=== PATIENT | female | born 1950 | race Caucasian/White ===

== ENCOUNTER 2021-05-02 13:56 | Inpatient (IN) | payer OTHER, SELFPAY ==
--- NOTE | ~2021-05-02 | CT_ITS ---
EXAMINATION: CT HEAD WITHOUT CONTRAST CLINICAL INFORMATION: Psychosis. Evaluate for vascular event. COMPARISON: None TECHNIQUE: Contiguous axial imaging was performed from the skull base to vertex without intravenous administration of contrast. This CT examination was performed using dose optimization techniques as appropriate, variously including the following: *Automated exposure control *Adjustment of mA and/or kV according to patient size (this includes techniques or standardized protocols for targeted exams where dose is matched to indication/reason for exam; i.e. extremities or head) *Use of iterative reconstruction technique DLP: 629 mGy-cm FINDINGS: There is no evidence of acute intracranial hemorrhage or territorial infarction. No abnormal mass effect or midline shift is seen. Hudson to white matter differentiation is well preserved. No extra-axial fluid collections are identified. The ventricles are normal in size. There is no abnormal attenuation within the brain parenchyma. The osseous structures and soft tissues are normal. The mastoid air cells and visualized portions of the paranasal sinuses are well aerated. CT/CT head/brain wo con IMPRESSION: No acute intracranial pathology.
--- NOTE | ~2021-05-02 | NM_ITS ---
EXAMINATION: MA BRAIN SPECT PERFUSION CLINICAL INFORMATION: Recent abrupt cognitive decline. COMPARISON: No previous brain SPECT study is available for comparison. CT of the head dated 05/17/2021 is available for comparison. TECHNIQUE: A brain SPECT acquisition was performed approximately 37 minutes following the intravenous administration of 30 mCi Tc-99m Neurolite. The SPECT images were obtained using a hybrid SPECT/CT scanner acquiring 128 projections of 20 seconds each over 360 degrees using a noncircular orbit and an acquisition matrix of [id number]. Transverse, coronal and sagittal projections and a cine volume were reconstructed. Nondiagnostic CT images were obtained for attenuation correction and localization. FINDINGS: The SPECT images show a diffuse decrease in activity involving the right frontal and parietal cortex. There are no significant abnormalities on the left. The subcortical structures including the basal ganglia and thalamus appear unremarkable. Activity in the occipital lobes appears normal and there is normal and bilaterally symmetrical activity in the cerebellum. MA/MA brain SPECT IMPRESSION: Diffusely decreased perfusion in the right frontal and parietal cerebral cortex is most consistent with a vascular etiology. Although such unilateral findings can be seen in Alzheimer's disease, this unilateral involvement would be atypical. Correlation with a current MRI of the brain is recommended for further evaluation, if not contraindicated.
[2021-05-02 18:00] VITALS: BP 146/66; PULSE 101; RESP 16; TEMP 36.4
--- NOTE | 2021-05-02 19:19 | PC.ADMIT ---
PT is a 71 year old female admitted on a conditional voluntary basis with the diagnosis of generalized anxiety disorder and major depressive disorder. PT arrived via stretch from [facility] at 13:05. PT has been slowly declining over the last year after she retired. [employer] has noticed significant decompensation over the 6 months month, pt is not eating and is said to have lost approximately 37 pounds due to little appetite and not attending to ADLs. PT has been unable manage her medications and often forgets if she has taken it and believes her memory is declining although bedside cognitive testing was relatively normal . PT currently denies SI/HI, AH/VH and feels safe on unit. Unable to sign paperwork due to mental status, will attempt again tomorrow.
[2021-05-02 23:28] VITALS: BP 116/54; PULSE 95; RESP 16
--- NOTE | 2021-05-03 | ECG_ITS ---
Test Reason : preop ect Blood Pressure : / mmHG Vent. Rate : 100 BPM Atrial Rate : 100 BPM P-R Int : 124 ms QRS Dur : 084 ms QT Int : 338 ms P-R-T Axes : 077 064 075 degrees QTc Int : 436 ms Normal sinus rhythm Normal ECG No previous ECGs available Referred By: Jacinto Cochran Electronically Signed By:Obi Briones
[2021-05-03 06:00] VITALS: BP 122/59; PULSE 99
[2021-05-03] MEDS: PARoxetine HCL 10 MG TABLET PO (09:05)
[2021-05-03] MEDS: clonazePAM 0.5 MG TABLET PO (09:05)
--- NOTE | 2021-05-03 10:23 | HO.PSYADMNOT ---
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 Patient reports she has been depressed, she thinks since January. She reports feeling down, not finding enjoyment in things, struggle with sleep, low motivation, little to no appetite, not socializing, not eating and having lost weight; she denies any hx of SI. Pt also reports she notices she's becoming more forgetful. She first realized it this past Spring when she uncovered numerous important paperwork she'd neglected. Pt says she's begun to neglect paying her bills and thinks she probably has not done so since January; she hs stopped driving her car since Jan. getting confused about how to get to familiar places; pt notices that she's having trouble using the computer. Pt is not sure exacxt timeliness of her meds but says she was started on Paxil most recently and also clonazepam, but stopped taking it this fall since she felt it made her feel foggy. Pt denies AVH, SI/HI, drug/alcohol abuse or hx of trauma. Pt endorses much anxiety over making decisions; most recently in choosing a HCP and what to do with will/inheritance Pt A/O x4; 3/3 word memory Past Psychiatric History: pt says psychiatrically admitted to [facility] this past February, though she's not sure why Medical Evaluation Reviewed: Hospitalist Anthony Pending [facility] Medical History (Updated 05/04/21 @ 01:02 by Abhishek Perry MD) MDD (major depressive disorder), recurrent severe, without psychosis Surgical History (Updated 05/03/21 @ 11:55 by Jacinto Cochran MD) H/O exploratory laparotomy H/O: hysterectomy History of lumbar fusion Family History: mother: anxiety father: colon cancer Social History: only child; never , no children college degree; 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; retired a year ago Substance History: denies Trauma History: denies Diagnostics Vital Signs (24Hr): Vital Signs - 24 hr 05/02/21 18:00 05/02/21 23:28 Temperature 97.5 F Pulse Rate 101 H 95 Respiratory Rate 16 16 Blood Pressure 146/66 H 116/54 L Labs Labs: No TSH CBC Wnl Lytes: WNL bun/cr WNL liver WNL UDS: neg U/A Neg Meds/Allergies Meds Home Medications Acetaminophen (Acetaminophen 325 Mg Tablet) 650 mg PO Q6H PRN PRN Reason: Headache/Pain Mild Scale (1-3) Last Admin: 05/03/21 19:30 Dose: 650 mg Documented by: Al Hydroxide/Mg Hydroxide (Magnesium Hydrox/Alum Hydrox 30 Ml Oral.Susp) 30 ml PO Q6H PRN PRN Reason: Heartburn/Nausea Clonazepam (Clonazepam 0.5 Mg Tablet) 0.5 mg PO BID PRN PRN Reason: anxiety Cyanocobalamin (Cyanocobalamin (Vitamin B-12) 100 Mcg Tablet) 100 mcg PO DAILY [facility] Ergocalciferol (Ergocalciferol (Vitamin D2) 1,250 Mcg Capsule) 1,250 mcg PO Q7D [facility] Last Admin: 05/03/21 19:32 Dose: 1,250 mcg Documented by: Folic Acid (Folic Acid 1 Mg Tablet) 1 mg PO DAILY [facility] Stop: 05/06/21 09:01 Magnesium Hydroxide (Milk Of Magnesia 30 Ml Oral.Susp) 30 ml PO DAILY PRN PRN Reason: Constipation Multivitamins/Vitamin C (Multivitamin Tablet) 1 tab PO DAILY [facility] Thiamine HCl (Thiamine Hcl 100 Mg Tablet) 100 mg PO DAILY [facility] Trazodone HCl (Trazodone Hcl 50 Mg Tablet) 50 mg PO BEDTIME PRN PRN Reason: Insomnia Allergies Allergies Allergy/AdvReac Type Severity Reaction Status Date / Time No Known Allergies Allergy Verified 05/02/21 13:17 Mental Status Exam Mental Status Exam Narrative: Pt is alert and oriented; behavior is cooperative; well dressed in casual attire with styled hair and good hygiene; mood is described as depressed and anxious and affect congruent; eye contact appropriate; Speech is a little slow and a little soft; some speech latency; psychomotor retardation present; thought process is goal directed but also somewhat muddled; Thought content mostly on worries about decisions, prevalence of confusion, tx; otherwise pertinent to relevant topics; denies any SI/HI. There is no evidence of perceptual disturbance. Patients insight and judgment are impaired. 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 -pt seems to have begun to experience cognitive decline starting this past Spring 2020. Pt's depression seems to be a combination of reaction to growing awareness of cognitive decline, and going off antidepressants; depression is severe however and will need to be treated -at this point, it's unclear what has caused cognitive decline; it seems to be fairly sudden, however it's also possible that it's been slowly declining for some time, but remained under the radar of her cousin/family/self. -will get TSH w/ reflex, B12/folate, calcium, ammonia PLAN: CV q15 min checks -will consider MRI if one not already obtained -will order labs to r/o possible organic contribution -will reach out to outpt psychiatrist Dr. Galloway -will not restart Paxil at this time since patient dc'd on her own which can cause discontinuation syndrome -discussed meds for depression/anxiety; pt will consider Mirtazpine as he struggles w/ insomnia and poor appetite, but was currently to anxious to make a decision; Paxil reportedly did work in past; pt is interested in Wellbutrin, however she is currently struggling with insomnia which Wellbutrin can aggravate -will make Clonazepam prn -Will try to gather more collateral to asses Reason for continued inpatient stay Substantial Risk for: inability to function
--- NOTE | 2021-05-03 11:45 | PM.IMCN ---
History of Present Illness Data of Consult Service Date: 05/03/21 Primary Care Provider: Bong Brannon MD HPI Reason for consult: Routine Medical + Pre-op eval for ECT This is a 71 yo F who denies any significant PMH. She is admitted to the inpatient psychiatric unit. Patient is seen and examined in her room. She denies any history of CAD, CVA. She denies any chest pain, currently or in the past. Denies any anginal symptoms. Reports she has had several previous surgeries. PMH Denies any PMH PSH Lumbar fusion Hysterectomy Lapratomy -- unclear for what reason, she describes it twisting of my bowels FM CAD in her mother who had CABG in her 70s SH Social drinking, sometimes a glass of wine with dinner Life long non-tobacco user no illicit substance Review of Systems Review of Systems: denies cp or sob denies cough denies abd pain, n/v/d otherwise negative for medical ROS [facility] Family History (Updated 05/03/21 @ 11:54 by Jacinto Cochran MD) Other CAD (coronary artery disease) Surgical History (Updated 05/03/21 @ 11:55 by Jacinto Cochran MD) H/O exploratory laparotomy H/O: hysterectomy History of lumbar fusion Social History Household Members: None Housing: House Do you presently have visiting nurse or other home services: Yes (home health aide) Patient Tobacco Use Status: Never used Tobacco e-Cigarette/Vaping Use: Never Used Use of substances other than those prescribed or required for medical reasons: No Advance Directives: No Advance Directives Information Provided: No Advance Directives on File: No Do you have thoughts of harming others: None Do you have a plan to hurt others: No Plan Recently lost weight without trying: Yes How much weight loss: 34pounds or more Eating poorly because of decreased appetite: Yes Nutrition screen score: 7 Nutrition Risks: Poor intake 0-25% >4 days Patient : No : No Poor oral hygiene: No service: No Sexual orientation: Straight/Heterosexual Meds Allergies Allergy/AdvReac Type Severity Reaction Status Date / Time No Known Allergies Allergy Verified 05/02/21 13:17 Active Medications: Current Medications Acetaminophen (Acetaminophen 325 Mg Tablet) 650 mg PO Q6H PRN PRN Reason: Headache/Pain Mild Scale (1-3) Al Hydroxide/Mg Hydroxide (Magnesium Hydrox/Alum Hydrox 30 Ml Oral.Susp) 30 ml PO Q6H PRN PRN Reason: Heartburn/Nausea Clonazepam (Clonazepam 0.5 Mg Tablet) 0.5 mg PO BID [facility] Last Admin: 05/03/21 09:05 Dose: 0.5 mg Documented by: Hydroxyzine HCl (Hydroxyzine Hcl 25 Mg Tablet) 25 mg PO BEDTIME PRN PRN Reason: Anxiety Magnesium Hydroxide (Milk Of Magnesia 30 Ml Oral.Susp) 30 ml PO DAILY PRN PRN Reason: Constipation Paroxetine HCl (Paroxetine Hcl 10 Mg Tablet) 10 mg PO DAILY [facility] Last Admin: 05/03/21 09:05 Dose: 10 mg Documented by: Trazodone HCl (Trazodone Hcl 50 Mg Tablet) 50 mg PO BEDTIME PRN PRN Reason: Insomnia Physical Exam Vital Signs and Narrative: Vital Signs: Last Vital Signs Temp 97.5 F 05/02/21 18:00 Pulse 95 05/02/21 23:28 Resp 16 05/02/21 23:28 BP 116/54 L 05/02/21 23:28 Const: Other: Constitutional - Awake and Alert, No apparent distress Eyes - PERRLA, EOMI Cardiovascular - S1S2, RRR, No edema Respiratory - Normal lung expansion, Normal respiratory effort, No respiratory distress, CTA bilaterally Gastrointestinal - NT / ND; +BS; No rebound or guarding - No CVA tenderness Extremities - no calf tenderness bilaterally, no swelling Musculoskeletal - Normal inspection, normal ROM Skin - Warm/Dry Neurological - Alert & oriented x3, No focal deficit; CN 2-12 in tact bilaterally Psychological - Flat affect Assessment and Plan (1) Preoperative cardiovascular examination: Status: Acute This is a 71 yo F who reports no significant PMH (and specifically no history of CAD) who is admitted to the inpatient psychiatric unit. Medical consult requested as part of protocol after transfer from an outside facility as well as for pre-op eval for possible ECT. The patient denies any CAD history and denies any anginal symptoms. Do not see an EKG in the transfer papers from [facility]. Have ordered a routine EKG here. If the EKG does not show any ischemic (acute or otherwise) findings, the patient would need no further work up prior to ECT. She is likely low risk. If the EKG does show worrisome findings, please re-consult Hospital Medicine or Cardiology prior to ECT.
[2021-05-03 19:15] VITALS: BP 126/60; PULSE 107; TEMP 36.6
[2021-05-03] MEDS: Acetaminophen 325 MG TABLET 650 MG PO (19:30)
[2021-05-03] MEDS: Ergocalciferol (Vitamin D2) 1,250 MCG CAPSULE 1250 MCG PO (19:32)
[2021-05-04 06:00] VITALS: BP 128/56; PULSE 100; RESP 16; TEMP 36.1; O2SAT 99
[2021-05-04 08:09] LABS: Ammonia 22 umol/L (13-55)
[2021-05-04 08:19] LABS: Calcium 10.2 mg/dL (8.4-10.2); Cholesterol 182 mg/dL; HDL Cholesterol 71 mg/dL; LDL Cholesterol Calculated 93 mg/dl; Triglycerides 91 mg/dL
[2021-05-04 08:38] LABS: TSH reflex Free T4 1.26 uIU/mL (0.32-4.0)
[2021-05-04] MEDS: Thiamine HCL 100 MG TABLET PO (09:09)
[2021-05-04] MEDS: Cyanocobalamin (Vitamin B-12) 100 MCG TABLET PO (09:09)
[2021-05-04] MEDS: Folic Acid 1 MG TABLET PO (09:09)
[2021-05-04] MEDS: Multivitamin TABLET 1 TAB PO (09:09)
[2021-05-04 09:12] LABS: Reflex LDLD? No
[2021-05-04 09:15] LABS: Folate 7.4 ng/mL (> or = 4.0); Vitamin B12 263 pg/mL (200-900)
--- NOTE | 2021-05-04 11:09 | P.PNPSI_ITS ---
Subjective Subjective Date of Service: 05/04/21 Reason For Visit: generalized anxiety disorder major depressive diso Subjective Notes: Mckeon Warning and Conditional Voluntary Medical Problems Affecting Mental Status: No Interim History: pt anxious and worried today. preseverating on not being able to be helped. difficulty accepting reassurance; poor concentration. difficulty engaging pt in proactive problem solving. Medication Compliance: Yes Side effects from medications: Yes (pt worried about side effects) Attending Groups: No Review of Systems Acute medical concerns: No Medical Review of Systems: unchanged Review of Systems: question of onset of new dementia Review of Systems Review of Systems denies cp or sob denies cough denies abd pain, n/v/d otherwise negative for medical ROS + weight loss labs innrmal range including folate, B12 Mental Status Exam Mental Status Exam Narrative: Pt is alert and oriented to plae and situation; behavior is cooperative; well dressed in casual attire with styled hair and good hygiene; mood is described as depressed and anxious and affect congruent; eye contact appropriate; Speech is a little slow and a little soft; some speech latency; psychomotor retardation present; thought process is preseverating and somewhat muddled; Thought content mostly on worries about decisions, prevalence of confusion, tx; otherwise pertinent to relevant topics; denies any SI/HI. There is no evidence of perceptual disturbance. Patients insight and judgment are impaired. Diagnostics Vital Signs (24Hr): Vital Signs - 24 hr 05/03/21 19:15 05/04/21 06:00 Temperature 97.8 F 97 F Pulse Rate 107 H 100 Respiratory Rate 16 Blood Pressure 126/60 128/56 L Pulse Oximetry 99 Labs Labs: Laboratory Results - last 48 hr 05/04/21 05/04/21 05/04/21 07:51 07:51 07:51 Calcium 10.2 Ammonia 22 Triglycerides 91 Cholesterol 182 LDL Cholesterol, Calc 93 HDL Cholesterol 71 Vitamin B12 263 Folate 7.4 TSH 1.26 Medications Medications Current Medications Acetaminophen (Acetaminophen 325 Mg Tablet) 650 mg PO Q6H PRN PRN Reason: Headache/Pain Mild Scale (1-3) Last Admin: 05/03/21 19:30 Dose: 650 mg Documented by: Al Hydroxide/Mg Hydroxide (Magnesium Hydrox/Alum Hydrox 30 Ml Oral.Susp) 30 ml PO Q6H PRN PRN Reason: Heartburn/Nausea Clonazepam (Clonazepam 0.5 Mg Tablet) 0.5 mg PO BID PRN PRN Reason: anxiety Cyanocobalamin (Cyanocobalamin (Vitamin B-12) 100 Mcg Tablet) 100 mcg PO DAILY [facility] Last Admin: 05/04/21 09:09 Dose: 100 mcg Documented by: Ergocalciferol (Ergocalciferol (Vitamin D2) 1,250 Mcg Capsule) 1,250 mcg PO Q7D [facility] Last Admin: 05/03/21 19:32 Dose: 1,250 mcg Documented by: Folic Acid (Folic Acid 1 Mg Tablet) 1 mg PO DAILY [facility] Stop: 05/06/21 09:01 Last Admin: 05/04/21 09:09 Dose: 1 mg Documented by: Magnesium Hydroxide (Milk Of Magnesia 30 Ml Oral.Susp) 30 ml PO DAILY PRN PRN Reason: Constipation Multivitamins/Vitamin C (Multivitamin Tablet) 1 tab PO DAILY [facility] Last Admin: 05/04/21 09:09 Dose: 1 tab Documented by: Thiamine HCl (Thiamine Hcl 100 Mg Tablet) 100 mg PO DAILY [facility] Last Admin: 05/04/21 09:09 Dose: 100 mg Documented by: Trazodone HCl (Trazodone Hcl 50 Mg Tablet) 50 mg PO BEDTIME PRN PRN Reason: Insomnia Allergies Allergies Allergy/AdvReac Type Severity Reaction Status Date / Time No Known Allergies Allergy Verified 05/02/21 13:17 Assessment & Plan Assessment & Plan (1) MDD (major depressive disorder), recurrent severe, without psychosis: Status: Acute Code(s): F33.2 - Major depressive disorder, recurrent severe without psychotic features (2) Cognitive decline: Status: Acute Code(s): R41.89 - Other symptoms and signs involving cognitive functions and awareness Assessment and Plan: Impression: pt is a 71 yo female, college educated woman, 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 -pt seems to have begun to experience cognitive decline starting this past Spring 2020. Pt's depression seems to be a combination of reaction to growing awareness of cognitive decline, and going off antidepressants; depression is severe however and will need to be treated -at this point, it's unclear what has caused cognitive decline; it seems to be fairly sudden, however it's also possible that it's been slowly declining for some time, but remained under the radar of her cousin/family/self. review of labs get TSH w/ reflex, B12/folate, calcium, ammonia are normal PLAN: CV q15 min checks consider MRI if one not already obtained -collateral contact with outpt psychiatrist Dr. Galloway -will not restart Paxil at this time since patient dc'd on her own which can cause discontinuation syndrome -discussed meds for depression/anxiety; pt will consider Mirtazpine as he struggles w/ insomnia and poor appetite, but was currently to anxious to make a decision; Paxil reportedly did work in past; pt is interested in Wellbutrin, however she is currently struggling with insomnia which Wellbutrin can aggravate continue Clonazepam prn gather more collateral to asses status and aftercare planning I spent minutes with the patient and/or on the patient floor today, greater than?50% of which was spent counseling/coordinating care. Patient educated on: therapeutic strategies Informed Consent: further education needed Reason for contiued inpatient stay Substantial Risk for: inability to function and rapid decompensation
[2021-05-04 19:40] VITALS: BP 145/65; PULSE 109; TEMP 37.1
[2021-05-04] MEDS: clonazePAM 0.5 MG TABLET PO (20:17)
[2021-05-05 06:00] VITALS: BP 150/67; PULSE 97
[2021-05-05] MEDS: Folic Acid 1 MG TABLET PO (08:44)
[2021-05-05] MEDS: Multivitamin TABLET 1 TAB PO (08:44)
[2021-05-05] MEDS: Cyanocobalamin (Vitamin B-12) 100 MCG TABLET PO (08:44)
[2021-05-05] MEDS: Thiamine HCL 100 MG TABLET PO (08:44)
[2021-05-05] MEDS: clonazePAM 0.5 MG TABLET PO (08:56)
--- NOTE | 2021-05-05 12:01 | P.PNPSI_ITS ---
Subjective Subjective Date of Service: 05/05/21 Reason For Visit: generalized anxiety disorder major depressive diso Subjective Notes: Conditional Voluntary Medical Problems Affecting Mental Status: Yes (possible dementia) Interim History: pt very depressed, anxious, thought blocking, high psychic distress, long pauses in answers and often unable to finish her thought. expressing hopelessness Medication Compliance: Yes Side effects from medications: No Attending Groups: No Review of Systems Acute medical concerns: No Medical Review of Systems: unchanged Mental Status Exam Mental Status Exam Patient Appearance: Appropriate Patient Orientation: Place and Situation Level of Consciousness: Awake and Restless Patient Behavior: Guarded, Suspicious, Restless, Anxious and Crying (wimpering off and on no tears- very distressed) Mood Description: Anxious, Sad and Apprehensive Affect Description: Suspicious, Depressed, Anxious and Sad Patient Cognition Impaired: Yes Ability to Follow Directions: Fair Speech Pattern: Impoverished, Difficulty Finding Words, Whisper and Delayed Thought Process: Slowed Thinking Thought Content: positive for Poverty of Content and positive for Slowed Thinking Depressive Symptoms: Increased Anxiety, Insomnia, Diff. Making Decisions, Changes in Appetite, Crying Spells, Significant Weight Loss, Loss of Int. in Activity, Feelings of Worthlessness, Hopelessness, Feelings of Guilt, Unhappiness, Increased Fatigue, Loss of Energy and Difficulty Concentrating Abnormal Motor Activity Signs and Symptoms: Restlessness Judgement: Poor Diagnostics Vital Signs (24Hr): Vital Signs - 24 hr 05/04/21 19:40 05/05/21 06:00 Temperature 98.7 F Pulse Rate 109 H 97 Blood Pressure 145/65 H 150/67 H Labs Labs: Laboratory Results - last 48 hr 05/04/21 05/04/21 05/04/21 07:51 07:51 07:51 Calcium 10.2 Ammonia 22 Triglycerides 91 Cholesterol 182 LDL Cholesterol, Calc 93 HDL Cholesterol 71 Vitamin B12 263 Folate 7.4 TSH 1.26 Medications Medications Current Medications Acetaminophen (Acetaminophen 325 Mg Tablet) 650 mg PO Q6H PRN PRN Reason: Headache/Pain Mild Scale (1-3) Last Admin: 05/03/21 19:30 Dose: 650 mg Documented by: Al Hydroxide/Mg Hydroxide (Magnesium Hydrox/Alum Hydrox 30 Ml Oral.Susp) 30 ml PO Q6H PRN PRN Reason: Heartburn/Nausea Clonazepam (Clonazepam 0.5 Mg Tablet) 0.5 mg PO BID PRN PRN Reason: anxiety Last Admin: 05/05/21 08:56 Dose: 0.5 mg Documented by: Cyanocobalamin (Cyanocobalamin (Vitamin B-12) 100 Mcg Tablet) 100 mcg PO DAILY [facility] Last Admin: 05/05/21 08:44 Dose: 100 mcg Documented by: Ergocalciferol (Ergocalciferol (Vitamin D2) 1,250 Mcg Capsule) 1,250 mcg PO Q7D [facility] Last Admin: 05/03/21 19:32 Dose: 1,250 mcg Documented by: Folic Acid (Folic Acid 1 Mg Tablet) 1 mg PO DAILY [facility] Stop: 05/06/21 09:01 Last Admin: 05/05/21 08:44 Dose: 1 mg Documented by: Magnesium Hydroxide (Milk Of Magnesia 30 Ml Oral.Susp) 30 ml PO DAILY PRN PRN Reason: Constipation Mirtazapine (Mirtazapine 7.5 Mg Tablet) 7.5 mg PO BEDTIME [facility] Multivitamins/Vitamin C (Multivitamin Tablet) 1 tab PO DAILY [facility] Last Admin: 05/05/21 08:44 Dose: 1 tab Documented by: Thiamine HCl (Thiamine Hcl 100 Mg Tablet) 100 mg PO DAILY [facility] Last Admin: 05/05/21 08:44 Dose: 100 mg Documented by: Trazodone HCl (Trazodone Hcl 25 Mg Halftab) 25 mg PO BEDTIME PRN PRN Reason: Insomnia Allergies Allergies Allergy/AdvReac Type Severity Reaction Status Date / Time No Known Allergies Allergy Verified 05/02/21 13:17 Assessment & Plan Assessment & Plan (1) MDD (major depressive disorder), recurrent severe, without psychosis: Status: Acute Code(s): F33.2 - Major depressive disorder, recurrent severe without psychotic features (2) Cognitive decline: Status: Acute Code(s): R41.89 - Other symptoms and signs involving cognitive functions and awareness Assessment and Plan: Impression: pt is a 71 yo female, college educated woman, 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 -pt seems to have begun to experience cognitive decline starting this past Spring 2020. Pt's depression seems to be a combination of reaction to growing awareness of cognitive decline, and going off antidepressants; depression is severe however and will need to be treated -at this point, it's unclear what has caused cognitive decline; it seems to be fairly sudden, however it's also possible that it's been slowly declining for some time, but remained under the radar of her cousin/family/self. review of labs get TSH w/ reflex, B12/folate, calcium, ammonia are normal PLAN: trial of remeron 7.5 mg at hs CV q15 min checks consider MRI if one not already obtained -collateral contact with outpt psychiatrist Dr. Galloway -will not restart Paxil at this time since patient dc'd on her own which can cause discontinuation syndrome -discussed meds for depression/anxiety; pt will consider Mirtazpine as he struggles w/ insomnia and poor appetite, but was currently to anxious to make a decision; Paxil reportedly did work in past; pt is interested in Wellbutrin, however she is currently struggling with insomnia which Wellbutrin can aggravate continue Clonazepam prn gather more collateral to asses status and aftercare planning I spent minutes with the patient and/or on the patient floor today, greater than?50% of which was spent counseling/coordinating care. Reason for contiued inpatient stay Substantial Risk for: harm to self, inability to function and med/psych decompensation
[2021-05-05 17:35] VITALS: BP 134/61; PULSE 92; RESP 16; TEMP 37.2; O2SAT 98
[2021-05-05] MEDS: Mirtazapine 7.5 MG TABLET PO (23:00)
[2021-05-06 06:00] VITALS: BP 133/82; PULSE 99; RESP 16
[2021-05-06] MEDS: Folic Acid 1 MG TABLET PO (08:27)
[2021-05-06] MEDS: Cyanocobalamin (Vitamin B-12) 100 MCG TABLET PO (08:27)
[2021-05-06] MEDS: Multivitamin TABLET 1 TAB PO (08:27)
[2021-05-06] MEDS: Thiamine HCL 100 MG TABLET PO (08:27)
[2021-05-06 08:31] VITALS: TEMP 36.9; O2SAT 98
--- NOTE | 2021-05-06 10:38 | P.PNPSI_ITS ---
Subjective Subjective Date of Service: 05/06/21 Reason For Visit: generalized anxiety disorder major depressive diso Interim History: pt started remeron 7.5 mg at hs last night. No changes. No excessive sedation this am. Still very depressed, anxious, thought blocking, high psychic distress, long pauses in answers and often unable to finish her thought. expressing hopelessness Medication Compliance: Yes Side effects from medications: No Attending Groups: Intermittent Review of Systems Acute medical concerns: No Medical Review of Systems: unchanged Review of Systems Review of Systems denies cp or sob denies cough denies abd pain, n/v/d otherwise negative for medical ROS + weight loss labs innrmal range including folate, B12 Mental Status Exam Mental Status Exam Narrative: Pt is alert and oriented to place and situation; behavior is cooperative; well dressed in casual attire with styled hair and good hygiene; mood is described as depressed and anxious and affect congruent; eye contact appropriate; Speech is a little slow and a little soft; some speech latency; psychomotor retardation present; thought process is preseverating and somewhat muddled; Thought content mostly on worries about decisions, prevalence of confusion, tx; otherwise pertinent to relevant topics; denies any SI/HI. There is no evidence of perceptual disturbance. Patients insight and judgment are impaired. Patient Appearance: Appropriate Patient Orientation: Place and Situation Level of Consciousness: Awake and Restless Patient Behavior: Guarded, Suspicious, Restless, Anxious and Crying (wimpering off and on no tears- very distressed) Mood Description: Anxious, Sad and Apprehensive Affect Description: Suspicious, Depressed, Anxious and Sad Patient Cognition Impaired: Yes Ability to Follow Directions: Fair Speech Pattern: Impoverished, Difficulty Finding Words, Whisper and Delayed Diagnostics Vital Signs (24Hr): Vital Signs - 24 hr 05/05/21 17:35 05/06/21 06:00 05/06/21 08:31 Temperature 99.0 F 98.5 F Pulse Rate 92 99 Respiratory Rate 16 16 Blood Pressure 134/61 133/82 Pulse Oximetry 98 98 Medications Medications Current Medications Acetaminophen (Acetaminophen 325 Mg Tablet) 650 mg PO Q6H PRN PRN Reason: Headache/Pain Mild Scale (1-3) Last Admin: 05/03/21 19:30 Dose: 650 mg Documented by: Al Hydroxide/Mg Hydroxide (Magnesium Hydrox/Alum Hydrox 30 Ml Oral.Susp) 30 ml PO Q6H PRN PRN Reason: Heartburn/Nausea Clonazepam (Clonazepam 0.5 Mg Tablet) 0.5 mg PO BID PRN PRN Reason: anxiety Last Admin: 05/05/21 08:56 Dose: 0.5 mg Documented by: Cyanocobalamin (Cyanocobalamin (Vitamin B-12) 100 Mcg Tablet) 100 mcg PO DAILY [facility] Last Admin: 05/06/21 08:27 Dose: 100 mcg Documented by: Ergocalciferol (Ergocalciferol (Vitamin D2) 1,250 Mcg Capsule) 1,250 mcg PO Q7D [facility] Last Admin: 05/03/21 19:32 Dose: 1,250 mcg Documented by: Magnesium Hydroxide (Milk Of Magnesia 30 Ml Oral.Susp) 30 ml PO DAILY PRN PRN Reason: Constipation Mirtazapine (Mirtazapine 7.5 Mg Tablet) 7.5 mg PO BEDTIME [facility] Last Admin: 05/05/21 23:00 Dose: 7.5 mg Documented by: Multivitamins/Vitamin C (Multivitamin Tablet) 1 tab PO DAILY [facility] Last Admin: 05/06/21 08:27 Dose: 1 tab Documented by: Thiamine HCl (Thiamine Hcl 100 Mg Tablet) 100 mg PO DAILY [facility] Last Admin: 05/06/21 08:27 Dose: 100 mg Documented by: Trazodone HCl (Trazodone Hcl 25 Mg Halftab) 25 mg PO BEDTIME PRN PRN Reason: Insomnia Allergies Allergies Allergy/AdvReac Type Severity Reaction Status Date / Time No Known Allergies Allergy Verified 05/02/21 13:17 Assessment & Plan Assessment & Plan (1) MDD (major depressive disorder), recurrent severe, without psychosis: Status: Acute Code(s): F33.2 - Major depressive disorder, recurrent severe without psychotic features (2) Cognitive decline: Status: Acute Code(s): R41.89 - Other symptoms and signs involving cognitive functions and awareness Assessment and Plan: Impression: pt is a 71 yo female, college educated woman, 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 -pt seems to have begun to experience cognitive decline starting this past Spring 2020. Pt's depression seems to be a combination of reaction to growing awareness of cognitive decline, and going off antidepressants; depression is severe however and will need to be treated -at this point, it's unclear what has caused cognitive decline; it seems to be fairly sudden, however it's also possible that it's been slowly declining for some time, but remained under the radar of her cousin/family/self. review of labs get TSH w/ reflex, B12/folate, calcium, ammonia are normal 05/06/21 Continue remeron 7.5 mg at hs CV q15 min checks consider MRI if one not already obtained -collateral contact with outpt psychiatrist Dr. Galloway -will not restart Paxil at this time since patient dc'd on her own which can cause discontinuation syndrome -discussed meds for depression/anxiety; pt will consider Mirtazpine as he struggles w/ insomnia and poor appetite, but was currently to anxious to make a decision; Paxil reportedly did work in past; pt is interested in Wellbutrin, however she is currently struggling with insomnia which Wellbutrin can aggravate continue Clonazepam prn gather more collateral to asses status and aftercare planning I spent minutes with the patient and/or on the patient floor today, greater than?50% of which was spent counseling/coordinating care. Reason for contiued inpatient stay Substantial Risk for: harm to self, inability to function and rapid decompensation
[2021-05-06 18:00] VITALS: BP 165/78; PULSE 99; TEMP 36.9; O2SAT 97
[2021-05-07] MEDS: clonazePAM 0.5 MG TABLET PO (00:24)
[2021-05-07] MEDS: Mirtazapine 7.5 MG TABLET PO (00:25)
[2021-05-07 06:00] VITALS: BP 163/72; PULSE 99; RESP 18; TEMP 36.7; O2SAT 99
[2021-05-07] MEDS: Cyanocobalamin (Vitamin B-12) 100 MCG TABLET PO (08:27)
[2021-05-07] MEDS: Thiamine HCL 100 MG TABLET PO (08:27)
[2021-05-07] MEDS: Multivitamin TABLET 1 TAB PO (08:27)
--- NOTE | 2021-05-07 16:21 | P.PNPSI_ITS ---
Subjective Subjective Date of Service: 05/07/21 Reason For Visit: generalized anxiety disorder major depressive diso Interim History: Patient is depressed and anxious. She is in anguish over the growing realization that she may have dementia and frequently would i can't believe this is happening... Patient is very anxious about medications wearing about being overmedicated. Railroad Car Cleaner attempts to educate patient and she agrees to increase mirtazapine to 15 mg though she remains anxious. Patient said that she is not eating much and showed typewriter repairer a line of unopened Ensure bottle's. Though not hungry, She said that she will eat the Ensure if it makes a difference... And proceeded to open and drink one. Patient said she would like to sign a DNR and typewriter repairer explained that this paperwork can be looked at tomorrow with social work case manager; patient said she knows she needs to assign a healthcare proxy though she is anxious about this topic. Patient very fretful throughout interview, frequently standing up walking around and saying oh god I can not believe this is happening... She referenced MRIs that she may have had in February and typewriter repairer agreed to try get this information. Mental Status Exam Mental Status Exam Narrative: Pt is alert and oriented; behavior is cooperative; neatly dressed in casual attire with combed hair and good hygiene; mood is described as anxious and affect congruent; eye contact appropriate; Speech can be a little latent but normal volume and rate; some psychomotor agitation present; thought process is goal directed but also perseverative and distracted by worry; Thought content mostly on anguish over cognitive decline and worries about decisions, tx; but TC is pertinent to relevant topics; denies any SI/HI. There is no evidence of perceptual disturbance. Patients insight and judgment are impaired. Diagnostics Vital Signs (24Hr): Vital Signs - 24 hr 05/06/21 18:00 05/07/21 06:00 Temperature 98.4 F 98.1 F Pulse Rate 99 99 Respiratory Rate 18 Blood Pressure 165/78 H 163/72 H Pulse Oximetry 97 99 Medications Medications Current Medications Acetaminophen (Acetaminophen 325 Mg Tablet) 650 mg PO Q6H PRN PRN Reason: Headache/Pain Mild Scale (1-3) Last Admin: 05/03/21 19:30 Dose: 650 mg Documented by: Al Hydroxide/Mg Hydroxide (Magnesium Hydrox/Alum Hydrox 30 Ml Oral.Susp) 30 ml PO Q6H PRN PRN Reason: Heartburn/Nausea Clonazepam (Clonazepam 0.5 Mg Tablet) 0.5 mg PO BID PRN PRN Reason: anxiety Last Admin: 05/07/21 00:24 Dose: 0.5 mg Documented by: Cyanocobalamin (Cyanocobalamin (Vitamin B-12) 100 Mcg Tablet) 100 mcg PO DAILY [facility] Last Admin: 05/07/21 08:27 Dose: 100 mcg Documented by: Ergocalciferol (Ergocalciferol (Vitamin D2) 1,250 Mcg Capsule) 1,250 mcg PO Q7D [facility] Last Admin: 05/03/21 19:32 Dose: 1,250 mcg Documented by: Magnesium Hydroxide (Milk Of Magnesia 30 Ml Oral.Susp) 30 ml PO DAILY PRN PRN Reason: Constipation Mirtazapine (Mirtazapine 15 Mg Tablet) 15 mg PO BEDTIME [facility] Multivitamins/Vitamin C (Multivitamin Tablet) 1 tab PO DAILY [facility] Last Admin: 05/07/21 08:27 Dose: 1 tab Documented by: Thiamine HCl (Thiamine Hcl 100 Mg Tablet) 100 mg PO DAILY [facility] Last Admin: 05/07/21 08:27 Dose: 100 mg Documented by: Trazodone HCl (Trazodone Hcl 25 Mg Halftab) 25 mg PO BEDTIME PRN PRN Reason: Insomnia Allergies Allergies Allergy/AdvReac Type Severity Reaction Status Date / Time No Known Allergies Allergy Verified 05/02/21 13:17 Assessment & Plan Assessment & Plan (1) MDD (major depressive disorder), recurrent severe, without psychosis: Status: Acute Code(s): F33.2 - Major depressive disorder, recurrent severe without psychotic features (2) Cognitive decline: Status: Acute Code(s): R41.89 - Other symptoms and signs involving cognitive functions and awareness Assessment and Plan: IMPRESSION: pt is a 71 yo female, college educated woman, 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 Pt became aware of cognitive decline starting this past Spring 2020. Pt's depression seems to be a combination of reaction to growing awareness of cognitive decline, and going off antidepressants; depression is severe however and will need to be treated At this point, it's unclear the etiology of cognitive decline; patient has been aware of it for the past 9 months however it seems to have gotten increasingly worse as depression set in this past fall/winter; it is unclear if there were signs of cognitive decline prior to this past spring. Hospital course: review of labs get TSH w/ reflex, B12/folate, calcium, ammonia are normal Started Mirtazapine for depression and anxiety in the face of insomnia and poor appetite Patient understands her provisional diagnosis of dementia and is in anguish over the enormity and outcome of such a diagnosis PLAN CV q15 min checks -Increased remeron to 15mg qhs as patient is extremely anxious and depressed -ORDERED NEURO consult to assess dementia, need for imaging and medication recommendations (cholinesterase inhibitors?) consider MRI if one not already obtained (pt referenced recent MRI's) -collateral contact with outpt psychiatrist Dr. Gallowya -will not restart Paxil at this time since patient dc'd on her own which can cause discontinuation syndrome -discussed meds for depression/anxiety; Paxil reportedly did work in past; pt is interested in Wellbutrin, however she is currently struggling with insomnia which Wellbutrin can aggravate continue Clonazepam prn gather more collateral to asses status and aftercare planning I spent minutes with the patient and/or on the patient floor today, greater than?50% of which was spent counseling/coordinating care. Reason for contiued inpatient stay Substantial Risk for: inability to function
[2021-05-07 21:00] VITALS: BP 159/70; PULSE 104; RESP 19; TEMP 36.4; O2SAT 99
[2021-05-08 06:00] VITALS: BP 139/64; PULSE 110; TEMP 36.1; O2SAT 96
--- NOTE | 2021-05-08 16:26 | P.CNNE_ITS ---
History of Present Illness Data of Consult Service Date: 05/08/21 Primary Care Provider: Bong Brannon MD [facility] Reason for consult: Concerns of cognitive decline This is a 71-year-old woman with a history of major depressive illness, which is recurrent and severe and past history of anxiety going back to her younger years who is evaluated because she has concerns of cognitive decline. In the last 9 months since July or August of 2020 she feels she is not as sharp mentally specially with numbers and is very concerned about dementia and keeps saying that it's scary and is concerned about her future. She did have an MRI of her brain at [facility] within the last 6 months the report of which is not available. She's had lab work for treatable cause of dementia on this admission which are normal. There is no family history of premature dementia. Review of Systems Review of Systems: denies cp or sob denies cough denies abd pain, n/v/d otherwise negative for medical ROS + weight loss labs innrmal range including folate, B12 PMFSH Past Medical History Medical History (Updated 05/04/21 @ 01:02 by Abhishek Perry MD) MDD (major depressive disorder), recurrent severe, without psychosis Family History Family History (Updated 05/03/21 @ 11:54 by Jacinto Cochran MD) Other CAD (coronary artery disease) Surgical History Surgical History (Updated 05/03/21 @ 11:55 by Jacinto Cochran MD) H/O exploratory laparotomy H/O: hysterectomy History of lumbar fusion Social History Social History Household Members: None Housing: House Do you presently have visiting nurse or other home services: Yes (home health aide) Patient Tobacco Use Status: Never used Tobacco e-Cigarette/Vaping Use: Never Used Use of substances other than those prescribed or required for medical reasons: No Currently Displaying Signs/Symptoms of Drug Intoxication Withdrawal: No Advance Directives: No Advance Directives Information Provided: No Advance Directives on File: No Do you have thoughts of harming others: None Do you have a plan to hurt others: No Plan Recently lost weight without trying: Yes How much weight loss: 34pounds or more Eating poorly because of decreased appetite: Yes Nutrition screen score: 7 Nutrition Risks: Poor intake 0-25% >4 days Patient : No : No Poor oral hygiene: No service: No Sexual orientation: Straight/Heterosexual Meds Allergies Allergy/AdvReac Type Severity Reaction Status Date / Time No Known Allergies Allergy Verified 05/02/21 13:17 Active Medications: Current Medications Acetaminophen (Acetaminophen 325 Mg Tablet) 650 mg PO Q6H PRN PRN Reason: Headache/Pain Mild Scale (1-3) Last Admin: 05/03/21 19:30 Dose: 650 mg Documented by: Al Hydroxide/Mg Hydroxide (Magnesium Hydrox/Alum Hydrox 30 Ml Oral.Susp) 30 ml PO Q6H PRN PRN Reason: Heartburn/Nausea Clonazepam (Clonazepam 0.5 Mg Tablet) 0.5 mg PO BID PRN PRN Reason: anxiety Last Admin: 05/07/21 00:24 Dose: 0.5 mg Documented by: Cyanocobalamin (Cyanocobalamin (Vitamin B-12) 100 Mcg Tablet) 100 mcg PO DAILY [facility] Last Admin: 05/08/21 10:06 Dose: Not Given Documented by: Ergocalciferol (Ergocalciferol (Vitamin D2) 1,250 Mcg Capsule) 1,250 mcg PO Q7D [facility] Last Admin: 05/03/21 19:32 Dose: 1,250 mcg Documented by: Magnesium Hydroxide (Milk Of Magnesia 30 Ml Oral.Susp) 30 ml PO DAILY PRN PRN Reason: Constipation Mirtazapine (Mirtazapine 15 Mg Tablet) 15 mg PO BEDTIME [facility] Last Admin: 05/07/21 21:31 Dose: Not Given Documented by: Multivitamins/Vitamin C (Multivitamin Tablet) 1 tab PO DAILY [facility] Last Admin: 05/08/21 10:06 Dose: Not Given Documented by: Thiamine HCl (Thiamine Hcl 100 Mg Tablet) 100 mg PO DAILY [facility] Last Admin: 05/08/21 10:06 Dose: Not Given Documented by: Trazodone HCl (Trazodone Hcl 25 Mg Halftab) 25 mg PO BEDTIME PRN PRN Reason: Insomnia Physical Exam Vital Signs: Vital Signs: Last Vital Signs Temp 97.0 F 05/08/21 06:00 Pulse 110 H 05/08/21 06:00 Resp 19 05/07/21 21:00 BP 139/64 05/08/21 06:00 Pulse Ox 96 05/08/21 06:00 Const: Other: Constitutional - Awake and Alert, No apparent distress Eyes - PERRLA, EOMI Cardiovascular - S1S2, RRR, No edema Respiratory - Normal lung expansion, Normal respiratory effort, No respiratory distress, CTA bilaterally Gastrointestinal - NT / ND; +BS; No rebound or guarding - No CVA tenderness Extremities - no calf tenderness bilaterally, no swelling Musculoskeletal - Normal inspection, normal ROM Skin - Warm/Dry Neurological - Alert & oriented x3, No focal deficit; CN 2-12 in tact bilaterally Psychological - Flat affect Neuro: Other: She is alert and oriented x3 except she wasn't sure if it was a thorough the fourth. She narrates a very lucid history with details. She is unsure of some dates. She appears to have significant anxiety and concerns as well has obvious depression. Neurological examination is nonfocal. Assessment and Plan (1) MDD (major depressive disorder), recurrent severe, without psychosis: Status: Acute (2) Cognitive decline: Status: Acute I am not certain whether she has mild cognitive impairment or this is a anxiety and depression with a pseudo-dementia. My recommendation would be to obtain the report of the MRI of the brain that was done within the last 6 months at [facility]. I would recommend an EEG. Blood work for treatable d ementia as is normal. She can also have an outpatient neuropsych testing once her major depression is treated and improves. The patient has been reassured. 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 Pt became aware of cognitive decline starting this past Spring 2020. Pt's depression seems to be a combination of reaction to growing a wareness of cognitive decline, and going off antidepressants; depression is severe however and will need to be treated At this point, it's unclear the etiology of cognitive decline; patient has been aware of it for the past 9 months however it seems to have gotten increasingly worse as depression set in this past fall/winter; it is unclear if there were signs of cognitive decline prior to this past spring. Hospital course: review of labs get TSH w/ reflex, B12/folate, calcium, ammonia are normal Started Mirtazapine for depression and anxiety in the face of insomnia and poor appetite Patient understands her provisional diagnosis of dementia and is in anguish over the enormity and outcome of such a diagnosis PLAN CV q15 min checks -Increased remeron to 15mg qhs as patient is extremely anxious and depressed -ORDERED NEURO consult to assess dementia, need for imaging and medication recommendations (cholinesterase inhibitors?) consider MRI if one not already obtained (pt referenced recent MRI's) -collateral contact with outpt psychiatrist Dr. Galloway -will not restart Paxil at this time since patient dc'd on her own which can cause discontinuation syndrome -discussed meds for depression/anxiety; Paxil reportedly did work in past; pt is interested in Wellbutrin, however she is currently struggling with insomnia which Wellbutrin can aggravate continue Clonazepam prn gather more collateral to asses status and aftercare planning Procedures Date of Service Date of Service: 05/08/21
[2021-05-08 16:30] VITALS: BP 152/65; PULSE 107; TEMP 36.6
--- NOTE | 2021-05-08 18:30 | HO.PSYCHPN ---
Subjective Subjective Date of Service: 05/08/21 Reason For Visit: generalized anxiety disorder major depressive diso Interim History: pt remains very anxious and depressed; she says she is confused and that she has not been eating, however agrees to continue with Ensure. Pt is not sure why she refused Mirtazapine yesterday; she seems to understand the need to combat her anxiety and depression. Corporate Counselor discussed options for medications; pt said she was too anxious to decide and wanted curriculum writer to choose. Patient intermittently to anxious to complete her sentences however she is able to do so and able to articulate clearly talked with Nilesh Lyons who's treated pt for decades and says she's has done well on Paxil 20-30mg for years with trial of duloxetine inbetween. Mostly hx of anxiety. Retiring a very big life change for patient. He too is not sure about her decompensation and questions whether this is dementia or depression induced. Says she was hospitalized medically this past fall but is not sure where; says pretty sure had MRI and thinks negative, but has not personally reviewed imaging. Mental Status Exam Mental Status Exam Narrative: Pt is alert and oriented; behavior is cooperative; neatly dressed in casual attire with combed hair and good hygiene; mood is described as scared and affect congruent; eye contact appropriate; Speech can be a little latent but normal volume and rate; no psychomotor agitation; thought process is goal directed but heavily perseverating on worries and distracted by indecision; Thought content mostly on worries over cognitive decline and worries about decisions, tx; but TC is pertinent to relevant topics; denies any SI/HI. There is no evidence of perceptual disturbance. Patients insight and judgment are impaired. Diagnostics Vital Signs (24Hr): Vital Signs - 24 hr 05/07/21 21:00 05/08/21 06:00 Temperature 97.6 F 97.0 F Pulse Rate 104 H 110 H Respiratory Rate 19 Blood Pressure 159/70 H 139/64 Pulse Oximetry 99 96 Medications Medications Current Medications Acetaminophen (Acetaminophen 325 Mg Tablet) 650 mg PO Q6H PRN PRN Reason: Headache/Pain Mild Scale (1-3) Last Admin: 05/03/21 19:30 Dose: 650 mg Documented by: Al Hydroxide/Mg Hydroxide (Magnesium Hydrox/Alum Hydrox 30 Ml Oral.Susp) 30 ml PO Q6H PRN PRN Reason: Heartburn/Nausea Clonazepam (Clonazepam 0.5 Mg Tablet) 0.5 mg PO BID PRN PRN Reason: anxiety Last Admin: 05/07/21 00:24 Dose: 0.5 mg Documented by: Cyanocobalamin (Cyanocobalamin (Vitamin B-12) 100 Mcg Tablet) 100 mcg PO DAILY [facility] Last Admin: 05/08/21 10:06 Dose: Not Given Documented by: Ergocalciferol (Ergocalciferol (Vitamin D2) 1,250 Mcg Capsule) 1,250 mcg PO Q7D [facility] Last Admin: 05/03/21 19:32 Dose: 1,250 mcg Documented by: Magnesium Hydroxide (Milk Of Magnesia 30 Ml Oral.Susp) 30 ml PO DAILY PRN PRN Reason: Constipation Multivitamins/Vitamin C (Multivitamin Tablet) 1 tab PO DAILY [facility] Last Admin: 05/08/21 10:06 Dose: Not Given Documented by: Olanzapine (Olanzapine 2.5 Mg Tablet) 2.5 mg PO ONCE ONE Stop: 05/08/21 18:30 Thiamine HCl (Thiamine Hcl 100 Mg Tablet) 100 mg PO DAILY [facility] Last Admin: 05/08/21 10:06 Dose: Not Given Documented by: Trazodone HCl (Trazodone Hcl 25 Mg Halftab) 25 mg PO BEDTIME PRN PRN Reason: Insomnia Allergies Allergies Allergy/AdvReac Type Severity Reaction Status Date / Time No Known Allergies Allergy Verified 05/02/21 13:17 Assessment & Plan Assessment & Plan (1) MDD (major depressive disorder), recurrent severe, without psychosis: Status: Acute Code(s): F33.2 - Major depressive disorder, recurrent severe without psychotic features (2) Cognitive decline: Status: Acute Code(s): R41.89 - Other symptoms and signs involving cognitive functions and awareness Assessment and Plan: I am not certain whether she has mild cognitive impairment or this is a anxiety and depression with a pseudo-dementia. My recommendation would be to obtain the report of the MRI of the brain that was done within the last 6 months at [facility]. I would recommend an EEG. Blood work for treatable dementia as is normal. She can also have an outpatient neuropsych testing once her major depression is treated and improves. The patient has been reassured. 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 Pt became aware of cognitive decline starting this past Spring 2020. Pt's depression seems to be a combination of reaction to growing awareness of cognitive decline, and going off antidepressants; depression is severe however and will need to be treated At this point, it's unclear the etiology of cognitive decline; patient has been aware of it for the past 9 months however it seems to have gotten increasingly worse as depression set in this past fall/winter; it is unclear if there were signs of cognitive decline prior to this past spring. Hospital course: review of labs get TSH w/ reflex, B12/folate, calcium, ammonia are normal Started Mirtazapine for depression and anxiety in the face of insomnia and poor appetite Patient understands her provisional diagnosis of dementia and is in anguish over the enormity and outcome of such a diagnosis -patient has been refusing mirtazapine; discussed case with Dr. Rivas who recommends low dose of Zyprexa given patient's agitated/anxious depression to which patient agrees. Given patient's insomnia this is also a reasonable option; will continue to consider mirtazapine or restarting Paxil or other antidepressant/antianxiety medication. -Patient is very anxious and struggles with making any decisions including medication and choosing a healthcare proxy. She understands her situation , understands medications (though has an exaggerated worry about being overmedicated) and understands the concept and ramifications of choosing and not choosing a healthcare proxy; however her anxiety currently leaves her overwhelmed and indecisive. -pursuing notes from recent hospitalization/MRI -neurology saw patient and appreciate recommendations. DX: Provisional dx of Dementia r/o pseudo-dementia 2/2 anxiety/depression MDD, severe without psychosis ANTONINO PLAN CV q15 min checks START olanzapine 2.5mg qhs DC for now remeron to 15mg qhs as patient is extremely anxious and depressed neuro consult appreciated obtain MRI results -collateral contact with outpt psychiatrist Dr. Galloway -will consider restarting Paxil since she has done well on this in the past; only concern is intermittent adherence which can cause discontinuation syndrome -discussed meds for depression/anxiety; Paxil reportedly did work in past; pt is interested in Wellbutrin, however she is currently struggling with insomnia which Wellbutrin can aggravate -continue Clonazepam prn gather more collateral to asses status and aftercare planning I spent minutes with the patient and/or on the patient floor today, greater than?50% of which was spent counseling/coordinating care. Reason for contiued inpatient stay Substantial Risk for: inability to function
[2021-05-08] MEDS: OLANZapine 2.5 MG TABLET PO (22:05)
[2021-05-09] MEDS: Cyanocobalamin (Vitamin B-12) 100 MCG TABLET PO (08:50)
[2021-05-09] MEDS: Thiamine HCL 100 MG TABLET PO (08:50)
[2021-05-09] MEDS: Multivitamin TABLET 1 TAB PO (08:50)
--- NOTE | 2021-05-09 10:27 | HO.PSYCHPN ---
Subjective Subjective Date of Service: 05/09/21 Reason For Visit: generalized anxiety disorder major depressive diso Interim History: pt more calm today, more able to articulate her thoughts which are linear, logical and organized. She slept better last night; took Zyprexa 2.5mg. She says she's had some buzzing sound since taking zyprexa but it's tolerable. She agrees that she feels more clear relative to when she was admitted, but still overall feels confused compared to her normal hx of functioning. Patient clarified with expert medical writer that she was initially worried the other day when getting it medication for anxiety that she was being given a medication to sedate her in preparation for ECT. She explains to this expert medical writer that she now realizes she was mistaken, that that was not what was happening but at the time she felt confused and scared about it. Patient also shared how she understands that her current symptoms, while possibly due to organic dementia could also be pseudo dementia from anxiety and depression. She says That's what I talked about with Dr. Rhodes. This gives patient some hope that treating her depression/anxiety will help resolve symptoms. Windows Server Architect discussed with patient the desire staff to be helpful to her. 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 She also shared how difficult it had was initially to trust people (in the hospital) as she does not know the staff and it feels very vulnerable to rely on others for nearly everything; she thinks that every doctor should experience being a patient at some point so they can know what it is like. Patient also talked about her anxieties regarding medications. She said at home, she was worried medications might make [her] foggier than [she] already was and this anxiety carried over to this hospital stay. Patient agrees to continue taking Zyprexa; she also agrees to restarting it anti-anxiety/antidepressant medication either Paxil which she says she tolerated for decades or mirtazapine, still wanting expert medical writer to decide. Patient also shared about her relationship with her cousins. She said that there was a recent falling out as a home care provider, who was being financed by 1 of her cousins, said some disparaging remarks about her to her cousin which may have caused some rift. Patient said that she has been reflecting on this and wonders if some of the criticisms are true; however patient agrees with expert medical writer that this home care provider only knew patient for about 2.5 months, during the most difficult months of patients entire life and that perhaps this is not a fair assessment. refuse and recycling worker carried was also present during this conversation. Patient verbally consented to YRIS and have treatment team reach out to her primary care physician for any relevant information. Patient also decided to sign healthcare proxy making her cousin Tatianna her HCP. Windows Server Architect finds that patient has full capacity to make such a decision, understanding the nature of a healthcare proxy, when it is invoked, the limitations and patients ability to rescind. Mental Status Exam Mental Status Exam Narrative: Pt is alert and oriented; behavior is cooperative, more calm; neatly dressed in casual attire with combed hair and good hygiene; mood is described as anxious and affect congruent but more relaxed; eye contact appropriate; Speech normal volume, rate, prosody; no latency; no psychomotor agitation/retardation; thought process is goal directed, logical and linear; still some perseverating on worries but less so; Thought content on treatment; also on worries about decisions; but TC is pertinent to relevant topics; denies any SI/HI. There is no evidence of perceptual disturbance. Patients insight and judgment are impaired but improved. Diagnostics Vital Signs (24Hr): Vital Signs - 24 hr 05/08/21 16:30 Temperature 97.9 F Pulse Rate 107 H Blood Pressure 152/65 H Medications Medications Current Medications Acetaminophen (Acetaminophen 325 Mg Tablet) 650 mg PO Q6H PRN PRN Reason: Headache/Pain Mild Scale (1-3) Last Admin: 05/03/21 19:30 Dose: 650 mg Documented by: Al Hydroxide/Mg Hydroxide (Magnesium Hydrox/Alum Hydrox 30 Ml Oral.Susp) 30 ml PO Q6H PRN PRN Reason: Heartburn/Nausea Clonazepam (Clonazepam 0.5 Mg Tablet) 0.5 mg PO BID PRN PRN Reason: anxiety Last Admin: 05/07/21 00:24 Dose: 0.5 mg Documented by: Cyanocobalamin (Cyanocobalamin (Vitamin B-12) 100 Mcg Tablet) 100 mcg PO DAILY YODIT Last Admin: 05/09/21 08:50 Dose: 100 mcg Documented by: Ergocalciferol (Ergocalciferol (Vitamin D2) 1,250 Mcg Capsule) 1,250 mcg PO Q7D [facility] Last Admin: 05/03/21 19:32 Dose: 1,250 mcg Documented by: Magnesium Hydroxide (Milk Of Magnesia 30 Ml Oral.Susp) 30 ml PO DAILY PRN PRN Reason: Constipation Multivitamins/Vitamin C (Multivitamin Tablet) 1 tab PO DAILY [facility] Last Admin: 05/09/21 08:50 Dose: 1 tab Documented by: Olanzapine (Olanzapine 2.5 Mg Tablet) 2.5 mg PO BEDTIME [facility] Thiamine HCl (Thiamine Hcl 100 Mg Tablet) 100 mg PO DAILY [facility] Last Admin: 05/09/21 08:50 Dose: 100 mg Documented by: Trazodone HCl (Trazodone Hcl 25 Mg Halftab) 25 mg PO BEDTIME PRN PRN Reason: Insomnia Allergies Allergies Allergy/AdvReac Type Severity Reaction Status Date / Time No Known Allergies Allergy Verified 05/02/21 13:17 Assessment & Plan Assessment & Plan (1) MDD (major depressive disorder), recurrent severe, without psychosis: Status: Acute Code(s): F33.2 - Major depressive disorder, recurrent severe without psychotic features (2) Cognitive decline: Status: Acute Code(s): R41.89 - Other symptoms and signs involving cognitive functions and awareness Assessment and Plan: I am not certain whether she has mild cognitive impairment or this is a anxiety and depression with a pseudo-dementia. My recommendation would be to obtain the report of the MRI of the brain that was done within the last 6 months at [facility]. I would recommend an EEG. Blood work for treatable dementia as is normal. She can also have an outpatient neuropsych testing once her major depression is treated and improves. The patient has been reassured. 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 Pt became aware of cognitive decline starting this past Spring 2020. Pt's depression seems to be a combination of reaction to growing awareness of cognitive decline, and going off antidepressants; depression is severe however and will need to be treated At this point, it's unclear the etiology of cognitive decline; patient has been aware of it for the past 9 months however it seems to have gotten increasingly worse as depression set in this past fall/winter; it is unclear if there were signs of cognitive decline prior to this past spring. Hospital course: review of labs get TSH w/ reflex, B12/folate, calcium, ammonia are normal Started Mirtazapine for depression and anxiety in the face of insomnia and poor appetite Patient understands her provisional diagnosis of dementia and is in anguish over the enormity and outcome of such a diagnosis -patient has been refusing mirtazapine; discussed case with Dr. Rivas who recommends low dose of Zyprexa given patient's agitated/anxious depression to which patient agrees. Given patient's insomnia this is also a reasonable option; will continue to consider mirtazapine or restarting Paxil or other antidepressant/antianxiety medication. -Patient is very anxious and struggles with making any decisions including medication and choosing a healthcare proxy. She understands her situation , understands medications (though has an exaggerated worry about being overmedicated) and understands the concept and ramifications of choosing and not choosing a healthcare proxy; however her anxiety currently leaves her overwhelmed and indecisive. -pursuing notes from recent hospitalization/MRI -neurology saw patient and appreciate recommendations. 05/09/21 patient is improved after her 1 night on Zyprexa 2.5 mg. She is less anxious clearly able to articulate her thoughts and her concerns and a logical, linear and organized way. She is self reflective and able to consider things much more clearly; she is also able to make decisions and has agreed to make Tatianna her cousin her healthcare proxy and continue with Zyprexa as well as restarting Paxil. Patient gave verbal RO OI, with to witnesses to reach out to her PCP for relevant information and hopefully MRI results. Patient agrees with the need to combat anxiety and depression; she agrees to restart Paxil saying she tolerated it well for decades. Windows Server Architect had some initial concerns about restarting this medication, given that intermittent adherence can cause confusion via discontinuation syndrome; however patient remains anxious about medications and this is a medication she knows and is comfortable with and has a documented, proven hx of being effective; for this reason will restart. 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 Reason for contiued inpatient stay Substantial Risk for: inability to function
[2021-05-09 18:00] VITALS: BP 166/70; PULSE 109; TEMP 37.1; O2SAT 97
[2021-05-10] MEDS: OLANZapine 2.5 MG TABLET PO (00:14)
--- NOTE | 2021-05-10 00:33 | PC.NURSE ---
pt approached the nurses station looks visibly upset. states i know your going to be mad at me but i will take my medicine now. i know you are going to talk about me in the morning. you know that i'm not crazy pt has a panicked look. she is repeatedly looking up the hallway. she is given zyprexa 2.5 mg po which she refused at 2100. for a lengthy time, she kept zyprexa pill in her mouth without swallowing. eventually pt swallowed pill. oral cavity was visibly inspected and pill was not seen. pt escorted to her room. she states that she will try to go to sleep but she is sure that she ruined it for herself.
[2021-05-10 06:00] VITALS: BP 120/83; PULSE 94; RESP 18; TEMP 36.5; O2SAT 97
[2021-05-10] MEDS: Multivitamin TABLET 1 TAB PO (09:56)
[2021-05-10] MEDS: Thiamine HCL 100 MG TABLET PO (09:56)
[2021-05-10] MEDS: PARoxetine HCL 10 MG TABLET PO (09:56)
[2021-05-10] MEDS: Cyanocobalamin (Vitamin B-12) 100 MCG TABLET PO (09:56)
--- NOTE | 2021-05-10 14:13 | HO.PSYCHPN ---
Subjective Subjective Date of Service: 05/10/21 Reason For Visit: generalized anxiety disorder major depressive diso Interim History: Patient more anxious today, having more difficulty settling down and answering questions. Some disorganized behavior. Forging Die Finisher asked patient to accompany him down the alfredo to meet in treatment room however patient had trouble getting out of the room, sitting up, sitting back down, opening her folder, closing her folder, picking up something and looking under it putting it down but looking under later. Eventually patient's roommate offered to excuse herself to leave patient and typewriter assembler in the room. Forging Die Finisher asked about this and she said she thinks it is because she is confused at that she forgets what the paper say. Patient frequently making little anxious gasps. Forging Die Finisher asked why she has been initially refusing medications(which she later took) to which she says I liked it better being in control in knowing what I was doing. . . She said I feel like I signed my life away. She said she's not sure of all the things she has signed since being her but offered I know I signed something about a healthcare proxy yesterday. .. She remembered whom she designated, saying it was her cousin Tatianna...she continues to feel good about designating Tatianna but also wonder if I should have added few more names to the list. Patient then said something about what about her right says the patient. .. Forging Die Finisher inquired but she denied feeling any rights were violated and explains the comment referenced that she just felt plopped here on the unit. She remembers the medications that she is taking and lists them by name and agrees to continue taking them. Patient is eating a little more, and ate her eggs for breakfast today in addition to Ensure. Forging Die Finisher talked about perhaps starting patient on scheduled Ativan; initially, she had an anxious and almost incredulous who look in response however typewriter assembler explained that she seems to be on this intensely anxious cycle she can get off of, to which she agreed. She asked if we could wait another day or so before making this decision to which typewriter assembler said was absolutely fine. Mental Status Exam Mental Status Exam Narrative: ?Pt is alert and oriented; behavior is disorganized, unable to leave the room, repeatedly sitting up, looking through things she looked at moments ago, sitting down; appropriately dressed in casual attire but hair unkempt; mood is described as anxious and affect congruent; eye contact minimal; Speech more latent; when talking, normal volume, rate, prosody; no psychomotor agitation/retardation; thought process is goal directed, logical and linear; still some perseverating on worries but less so; Thought content on treatment and her situation; TC is pertinent to relevant topics; denies any SI/HI. There is no evidence of perceptual disturbance. Patients insight and judgment are impaired. Diagnostics Vital Signs (24Hr): Vital Signs - 24 hr 05/09/21 18:00 05/10/21 06:00 Temperature 98.8 F 97.7 F Pulse Rate 109 H 94 Respiratory Rate 18 Blood Pressure 166/70 H 120/83 Pulse Oximetry 97 97 Medications Medications Current Medications Acetaminophen (Acetaminophen 325 Mg Tablet) 650 mg PO Q6H PRN PRN Reason: Headache/Pain Mild Scale (1-3) Last Admin: 05/03/21 19:30 Dose: 650 mg Documented by: Al Hydroxide/Mg Hydroxide (Magnesium Hydrox/Alum Hydrox 30 Ml Oral.Susp) 30 ml PO Q6H PRN PRN Reason: Heartburn/Nausea Clonazepam (Clonazepam 0.5 Mg Tablet) 0.5 mg PO BID PRN PRN Reason: anxiety Last Admin: 05/07/21 00:24 Dose: 0.5 mg Documented by: Cyanocobalamin (Cyanocobalamin (Vitamin B-12) 100 Mcg Tablet) 100 mcg PO DAILY [facility] Last Admin: 05/10/21 09:56 Dose: 100 mcg Documented by: Ergocalciferol (Ergocalciferol (Vitamin D2) 1,250 Mcg Capsule) 1,250 mcg PO Q7D [facility] Last Admin: 05/03/21 19:32 Dose: 1,250 mcg Documented by: Magnesium Hydroxide (Milk Of Magnesia 30 Ml Oral.Susp) 30 ml PO DAILY PRN PRN Reason: Constipation Multivitamins/Vitamin C (Multivitamin Tablet) 1 tab PO DAILY [facility] Last Admin: 05/10/21 09:56 Dose: 1 tab Documented by: Olanzapine (Olanzapine 2.5 Mg Tablet) 2.5 mg PO BEDTIME [facility] Last Admin: 05/10/21 00:14 Dose: 2.5 mg Documented by: Paroxetine HCl (Paroxetine Hcl 10 Mg Tablet) 10 mg PO DAILY [facility] Last Admin: 05/10/21 09:56 Dose: 10 mg Documented by: Thiamine HCl (Thiamine Hcl 100 Mg Tablet) 100 mg PO DAILY [facility]ODIT Last Admin: 05/10/21 09:56 Dose: 100 mg Documented by: Trazodone HCl (Trazodone Hcl 25 Mg Halftab) 25 mg PO BEDTIME PRN PRN Reason: Insomnia Allergies Allergies Allergy/AdvReac Type Severity Reaction Status Date / Time No Known Allergies Allergy Verified 05/02/21 13:17 Assessment & Plan Assessment & Plan (1) MDD (major depressive disorder), recurrent severe, without psychosis: Status: Acute Code(s): F33.2 - Major depressive disorder, recurrent severe without psychotic features (2) Cognitive decline: Status: Acute Code(s): R41.89 - Other symptoms and signs involving cognitive functions and awareness Assessment and Plan: I am not certain whether she has mild cognitive impairment or this is a anxiety and depression with a pseudo-dementia. My recommendation would be to obtain the report of the MRI of the brain that was done within the last 6 months at [facility]. I would recommend an EEG. Blood work for treatable dementia as is normal. She can also have an outpatient neuropsych testing once her major depression is treated and improves. The patient has been reassured. 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 Pt became aware of cognitive decline starting this past Spring 2020. Pt's depression seems to be a combination of reaction to growing awareness of cognitive decline, and going off antidepressants; depression is severe however and will need to be treated At this point, it's unclear the etiology of cognitive decline; patient has been aware of it for the past 9 months however it seems to have gotten increasingly worse as depression set in this past fall/winter; it is unclear if there were signs of cognitive decline prior to this past spring. Hospital course: review of labs get TSH w/ reflex, B12/folate, calcium, ammonia are normal Started Mirtazapine for depression and anxiety in the face of insomnia and poor appetite Patient understands her provisional diagnosis of dementia and is in anguish over the enormity and outcome of such a diagnosis -patient has been refusing mirtazapine; discussed case with Dr. Rivas who recommends low dose of Zyprexa given patient's agitated/anxious depression to which patient agrees. Given patient's insomnia this is also a reasonable option; will continue to consider mirtazapine or restarting Paxil or other antidepressant/antianxiety medication. -Patient is very anxious and struggles with making any decisions including medication and choosing a healthcare proxy. She understands her situation , understands medications (though has an exaggerated worry about being overmedicated) and understands the concept and ramifications of choosing and not choosing a healthcare proxy; however her anxiety currently leaves her overwhelmed and indecisive. -pursuing notes from recent hospitalization/MRI -neurology saw patient and appreciate recommendations. 05/09/21 patient is improved after her 1 night on Zyprexa 2.5 mg. She is less anxious clearly able to articulate her thoughts and her concerns and a logical, linear and organized way. She is self reflective and able to consider things much more clearly; she is also able to make decisions and has agreed to make Tatianna her cousin her healthcare proxy and continue with Zyprexa as well as restarting Paxil. Patient gave verbal RO OI, with to witnesses to reach out to her PCP for relevant information and hopefully MRI results. Patient agrees with the need to combat anxiety and depression; she agrees to restart Paxil saying she tolerated it well for decades. Forging Die Finisher had some initial concerns about restarting this medication, given that intermittent adherence can cause confusion via discontinuation syndrome; however patient remains anxious about medications and this is a medication she knows and is comfortable with and has a documented, proven hx of being effective; for this reason restarted. 05/10 patient is more anxious today which seems to increase confusion; unsure why however a specific peer who was gets a phrenic with paranoid delusions has been intrusive with this patient, trying to convince her peers that they are being poorly treated. Considering Ativan 0.5 mg t.i.d. scheduled to see if it is possible to break this intense cycle of anxiety; patient is willing to consider this. However she did start Paxil today. Patient complains of buzzing sound ever since starting Zyprexa 2.5mg qhs, giving typewriter assembler some pause whether to increase dose. However patient is anxious depression remains debilitating. Currently patient has some disorganized behaviors are not purposeless but seem more to be borne out of anxiety confusion/forgetfulness. Conversely she is eating better and has been able to make decisions regarding designated healthcare proxy. 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 Reason for contiued inpatient stay Substantial Risk for: inability to function
[2021-05-10 18:00] VITALS: BP 159/72; PULSE 108; TEMP 36.6
[2021-05-11 06:10] VITALS: BP 153/65; PULSE 98; RESP 20; TEMP 36; O2SAT 96
[2021-05-11] MEDS: Multivitamin TABLET 1 TAB PO (08:29)
[2021-05-11] MEDS: PARoxetine HCL 10 MG TABLET PO (08:29)
[2021-05-11] MEDS: Cyanocobalamin (Vitamin B-12) 100 MCG TABLET PO (08:29)
[2021-05-11] MEDS: Thiamine HCL 100 MG TABLET PO (08:29)
--- NOTE | 2021-05-11 15:34 | P.PNPSI_ITS ---
Subjective Subjective Date of Service: 05/11/21 Reason For Visit: generalized anxiety disorder major depressive diso Interim History: The patient was transferred from to the geriatric psychiatric unit [facility] she has over a stimulated in the psychiatric unit. We discussed the case with Dr. Valle and the team and we decided to transfer her here. On interview, the patient was extremely anxious and confused unable to disclose september his stressors. We explained her that this setting will be more efficacious for her treatment. Mental Status Exam Mental Status Exam Patient Appearance: Disheveled Patient Orientation: Person Level of Consciousness: Disoriented and Restless Patient Behavior: Guarded and Suspicious Mood Description: Depressed Affect Description: Constricted Patient Cognition Impaired: Yes Ability to Follow Directions: Fair Speech Pattern: Impoverished and Garbled Hallucinations: None Delusions: Paranoid Ideation Thought Process: Rumination and Slowed Thinking Thought Content: positive for Circumstantial Judgement: Fair Diagnostics Vital Signs (24Hr): Vital Signs - 24 hr 05/10/21 18:00 05/11/21 06:10 Temperature 98 F 96.8 F Pulse Rate 108 H 98 Respiratory Rate 20 Blood Pressure 159/72 H 153/65 H Pulse Oximetry 96 Medications Medications Current Medications Acetaminophen (Acetaminophen 325 Mg Tablet) 650 mg PO Q6H PRN PRN Reason: Headache/Pain Mild Scale (1-3) Last Admin: 05/03/21 19:30 Dose: 650 mg Documented by: Al Hydroxide/Mg Hydroxide (Magnesium Hydrox/Alum Hydrox 30 Ml Oral.Susp) 30 ml PO Q6H PRN PRN Reason: Heartburn/Nausea Clonazepam (Clonazepam 0.5 Mg Tablet) 0.5 mg PO BID PRN PRN Reason: anxiety Last Admin: 05/07/21 00:24 Dose: 0.5 mg Documented by: Cyanocobalamin (Cyanocobalamin (Vitamin B-12) 100 Mcg Tablet) 100 mcg PO DAILY [facility] Last Admin: 05/11/21 08:29 Dose: 100 mcg Documented by: Ergocalciferol (Ergocalciferol (Vitamin D2) 1,250 Mcg Capsule) 1,250 mcg PO Q7D [facility] Last Admin: 05/10/21 18:15 Dose: Not Given Documented by: Magnesium Hydroxide (Milk Of Magnesia 30 Ml Oral.Susp) 30 ml PO DAILY PRN PRN Reason: Constipation Multivitamins/Vitamin C (Multivitamin Tablet) 1 tab PO DAILY [facility] Last Admin: 05/11/21 08:29 Dose: 1 tab Documented by: Olanzapine (Olanzapine 2.5 Mg Tablet) 2.5 mg PO BEDTIME [facility] Last Admin: 05/10/21 00:14 Dose: 2.5 mg Documented by: Paroxetine HCl (Paroxetine Hcl 10 Mg Tablet) 10 mg PO DAILY [facility] Last Admin: 05/11/21 08:29 Dose: 10 mg Documented by: Thiamine HCl (Thiamine Hcl 100 Mg Tablet) 100 mg PO DAILY [facility] Last Admin: 05/11/21 08:29 Dose: 100 mg Documented by: Trazodone HCl (Trazodone Hcl 25 Mg Halftab) 25 mg PO BEDTIME PRN PRN Reason: Insomnia Allergies Allergies Allergy/AdvReac Type Severity Reaction Status Date / Time No Known Allergies Allergy Verified 05/02/21 13:17 Assessment & Plan Assessment & Plan (1) MDD (major depressive disorder), recurrent severe, without psychosis: Status: Acute Code(s): F33.2 - Major depressive disorder, recurrent severe without psychotic features (2) Cognitive decline: Status: Acute Code(s): R41.89 - Other symptoms and signs involving cognitive functions and awareness Assessment and Plan: I am not certain whether she has mild cognitive impairment or this is a anxiety and depression with a pseudo-dementia. My recommendation would be to obtain the report of the MRI of the brain that was done within the last 6 months at [facility]. I would recommend an EEG. Blood work for treatable dementia as is normal. She can also have an outpatient neuropsych testing once her major depression is treated and improves. The patient has been reassured. 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 Pt became aware of cognitive decline starting this past Spring 2020. Pt's depression seems to be a combination of reaction to growing awareness of cognitive decline, and going off antidepressants; depression is severe however and will need to be treated At this point, it's unclear the etiology of cognitive decline; patient has been aware of it for the past 9 months however it seems to have gotten increasingly worse as depression set in this past fall/winter; it is unclear if there were signs of cognitive decline prior to this past spring. Hospital course: review of labs get TSH w/ reflex, B12/folate, calcium, ammonia are normal Started Mirtazapine for depression and anxiety in the face of insomnia and poor appetite Patient understands her provisional diagnosis of dementia and is in anguish over the enormity and outcome of such a diagnosis -patient has been refusing mirtazapine; discussed case with Dr. Rivas who recommends low dose of Zyprexa given patient's agitated/anxious depression to which patient agrees. Given patient's insomnia this is also a reasonable option; will continue to consider mirtazapine or restarting Paxil or other antidepressant/antianxiety medication. -Patient is very anxious and struggles with making any decisions including medication and choosing a healthcare proxy. She understands her situation , understands medications (though has an exaggerated worry about being overmedicated) and understands the concept and ramifications of choosing and not choosing a healthcare proxy; however her anxiety currently leaves her overwhelmed and indecisive. -pursuing notes from recent hospitalization/MRI -neurology saw patient and appreciate recommendations. 05/09/21 patient is improved after her 1 night on Zyprexa 2.5 mg. She is less anxious clearly able to articulate her thoughts and her concerns and a logical, linear and organized way. She is self reflective and able to consider things much more clearly; she is also able to make decisions and has agreed to make Tatianna her cousin her healthcare proxy and continue with Zyprexa as well as restarting Paxil. Patient gave verbal RO OI, with to witnesses to reach out to her PCP for relevant information and hopefully MRI results. Patient agrees with the need to combat anxiety and depression; she agrees to restart Paxil saying she tolerated it well for decades. Associate Biological Sales had some initial concerns about restarting this medication, given that intermittent adherence can cause confusion via discontinuation syndrome; however patient remains anxious about medications and this is a medication she knows and is comfortable with and has a documented, proven hx of being effective; for this reason restarted. 05/10 patient is more anxious today which seems to increase confusion; unsure why however a specific peer who was gets a phrenic with paranoid delusions has been intrusive with this patient, trying to convince her peers that they are being poorly treated. Considering Ativan 0.5 mg t.i.d. scheduled to see if it is possible to break this intense cycle of anxiety; patient is willing to consider this. However she did start Paxil today. Patient complains of buzzing sound ever since starting Zyprexa 2.5mg qhs, giving designer writer some pause whether to increase dose. However patient is anxious depression remains debilitating. Currently patient has some disorganized behaviors are not purposeless but seem more to be borne out of anxiety confusion/forgetfulness. Conversely she is eating better and has been able to make decisions regarding designated healthcare proxy. 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 q.h.s. to target restlessness and thought blocking. I spent minutes with the patient and/or on the patient floor today, greater than?50% of which was spent counseling/coordinating care. Reason for contiued inpatient stay Substantial Risk for: inability to function, rapid decompensation and med/psych decompensation
[2021-05-11 18:00] VITALS: BP 128/60; PULSE 91; RESP 16; TEMP 36.7; O2SAT 97
[2021-05-11] MEDS: OLANZapine 5 MG TABLET PO (20:23)
--- NOTE | 2021-05-12 11:52 | P.PNPSI_ITS ---
Subjective Subjective Date of Service: 05/12/21 Reason For Visit: generalized anxiety disorder major depressive diso Interim History: pt very hesitant to enter interview room with MD, sits by door with door open, repeatedly stands in doorway throughout interview. mumbling, extremely soft voice, difficult to make out. vague answers, little content. MD suggests he will increase her medications for anxiety, to which she seems to agree. per staff, transferred from yesterday, where she was overwhelmed by the milieu. upset, disrupted sleep overnight. Mental Status Exam Mental Status Exam Narrative: disheveled. ambivalently cooperative. PMA of standing and swaying. speech soft, terse, muffled, non-spontaneous. thoughts vague, disorganized. affect constricted. mood anxious. no SI/HI/AVH expressed. Diagnostics Vital Signs (24Hr): Vital Signs - 24 hr 05/11/21 18:00 Temperature 98.1 F Pulse Rate 91 Respiratory Rate 16 Blood Pressure 128/60 Pulse Oximetry 97 Medications Medications Current Medications Acetaminophen (Acetaminophen 325 Mg Tablet) 650 mg PO Q6H PRN PRN Reason: Headache/Pain Mild Scale (1-3) Last Admin: 05/03/21 19:30 Dose: 650 mg Documented by: Al Hydroxide/Mg Hydroxide (Magnesium Hydrox/Alum Hydrox 30 Ml Oral.Susp) 30 ml PO Q6H PRN PRN Reason: Heartburn/Nausea Clonazepam (Clonazepam 0.5 Mg Tablet) 0.5 mg PO BID COUNTS INCLUDE 234 BEDS AT THE [facility] Cyanocobalamin (Cyanocobalamin (Vitamin B-12) 100 Mcg Tablet) 100 mcg PO DAILY COUNTS INCLUDE 234 BEDS AT THE [facility] Last Admin: 05/12/21 11:39 Dose: Not Given Documented by: Ergocalciferol (Ergocalciferol (Vitamin D2) 1,250 Mcg Capsule) 1,250 mcg PO Q7D COUNTS INCLUDE 234 BEDS AT THE [facility] Last Admin: 05/10/21 18:15 Dose: Not Given Documented by: Magnesium Hydroxide (Milk Of Magnesia 30 Ml Oral.Susp) 30 ml PO DAILY PRN PRN Reason: Constipation Multivitamins/Vitamin C (Multivitamin Tablet) 1 tab PO DAILY COUNTS INCLUDE 234 BEDS AT THE [facility] Last Admin: 05/12/21 11:39 Dose: Not Given Documented by: Olanzapine (Olanzapine 5 Mg Tablet) 5 mg PO BEDTIME COUNTS INCLUDE 234 BEDS AT THE [facility] Last Admin: 05/11/21 20:23 Dose: 5 mg Documented by: Paroxetine HCl (Paroxetine Hcl 10 Mg Tablet) 10 mg PO DAILY COUNTS INCLUDE 234 BEDS AT THE [facility] Last Admin: 05/12/21 11:39 Dose: Not Given Documented by: Thiamine HCl (Thiamine Hcl 100 Mg Tablet) 100 mg PO DAILY COUNTS INCLUDE 234 BEDS AT THE [facility] Last Admin: 05/12/21 11:40 Dose: Not Given Documented by: Trazodone HCl (Trazodone Hcl 25 Mg Halftab) 25 mg PO BEDTIME PRN PRN Reason: Insomnia Allergies Allergies Allergy/AdvReac Type Severity Reaction Status Date / Time No Known Allergies Allergy Verified 05/02/21 13:17 Assessment & Plan Assessment & Plan (1) MDD (major depressive disorder), recurrent severe, without psychosis: Status: Acute Code(s): F33.2 - Major depressive disorder, recurrent severe without psychotic features (2) Cognitive decline: Status: Acute Code(s): R41.89 - Other symptoms and signs involving cognitive functions and awareness Assessment and Plan: I am not certain whether she has mild cognitive impairment or this is a anxiety and depression with a pseudo-dementia. My recommendation would be to obtain the report of the MRI of the brain that was done within the last 6 months at [facility]. I would recommend an EEG. Blood work for treatable dementia as is normal. She can also have an outpatient neuropsych testing once her major depression is treated and improves. The patient has been reassured. 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 Pt became aware of cognitive decline starting this past Spring 2020. Pt's depression seems to be a combination of reaction to growing awareness of cognitive decline, and going off antidepressants; depression is severe however and will need to be treated At this point, it's unclear the etiology of cognitive decline; patient has been aware of it for the past 9 months however it seems to have gotten increasingly worse as depression set in this past fall/winter; it is unclear if there were signs of cognitive decline prior to this past spring. Hospital course: review of labs get TSH w/ reflex, B12/folate, calcium, ammonia are normal Started Mirtazapine for depression and anxiety in the face of insomnia and poor appetite Patient understands her provisional diagnosis of dementia and is in anguish over the enormity and outcome of such a diagnosis -patient has been refusing mirtazapine; discussed case with Dr. Rivas who recommends low dose of Zyprexa given patient's agitated/anxious depression to which patient agrees. Given patient's insomnia this is also a reasonable option; will continue to consider mirtazapine or restarting Paxil or other antidepressant/antianxiety medication. -Patient is very anxious and struggles with making any decisions including medication and choosing a healthcare proxy. She understands her situation , understands medications (though has an exaggerated worry about being overmedicated) and understands the concept and ramifications of choosing and not choosing a healthcare proxy; however her anxiety currently leaves her overwhelmed and indecisive. -pursuing notes from recent hospitalization/MRI -neurology saw patient and appreciate recommendations. 05/09/21 patient is improved after her 1 night on Zyprexa 2.5 mg. She is less anxious clearly able to articulate her thoughts and her concerns and a logical, linear and organized way. She is self reflective and able to consider things much more clearly; she is also able to make decisions and has agreed to make Tatianna her cousin her healthcare proxy and continue with Zyprexa as well as restarting Paxil. Patient gave verbal RO OI, with to witnesses to reach out to her PCP for relevant information and hopefully MRI results. Patient agrees with the need to combat anxiety and depression; she agrees to restart Paxil saying she tolerated it well for decades. Log S[employer] Supervisor had some initial concerns about restarting this medication, given that intermittent adherence can cause confusion via discontinuation syndrome; however patient remains anxious about medications and this is a medication she knows and is comfortable with and has a documented, proven hx of being effective; for this reason restarted. 05/10 patient is more anxious today which seems to increase confusion; unsure why however a specific peer who was gets a phrenic with paranoid delusions has been intrusive with this patient, trying to convince her peers that they are being poorly treated. Considering Ativan 0.5 mg t.i.d. scheduled to see if it is possible to break this intense cycle of anxiety; patient is willing to consider this. However she did start Paxil today. Patient complains of buzzing sound ever since starting Zyprexa 2.5mg qhs, giving rfp writer some pause whether to increase dose. However patient is anxious depression remains debilitating. Currently patient has some disorganized behaviors are not purposeless but seem more to be borne out of anxiety confusion/forgetfulness. Conversely she is eating better and has been able to make decisions regarding designated healthcare proxy. 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 Consider Ativan 0.5mg TID; scheduling klonopin 0.5 BID first to see if she is willing to try that. neuro consult appreciated obtain MRI results; multiple calls made to PCP office to no avail -continue Clonazepam prn though pt typically does not want -dc'd mirtazapine; pt had refused gather more collateral to asses status and aftercare planning I spent minutes with the patient and/or on the patient floor today, greater than?50% of which was spent counseling/coordinating care. Reason for contiued inpatient stay Substantial Risk for: inability to function and rapid decompensation
[2021-05-12 18:00] VITALS: BP 153/69; PULSE 108; RESP 16; TEMP 37; O2SAT 97
[2021-05-12] MEDS: clonazePAM 0.5 MG TABLET PO (20:38)
[2021-05-12] MEDS: OLANZapine 5 MG TABLET PO (20:38)
[2021-05-13 06:00] VITALS: BP 129/60; PULSE 90; RESP 14; TEMP 36.6; O2SAT 97
[2021-05-13] MEDS: Multivitamin TABLET 1 TAB PO (09:12)
[2021-05-13] MEDS: Cyanocobalamin (Vitamin B-12) 100 MCG TABLET PO (09:12)
[2021-05-13] MEDS: Thiamine HCL 100 MG TABLET PO (09:12)
[2021-05-13] MEDS: PARoxetine HCL 10 MG TABLET PO (09:12)
[2021-05-13] MEDS: clonazePAM 0.5 MG TABLET PO ×2 (09:12→20:43)
--- NOTE | 2021-05-13 12:49 | P.PNPSI_ITS ---
Subjective Subjective Date of Service: 05/13/21 Reason For Visit: generalized anxiety disorder major depressive diso Interim History: pt appears looser, less paralyzed, more relaxed today. better able to engage with MD. focused on medications. review that she has had her clonazepam scheduled now. states she could have slept longer this morning, MD suggest incrfasing HS zyprexa to 7.5. pt reluctantly agrees to try it. she also mentions sciatica and asks about pain medication. MD reviews her meds list and notes she is on paxil but that effexor or cymbalta may be options for her to address both dep/anx as well as neuropathic pain. she asked i note that discussion for her to review with her attending in the morning. per staff, confused, disorganized, worried. dep 6/10. med-compliant today, less PMA. Mental Status Exam Mental Status Exam Narrative: disheveled. cooperative. mild PMA of fidgetiness. speech soft, nml amount, muffled, more spontaneous. thoughts less vague, better organized. affect constricted. mood anxious. no SI/HI/AVH expressed. Diagnostics Vital Signs (24Hr): Vital Signs - 24 hr 05/12/21 18:00 05/13/21 06:00 Temperature 98.6 F 97.8 F Pulse Rate 108 H 90 Respiratory Rate 16 14 Blood Pressure 153/69 H 129/60 Pulse Oximetry 97 97 Medications Medications Current Medications Acetaminophen (Acetaminophen 325 Mg Tablet) 650 mg PO Q6H PRN PRN Reason: Headache/Pain Mild Scale (1-3) Last Admin: 05/03/21 19:30 Dose: 650 mg Documented by: Al Hydroxide/Mg Hydroxide (Magnesium Hydrox/Alum Hydrox 30 Ml Oral.Susp) 30 ml PO Q6H PRN PRN Reason: Heartburn/Nausea Clonazepam (Clonazepam 0.5 Mg Tablet) 0.5 mg PO BID [facility] Last Admin: 05/13/21 09:12 Dose: 0.5 mg Documented by: Cyanocobalamin (Cyanocobalamin (Vitamin B-12) 100 Mcg Tablet) 100 mcg PO DAILY [facility] Last Admin: 05/13/21 09:12 Dose: 100 mcg Documented by: Ergocalciferol (Ergocalciferol (Vitamin D2) 1,250 Mcg Capsule) 1,250 mcg PO Q7D [facility] Last Admin: 05/10/21 18:15 Dose: Not Given Documented by: Magnesium Hydroxide (Milk Of Magnesia 30 Ml Oral.Susp) 30 ml PO DAILY PRN PRN Reason: Constipation Multivitamins/Vitamin C (Multivitamin Tablet) 1 tab PO DAILY [facility] Last Admin: 05/13/21 09:12 Dose: 1 tab Documented by: Paroxetine HCl (Paroxetine Hcl 10 Mg Tablet) 10 mg PO DAILY [facility] Last Admin: 05/13/21 09:12 Dose: 10 mg Documented by: Thiamine HCl (Thiamine Hcl 100 Mg Tablet) 100 mg PO DAILY [facility] Last Admin: 05/13/21 09:12 Dose: 100 mg Documented by: Trazodone HCl (Trazodone Hcl 25 Mg Halftab) 25 mg PO BEDTIME PRN PRN Reason: Insomnia Allergies Allergies Allergy/AdvReac Type Severity Reaction Status Date / Time No Known Allergies Allergy Verified 05/02/21 13:17 Assessment & Plan Assessment & Plan (1) MDD (major depressive disorder), recurrent severe, without psychosis: Status: Acute Code(s): F33.2 - Major depressive disorder, recurrent severe without psychotic features (2) Cognitive decline: Status: Acute Code(s): R41.89 - Other symptoms and signs involving cognitive functions and awareness Assessment and Plan: I am not certain whether she has mild cognitive impairment or this is a anxiety and depression with a pseudo-dementia. My recommendation would be to obtain the report of the MRI of the brain that was done within the last 6 months at [facility]. I would recommend an EEG. Blood work for treatable dementia as is normal. She can also have an outpatient neuropsych testing once her major depression is treated and improves. The patient has been reassured. 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 Pt became aware of cognitive decline starting this past Spring 2020. Pt's depression seems to be a combination of reaction to growing awareness of cognitive decline, and going off antidepressants; depression is severe however and will need to be treated At this point, it's unclear the etiology of cognitive decline; patient has been aware of it for the past 9 months however it seems to have gotten increasingly worse as depression set in this past fall/winter; it is unclear if there were signs of cognitive decline prior to this past spring. Hospital course: review of labs get TSH w/ reflex, B12/folate, calcium, ammonia are normal Started Mirtazapine for depression and anxiety in the face of insomnia and poor appetite Patient understands her provisional diagnosis of dementia and is in anguish over the enormity and outcome of such a diagnosis -patient has been refusing mirtazapine; discussed case with Dr. Rivas who recommends low dose of Zyprexa given patient's agitated/anxious depression to which patient agrees. Given patient's insomnia this is also a reasonable option; will continue to consider mirtazapine or restarting Paxil or other antidepressant/antianxiety medication. -Patient is very anxious and struggles with making any decisions including medication and choosing a healthcare proxy. She understands her situation , understands medications (though has an exaggerated worry about being overmedicated) and understands the concept and ramifications of choosing and not choosing a healthcare proxy; however her anxiety currently leaves her overwhelmed and indecisive. -pursuing notes from recent hospitalization/MRI -neurology saw patient and appreciate recommendations. 05/09/21 patient is improved after her 1 night on Zyprexa 2.5 mg. She is less anxious clearly able to articulate her thoughts and her concerns and a logical, linear and organized way. She is self reflective and able to consider things much more clearly; she is also able to make decisions and has agreed to make Tatianna her cousin her healthcare proxy and continue with Zyprexa as well as restarting Paxil. Patient gave verbal RO OI, with to witnesses to reach out to her PCP for relevant information and hopefully MRI results. Patient agrees with the need to combat anxiety and depression; she agrees to restart Paxil saying she tolerated it well for decades. [employer] Out had some initial concerns about restarting this medication, given that intermittent adherence can cause confusion via discontinuation syndrome; however patient remains anxious about medications and this is a medication she knows and is comfortable with and has a documented, proven hx of being effective; for this reason restarted. 05/10 patient is more anxious today which seems to increase confusion; unsure why however a specific peer who was gets a phrenic with paranoid delusions has been intrusive with this patient, trying to convince her peers that they are being poorly treated. Considering Ativan 0.5 mg t.i.d. scheduled to see if it is possible to break this intense cycle of anxiety; patient is willing to consider this. However she did start Paxil today. Patient complains of buzzing sound ever since starting Zyprexa 2.5mg qhs, giving tag writer some pause whether to increase dose. However patient is anxious depression remains debilitating. Currently patient has some disorganized behaviors are not purposeless but seem more to be borne out of anxiety confusion/forgetfulness. Conversely she is eating better and has been able to make decisions regarding designated healthcare proxy. 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 T/C SNRI or TCA if pt has heather dragan neuroathic pain complaint. olanzapine 2.5mg qhs increased to 5 mg QHS as of 05/11, 7.5 mg QHS as of 05/13. Consider Ativan 0.5mg TID; scheduling klonopin 0.5 BID first; thus far successful. neuro consult appreciated obtain MRI results; multiple calls made to PCP office to no avail -dc'd mirtazapine; pt had refused gather more collateral to asses status and aftercare planning I spent minutes with the patient and/or on the patient floor today, greater than?50% of which was spent counseling/coordinating care. Reason for contiued inpatient stay Substantial Risk for: inability to function and rapid decompensation
[2021-05-13 18:00] VITALS: BP 138/58; PULSE 138; RESP 17; TEMP 36.8; O2SAT 99
[2021-05-13] MEDS: OLANZapine 7.5 MG TABLET PO (20:43)
[2021-05-14 06:00] VITALS: BP 145/66; PULSE 90; RESP 17; TEMP 36.6; O2SAT 99
[2021-05-14] MEDS: PARoxetine HCL 10 MG TABLET PO (09:55)
[2021-05-14] MEDS: Cyanocobalamin (Vitamin B-12) 100 MCG TABLET PO (09:55)
[2021-05-14] MEDS: Multivitamin TABLET 1 TAB PO (09:55)
[2021-05-14] MEDS: Thiamine HCL 100 MG TABLET PO (09:55)
--- NOTE | 2021-05-14 12:48 | HO.PSYCHPN ---
Subjective Subjective Date of Service: 05/14/21 Reason For Visit: generalized anxiety disorder major depressive diso Subjective Notes: Conditional Voluntary Interim History: the nursing staff reported the patient has been extremely anxious, given that she has psychotic okay styles into her treatment, she refused to take Klonopin. On interview, the patient was extremely doubtful and anxious, unable to think straight, she looks confused. We discussed risks benefits and side effects and she agreed to increase Paxil up to 50 mg p.o. q.a.m.. We will start a low dose of Gabapentin to target anxiety. Mental Status Exam Mental Status Exam Patient Appearance: Well Grooomed Patient Orientation: Person Level of Consciousness: Restless Patient Behavior: Guarded, Suspicious, Restless and Fearful Mood Description: Depressed Affect Description: Constricted Ability to Follow Directions: Fair Speech Pattern: Clear Hallucinations: None Delusions: Not Present Thought Process: Distracted and Slowed Thinking Thought Content: positive for Circumstantial, positive for Poverty of Content and positive for Thought Blocking Judgement: Poor Diagnostics Vital Signs (24Hr): Vital Signs - 24 hr 05/13/21 18:00 05/14/21 06:00 Temperature 98.2 F 98 F Pulse Rate 138 H 90 Respiratory Rate 17 17 Blood Pressure 138/58 L 145/66 H Pulse Oximetry 99 99 Medications Medications Current Medications Acetaminophen (Acetaminophen 325 Mg Tablet) 650 mg PO Q6H PRN PRN Reason: Headache/Pain Mild Scale (1-3) Last Admin: 05/03/21 19:30 Dose: 650 mg Documented by: Al Hydroxide/Mg Hydroxide (Magnesium Hydrox/Alum Hydrox 30 Ml Oral.Susp) 30 ml PO Q6H PRN PRN Reason: Heartburn/Nausea Clonazepam (Clonazepam 0.5 Mg Tablet) 0.5 mg PO BID [facility] Last Admin: 05/14/21 10:27 Dose: Not Given Documented by: Cyanocobalamin (Cyanocobalamin (Vitamin B-12) 100 Mcg Tablet) 100 mcg PO DAILY [facility] Last Admin: 05/14/21 09:55 Dose: 100 mcg Documented by: Ergocalciferol (Ergocalciferol (Vitamin D2) 1,250 Mcg Capsule) 1,250 mcg PO Q7D [facility] Last Admin: 05/10/21 18:15 Dose: Not Given Documented by: Magnesium Hydroxide (Milk Of Magnesia 30 Ml Oral.Susp) 30 ml PO DAILY PRN PRN Reason: Constipation Multivitamins/Vitamin C (Multivitamin Tablet) 1 tab PO DAILY [facility] Last Admin: 05/14/21 09:55 Dose: 1 tab Documented by: Olanzapine (Olanzapine 7.5 Mg Tablet) 7.5 mg PO BEDTIME [facility] Last Admin: 05/13/21 20:43 Dose: 7.5 mg Documented by: Paroxetine HCl (Paroxetine Hcl 10 Mg Tablet) 15 mg PO DAILY [facility] Thiamine HCl (Thiamine Hcl 100 Mg Tablet) 100 mg PO DAILY [facility] Last Admin: 05/14/21 09:55 Dose: 100 mg Documented by: Trazodone HCl (Trazodone Hcl 25 Mg Halftab) 25 mg PO BEDTIME PRN PRN Reason: Insomnia Allergies Allergies Allergy/AdvReac Type Severity Reaction Status Date / Time No Known Allergies Allergy Verified 05/02/21 13:17 Assessment & Plan Assessment & Plan (1) MDD (major depressive disorder), recurrent severe, without psychosis: Status: Acute Code(s): F33.2 - Major depressive disorder, recurrent severe without psychotic features (2) Cognitive decline: Status: Acute Code(s): R41.89 - Other symptoms and signs involving cognitive functions and awareness Assessment and Plan: I am not certain whether she has mild cognitive impairment or this is a anxiety and depression with a pseudo-dementia. My recommendation would be to obtain the report of the MRI of the brain that was done within the last 6 months at [facility]. I would recommend an EEG. Blood work for treatable dementia as is normal. She can also have an outpatient neuropsych testing once her major depression is treated and improves. The patient has been reassured. 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 Pt became aware of cognitive decline starting this past Spring 2020. Pt's depression seems to be a combination of reaction to growing awareness of cognitive decline, and going off antidepressants; depression is severe however and will need to be treated At this point, it's unclear the etiology of cognitive decline; patient has been aware of it for the past 9 months however it seems to have gotten increasingly worse as depression set in this past fall/winter; it is unclear if there were signs of cognitive decline prior to this past spring. Hospital course: review of labs get TSH w/ reflex, B12/folate, calcium, ammonia are normal Started Mirtazapine for depression and anxiety in the face of insomnia and poor appetite Patient understands her provisional diagnosis of dementia and is in anguish over the enormity and outcome of such a diagnosis -patient has been refusing mirtazapine; discussed case with Dr. Rivas who recommends low dose of Zyprexa given patient's agitated/anxious depression to which patient agrees. Given patient's insomnia this is also a reasonable option; will continue to consider mirtazapine or restarting Paxil or other antidepressant/antianxiety medication. -Patient is very anxious and struggles with making any decisions including medication and choosing a healthcare proxy. She understands her situation , understands medications (though has an exaggerated worry about being overmedicated) and understands the concept and ramifications of choosing and not choosing a healthcare proxy; however her anxiety currently leaves her overwhelmed and indecisive. -pursuing notes from recent hospitalization/MRI -neurology saw patient and appreciate recommendations. 05/09/21 patient is improved after her 1 night on Zyprexa 2.5 mg. She is less anxious clearly able to articulate her thoughts and her concerns and a logical, linear and organized way. She is self reflective and able to consider things much more clearly; she is also able to make decisions and has agreed to make Tatianna her cousin her healthcare proxy and continue with Zyprexa as well as restarting Paxil. Patient gave verbal RO OI, with to witnesses to reach out to her PCP for relevant information and hopefully MRI results. Patient agrees with the need to combat anxiety and depression; she agrees to restart Paxil saying she tolerated it well for decades. [employer] Weight Operator had some initial concerns about restarting this medication, given that intermittent adherence can cause confusion via discontinuation syndrome; however patient remains anxious about medications and this is a medication she knows and is comfortable with and has a documented, proven hx of being effective; for this reason restarted. 05/10 patient is more anxious today which seems to increase confusion; unsure why however a specific peer who was gets a phrenic with paranoid delusions has been intrusive with this patient, trying to convince her peers that they are being poorly treated. Considering Ativan 0.5 mg t.i.d. scheduled to see if it is possible to break this intense cycle of anxiety; patient is willing to consider this. However she did start Paxil today. Patient complains of buzzing sound ever since starting Zyprexa 2.5mg qhs, giving medical underwriter some pause whether to increase dose. However patient is anxious depression remains debilitating. Currently patient has some disorganized behaviors are not purposeless but seem more to be borne out of anxiety confusion/forgetfulness. Conversely she is eating better and has been able to make decisions regarding designated healthcare proxy. 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 q.a.m. to target anxiety and dysphoria. Zyprexa was increased up to 5 mg at night to target mood lability. Start gabapentin 100 mg p.o. b.i.d. to target anxiety. Reassessment tomorrow morning. Gather collateral information. I spent minutes with the patient and/or on the patient floor today, greater than?50% of which was spent counseling/coordinating care. Reason for contiued inpatient stay Substantial Risk for: inability to function, rapid decompensation and med/psych decompensation
--- NOTE | 2021-05-14 14:47 | MHC.CLN ---
Addendum entered by Betsy Miles, LYLY 05/14/21 14:52: PATIENT APPEARS WELL NOURISHED. Original Note: NUTRITION VISITED WITH PATIENT IN ROOM. ATE ABOUT 25% OF LUNCH. HAD ENSURE ON TRAY AND ENCOURAGED HER TO DRINK. STATED HEIGHT=5'. NO WEIGHT HX VIEWED AND COULD NOT REPORT ANY PRIOR WEIGHTS. DID NOT WANT TO LEAVE ROOM TO BE WEIGHED WITH THIS TAX ATTORNEY. WEIGHT LOSS REPORTED IN RECORD OF MORE THAN 34# FROM POOR APPETITE AND FORGETFULNESS. DIET=REGULAR WITH ENSURE TID. SUPPLEMENT PROVIDES 1050 KCAL, 60 G PROTEIN. FOLLOW WEIGHT AND INTAKE.
[2021-05-14 18:00] VITALS: BP 148/64; PULSE 108; RESP 16; TEMP 36.8; O2SAT 96
[2021-05-14] MEDS: clonazePAM 0.5 MG TABLET PO (20:00)
[2021-05-14] MEDS: Gabapentin 100 MG CAPSULE PO (20:00)
[2021-05-14] MEDS: OLANZapine 7.5 MG TABLET PO (20:00)
[2021-05-15 06:00] VITALS: BP 136/63; PULSE 91; RESP 18; TEMP 36.5; O2SAT 99
[2021-05-15] MEDS: PARoxetine HCL 10 MG TABLET 15 MG PO (08:27)
[2021-05-15] MEDS: clonazePAM 0.5 MG TABLET PO ×2 (08:27→21:31)
[2021-05-15] MEDS: Multivitamin TABLET 1 TAB PO (08:28)
[2021-05-15] MEDS: Cyanocobalamin (Vitamin B-12) 100 MCG TABLET PO (08:28)
[2021-05-15] MEDS: Thiamine HCL 100 MG TABLET PO (08:28)
--- NOTE | 2021-05-15 13:46 | HO.PSYCHPN ---
Subjective Subjective Date of Service: 05/15/21 Reason For Visit: generalized anxiety disorder major depressive diso Subjective Notes: Conditional Voluntary Interim History: The nursing staff reported that the patient has been very anxious with thought blocking, easily overwhelmed with anxiety. Today in the interview, she has thought blocking, veyr anxious, staff reported no oversedation with Gabapentin. NO side effects with the increase of Paxil Mental Status Exam Mental Status Exam Patient Appearance: Well Grooomed Patient Orientation: Person Level of Consciousness: Restless Patient Behavior: Dependent and Passive Mood Description: Calm Affect Description: Fearful Hallucinations: None Delusions: Not Present Thought Process: Distracted and Slowed Thinking Thought Content: positive for [place] and positive for Perseveration Judgement: Fair Diagnostics Vital Signs (24Hr): Vital Signs - 24 hr 05/14/21 18:00 05/15/21 06:00 Temperature 98.3 F 97.7 F Pulse Rate 108 H 91 Respiratory Rate 16 18 Blood Pressure 148/64 H 136/63 Pulse Oximetry 96 99 Medications Medications Current Medications Acetaminophen (Acetaminophen 325 Mg Tablet) 650 mg PO Q6H PRN PRN Reason: Headache/Pain Mild Scale (1-3) Last Admin: 05/03/21 19:30 Dose: 650 mg Documented by: Al Hydroxide/Mg Hydroxide (Magnesium Hydrox/Alum Hydrox 30 Ml Oral.Susp) 30 ml PO Q6H PRN PRN Reason: Heartburn/Nausea Clonazepam (Clonazepam 0.5 Mg Tablet) 0.5 mg PO BID [facility] Last Admin: 05/15/21 08:27 Dose: 0.5 mg Documented by: Cyanocobalamin (Cyanocobalamin (Vitamin B-12) 100 Mcg Tablet) 100 mcg PO DAILY [facility] Last Admin: 05/15/21 08:28 Dose: 100 mcg Documented by: Ergocalciferol (Ergocalciferol (Vitamin D2) 1,250 Mcg Capsule) 1,250 mcg PO Q7D [facility] Last Admin: 05/10/21 18:15 Dose: Not Given Documented by: Gabapentin (Gabapentin 100 Mg Capsule) 100 mg PO BID [facility] Last Admin: 05/15/21 09:12 Dose: Not Given Documented by: Magnesium Hydroxide (Milk Of Magnesia 30 Ml Oral.Susp) 30 ml PO DAILY PRN PRN Reason: Constipation Multivitamins/Vitamin C (Multivitamin Tablet) 1 tab PO DAILY [facility] Last Admin: 05/15/21 08:28 Dose: 1 tab Documented by: Olanzapine (Olanzapine 7.5 Mg Tablet) 7.5 mg PO BEDTIME [facility] Last Admin: 05/14/21 20:00 Dose: 7.5 mg Documented by: Paroxetine HCl (Paroxetine Hcl 10 Mg Tablet) 15 mg PO DAILY [facility] Last Admin: 05/15/21 08:27 Dose: 15 mg Documented by: Thiamine HCl (Thiamine Hcl 100 Mg Tablet) 100 mg PO DAILY [facility] Last Admin: 05/15/21 08:28 Dose: 100 mg Documented by: Trazodone HCl (Trazodone Hcl 25 Mg Halftab) 25 mg PO BEDTIME PRN PRN Reason: Insomnia Allergies Allergies Allergy/AdvReac Type Severity Reaction Status Date / Time No Known Allergies Allergy Verified 05/02/21 13:17 Assessment & Plan Assessment & Plan (1) MDD (major depressive disorder), recurrent severe, without psychosis: Status: Acute Code(s): F33.2 - Major depressive disorder, recurrent severe without psychotic features (2) Cognitive decline: Status: Acute Code(s): R41.89 - Other symptoms and signs involving cognitive functions and awareness Assessment and Plan: I am not certain whether she has mild cognitive impairment or this is a anxiety and depression with a pseudo-dementia. My recommendation would be to obtain the report of the MRI of the brain that was done within the last 6 months at [facility]. I would recommend an EEG. Blood work for treatable dementia as is normal. She can also have an outpatient neuropsych testing once her major depression is treated and improves. The patient has been reassured. 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 Pt became aware of cognitive decline starting this past Spring 2020. Pt's depression seems to be a combination of reaction to growing awareness of cognitive decline, and going off antidepressants; depression is severe however and will need to be treated At this point, it's unclear the etiology of cognitive decline; patient has been aware of it for the past 9 months however it seems to have gotten increasingly worse as depression set in this past fall/winter; it is unclear if there were signs of cognitive decline prior to this past spring. Hospital course: review of labs get TSH w/ reflex, B12/folate, calcium, ammonia are normal Started Mirtazapine for depression and anxiety in the face of insomnia and poor appetite Patient understands her provisional diagnosis of dementia and is in anguish over the enormity and outcome of such a diagnosis -patient has been refusing mirtazapine; discussed case with Dr. Rivas who recommends low dose of Zyprexa given patient's agitated/anxious depression to which patient agrees. Given patient's insomnia this is also a reasonable option; will continue to consider mirtazapine or restarting Paxil or other antidepressant/antianxiety medication. -Patient is very anxious and struggles with making any decisions including medication and choosing a healthcare proxy. She understands her situation , understands medications (though has an exaggerated worry about being overmedicated) and understands the concept and ramifications of choosing and not choosing a healthcare proxy; however her anxiety currently leaves her overwhelmed and indecisive. -pursuing notes from recent hospitalization/MRI -neurology saw patient and appreciate recommendations. 05/09/21 patient is improved after her 1 night on Zyprexa 2.5 mg. She is less anxious clearly able to articulate her thoughts and her concerns and a logical, linear and organized way. She is self reflective and able to consider things much more clearly; she is also able to make decisions and has agreed to make Tatianna her cousin her healthcare proxy and continue with Zyprexa as well as restarting Paxil. Patient gave verbal RO OI, with to witnesses to reach out to her PCP for relevant information and hopefully MRI results. Patient agrees with the need to combat anxiety and depression; she agrees to restart Paxil saying she tolerated it well for decades. Trolley Wire Installer had some initial concerns about restarting this medication, given that intermittent adherence can cause confusion via discontinuation syndrome; however patient remains anxious about medications and this is a medication she knows and is comfortable with and has a documented, proven hx of being effective; for this reason restarted. 05/10 patient is more anxious today which seems to increase confusion; unsure why however a specific peer who was gets a phrenic with paranoid delusions has been intrusive with this patient, trying to convince her peers that they are being poorly treated. Considering Ativan 0.5 mg t.i.d. scheduled to see if it is possible to break this intense cycle of anxiety; patient is willing to consider this. However she did start Paxil today. Patient complains of buzzing sound ever since starting Zyprexa 2.5mg qhs, giving pattern chart writer some pause whether to increase dose. However patient is anxious depression remains debilitating. Currently patient has some disorganized behaviors are not purposeless but seem more to be borne out of anxiety confusion/forgetfulness. Conversely she is eating better and has been able to make decisions regarding designated healthcare proxy. 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 q.a.m. to target anxiety and dysphoria. Zyprexa was increased up to 5 mg at night to target mood lability. Increase gabapentin up to 100 mg p.o. t.i.d. to target anxiety. Reassessment tomorrow morning. Gather collateral information. I spent minutes with the patient and/or on the patient floor today, greater than?50% of which was spent counseling/coordinating care. Reason for contiued inpatient stay Substantial Risk for: inability to function, rapid decompensation and med/psych decompensation
[2021-05-15] MEDS: Gabapentin 100 MG CAPSULE PO ×2 (15:52→21:31)
[2021-05-15] MEDS: OLANZapine ODT 10 MG TAB.RAPDIS TRANSLINGU (15:52)
[2021-05-15 18:00] VITALS: BP 140/64; PULSE 104; RESP 16; TEMP 36.4; O2SAT 100
[2021-05-15] MEDS: OLANZapine 10 MG TABLET PO (21:31)
[2021-05-16 08:00] VITALS: BP 156/69; PULSE 86; RESP 19; TEMP 36.8; O2SAT 98
[2021-05-16] MEDS: Thiamine HCL 100 MG TABLET PO (08:56)
[2021-05-16] MEDS: Cyanocobalamin (Vitamin B-12) 100 MCG TABLET PO (08:56)
[2021-05-16] MEDS: PARoxetine HCL 10 MG TABLET 15 MG PO (08:56)
[2021-05-16] MEDS: clonazePAM 0.5 MG TABLET PO ×2 (08:56→21:02)
--- NOTE | 2021-05-16 15:01 | HO.PSYCHPN ---
Subjective Subjective Date of Service: 05/16/21 Reason For Visit: generalized anxiety disorder major depressive diso Subjective Notes: Conditional Voluntary Interim History: The nursing staff reported that yesterday the patient was extremely paranoid regarding taking a shower. She stated that she probably will . She remains paranoid with severe thought blocking. On interview, the patient admitted paranoid symptoms regarding the cameras and that she is being followed. Also she has severe thought blocking at times, unable to process new information. Even though that she is psychotic, she looks less anxious than before. I explained her that her Paxil will need to be increased to target dysphoria. Mental Status Exam Mental Status Exam Patient Appearance: Disheveled Patient Orientation: Person Level of Consciousness: Awake Patient Behavior: Guarded and Suspicious Mood Description: Suspicious, Withdrawn, Nervous and Apprehensive Affect Description: Constricted and Flat Ability to Follow Directions: Fair Speech Pattern: Mumbled Delusions: Paranoid Ideation Thought Process: Evasive and Slowed Thinking Thought Content: positive for [place] of Content and positive for Thought Blocking Judgement: Poor Diagnostics Vital Signs (24Hr): Vital Signs - 24 hr 05/15/21 18:00 05/16/21 08:00 Temperature 97.5 F 98.2 F Pulse Rate 104 H 86 Respiratory Rate 16 19 Blood Pressure 140/64 H 156/69 H Pulse Oximetry 100 98 Medications Medications Current Medications Acetaminophen (Acetaminophen 325 Mg Tablet) 650 mg PO Q6H PRN PRN Reason: Headache/Pain Mild Scale (1-3) Last Admin: 05/03/21 19:30 Dose: 650 mg Documented by: Al Hydroxide/Mg Hydroxide (Magnesium Hydrox/Alum Hydrox 30 Ml Oral.Susp) 30 ml PO Q6H PRN PRN Reason: Heartburn/Nausea Clonazepam (Clonazepam 0.5 Mg Tablet) 0.5 mg PO BID [facility] Last Admin: 05/16/21 08:56 Dose: 0.5 mg Documented by: Cyanocobalamin (Cyanocobalamin (Vitamin B-12) 100 Mcg Tablet) 100 mcg PO DAILY [facility] Last Admin: 05/16/21 08:56 Dose: 100 mcg Documented by: Ergocalciferol (Ergocalciferol (Vitamin D2) 1,250 Mcg Capsule) 1,250 mcg PO Q7D [facility] Last Admin: 05/10/21 18:15 Dose: Not Given Documented by: Gabapentin (Gabapentin 100 Mg Capsule) 100 mg PO TID [facility] Last Admin: 05/16/21 14:44 Dose: Not Given Documented by: Magnesium Hydroxide (Milk Of Magnesia 30 Ml Oral.Susp) 30 ml PO DAILY PRN PRN Reason: Constipation Multivitamins/Vitamin C (Multivitamin Tablet) 1 tab PO DAILY [facility] Last Admin: 05/16/21 09:06 Dose: Not Given Documented by: Olanzapine (Olanzapine 10 Mg Tablet) 10 mg PO BEDTIME [facility] Last Admin: 05/15/21 21:31 Dose: 10 mg Documented by: Paroxetine HCl (Paroxetine Hcl 20 Mg Tablet) 20 mg PO DAILY [facility] Thiamine HCl (Thiamine Hcl 100 Mg Tablet) 100 mg PO DAILY [facility] Last Admin: 05/16/21 08:56 Dose: 100 mg Documented by: Trazodone HCl (Trazodone Hcl 25 Mg Halftab) 25 mg PO BEDTIME PRN PRN Reason: Insomnia Allergies Allergies Allergy/AdvReac Type Severity Reaction Status Date / Time No Known Allergies Allergy Verified 05/02/21 13:17 Assessment & Plan Assessment & Plan (1) MDD (major depressive disorder), recurrent severe, without psychosis: Status: Acute Code(s): F33.2 - Major depressive disorder, recurrent severe without psychotic features (2) Cognitive decline: Status: Acute Code(s): R41.89 - Other symptoms and signs involving cognitive functions and awareness Assessment and Plan: I am not certain whether she has mild cognitive impairment or this is a anxiety and depression with a pseudo-dementia. My recommendation would be to obtain the report of the MRI of the brain that was done within the last 6 months at [facility]. I would recommend an EEG. Blood work for treatable dementia as is normal. She can also have an outpatient neuropsych testing once her major depression is treated and improves. The patient has been reassured. 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 Pt became aware of cognitive decline starting this past Spring 2020. Pt's depression seems to be a combination of reaction to growing awareness of cognitive decline, and going off antidepressants; depression is severe however and will need to be treated At this point, it's unclear the etiology of cognitive decline; patient has been aware of it for the past 9 months however it seems to have gotten increasingly worse as depression set in this past fall/winter; it is unclear if there were signs of cognitive decline prior to this past spring. Hospital course: review of labs get TSH w/ reflex, B12/folate, calcium, ammonia are normal Started Mirtazapine for depression and anxiety in the face of insomnia and poor appetite Patient understands her provisional diagnosis of dementia and is in anguish over the enormity and outcome of such a diagnosis -patient has been refusing mirtazapine; discussed case with Dr. Rivas who recommends low dose of Zyprexa given patient's agitated/anxious depression to which patient agrees. Given patient's insomnia this is also a reasonable option; will continue to consider mirtazapine or restarting Paxil or other antidepressant/antianxiety medication. -Patient is very anxious and struggles with making any decisions including medication and choosing a healthcare proxy. She understands her situation , understands medications (though has an exaggerated worry about being overmedicated) and understands the concept and ramifications of choosing and not choosing a healthcare proxy; however her anxiety currently leaves her overwhelmed and indecisive. -pursuing notes from recent hospitalization/MRI -neurology saw patient and appreciate recommendations. 05/09/21 patient is improved after her 1 night on Zyprexa 2.5 mg. She is less anxious clearly able to articulate her thoughts and her concerns and a logical, linear and organized way. She is self reflective and able to consider things much more clearly; she is also able to make decisions and has agreed to make Tatianna her cousin her healthcare proxy and continue with Zyprexa as well as restarting Paxil. Patient gave verbal RO OI, with to witnesses to reach out to her PCP for relevant information and hopefully MRI results. Patient agrees with the need to combat anxiety and depression; she agrees to restart Paxil saying she tolerated it well for decades. Tool Adjuster had some initial concerns about restarting this medication, given that intermittent adherence can cause confusion via discontinuation syndrome; however patient remains anxious about medications and this is a medication she knows and is comfortable with and has a documented, proven hx of being effective; for this reason restarted. 05/10 patient is more anxious today which seems to increase confusion; unsure why however a specific peer who was gets a phrenic with paranoid delusions has been intrusive with this patient, trying to convince her peers that they are being poorly treated. Considering Ativan 0.5 mg t.i.d. scheduled to see if it is possible to break this intense cycle of anxiety; patient is willing to consider this. However she did start Paxil today. Patient complains of buzzing sound ever since starting Zyprexa 2.5mg qhs, giving contract writer some pause whether to increase dose. However patient is anxious depression remains debilitating. Currently patient has some disorganized behaviors are not purposeless but seem more to be borne out of anxiety confusion/forgetfulness. Conversely she is eating better and has been able to make decisions regarding designated healthcare proxy. 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 q.a.m. to target anxiety and dysphoria. Zyprexa was increased up to 10 mg at night to target mood lability. Keep gabapentin up to 100 mg p.o. t.i.d. to target anxiety. Reassessment tomorrow morning. Gather collateral information. I spent minutes with the patient and/or on the patient floor today, greater than?50% of which was spent counseling/coordinating care. Reason for contiued inpatient stay Substantial Risk for: inability to function, rapid decompensation and med/psych decompensation
--- NOTE | 2021-05-16 15:26 | MHC.CLN ---
F/U NO NEW WEIGHT RECORDED. TAKES MEALS IN ROOM. CONTINUE WITH REGULAR DIET AND ENSURE SUPPLEMENT TID. FOLLOW PO INTAKE.
[2021-05-16 20:53] VITALS: BP 129/59; PULSE 95; RESP 17; TEMP 37.1; O2SAT 99
[2021-05-16] MEDS: OLANZapine 10 MG TABLET PO (21:04)
[2021-05-17 06:00] VITALS: BP 153/65; PULSE 85; RESP 14; TEMP 36.3; O2SAT 98
[2021-05-17 07:00] VITALS: BMI 20.9
[2021-05-17] MEDS: Multivitamin TABLET 1 TAB PO (08:51)
[2021-05-17] MEDS: Cyanocobalamin (Vitamin B-12) 100 MCG TABLET PO (08:51)
[2021-05-17] MEDS: clonazePAM 0.5 MG TABLET PO ×2 (08:51→20:52)
[2021-05-17] MEDS: Thiamine HCL 100 MG TABLET PO (08:51)
[2021-05-17 08:52] LABS: MANUAL DIFF FLAG NO
[2021-05-17] MEDS: PARoxetine HCL 20 MG TABLET PO (08:52)
[2021-05-17 08:55] LABS: Basophils Percent Auto 0.2 % (0-2); Eosinophils Absolute Auto 0.1 X10*3/uL (0.0-0.4); Eosinophils Percent Auto 2.2 % (0-4); Hematocrit 46.1 % (37.0-47.0); Hemoglobin 15.3 g/dl (12.0-16.0); Imm Gran Abs Auto 0.01 X10*3/uL (0.00-0.03); Imm Gran Pct Auto 0.2 % (0.0-0.4); Lymphocytes Absolute Auto 1.6 X10*3/uL (1.2-4.9); Lymphocytes Percent Auto 26.6 % (20-40); Mean Corpuscular HGB Conc 33.2 g/dl (31.0-35.0); Mean Corpuscular Hemoglobin 29.8 pg (27.0-33.0); Mean Corpuscular Volume 89.9 fL (80.0-98.0); Mean Platelet Volume 10.7 fL (9.4-12.3); Monocytes Absolute Auto 0.5 X10*3/uL (0.1-1.2); Monocytes Percent Auto 8.8 % (2-11); Neutrophils Absolute Auto 3.7 x10*3/uL (2.0-8.3); Platelet Count 193 X10*3/uL (160-400); Red Blood Count 5.13 X10*6/uL (4.20-5.50); Red Cell Distribution Width 12.8 % (11.0-16.0)
[2021-05-17 09:04] LABS: Estimated Average Glucose 103 mg/dL; Hemoglobin A1c % 5.2 %
[2021-05-17 09:09] LABS: Alanine Aminotransferase 18 U/L (0-31); Albumin Level 3.8 g/dL (3.5-5.0); Alkaline Phosphatase 85 U/L (39-117); Anion Gap 10 (12-20); Aspartate Amino Transferase 14 U/L (5-31); Bilirubin Direct 0.4 mg/dL (0.0-0.5); Blood Urea Nitrogen 12 mg/dL (9-16); Calcium 10.4 mg/dL (8.4-10.2); Carbon Dioxide 32 mmol/L (22-29); Chloride 107 mmol/L (96-108); Estimated Glomerular Filt Rate > 60; Glucose Random 97 mg/dL (60-115); Potassium 4.2 mmol/L (3.3-5.1); Sodium 145 mmol/L (135-145); Total Protein 6.1 g/dL (6.5-8.0)
[2021-05-17 09:29] LABS: Thyroid Stimulating Hormone 1.88 uIU/mL (0.32-4.0)
--- NOTE | 2021-05-17 15:01 | P.PNPSI_ITS ---
Subjective Subjective Date of Service: 05/17/21 Reason For Visit: generalized anxiety disorder major depressive diso Subjective Notes: Conditional Voluntary Interim History: the nursing staff reported the patient has been anxious and confused, she complains of being foggy with the medications and she refused and Neurontin last night. We had a family meeting over the phone with her relative and the patient was more alert and awake, still paranoid and confused with thought blocking but her response time has improved. Still with some thought blocking. On interview, we discussed medications and she agreed to discontinue Neurontin. Mental Status Exam Mental Status Exam Patient Appearance: Disheveled Patient Orientation: Person Level of Consciousness: Awake Patient Behavior: Guarded, Suspicious and Timid Mood Description: Depressed Affect Description: Constricted Ability to Follow Directions: Fair Speech Pattern: Delayed and Long Pauses Hallucinations: None Delusions: Paranoid Ideation Thought Process: Evasive and Slowed Thinking Thought Content: positive for Poverty of Content Judgement: Fair Diagnostics Vital Signs (24Hr): Vital Signs - 24 hr 05/16/21 20:53 05/17/21 06:00 Temperature 98.7 F 97.3 F Pulse Rate 95 85 Respiratory Rate 17 14 Blood Pressure 129/59 L 153/65 H Pulse Oximetry 99 98 BMI result Body Mass Index 20.9 Labs Results: 05/17/21 08:37 05/17/21 08:37 Labs: Laboratory Results - last 48 hr 05/17/21 05/17/21 05/17/21 08:37 08:37 08:37 WBC 6.0 RBC 5.13 Hgb 15.3 Hct 46.1 MCV 89.9 MCH 29.8 MCHC 33.2 RDW 12.8 Plt Count 193 MPV 10.7 Immature Gran % (Auto) 0.2 Neut % (Auto) 62.0 Lymph % (Auto) 26.6 [place] % (Auto) 8.8 Eos % (Auto) 2.2 Baso % (Auto) 0.2 Lymph # (Auto) 1.6 [place] # (Auto) 0.5 Eos # (Auto) 0.1 Baso # (Auto) 0.0 Abs Immat Gran (auto) 0.01 Absolute Neuts (auto) 3.7 Absolute Nucleated RBC 0.000 Nucleated RBC % (auto) 0.0 Sodium 145 Potassium 4.2 Chloride 107 Carbon Dioxide 32 H Anion Gap 10 L BUN 12 Creatinine 0.70 Estim Creat Clear Calc TNP Estimated GFR > 60 Random Glucose 97 Estimat Average Glucose 103 Hemoglobin A1c % 5.2 Calcium 10.4 H Total Bilirubin 1.0 Direct Bilirubin 0.4 AST 14 ALT 18 Alkaline Phosphatase 85 Total Protein 6.1 L Albumin 3.8 TSH 1.88 Imaging Radiology Impressions: ITS Impressions Head CT 05/17/21 06:05 IMPRESSION: No acute intracranial pathology. Medications Medications Current Medications Acetaminophen (Acetaminophen 325 Mg Tablet) 650 mg PO Q6H PRN PRN Reason: Headache/Pain Mild Scale (1-3) Last Admin: 05/03/21 19:30 Dose: 650 mg Documented by: Al Hydroxide/Mg Hydroxide (Magnesium Hydrox/Alum Hydrox 30 Ml Oral.Susp) 30 ml PO Q6H PRN PRN Reason: Heartburn/Nausea Clonazepam (Clonazepam 0.5 Mg Tablet) 0.5 mg PO BID [facility] Last Admin: 05/17/21 08:51 Dose: 0.5 mg Documented by: Cyanocobalamin (Cyanocobalamin (Vitamin B-12) 100 Mcg Tablet) 100 mcg PO DAILY [facility] Last Admin: 05/17/21 08:51 Dose: 100 mcg Documented by: Ergocalciferol (Ergocalciferol (Vitamin D2) 1,250 Mcg Capsule) 1,250 mcg PO Q7D [facility] Last Admin: 05/10/21 18:15 Dose: Not Given Documented by: Magnesium Hydroxide (Milk Of Magnesia 30 Ml Oral.Susp) 30 ml PO DAILY PRN PRN Reason: Constipation Multivitamins/Vitamin C (Multivitamin Tablet) 1 tab PO DAILY [facility] Last Admin: 05/17/21 08:51 Dose: 1 tab Documented by: Olanzapine (Olanzapine 10 Mg Tablet) 10 mg PO BEDTIME [facility] Last Admin: 05/16/21 21:04 Dose: 10 mg Documented by: Paroxetine HCl (Paroxetine Hcl 20 Mg Tablet) 20 mg PO DAILY [facility] Last Admin: 05/17/21 08:52 Dose: 20 mg Documented by: Thiamine HCl (Thiamine Hcl 100 Mg Tablet) 100 mg PO DAILY [facility] Last Admin: 05/17/21 08:51 Dose: 100 mg Documented by: Trazodone HCl (Trazodone Hcl 25 Mg Halftab) 25 mg PO BEDTIME PRN PRN Reason: Insomnia Allergies Allergies Allergy/AdvReac Type Severity Reaction Status Date / Time No Known Allergies Allergy Verified 05/02/21 13:17 Assessment & Plan Assessment & Plan (1) MDD (major depressive disorder), recurrent severe, without psychosis: Status: Acute Code(s): F33.2 - Major depressive disorder, recurrent severe without psychotic features (2) Cognitive decline: Status: Acute Code(s): R41.89 - Other symptoms and signs involving cognitive functions and awareness Assessment and Plan: I am not certain whether she has mild cognitive impairment or this is a anxiety and depression with a pseudo-dementia. My recommendation would be to obtain the report of the MRI of the brain that was done within the last 6 months at [facility]. I would recommend an EEG. Blood work for treatable dementia as is normal. She can also have an outpatient neuropsych testing once her major depression is treated and improves. The patient has been reassured. 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 Pt became aware of cognitive decline starting this past Spring 2020. Pt's depression seems to be a combination of reaction to growing awareness of cognitive decline, and going off antidepressants; depression is severe however and will need to be treated At this point, it's unclear the etiology of cognitive decline; patient has been aware of it for the past 9 months however it seems to have gotten increasingly worse as depression set in this past fall/winter; it is unclear if there were signs of cognitive decline prior to this past spring. Hospital course: review of labs get TSH w/ reflex, B12/folate, calcium, ammonia are normal Started Mirtazapine for depression and anxiety in the face of insomnia and poor appetite Patient understands her provisional diagnosis of dementia and is in anguish over the enormity and outcome of such a diagnosis -patient has been refusing mirtazapine; discussed case with Dr. Rivas who recommends low dose of Zyprexa given patient's agitated/anxious depression to which patient agrees. Given patient's insomnia this is also a reasonable option; will continue to consider mirtazapine or restarting Paxil or other antidepressant/antianxiety medication. -Patient is very anxious and struggles with making any decisions including medication and choosing a healthcare proxy. She understands her situation , understands medications (though has an exaggerated worry about being overmedicated) and understands the concept and ramifications of choosing and not choosing a healthcare proxy; however her anxiety currently leaves her o verwhelmed and indecisive. -pursuing notes from recent hospitalization/MRI -neurology saw patient and appreciate recommendations. 05/09/21 patient is improved after her 1 night on Zyprexa 2.5 mg. She is less anxious clearly able to articulate her thoughts and her concerns and a logical, linear and organized way. She is self reflective and able to consider things much more clearly; she is also able to make decisions and has agreed to make Tatianna her cousin her healthcare proxy and continue with Zyprexa as well as restarting Paxil. Patient gave verbal RO OI, with to witnesses to reach out to her PCP for relevant information and hopefully MRI results. Patient agrees with the need to combat anxiety and depression; she agrees to restart Paxil saying she tolerated it well for decades. Assembler Musical Equipment had some initial concerns about restarting this medication, given that intermittent adherence can cause confusion via discontinuation syndrome; however patient remains anxious about medications and this is a medication she knows and is comfortable with and has a documented, proven hx of being effective; for this reason restarted. 05/10 patient is more anxious today which seems to increase confusion; unsure why however a specific peer who was gets a phrenic with paranoid delusions has been intrusive with this patient, trying to convince her peers that they are being poorly treated. Considering Ativan 0.5 mg t.i.d. scheduled to see if it is possible to break this intense cycle of anxiety; patient is willing to consider this. However she did start Paxil today. Patient complains of buzzing sound ever since starting Zyprexa 2.5mg qhs, giving health technical writer some pause whether to increase dose. However patient is anxious depression remains debilitating. Currently patient has some disorganized behaviors are not purposeless but seem more to be borne out of anxiety confusion/forgetfulness. Conversely she is eating better and has been able to make decisions regarding designated healthcare proxy. 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 q.a.m. to target anxiety and dysphoria. Zyprexa was increased up to 10 mg at night to target mood lability. Discontinue gabapentin up to 100 mg p.o. t.i.d. to target anxiety. Reassessment tomorrow morning. Gather collateral information. I spent minutes with the patient and/or on the patient floor today, greater than?50% of which was spent counseling/coordinating care. Reason for contiued inpatient stay Substantial Risk for: inability to function, rapid decompensation and med/psych decompensation
[2021-05-17 20:25] VITALS: BP 145/62; PULSE 89; RESP 17; TEMP 36.6; O2SAT 100
[2021-05-17] MEDS: OLANZapine 10 MG TABLET PO (20:51)
[2021-05-18 06:00] VITALS: BP 137/61; PULSE 90; RESP 17; TEMP 36.2; O2SAT 98
[2021-05-18] MEDS: Cyanocobalamin (Vitamin B-12) 100 MCG TABLET PO (10:11)
[2021-05-18] MEDS: clonazePAM 0.5 MG TABLET PO ×2 (10:11→20:31)
[2021-05-18] MEDS: Thiamine HCL 100 MG TABLET PO (10:11)
[2021-05-18] MEDS: Multivitamin TABLET 1 TAB PO (10:11)
[2021-05-18] MEDS: PARoxetine HCL 20 MG TABLET PO (10:11)
--- NOTE | 2021-05-18 13:49 | P.PNPSI_ITS ---
Subjective Subjective Date of Service: 05/18/21 Reason For Visit: generalized anxiety disorder major depressive diso Subjective Notes: Conditional Voluntary Interim History: the nursing staff reported the patient has been slightly better yesterday, she was out of her room and she was able to go to 1 group. She disclosed that she usually text friend but she was unable to do it since she had been admitted into the hospital. On interview, the patient denies new improvement of her mood, she feels the same but in general she looks more oriented with less thought blocking. Her affect is slightly better but still very anxious and depressed Mental Status Exam Mental Status Exam Patient Appearance: Well Grooomed Patient Orientation: Person Level of Consciousness: Awake Patient Behavior: Guarded and Passive Mood Description: Withdrawn and Depressed Affect Description: Constricted Patient Cognition Impaired: No Ability to Follow Directions: Good Speech Pattern: Clear Hallucinations: None Delusions: Paranoid Ideation Thought Process: Slowed Thinking Thought Content: positive for Poverty of Content Judgement: Fair Diagnostics Vital Signs (24Hr): Vital Signs - 24 hr 05/17/21 20:25 05/18/21 06:00 Temperature 97.9 F 97.1 F Pulse Rate 89 90 Respiratory Rate 17 17 Blood Pressure 145/62 H 137/61 Pulse Oximetry 100 98 BMI result Body Mass Index 20.9 Labs Results: 05/17/21 08:37 05/17/21 08:37 Labs: Laboratory Results - last 48 hr 05/17/21 05/17/21 05/17/21 08:37 08:37 08:37 WBC 6.0 RBC 5.13 Hgb 15.3 Hct 46.1 MCV 89.9 MCH 29.8 MCHC 33.2 RDW 12.8 Plt Count 193 MPV 10.7 Immature Gran % (Auto) 0.2 Neut % (Auto) 62.0 Lymph % (Auto) 26.6 [place] % (Auto) 8.8 Eos % (Auto) 2.2 Baso % (Auto) 0.2 Lymph # (Auto) 1.6 [place] # (Auto) 0.5 Eos # (Auto) 0.1 Baso # (Auto) 0.0 Abs Immat Gran (auto) 0.01 Absolute Neuts (auto) 3.7 Absolute Nucleated RBC 0.000 Nucleated RBC % (auto) 0.0 Sodium 145 Potassium 4.2 Chloride 107 Carbon Dioxide 32 H Anion Gap 10 L BUN 12 Creatinine 0.70 Estim Creat Clear Calc TNP Estimated GFR > 60 Random Glucose 97 Estimat Average Glucose 103 Hemoglobin A1c % 5.2 Calcium 10.4 H Total Bilirubin 1.0 Direct Bilirubin 0.4 AST 14 ALT 18 Alkaline Phosphatase 85 Total Protein 6.1 L Albumin 3.8 TSH 1.88 Imaging Radiology Impressions: ITS Impressions Head CT 05/17/21 06:05 IMPRESSION: No acute intracranial pathology. Medications Medications Current Medications Acetaminophen (Acetaminophen 325 Mg Tablet) 650 mg PO Q6H PRN PRN Reason: Headache/Pain Mild Scale (1-3) Last Admin: 05/03/21 19:30 Dose: 650 mg Documented by: Al Hydroxide/Mg Hydroxide (Magnesium Hydrox/Alum Hydrox 30 Ml Oral.Susp) 30 ml PO Q6H PRN PRN Reason: Heartburn/Nausea Clonazepam (Clonazepam 0.5 Mg Tablet) 0.5 mg PO BID [facility] Last Admin: 05/18/21 10:11 Dose: 0.5 mg Documented by: Cyanocobalamin (Cyanocobalamin (Vitamin B-12) 100 Mcg Tablet) 100 mcg PO DAILY [facility] Last Admin: 05/18/21 10:11 Dose: 100 mcg Documented by: Ergocalciferol (Ergocalciferol (Vitamin D2) 1,250 Mcg Capsule) 1,250 mcg PO Q7D [facility] Last Admin: 05/17/21 17:55 Dose: Not Given Documented by: Magnesium Hydroxide (Milk Of Magnesia 30 Ml Oral.Susp) 30 ml PO DAILY PRN PRN Reason: Constipation Multivitamins/Vitamin C (Multivitamin Tablet) 1 tab PO DAILY [facility] Last Admin: 05/18/21 10:11 Dose: 1 tab Documented by: Olanzapine (Olanzapine 10 Mg Tablet) 10 mg PO BEDTIME [facility] Last Admin: 05/17/21 20:51 Dose: 10 mg Documented by: Paroxetine HCl (Paroxetine Hcl 20 Mg Tablet) 20 mg PO DAILY [facility] Last Admin: 05/18/21 10:11 Dose: 20 mg Documented by: Thiamine HCl (Thiamine Hcl 100 Mg Tablet) 100 mg PO DAILY [facility] Last Admin: 05/18/21 10:11 Dose: 100 mg Documented by: Trazodone HCl (Trazodone Hcl 25 Mg Halftab) 25 mg PO BEDTIME PRN PRN Reason: Insomnia Allergies Allergies Allergy/AdvReac Type Severity Reaction Status Date / Time No Known Allergies Allergy Verified 05/02/21 13:17 Assessment & Plan Assessment & Plan (1) MDD (major depressive disorder), recurrent severe, without psychosis: Status: Acute Code(s): F33.2 - Major depressive disorder, recurrent severe without psychotic features (2) Cognitive decline: Status: Acute Code(s): R41.89 - Other symptoms and signs involving cognitive functions and awareness Assessment and Plan: I am not certain whether she has mild cognitive impairment or this is a anxiety and depression with a pseudo-dementia. My recommendation would be to obtain the report of the MRI of the brain that was done within the last 6 months at [facility]. I would recommend an EEG. Blood work for treatable dementia as is normal. She can also have an outpatient neuropsych testing once her major depression is treated and improves. The patient has been reassured. 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 Pt became aware of cognitive decline starting this past Spring 2020. Pt's depression seems to be a combination of reaction to growing awareness of cognitive decline, and going off antidepressants; depression is severe however and will need to be treated At this point, it's unclear the etiology of cognitive decline; patient has been aware of it for the past 9 months however it seems to have gotten increasingly worse as depression set in this past fall/winter; it is unclear if there were signs of cognitive decline prior to this past spring. Hospital course: review of labs get TSH w/ reflex, B12/folate, calcium, ammonia are normal Started Mirtazapine for depression and anxiety in the face of insomnia and poor appetite Patient understands her provisional diagnosis of dementia and is in anguish over the enormity and outcome of such a diagnosis -patient has been refusing mirtazapine; discussed case with Dr. Rivas who recommends low dose of Zyprexa given patient's agitated/anxious depression to which patient agrees. Given patient's insomnia this is also a reasonable option; will continue to consider mirtazapine or restarting Paxil or other antidepressant/antianxiety medication. -Patient is very anxious and struggles with making any decisions including medication and choosing a healthcare proxy. She understands her situation , understands medications (though has an exaggerated worry about being overmedicated) and understands the concept and ramifications of choosing and not choosing a healthcare proxy; however her anxiety currently leaves her overwhelmed and indecisive. -pursuing notes from recent hospitalization/MRI -neurology saw patient and appreciate recommendations. 05/09/21 patient is improved after her 1 night on Zyprexa 2.5 mg. She is less anxious clearly able to articulate her thoughts and her concerns and a logical, linear and organized way. She is self reflective and able to consider things much more clearly; she is also able to make decisions and has agreed to make Tatianna her cousin her healthcare proxy and continue with Zyprexa as well as restarting Paxil. Patient gave verbal RO OI, with to witnesses to reach out to her PCP for relevant information and hopefully MRI results. Patient agrees with the need to combat anxiety and depression; she agrees to restart Paxil saying she tolerated it well for decades. Tire And Lube Technician had some initial concerns about restarting this medication, given that intermittent adherence can cause confusion via discontinuation syndrome; however patient remains anxious about medications and this is a medication she knows and is comfortable with and has a documented, proven hx of being effective; for this reason restarted. 05/10 patient is more anxious today which seems to increase confusion; unsure why however a specific peer who was gets a phrenic with paranoid delusions has been intrusive with this patient, trying to convince her peers that they are being poorly treated. Considering Ativan 0.5 mg t.i.d. scheduled to see if it is possible to break this intense cycle of anxiety; patient is willing to consider this. However she did start Paxil today. Patient complains of buzzing sound ever since starting Zyprexa 2.5mg qhs, giving gag writer some pause whether to increase dose. However patient is anxious depression remains debilitating. Cu rrently patient has some disorganized behaviors are not purposeless but seem more to be borne out of anxiety confusion/forgetfulness. Conversely she is eating better and has been able to make decisions regarding designated healthcare proxy. 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 q.a.m. to target anxiety and dysphoria. Zyprexa was increased up to 10 mg at night to target mood lability. Discontinue gabapentin up to 100 mg p.o. t.i.d. to target anxiety. Reassessment tomorrow morning. Gather collateral information. I spent minutes with the patient and/or on the patient floor today, g reater than?50% of which was spent counseling/coordinating care. Reason for contiued inpatient stay Substantial Risk for: inability to function, rapid decompensation and med/psych decompensation
[2021-05-18 19:00] VITALS: BP 126/59; PULSE 87; RESP 17; TEMP 36.6; O2SAT 98
[2021-05-18] MEDS: OLANZapine 10 MG TABLET PO (20:31)
[2021-05-19 08:00] VITALS: BP 173/82; PULSE 94; RESP 16; TEMP 36.8; O2SAT 98
[2021-05-19] MEDS: clonazePAM 0.5 MG TABLET PO ×2 (08:41→21:06)
[2021-05-19] MEDS: PARoxetine HCL 20 MG TABLET PO (08:43)
[2021-05-19] MEDS: Thiamine HCL 100 MG TABLET PO (08:45)
[2021-05-19] MEDS: Cyanocobalamin (Vitamin B-12) 100 MCG TABLET PO (08:47)
[2021-05-19] MEDS: Multivitamin TABLET 1 TAB PO (08:49)
[2021-05-19 09:19] VITALS: BP 132/65; PULSE 91; RESP 16
--- NOTE | 2021-05-19 10:05 | HO.PSYCHPN ---
Subjective Subjective Date of Service: 05/19/21 Reason For Visit: generalized anxiety disorder major depressive diso Subjective Notes: Conditional Voluntary Medical Problems Affecting Mental Status: No Interim History: Patient was seen and discussed in rounds today. She continues to be isolative but is coming out somewhat. Continues to be anxious. She is med compliant with encouragement and answering a lot of her questions about medications. Some hoarding behaviors in her room persisting. This morning her blood pressure was somewhat elevated but within 20 minutes it normalized. Attending some groups. No complaints. Eating and sleeping adequately. No changes were made today Review of Systems Review of Systems Yes all other systems are reviewed and are negative Mental Status Exam Mental Status Exam Patient Appearance: Well Grooomed Patient Orientation: Person Level of Consciousness: Awake Patient Behavior: Guarded and Passive Mood Description: Withdrawn and Depressed Affect Description: Constricted Patient Cognition Impaired: No Ability to Follow Directions: Good Speech Pattern: Clear Hallucinations: None Delusions: Paranoid Ideation Thought Process: Slowed Thinking Thought Content: positive for Poverty of Content Judgement: Fair Diagnostics Vital Signs (24Hr): Vital Signs - 24 hr 05/18/21 19:00 05/19/21 08:00 05/19/21 09:19 Temperature 97.8 F 98.2 F Pulse Rate 87 94 91 Respiratory Rate 17 16 16 Blood Pressure 126/59 L 173/82 H 132/65 Pulse Oximetry 98 98 BMI result Body Mass Index 20.9 Labs Results: 05/17/21 08:37 05/17/21 08:37 Imaging Radiology Impressions: ITS Impressions Head CT 05/17/21 06:05 IMPRESSION: No acute intracranial pathology. Medications Medications Current Medications Acetaminophen (Acetaminophen 325 Mg Tablet) 650 mg PO Q6H PRN PRN Reason: Headache/Pain Mild Scale (1-3) Last Admin: 05/03/21 19:30 Dose: 650 mg Documented by: Al Hydroxide/Mg Hydroxide (Magnesium Hydrox/Alum Hydrox 30 Ml Oral.Susp) 30 ml PO Q6H PRN PRN Reason: Heartburn/Nausea Clonazepam (Clonazepam 0.5 Mg Tablet) 0.5 mg PO BID [facility] Last Admin: 05/19/21 08:41 Dose: 0.5 mg Documented by: Cyanocobalamin (Cyanocobalamin (Vitamin B-12) 100 Mcg Tablet) 100 mcg PO DAILY [facility] Last Admin: 05/19/21 08:47 Dose: 100 mcg Documented by: Ergocalciferol (Ergocalciferol (Vitamin D2) 1,250 Mcg Capsule) 1,250 mcg PO Q7D [facility] Last Admin: 05/17/21 17:55 Dose: Not Given Documented by: Magnesium Hydroxide (Milk Of Magnesia 30 Ml Oral.Susp) 30 ml PO DAILY PRN PRN Reason: Constipation Multivitamins/Vitamin C (Multivitamin Tablet) 1 tab PO DAILY [facility] Last Admin: 05/19/21 08:49 Dose: 1 tab Documented by: Olanzapine (Olanzapine 10 Mg Tablet) 10 mg PO BEDTIME [facility] Last Admin: 05/18/21 20:31 Dose: 10 mg Documented by: Paroxetine HCl (Paroxetine Hcl 20 Mg Tablet) 20 mg PO DAILY [facility] Last Admin: 05/19/21 08:43 Dose: 20 mg Documented by: Thiamine HCl (Thiamine Hcl 100 Mg Tablet) 100 mg PO DAILY [facility] Last Admin: 05/19/21 08:45 Dose: 100 mg Documented by: Trazodone HCl (Trazodone Hcl 25 Mg Halftab) 25 mg PO BEDTIME PRN PRN Reason: Insomnia Allergies Allergies Allergy/AdvReac Type Severity Reaction Status Date / Time No Known Allergies Allergy Verified 05/02/21 13:17 Assessment & Plan Assessment & Plan (1) MDD (major depressive disorder), recurrent severe, without psychosis: Status: Acute Code(s): F33.2 - Major depressive disorder, recurrent severe without psychotic features (2) Cognitive decline: Status: Acute Code(s): R41.89 - Other symptoms and signs involving cognitive functions and awareness Assessment and Plan: I am not certain whether she has mild cognitive impairment or this is a anxiety and depression with a pseudo-dementia. My recommendation would be to obtain the report of the MRI of the brain that was done within the last 6 months at [facility]. I would recommend an EEG. Blood work for treatable dementia as is normal. She can also have an outpatient neuropsych testing once her major depression is treated and improves. The patient has been reassured. 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 Pt became aware of cognitive decline starting this past Spring 2021. Pt's depression seems to be a combination of reaction to growing awareness of cognitive decline, and going off antidepressants; depression is severe however and will need to be treated At this point, it's unclear the etiology of cognitive decline; patient has been aware of it for the past 9 months however it seems to have gotten increasingly worse as depression set in this past fall/winter; it is unclear if there were signs of cognitive decline prior to this past spring. Hospital course: review of labs get TSH w/ reflex, B12/folate, calcium, ammonia are normal Started Mirtazapine for depression and anxiety in the face of insomnia and poor appetite Patient understands her provisional diagnosis of dementia and is in anguish over the enormity and outcome of such a diagnosis -patient has been refusing mirtazapine; discussed case with Dr. Rivas who recommends low dose of Zyprexa given patient's agitated/anxious depression to which patient agrees. Given patient's insomnia this is also a reasonable option; will continue to consider mirtazapine or restarting Paxil or other antidepressant/antianxiety medication. -Patient is very anxious and struggles with making any decisions including medication and choosing a healthcare proxy. She understands her situation , understands medications (though has an exaggerated worry about being overmedicated) and understands the concept and ramifications of choosing and not choosing a healthcare proxy; however her anxiety currently leaves her overwhelmed and indecisive. -pursuing notes from recent hospitalization/MRI -neurology saw patient and appreciate recommendations. 05/09/21 patient is improved after her 1 night on Zyprexa 2.5 mg. She is less anxious clearly able to articulate her thoughts and her concerns and a logical, linear and organized way. She is self reflective and able to consider things much more clearly; she is also able to make decisions and has agreed to make Tatianna her cousin her healthcare proxy and continue with Zyprexa as well as restarting Paxil. Patient gave verbal RO OI, with to witnesses to reach out to her PCP for relevant information and hopefully MRI results. Patient agrees with the need to combat anxiety and depression; she agrees to restart Paxil saying she tolerated it well for decades. [employer] Supervisor had some initial concerns about restarting this medication, given that intermittent adherence can cause confusion via discontinuation syndrome; however patient remains anxious about medications and this is a medication she knows and is comfortable with and has a documented, proven hx of being effective; for this reason restarted. 05/10 patient is more anxious today which seems to increase confusion; unsure why however a specific peer who was gets a phrenic with paranoid delusions has been intrusive with this patient, trying to convince her peers that they are being poorly treated. Considering Ativan 0.5 mg t.i.d. scheduled to see if it is possible to break this intense cycle of anxiety; patient is willing to consider this. However she did start Paxil today. Patient complains of buzzing sound ever since starting Zyprexa 2.5mg qhs, giving commercial insurance underwriter some pause whether to increase dose. However patient is anxious depression remains debilitating. Currently patient has some disorganized behaviors are not purposeless but seem more to be borne out of anxiety confusion/forgetfulness. Conversely she is eating better and has been able to make decisions regarding designated healthcare proxy. 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 q.a.m. to target anxiety and dysphoria. Zyprexa was increased up to 10 mg at night to target mood lability. Discontinue gabapentin up to 100 mg p.o. t.i.d. to target anxiety. Reassessment tomorrow morning. Gather collateral information. 05/19/2021 Continue current regimen and plans. No changes were made today I spent minutes with the patient and/or on the patient floor today, greater than?50% of which was spent counseling/coordinating care. Reason for contiued inpatient stay Substantial Risk for: inability to function
[2021-05-19 19:30] VITALS: BP 144/67; PULSE 88; RESP 19; TEMP 36.9; O2SAT 100
[2021-05-19] MEDS: OLANZapine 10 MG TABLET PO (21:06)
[2021-05-20 06:00] VITALS: BP 144/78; PULSE 97; RESP 16; TEMP 36.1; O2SAT 98
[2021-05-20] MEDS: clonazePAM 0.5 MG TABLET PO ×2 (09:00→22:33)
[2021-05-20] MEDS: Thiamine HCL 100 MG TABLET PO (09:00)
[2021-05-20] MEDS: PARoxetine HCL 20 MG TABLET PO (09:00)
[2021-05-20] MEDS: Cyanocobalamin (Vitamin B-12) 100 MCG TABLET PO (09:00)
[2021-05-20] MEDS: Multivitamin TABLET 1 TAB PO (09:00)
--- NOTE | 2021-05-20 10:09 | HO.PSYCHPN ---
Subjective Subjective Date of Service: 05/20/21 Reason For Visit: generalized anxiety disorder major depressive diso Subjective Notes: Conditional Voluntary Medical Problems Affecting Mental Status: No Interim History: Patient was seen and discussed in rounds today. She continues to be anxious, fearful and tearful at times. She has been med compliant. No complaints or side effects. Eating and sleeping adequately. No changes were made today Medication Compliance: Yes Side effects from medications: No Review of Systems Review of Systems Yes all other systems are reviewed and are negative Mental Status Exam Mental Status Exam Patient Appearance: Well Grooomed Patient Orientation: Person Level of Consciousness: Awake Patient Behavior: Guarded and Passive Mood Description: Withdrawn and Depressed Affect Description: Constricted Patient Cognition Impaired: No Ability to Follow Directions: Good Speech Pattern: Clear Hallucinations: None Delusions: Paranoid Ideation Thought Process: Slowed Thinking Thought Content: positive for Poverty of Content Judgement: Fair Diagnostics Vital Signs (24Hr): Vital Signs - 24 hr 05/19/21 19:30 05/20/21 06:00 Temperature 98.4 F 96.9 F Pulse Rate 88 97 Respiratory Rate 19 16 Blood Pressure 144/67 H 144/78 H Pulse Oximetry 100 98 BMI result Body Mass Index 20.9 Labs Results: 05/17/21 08:37 05/17/21 08:37 Imaging Radiology Impressions: ITS Impressions Head CT 05/17/21 06:05 IMPRESSION: No acute intracranial pathology. Medications Medications Current Medications Acetaminophen (Acetaminophen 325 Mg Tablet) 650 mg PO Q6H PRN PRN Reason: Headache/Pain Mild Scale (1-3) Last Admin: 05/03/21 19:30 Dose: 650 mg Documented by: Al Hydroxide/Mg Hydroxide (Magnesium Hydrox/Alum Hydrox 30 Ml Oral.Susp) 30 ml PO Q6H PRN PRN Reason: Heartburn/Nausea Clonazepam (Clonazepam 0.5 Mg Tablet) 0.5 mg PO BID [facility] Last Admin: 05/20/21 09:00 Dose: 0.5 mg Documented by: Cyanocobalamin (Cyanocobalamin (Vitamin B-12) 100 Mcg Tablet) 100 mcg PO DAILY [facility] Last Admin: 05/20/21 09:00 Dose: 100 mcg Documented by: Ergocalciferol (Ergocalciferol (Vitamin D2) 1,250 Mcg Capsule) 1,250 mcg PO Q7D [facility] Last Admin: 05/17/21 17:55 Dose: Not Given Documented by: Magnesium Hydroxide (Milk Of Magnesia 30 Ml Oral.Susp) 30 ml PO DAILY PRN PRN Reason: Constipation Multivitamins/Vitamin C (Multivitamin Tablet) 1 tab PO DAILY [facility] Last Admin: 05/20/21 09:00 Dose: 1 tab Documented by: Olanzapine (Olanzapine 10 Mg Tablet) 10 mg PO BEDTIME [facility] Last Admin: 05/19/21 21:06 Dose: 10 mg Documented by: Paroxetine HCl (Paroxetine Hcl 20 Mg Tablet) 20 mg PO DAILY [facility] Last Admin: 05/20/21 09:00 Dose: 20 mg Documented by: Thiamine HCl (Thiamine Hcl 100 Mg Tablet) 100 mg PO DAILY [facility] Last Admin: 05/20/21 09:00 Dose: 100 mg Documented by: Trazodone HCl (Trazodone Hcl 25 Mg Halftab) 25 mg PO BEDTIME PRN PRN Reason: Insomnia Allergies Allergies Allergy/AdvReac Type Severity Reaction Status Date / Time No Known Allergies Allergy Verified 05/02/21 13:17 Assessment & Plan Assessment & Plan (1) MDD (major depressive disorder), recurrent severe, without psychosis: Status: Acute Code(s): F33.2 - Major depressive disorder, recurrent severe without psychotic features (2) Cognitive decline: Status: Acute Code(s): R41.89 - Other symptoms and signs involving cognitive functions and awareness Assessment and Plan: I am not certain whether she has mild cognitive impairment or this is a anxiety and depression with a pseudo-dementia. My recommendation would be to obtain the report of the MRI of the brain that was done within the last 6 months at [facility]. I would recommend an EEG. Blood work for treatable dementia as is normal. She can also have an outpatient neuropsych testing once her major depression is treated and improves. The patient has been reassured. 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 Pt became aware of cognitive decline starting this past Spring 2020. Pt's depression seems to be a combination of reaction to growing awareness of cognitive decline, and going off antidepressants; depression is severe however and will need to be treated At this point, it's unclear the etiology of cognitive decline; patient has been aware of it for the past 9 months however it seems to have gotten increasingly worse as depression set in this past fall/winter; it is unclear if there were signs of cognitive decline prior to this past spring. Hospital course: review of labs get TSH w/ reflex, B12/folate, calcium, ammonia are normal Started Mirtazapine for depression and anxiety in the face of insomnia and poor appetite Patient understands her provisional diagnosis of dementia and is in anguish over the enormity and outcome of such a diagnosis -patient has been refusing mirtazapine; discussed case with Dr. Rivas who recommends low dose of Zyprexa given patient's agitated/anxious depression to which patient agrees. Given patient's insomnia this is also a reasonable option; will continue to consider mirtazapine or restarting Paxil or other antidepressant/antianxiety medication. -Patient is very anxious and struggles with making any decisions including medication and choosing a healthcare proxy. She understands her situation , understands medications (though has an exaggerated worry about being overmedicated) and understands the concept and ramifications of choosing and not choosing a healthcare proxy; however her anxiety currently leaves her overwhelmed and indecisive. -pursuing notes from recent hospitalization/MRI -neurology saw patient and appreciate recommendations. 05/09/21 patient is improved after her 1 night on Zyprexa 2.5 mg. She is less anxious clearly able to articulate her thoughts and her concerns and a logical, linear and organized way. She is self reflective and able to consider things much more clearly; she is also able to make decisions and has agreed to make Tatianna her cousin her healthcare proxy and continue with Zyprexa as well as restarting Paxil. Patient gave verbal RO OI, with to witnesses to reach out to her PCP for relevant information and hopefully MRI results. Patient agrees with the need to combat anxiety and depression; she agrees to restart Paxil saying she tolerated it well for decades. Intermediate Manager had some initial concerns about restarting this medication, given that intermittent adherence can cause confusion via discontinuation syndrome; however patient remains anxious about medications and this is a medication she knows and is comfortable with and has a documented, proven hx of being effective; for this reason restarted. 05/10 patient is more anxious today which seems to increase confusion; unsure why however a specific peer who was gets a phrenic with paranoid delusions has been intrusive with this patient, trying to convince her peers that they are being poorly treated. Considering Ativan 0.5 mg t.i.d. scheduled to see if it is possible to break this intense cycle of anxiety; patient is willing to consider this. However she did start Paxil today. Patient complains of buzzing sound ever since starting Zyprexa 2.5mg qhs, giving board writer some pause whether to increase dose. However patient is anxious depression remains debilitating. Currently patient has some disorganized behaviors are not purposeless but seem more to be borne out of anxiety confusion/forgetfulness. Conversely she is eating better and has been able to make decisions regarding designated healthcare proxy. 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 q.a.m. to target anxiety and dysphoria. Zyprexa was increased up to 10 mg at night to target mood lability. Discontinue gabapentin up to 100 mg p.o. t.i.d. to target anxiety. Reassessment tomorrow morning. Gather collateral information. 05/19/2021 Continue current regimen and plans. No changes were made today 05/20/2021 Continue current plans and regimen. No changes were made today I spent minutes with the patient and/or on the patient floor today, greater than?50% of which was spent counseling/coordinating care. Reason for contiued inpatient stay Substantial Risk for: other
[2021-05-20 19:58] VITALS: BP 134/56; PULSE 91; RESP 18; TEMP 36.4; O2SAT 100
[2021-05-20] MEDS: OLANZapine 10 MG TABLET PO (22:33)
[2021-05-20] MEDS: traZODone HCL 25 MG HALFTAB PO (23:52)
[2021-05-21 06:00] VITALS: BP 169/70; PULSE 86; RESP 17; TEMP 36.3; O2SAT 97
[2021-05-21] MEDS: clonazePAM 0.5 MG TABLET PO ×2 (08:17→20:24)
[2021-05-21] MEDS: Cyanocobalamin (Vitamin B-12) 100 MCG TABLET PO (08:17)
[2021-05-21] MEDS: Multivitamin TABLET 1 TAB PO (08:17)
[2021-05-21] MEDS: PARoxetine HCL 20 MG TABLET PO (08:17)
[2021-05-21] MEDS: Thiamine HCL 100 MG TABLET PO (08:17)
--- NOTE | 2021-05-21 13:22 | P.PNPSI_ITS ---
Subjective Subjective Date of Service: 05/21/21 Reason For Visit: generalized anxiety disorder major depressive diso Subjective Notes: Conditional Voluntary Interim History: The nursing staff reported that the patient has been isolative and anxious, reported been scared and dizzy. On inerview, the patient admitted that she is confused and oversedated but she looks more focused. She is still disoriented, wtih several papers layered on her bed, more self-aware of her symptoms. Mental Status Exam Mental Status Exam Patient Appearance: Well Grooomed Patient Orientation: Person Level of Consciousness: Awake Patient Behavior: Appropriate Mood Description: Withdrawn Affect Description: Labile Patient Cognition Impaired: No Ability to Follow Directions: Good Speech Pattern: Clear Memory Description: Intact Hallucinations: None Delusions: Paranoid Ideation Thought Process: Evasive and Slowed Thinking Thought Content: positive for Circumstantial and positive for Slowed Thinking Judgement: Fair Diagnostics Vital Signs (24Hr): Vital Signs - 24 hr 05/20/21 19:58 05/21/21 06:00 Temperature 97.5 F 97.3 F Pulse Rate 91 86 Respiratory Rate 18 17 Blood Pressure 134/56 L 169/70 H Pulse Oximetry 100 97 BMI result Body Mass Index 20.9 Labs Results: 05/17/21 08:37 05/17/21 08:37 Imaging Radiology Impressions: ITS Impressions Head CT 05/17/21 06:05 IMPRESSION: No acute intracranial pathology. Medications Medications Current Medications Acetaminophen (Acetaminophen 325 Mg Tablet) 650 mg PO Q6H PRN PRN Reason: Headache/Pain Mild Scale (1-3) Last Admin: 05/03/21 19:30 Dose: 650 mg Documented by: Al Hydroxide/Mg Hydroxide (Magnesium Hydrox/Alum Hydrox 30 Ml Oral.Susp) 30 ml PO Q6H PRN PRN Reason: Heartburn/Nausea Clonazepam (Clonazepam 0.5 Mg Tablet) 0.5 mg PO BID COUNTS INCLUDE 234 BEDS AT THE [facility] Last Admin: 05/21/21 08:17 Dose: 0.5 mg Documented by: Cyanocobalamin (Cyanocobalamin (Vitamin B-12) 100 Mcg Tablet) 100 mcg PO DAILY COUNTS INCLUDE 234 BEDS AT THE [facility] Last Admin: 05/21/21 08:17 Dose: 100 mcg Documented by: Ergocalciferol (Ergocalciferol (Vitamin D2) 1,250 Mcg Capsule) 1,250 mcg PO Q7D COUNTS INCLUDE 234 BEDS AT THE [facility] Last Admin: 05/17/21 17:55 Dose: Not Given Documented by: Magnesium Hydroxide (Milk Of Magnesia 30 Ml Oral.Susp) 30 ml PO DAILY PRN PRN Reason: Constipation Multivitamins/Vitamin C (Multivitamin Tablet) 1 tab PO DAILY COUNTS INCLUDE 234 BEDS AT THE [facility] Last Admin: 05/21/21 08:17 Dose: 1 tab Documented by: Olanzapine (Olanzapine 10 Mg Tablet) 10 mg PO BEDTIME COUNTS INCLUDE 234 BEDS AT THE [facility] Last Admin: 05/20/21 22:33 Dose: 10 mg Documented by: Paroxetine HCl (Paroxetine Hcl 20 Mg Tablet) 20 mg PO DAILY COUNTS INCLUDE 234 BEDS AT THE [facility] Last Admin: 05/21/21 08:17 Dose: 20 mg Documented by: Thiamine HCl (Thiamine Hcl 100 Mg Tablet) 100 mg PO DAILY COUNTS INCLUDE 234 BEDS AT THE [facility] Last Admin: 05/21/21 08:17 Dose: 100 mg Documented by: Trazodone HCl (Trazodone Hcl 25 Mg Halftab) 25 mg PO BEDTIME PRN PRN Reason: Insomnia Last Admin: 05/20/21 23:52 Dose: 25 mg Documented by: Allergies Allergies Allergy/AdvReac Type Severity Reaction Status Date / Time No Known Allergies Allergy Verified 05/02/21 13:17 Assessment & Plan Assessment & Plan (1) MDD (major depressive disorder), recurrent severe, without psychosis: Status: Acute Code(s): F33.2 - Major depressive disorder, recurrent severe without psychotic features (2) Cognitive decline: Status: Acute Code(s): R41.89 - Other symptoms and signs involving cognitive functions and awareness Assessment and Plan: I am not certain whether she has mild cognitive impairment or this is a anxiety and depression with a pseudo-dementia. My recommendation would be to obtain the report of the MRI of the brain that was done within the last 6 months at [facility]. I would recommend an EEG. Blood work for treatable dementia as is normal. She can also have an outpatient neuropsych testing once her major depression is treated and improves. The patient has been reassured. 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 Pt became aware of cognitive decline starting this past Spring 2020. Pt's depression seems to be a combination of reaction to growing awareness of cognitive decline, and going off antidepressants; depression is severe however and will need to be treated At this point, it's unclear the etiology of cognitive decline; patient has been aware of it for the past 9 months however it seems to have gotten increasingly worse as depression set in this past fall/winter; it is unclear if there were signs of cognitive decline p rior to this past spring. Hospital course: review of labs get TSH w/ reflex, B12/folate, calcium, ammonia are normal Started Mirtazapine for depression and anxiety in the face of insomnia and poor appetite Patient understands her provisional diagnosis of dementia and is in anguish over the enormity and outcome of such a diagnosis -patient has been refusing mirtazapine; discussed case with Dr. Rivas who recommends low dose of Zyprexa given patient's agitated/anxious depression to which patient agrees. Given patient's insomnia this is also a reasonable option; will continue to consider mirtazapine or restarting Paxil or other antidepressant/antianxiety medication. -Patient is very anxious and struggles with making any decisions including medication and choosing a healthcare proxy. She understands her situation , understands medications (though has an exaggerated worry about being overmedicated) and understands the concept and ramifications of choosing and not choosing a healthcare proxy; however her anxiety currently leaves her overwhelmed and indecisive. -pursuing notes from recent hospitalization/MRI -neurology saw patient and appreciate recommendations. 05/09/21 patient is improved after her 1 night on Zyprexa 2.5 mg. She is less anxious clearly able to articulate her thoughts and her concerns and a logical, linear and organized way. She is self reflective and able to consider things much more clearly; she is also able to make decisions and has agreed to make Tatianna her cousin her healthcare proxy and continue with Zyprexa as well as re starting Paxil. Patient gave verbal RO OI, with to witnesses to reach out to her PCP for relevant information and hopefully MRI results. Patient agrees with the need to combat anxiety and depression; she agrees to restart Paxil saying she tolerated it well for decades. Review Assistant had some initial concerns about restarting this medication, given that intermittent adherence can cause confusion via discontinuation syndrome; however patient remains anxious about medications and this is a medication she knows and is comfortable with and has a documented, proven hx of being effective; for this reason restarted. / patient is more anxious today which seems to increase confusion; unsure why however a specific peer who was gets a phrenic with paranoid delusions has been intrusive with this patient, trying to convince her peers that they are being poorly treated. Considering Ativan 0.5 mg t.i.d. scheduled to see if it is possible to break this intense cycle of anxiety; patient is willing to consider this. However she did start Paxil today. Patient complains of buzzing sound ever since starting Zyprexa 2.5mg qhs, giving writer technical publications some pause whether to increase dose. However patient is anxious depression remains debilitating. Currently patient has some disorganized behaviors are not purposeless but seem more to be borne out of anxiety confusion/forgetfulness. Conversely she is eating better and has been able to make decisions regarding designated healthcare proxy. 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 q.a.m. to target anxiety and dysphoria. Zyprexa was increased up to 10 mg at night to target mood lability. Discontinue gabapentin up to 100 mg p.o. t.i.d. to target anxiety. Reassessment tomorrow morning. Gather collateral information. I spent minutes with the patient and/or on the patient floor today, greater than?50% of which was spent counseling/coordinating care. Reason for contiued inpatient stay Substantial Risk for: inability to function, rapid decompensation and med/psych decompensation
[2021-05-21 18:00] VITALS: BP 131/58; PULSE 92; RESP 18; TEMP 36.9; O2SAT 99
[2021-05-21] MEDS: OLANZapine 10 MG TABLET PO (20:24)
[2021-05-21] MEDS: traZODone HCL 25 MG HALFTAB PO (23:25)
[2021-05-22 06:00] VITALS: BP 131/60; PULSE 86; TEMP 36.3; O2SAT 97
[2021-05-22] MEDS: clonazePAM 0.5 MG TABLET PO ×2 (08:15→21:29)
[2021-05-22] MEDS: Cyanocobalamin (Vitamin B-12) 100 MCG TABLET PO (08:15)
[2021-05-22] MEDS: Thiamine HCL 100 MG TABLET PO (08:15)
[2021-05-22] MEDS: PARoxetine HCL 20 MG TABLET PO (08:15)
[2021-05-22] MEDS: Multivitamin TABLET 1 TAB PO (08:15)
--- NOTE | 2021-05-22 16:07 | P.PNPSI_ITS ---
Subjective Subjective Date of Service: 05/22/21 Reason For Visit: generalized anxiety disorder major depressive diso Subjective Notes: Conditional Voluntary Interim History: the nursing staff reported that the patient is tearful at time in with around but she was able to get out of her room for lunch yesterday. She was seen over the phone talking with friends and stating that she will have a procedure and she is saying her goodbyes and she is going to be on life support. On interview the patient still with thought blocking internally preoccupied and paranoid Mental Status Exam Mental Status Exam Patient Appearance: Well Grooomed Patient Orientation: Person Level of Consciousness: Awake Patient Behavior: Guarded and Cooperative Mood Description: Depressed Affect Description: Constricted Ability to Follow Directions: Good Speech Pattern: Clear Memory Description: Intact Delusions: Paranoid Ideation Thought Process: Incoherent Thought Content: positive for [place], positive for Poverty of Content and positive for Loose Associations Judgement: Fair Diagnostics Vital Signs (24Hr): Vital Signs - 24 hr 05/21/21 18:00 05/22/21 06:00 Temperature 98.4 F 97.3 F Pulse Rate 92 86 Respiratory Rate 18 Blood Pressure 131/58 L 131/60 Pulse Oximetry 99 97 BMI result Body Mass Index 20.9 Labs Results: 05/17/21 08:37 05/17/21 08:37 Imaging Radiology Impressions: ITS Impressions Head CT 05/17/21 06:05 IMPRESSION: No acute intracranial pathology. Medications Medications Current Medications Acetaminophen (Acetaminophen 325 Mg Tablet) 650 mg PO Q6H PRN PRN Reason: Headache/Pain Mild Scale (1-3) Last Admin: 05/03/21 19:30 Dose: 650 mg Documented by: Al Hydroxide/Mg Hydroxide (Magnesium Hydrox/Alum Hydrox 30 Ml Oral.Susp) 30 ml PO Q6H PRN PRN Reason: Heartburn/Nausea Clonazepam (Clonazepam 0.5 Mg Tablet) 0.5 mg PO BID [facility] Last Admin: 05/22/21 08:15 Dose: 0.5 mg Documented by: Cyanocobalamin (Cyanocobalamin (Vitamin B-12) 100 Mcg Tablet) 100 mcg PO DAILY [facility] Last Admin: 05/22/21 08:15 Dose: 100 mcg Documented by: Ergocalciferol (Ergocalciferol (Vitamin D2) 1,250 Mcg Capsule) 1,250 mcg PO Q7D [facility] Last Admin: 05/17/21 17:55 Dose: Not Given Documented by: Magnesium Hydroxide (Milk Of Magnesia 30 Ml Oral.Susp) 30 ml PO DAILY PRN PRN Reason: Constipation Multivitamins/Vitamin C (Multivitamin Tablet) 1 tab PO DAILY [facility] Last Admin: 05/22/21 08:15 Dose: 1 tab Documented by: Olanzapine (Olanzapine 10 Mg Tablet) 10 mg PO BEDTIME [facility] Last Admin: 05/21/21 20:24 Dose: 10 mg Documented by: Paroxetine HCl (Paroxetine Hcl 20 Mg Tablet) 20 mg PO DAILY [facility] Last Admin: 05/22/21 08:15 Dose: 20 mg Documented by: Thiamine HCl (Thiamine Hcl 100 Mg Tablet) 100 mg PO DAILY [facility] Last Admin: 05/22/21 08:15 Dose: 100 mg Documented by: Trazodone HCl (Trazodone Hcl 25 Mg Halftab) 25 mg PO BEDTIME PRN PRN Reason: Insomnia Last Admin: 05/21/21 23:25 Dose: 25 mg Documented by: Allergies Allergies Allergy/AdvReac Type Severity Reaction Status Date / Time No Known Allergies Allergy Verified 05/02/21 13:17 Assessment & Plan Assessment & Plan (1) MDD (major depressive disorder), recurrent severe, without psychosis: Status: Acute Code(s): F33.2 - Major depressive disorder, recurrent severe without psychotic features (2) Cognitive decline: Status: Acute Code(s): R41.89 - Other symptoms and signs involving cognitive functions and awareness Assessment and Plan: I am not certain whether she has mild cognitive impairment or this is a anxiety and depression with a pseudo-dementia. My recommendation would be to obtain the report of the MRI of the brain that was done within the last 6 months at [facility]. I would recommend an EEG. Blood work for treatable dementia as is normal. She can also have an outpatient neuropsych testing once her major depression is treated and improves. The patient has been reassured. 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 Pt became aware of cognitive decline starting this past Spring 2020. Pt's depression seems to be a combination of reaction to growing awareness of cognitive decline, and going off antidepressants; depression is severe however and will need to be treated At this point, it's unclear the etiology of cognitive decline; patient has been aware of it for the past 9 months however it seems to have gotten increasingly worse as depression set in this past fall/winter; it is unclear if there were signs of cognitive decline prior to this past spring. Hospital course: review of labs get TSH w/ reflex, B12/folate, calcium, ammonia are normal Started Mirtazapine for depression and anxiety in the face of insomnia and poor appetite Patient understands her provisional diagnosis of dementia and is in anguish over the enormity and outcome of such a diagnosis -patient has been refusing mirtazapine; discussed case with Dr. Rivas who recommends low dose of Zyprexa given patient's agitated/anxious depression to which patient agrees. Given patient's insomnia this is also a reasonable option; will continue to consider mirtazapine or restarting Paxil or other antidepressant/antianxiety medication. -Patient is very anxious and struggles with making any decisions including medication and choosing a healthcare proxy. She understands her situation , understands medications (though has an exaggerated worry about being overmedicated) and understands the concept and ramifications of choosing and not choosing a healthcare proxy; however her anxiety currently leaves her overwhelmed and indecisive. -pursuing notes from recent hospitalization/MRI -neurology saw patient and appreciate recommendations. 05/09/21 patient is improved after her 1 night on Zyprexa 2.5 mg. She is less anx ious clearly able to articulate her thoughts and her concerns and a logical, linear and organized way. She is self reflective and able to consider things much more clearly; she is also able to make decisions and has agreed to make Tatianna her cousin her healthcare proxy and continue with Zyprexa as well as restarting Paxil. Patient gave verbal RO OI, with to witnesses to reach out to her PCP for relevant information and hopefully MRI results. Patient agrees with the need to combat anxiety and depression; she agrees to restart Paxil saying she tolerated it well for decades. Occupational Therapist Rehab Manager had some initial concerns about restarting this medication, given that intermittent adherence can cause confus ion via discontinuation syndrome; however patient remains anxious about medications and this is a medication she knows and is comfortable with and has a documented, proven hx of being effective; for this reason restarted. 1/6 patient is more anxious today which seems to increase confusion; unsure why however a specific peer who was gets a phrenic with paranoid delusions has been intrusive with this patient, trying to convince her peers that they are being poorly treated. Considering Ativan 0.5 mg t.i.d. scheduled to see if it is possible to break this intense cycle of anxiety; patient is willing to consider this. However she did start Paxil today. Patient complains of buzzing sound ever since starting Zyprexa 2.5mg qhs, giving verse writer some pause whether to increase dose. However patient is anxious depression remains debilitating. Currently patient has some disorganized behaviors are not purposeless but seem more to be borne out of anxiety confusion/forgetfulness. Conversely she is eating better and has been able to make decisions regarding designated healthcare proxy. DX: MDD, severe without psychosis Agitated/anxious depression Provisional dx of Pseudo-Dementia 2/2 anxiety/depression r/o organic dementia ANTONINO PLAN CV q15 min checks increase Paxil up to 30 mg p.o. q.a.m. to target anxiety and dysphoria. Zyprexa was increased up to 10 mg at night to target mood lability. Discontinue gabapentin up to 100 mg p.o. t.i.d. to target anxiety. Increase Klonopin to tid Reassessment tomorrow morning. Gather collateral information. I spent minutes with the patient and/or on the patient floor today, greater than?50% of which was spent counseling/coordinating care. Reason for contiued inpatient stay Substantial Risk for: inability to function, rapid decompensation and med/psych decompensation
[2021-05-22 18:00] VITALS: BP 141/63; PULSE 94; RESP 18; TEMP 37.1; O2SAT 99
[2021-05-22] MEDS: OLANZapine 10 MG TABLET PO (21:29)
[2021-05-23 08:10] VITALS: BP 151/68; PULSE 82; RESP 16; TEMP 36.5; O2SAT 98
[2021-05-23] MEDS: Multivitamin TABLET 1 TAB PO (09:36)
[2021-05-23] MEDS: clonazePAM 0.5 MG TABLET PO ×2 (09:36→14:53)
[2021-05-23] MEDS: PARoxetine HCL 30 MG TABLET PO (09:36)
[2021-05-23] MEDS: Cyanocobalamin (Vitamin B-12) 100 MCG TABLET PO (09:36)
[2021-05-23] MEDS: Thiamine HCL 100 MG TABLET PO (09:36)
--- NOTE | 2021-05-23 15:04 | HO.PSYCHPN ---
Subjective Subjective Date of Service: 05/23/21 Reason For Visit: generalized anxiety disorder major depressive diso Subjective Notes: Conditional Voluntary Interim History: The nursing staff reported that the patient slept 7 hours, she was out for medications and she took a shower yesterday. On admission, she scored 27/30 on the [place] test. On interview, the patient remains anxious but she looks less confused, even that she complains of dizziness. Her Paxil was increased up to 30 mg daily and her Klonopin was increased to t.i.d.. I explained her that if she was feeling to DC probably we should use the Klonopin only as a p.r.n.. Still, the staff reported that she looks paranoid at times Mental Status Exam Mental Status Exam Patient Appearance: Well Grooomed Patient Orientation: Person Level of Consciousness: Awake Patient Behavior: Appropriate and Guarded Mood Description: Withdrawn Affect Description: Anxious Patient Cognition Impaired: Yes Ability to Follow Directions: Good Speech Pattern: Clear Hallucinations: None Delusions: Not Present Thought Process: Distracted and Linear Thought Content: positive for Circumstantial Judgement: Fair Diagnostics Vital Signs (24Hr): Vital Signs - 24 hr 05/22/21 18:00 05/23/21 08:10 Temperature 98.8 F 97.7 F Pulse Rate 94 82 Respiratory Rate 18 16 Blood Pressure 141/63 H 151/68 H Pulse Oximetry 99 98 BMI result Body Mass Index 20.9 Labs Results: 05/17/21 08:37 05/17/21 08:37 Imaging Radiology Impressions: ITS Impressions Head CT 05/17/21 06:05 IMPRESSION: No acute intracranial pathology. Medications Medications Current Medications Acetaminophen (Acetaminophen 325 Mg Tablet) 650 mg PO Q6H PRN PRN Reason: Headache/Pain Mild Scale (1-3) Last Admin: 05/03/21 19:30 Dose: 650 mg Documented by: Al Hydroxide/Mg Hydroxide (Magnesium Hydrox/Alum Hydrox 30 Ml Oral.Susp) 30 ml PO Q6H PRN PRN Reason: Heartburn/Nausea Clonazepam (Clonazepam 0.5 Mg Tablet) 0.5 mg PO TID [facility] Last Admin: 05/23/21 14:53 Dose: 0.5 mg Documented by: Cyanocobalamin (Cyanocobalamin (Vitamin B-12) 100 Mcg Tablet) 100 mcg PO DAILY [facility] Last Admin: 05/23/21 09:36 Dose: 100 mcg Documented by: Ergocalciferol (Ergocalciferol (Vitamin D2) 1,250 Mcg Capsule) 1,250 mcg PO Q7D [facility] Last Admin: 05/17/21 17:55 Dose: Not Given Documented by: Magnesium Hydroxide (Milk Of Magnesia 30 Ml Oral.Susp) 30 ml PO DAILY PRN PRN Reason: Constipation Multivitamins/Vitamin C (Multivitamin Tablet) 1 tab PO DAILY [facility] Last Admin: 05/23/21 09:36 Dose: 1 tab Documented by: Olanzapine (Olanzapine 10 Mg Tablet) 10 mg PO BEDTIME [facility] Last Admin: 05/22/21 21:29 Dose: 10 mg Documented by: Paroxetine HCl (Paroxetine Hcl 30 Mg Tablet) 30 mg PO DAILY [facility] Last Admin: 05/23/21 09:36 Dose: 30 mg Documented by: Thiamine HCl (Thiamine Hcl 100 Mg Tablet) 100 mg PO DAILY [facility] Last Admin: 05/23/21 09:36 Dose: 100 mg Documented by: Trazodone HCl (Trazodone Hcl 25 Mg Halftab) 25 mg PO BEDTIME PRN PRN Reason: Insomnia Last Admin: 05/21/21 23:25 Dose: 25 mg Documented by: Allergies Allergies Allergy/AdvReac Type Severity Reaction Status Date / Time No Known Allergies Allergy Verified 05/02/21 13:17 Assessment & Plan Assessment & Plan (1) MDD (major depressive disorder), recurrent severe, without psychosis: Status: Acute Code(s): F33.2 - Major depressive disorder, recurrent severe without psychotic features (2) Cognitive decline: Status: Acute Code(s): R41.89 - Other symptoms and signs involving cognitive functions and awareness Assessment and Plan: I am not certain whether she has mild cognitive impairment or this is a anxiety and depression with a pseudo-dementia. My recommendation would be to obtain the report of the MRI of the brain that was done within the last 6 months at [facility]. I would recommend an EEG. Blood work for treatable dementia as is normal. She can also have an outpatient neuropsych testing once her major depression is treated and improves. The patient has been reassured. 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 Pt became aware of cognitive decline starting this past Spring 2020. Pt's depression seems to be a combination of reaction to growing awareness of cognitive decline, and going off antidepressants; depression is severe however and will need to be treated At this point, it's unclear the etiology of cognitive decline; patient has been aware of it for the past 9 months however it seems to have gotten increasingly worse as depression set in this past fall/winter; it is unclear if there were signs of cognitive decline prior to this past spring. she was [facility] to [facility] unit since the patient complained of cognitive deterioration. Since the transfer, her Zyprexa was increased slowly up to 10 mg and her Paxil was titrated up to 30 mg. Plan 1. Keep Paxil 30 mg daily and Zyprexa 10 mg p.o. q.h.s.. 2. Change Klonopin to t.i.d. p.r.n.. 3. Reassessment I spent minutes with the patient and/or on the patient floor today, greater than?50% of which was spent counseling/coordinating care. Reason for contiued inpatient stay Substantial Risk for: inability to function, rapid decompensation and med/psych decompensation
[2021-05-23 18:00] VITALS: BP 111/55; PULSE 79; RESP 18; TEMP 36.9; O2SAT 99
[2021-05-23] MEDS: OLANZapine 10 MG TABLET PO (22:28)
[2021-05-24 08:04] VITALS: BP 167/74; PULSE 92; RESP 16; TEMP 37.2; O2SAT 96
[2021-05-24] MEDS: Cyanocobalamin (Vitamin B-12) 100 MCG TABLET PO (08:06)
[2021-05-24] MEDS: PARoxetine HCL 30 MG TABLET PO (08:06)
[2021-05-24] MEDS: Thiamine HCL 100 MG TABLET PO (08:06)
[2021-05-24] MEDS: Multivitamin TABLET 1 TAB PO (08:06)
[2021-05-24] MEDS: clonazePAM 0.5 MG TABLET PO ×2 (11:33→21:08)
[2021-05-24 14:32] VITALS: BP 132/58; PULSE 95
[2021-05-24 14:33] VITALS: BP 132/55; BP 141/56; PULSE 101; PULSE 95
--- NOTE | 2021-05-24 16:17 | P.PNPSI_ITS ---
Subjective Subjective Date of Service: 05/24/21 Reason For Visit: generalized anxiety disorder major depressive diso Interim History: the nursing staff reported the patient has gone out to have her meals, she participating at group and according to the her participation was very good but still very paranoid. Today on interview I explained her that nobody wants to hurt her and we are not going to do any procedures without her consent and at this moment, we are considering only medication management. The patient is still paranoid with some thought blocking but she is more oriented and less dysphoric Mental Status Exam Mental Status Exam Patient Appearance: Well Grooomed Patient Orientation: Person Level of Consciousness: Awake Patient Behavior: Guarded and Suspicious Mood Description: Withdrawn and Depressed Affect Description: Constricted Patient Cognition Impaired: No Ability to Follow Directions: Good Speech Pattern: Appropriate Hallucinations: None Delusions: Paranoid Ideation Thought Process: Linear Thought Content: positive for Circumstantial, positive for Poverty of Content and positive for Loose Associations Judgement: Fair Diagnostics Vital Signs (24Hr): Vital Signs - 24 hr 05/23/21 18:00 05/24/21 08:04 05/24/21 14:32 Temperature 98.5 F 98.9 F Pulse Rate 79 92 95 Respiratory Rate 18 16 Blood Pressure 111/55 L 167/74 H 132/58 L Pulse Oximetry 99 96 05/24/21 14:33 Temperature Pulse Rate 101 H Respiratory Rate Blood Pressure 141/56 H Pulse Oximetry BMI result Body Mass Index 20.9 Labs Results: 05/17/21 08:37 05/17/21 08:37 Imaging Radiology Impressions: ITS Impressions Head CT 05/17/21 06:05 IMPRESSION: No acute intracranial pathology. Medications Medications Current Medications Acetaminophen (Acetaminophen 325 Mg Tablet) 650 mg PO Q6H PRN PRN Reason: Headache/Pain Mild Scale (1-3) Last Admin: 05/03/21 19:30 Dose: 650 mg Documented by: Al Hydroxide/Mg Hydroxide (Magnesium Hydrox/Alum Hydrox 30 Ml Oral.Susp) 30 ml PO Q6H PRN PRN Reason: Heartburn/Nausea Clonazepam (Clonazepam 0.5 Mg Tablet) 0.5 mg PO TID PRN PRN Reason: anxiety Last Admin: 05/24/21 11:33 Dose: 0.5 mg Documented by: Cyanocobalamin (Cyanocobalamin (Vitamin B-12) 100 Mcg Tablet) 100 mcg PO DAILY PENDING SALE TO [facility] Last Admin: 05/24/21 08:06 Dose: 100 mcg Documented by: Ergocalciferol (Ergocalciferol (Vitamin D2) 1,250 Mcg Capsule) 1,250 mcg PO Q7D PENDING SALE TO [facility] Last Admin: 05/17/21 17:55 Dose: Not Given Documented by: Magnesium Hydroxide (Milk Of Magnesia 30 Ml Oral.Susp) 30 ml PO DAILY PRN PRN Reason: Constipation Multivitamins/Vitamin C (Multivitamin Tablet) 1 tab PO DAILY [facility]END[facility] SALE TO [facility] Last Admin: 05/24/21 08:06 Dose: 1 tab Documented by: Olanzapine (Olanzapine 7.5 Mg Tablet) 7.5 mg PO BEDTIME [facility] Olanzapine (Olanzapine 2.5 Mg Tablet) 2.5 mg PO DAILY@1700 [facility] Paroxetine HCl (Paroxetine Hcl 30 Mg Tablet) 30 mg PO DAILY [facility]END[facility] S[facility] TO [facility] Last Admin: 05/24/21 08:06 Dose: 30 mg Documented by: Thiamine HCl (Thiamine Hcl 100 Mg Tablet) 100 mg PO DAILY [facility]END[facility] SALE TO [facility] Last Admin: 05/24/21 08:06 Dose: 100 mg Documented by: Trazodone HCl (Trazodone Hcl 25 Mg Halftab) 25 mg PO BEDTIME PRN PRN Reason: Insomnia Last Admin: 05/21/21 23:25 Dose: 25 mg Documented by: Allergies Allergies Allergy/AdvReac Type Severity Reaction Status Date / Time No Known Allergies Allergy Verified 05/02/21 13:17 Assessment & Plan Assessment & Plan (1) MDD (major depressive disorder), recurrent severe, without psychosis: Status: Acute Code(s): F33.2 - Major depressive disorder, recurrent severe without psychotic features (2) Cognitive decline: Status: Acute Code(s): R41.89 - Other symptoms and signs involving cognitive functions and awareness Assessment and Plan: I am not certain whether she has mild cognitive impairment or this is a anxiety and depression with a pseudo-dementia. My recommendation would be to obtain the report of the MRI of the brain that was done within the last 6 months at [facility]. I would recommend an EEG. Blood work for treatable dementia as is normal. She can also have an outpatient neuropsych testing once her major depression is treated and improves. The patient has been reassured. 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 Pt became aware of cognitive decline starting this past Spring 2020. Pt's depression seems to be a combination of reaction to growing awareness of cognitive decline, and going off antidepressants; depression is severe however and will need to be treated At this point, it's unclear the etiology of cognitive decline; patient has been aware of it for the past 9 months however it seems to have gotten increasingly worse as depression set in this past fall/winter; it is unclear if there were signs of cognitive decline prior to this past spring. she was transferred from [facility] to this unit since the patient complained of cognitive deterioration. Since the transfer, her Zyprexa was increased slowly up to 10 mg and her Paxil was titrated up to 30 mg. Plan 1. Keep Paxil 30 mg daily and Zyprexa 10 mg p.o. q.h.s.. 2. Change Klonopin to t.i.d. p.r.n.. 3. Reassessment I spent minutes with the patient and/or on the patient floor today, greater than?50% of which was spent counseling/coordinating care. Reason for contiued inpatient stay Substantial Risk for: inability to function, rapid decompensation and med/psych decompensation
[2021-05-24] MEDS: Ergocalciferol (Vitamin D2) 1,250 MCG CAPSULE 1250 MCG PO (17:37)
[2021-05-24] MEDS: OLANZapine 2.5 MG TABLET PO (17:39)
[2021-05-24 18:00] VITALS: BP 147/69; PULSE 100; RESP 17; TEMP 37.1; O2SAT 100
[2021-05-24] MEDS: OLANZapine 7.5 MG TABLET PO (21:07)
[2021-05-25] VITALS: BP 121/51; PULSE 88
[2021-05-25] MEDS: Milk of Magnesia 30 ML ORAL.SUSP PO (00:47)
[2021-05-25 06:00] VITALS: BP 142/66; PULSE 66; RESP 16; TEMP 36.9; O2SAT 96
[2021-05-25] MEDS: Cyanocobalamin (Vitamin B-12) 100 MCG TABLET PO (08:30)
[2021-05-25] MEDS: Multivitamin TABLET 1 TAB PO (08:30)
[2021-05-25] MEDS: clonazePAM 0.5 MG TABLET PO ×3 (08:30→20:17)
[2021-05-25] MEDS: Thiamine HCL 100 MG TABLET PO (08:30)
[2021-05-25] MEDS: PARoxetine HCL 30 MG TABLET PO (08:30)
--- NOTE | 2021-05-25 14:16 | HO.PSYCHPN ---
Subjective Subjective Date of Service: 05/25/21 Reason For Visit: generalized anxiety disorder major depressive diso Subjective Notes: Conditional Voluntary Interim History: the nursing staff reported the patient has been anxious and restless confused at times. It is clear that she needs to have her Klonopin is schedule sings she is too anxious without it. The social service technician talked with his causing Tatianna and apparently she had previous episodes of depression, anxiety and psychosis with a prior admission. She has try before Cymbalta and other medications with limited support. She has another psychiatrist in the community though will try to reach to get more information. On interview, the patient reports anxiety and thought blocking. Mental Status Exam Mental Status Exam Patient Appearance: Well Grooomed Patient Orientation: Person Level of Consciousness: Awake Patient Behavior: Guarded and Suspicious Mood Description: Withdrawn Affect Description: Constricted Patient Cognition Impaired: No Ability to Follow Directions: Good Speech Pattern: Difficulty Finding Words and Spontaneous Speech Hallucinations: None Delusions: Paranoid Ideation Thought Process: Distracted and Slowed Thinking Thought Content: positive for Loose Associations Judgement: Fair Diagnostics Vital Signs (24Hr): Vital Signs - 24 hr 05/24/21 14:32 05/24/21 14:33 05/24/21 18:00 Temperature 98.8 F Pulse Rate 95 101 H 100 Respiratory Rate 17 Blood Pressure 132/58 L 141/56 H 147/69 H Pulse Oximetry 100 05/25/21 00:00 05/25/21 06:00 Temperature 98.5 F Pulse Rate 88 66 Respiratory Rate 16 Blood Pressure 121/51 L 142/66 H Pulse Oximetry 96 BMI result Body Mass Index 20.9 Labs Results: 05/17/21 08:37 05/17/21 08:37 Imaging Radiology Impressions: ITS Impressions Head CT 05/17/21 06:05 IMPRESSION: No acute intracranial pathology. Medications Medications Current Medications Acetaminophen (Acetaminophen 325 Mg Tablet) 650 mg PO Q6H PRN PRN Reason: Headache/Pain Mild Scale (1-3) Last Admin: 05/03/21 19:30 Dose: 650 mg Documented by: Al Hydroxide/Mg Hydroxide (Magnesium Hydrox/Alum Hydrox 30 Ml Oral.Susp) 30 ml PO Q6H PRN PRN Reason: Heartburn/Nausea Clonazepam (Clonazepam 0.5 Mg Tablet) 0.5 mg PO TID PRN PRN Reason: anxiety Last Admin: 05/25/21 08:30 Dose: 0.5 mg Documented by: Cyanocobalamin (Cyanocobalamin (Vitamin B-12) 100 Mcg Tablet) 100 mcg PO DAILY REPLACED BY [facility] Last Admin: 05/25/21 08:30 Dose: 100 mcg Documented by: Ergocalciferol (Ergocalciferol (Vitamin D2) 1,250 Mcg Capsule) 1,250 mcg PO Q7D REPLACED BY [facility] Last Admin: 05/24/21 17:37 Dose: 1,250 mcg Documented by: Magnesium Hydroxide (Milk Of Magnesia 30 Ml Oral.Susp) 30 ml PO DAILY PRN PRN Reason: Constipation Last Admin: 05/25/21 00:47 Dose: 30 ml Documented by: Multivitamins/Vitamin C (Multivitamin Tablet) 1 tab PO DAILY REPLACED BY [facility] Last Admin: 05/25/21 08:30 Dose: 1 tab Documented by: Olanzapine (Olanzapine 7.5 Mg Tablet) 7.5 mg PO BEDTIME REPLACED BY [facility] Last Admin: 05/24/21 21:07 Dose: 7.5 mg Documented by: Olanzapine (Olanzapine 2.5 Mg Tablet) 2.5 mg PO DAILY@1700 REPLACED BY [facility] Last Admin: 05/24/21 17:39 Dose: 2.5 mg Documented by: Paroxetine HCl (Paroxetine Hcl 30 Mg Tablet) 30 mg PO DAILY REPLACED BY [facility] Last Admin: 05/25/21 08:30 Dose: 30 mg Documented by: Thiamine HCl (Thiamine Hcl 100 Mg Tablet) 100 mg PO DAILY REPLACED BY [facility] Last Admin: 05/25/21 08:30 Dose: 100 mg Documented by: Trazodone HCl (Trazodone Hcl 25 Mg Halftab) 25 mg PO BEDTIME PRN PRN Reason: Insomnia Last Admin: 05/21/21 23:25 Dose: 25 mg Documented by: Allergies Allergies Allergy/AdvReac Type Severity Reaction Status Date / Time No Known Allergies Allergy Verified 05/02/21 13:17 Assessment & Plan Assessment & Plan (1) MDD (major depressive disorder), recurrent severe, without psychosis: Status: Acute Code(s): F33.2 - Major depressive disorder, recurrent severe without psychotic features (2) Cognitive decline: Status: Acute Code(s): R41.89 - Other symptoms and signs involving cognitive functions and awareness Assessment and Plan: I am not certain whether she has mild cognitive impairment or this is a anxiety and depression with a pseudo-dementia. My recommendation would be to obtain the report of the MRI of the brain that was done within the last 6 months at [facility]. I would recommend an EEG. Blood work for treatable dementia as is normal. She can also have an outpatient neuropsych testing once her major depression is treated and improves. The patient has been reassured. 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 Pt became aware of cognitive decline starting this past Spring 2020. Pt's depression seems to be a combination of reaction to growing awareness of cognitive decline, and going off antidepressants; depression is severe however and will need to be treated At this point, it's unclear the etiology of cognitive decline; patient has been aware of it for the past 9 months however it seems to have gotten increasingly worse as depression set in this past fall/winter; it is unclear if there were signs of cognitive decline prior to this past spring. she was transferred from [facility] to this unit since the patient complained of cognitive deterioration. Since the transfer, her Zyprexa was increased slowly up to 10 mg and her Paxil was titrated up to 30 mg. Plan 1. Keep Paxil 30 mg daily and Zyprexa 10 mg p.o. q.h.s.. 2. Change Klonopin to t.i.d. standing 3. Reassessment I spent minutes with the patient and/or on the patient floor today, greater than?50% of which was spent counseling/coordinating care. Reason for contiued inpatient stay Substantial Risk for: inability to function, rapid decompensation and med/psych decompensation
[2021-05-25 16:42] VITALS: BP 134/62; PULSE 95; TEMP 36.7
[2021-05-25] MEDS: OLANZapine 2.5 MG TABLET PO (16:50)
[2021-05-25] MEDS: Magnesium Citrate 300 ML SOLUTION PO (17:49)
[2021-05-25] MEDS: OLANZapine 7.5 MG TABLET PO (20:17)
[2021-05-26 06:00] VITALS: BP 127/82; PULSE 94; RESP 16; TEMP 37.1; O2SAT 97
[2021-05-26] MEDS: polyethylene glycoL 3350 17 GM POWD.PACK PO ×2 (10:05→23:06)
[2021-05-26] MEDS: Cyanocobalamin (Vitamin B-12) 100 MCG TABLET PO (10:07)
[2021-05-26] MEDS: clonazePAM 0.5 MG TABLET PO ×3 (10:07→22:20)
[2021-05-26] MEDS: Thiamine HCL 100 MG TABLET PO (10:07)
[2021-05-26] MEDS: PARoxetine HCL 30 MG TABLET PO (10:08)
[2021-05-26] MEDS: Multivitamin TABLET 1 TAB PO (10:08)
--- NOTE | 2021-05-26 15:14 | HO.PSYCHPN ---
Subjective Subjective Date of Service: 05/26/21 Reason For Visit: generalized anxiety disorder major depressive diso Subjective Notes: Conditional Voluntary Medical Problems Affecting Mental Status: No Interim History: reviewed recent progress notes. Who as per staff has been isolative, holding pieces of paper, but does come out into the milieu with significant encouragement. Very anxious. Reports today feeling foggy and hopeless at times. Is concerned around medications and feels that she is unsure what she may or may not need. Foley is currently 30 mg and this may be increased by primary team after the weekend. Sleep has been okay, with some initial insomnia, but otherwise getting 6-7 hours per night. Is obviously anxious throughout interview. Does okay with some staff support. Does appear to have perhaps some thought blocking at times. Noted primary team's impressions around cognition and workup except her. Did mentioned ECT to patient, and she became extremely anxious around this. Was clear that simply exploring history. Medication Compliance: Yes Side effects from medications: No Attending Groups: Yes Review of Systems Acute medical concerns: No Review of Systems Review of Systems Unremarkable Mental Status Exam Mental Status Exam Narrative: seen in day room. Appropriately dressed. Does appear slightly disheveled. Very anxious. Is aware where she is, approximate time frame she has been here and also did changing units. Endorses feeling depressed and anxious and hopeless. No current SI. No overt psychosis. May have some thought blocking. Insight and judgment okay Diagnostics Vital Signs (24Hr): Vital Signs - 24 hr 05/25/21 16:42 05/26/21 06:00 Temperature 98.0 F 98.8 F Pulse Rate 95 94 Respiratory Rate 16 Blood Pressure 134/62 127/82 Pulse Oximetry 97 BMI result Body Mass Index 20.9 Labs Results: 05/17/21 08:37 05/17/21 08:37 Imaging Radiology Impressions: ITS Impressions Head CT 05/17/21 06:05 IMPRESSION: No acute intracranial pathology. Medications Medications Current Medications Acetaminophen (Acetaminophen 325 Mg Tablet) 650 mg PO Q6H PRN PRN Reason: Headache/Pain Mild Scale (1-3) Last Admin: 05/03/21 19:30 Dose: 650 mg Documented by: Al Hydroxide/Mg Hydroxide (Magnesium Hydrox/Alum Hydrox 30 Ml Oral.Susp) 30 ml PO Q6H PRN PRN Reason: Heartburn/Nausea Clonazepam (Clonazepam 0.5 Mg Tablet) 0.5 mg PO TID [facility] Last Admin: 05/26/21 15:01 Dose: 0.5 mg Documented by: Cyanocobalamin (Cyanocobalamin (Vitamin B-12) 100 Mcg Tablet) 100 mcg PO DAILY [facility] Last Admin: 05/26/21 10:07 Dose: 100 mcg Documented by: Ergocalciferol (Ergocalciferol (Vitamin D2) 1,250 Mcg Capsule) 1,250 mcg PO Q7D [facility] Last Admin: 05/24/21 17:37 Dose: 1,250 mcg Documented by: Magnesium Hydroxide (Milk Of Magnesia 30 Ml Oral.Susp) 30 ml PO DAILY PRN PRN Reason: Constipation Last Admin: 05/25/21 00:47 Dose: 30 ml Documented by: Multivitamins/Vitamin C (Multivitamin Tablet) 1 tab PO DAILY [facility] Last Admin: 05/26/21 10:08 Dose: 1 tab Documented by: Olanzapine (Olanzapine 7.5 Mg Tablet) 7.5 mg PO BEDTIME [facility] Last Admin: 05/25/21 20:17 Dose: 7.5 mg Documented by: Olanzapine (Olanzapine 2.5 Mg Tablet) 2.5 mg PO DAILY@1700 [facility] Last Admin: 05/25/21 16:50 Dose: 2.5 mg Documented by: Paroxetine HCl (Paroxetine Hcl 30 Mg Tablet) 30 mg PO DAILY [facility] Last Admin: 05/26/21 10:08 Dose: 30 mg Documented by: Polyethylene Glycol (Polyethylene Glycol 3350 17 Gm Powd.Pack) 17 gm PO BID [facility] Last Admin: 05/26/21 10:05 Dose: 17 gm Documented by: Thiamine HCl (Thiamine Hcl 100 Mg Tablet) 100 mg PO DAILY [facility] Last Admin: 05/26/21 10:07 Dose: 100 mg Documented by: Trazodone HCl (Trazodone Hcl 25 Mg Halftab) 25 mg PO BEDTIME PRN PRN Reason: Insomnia Last Admin: 05/21/21 23:25 Dose: 25 mg Documented by: Allergies Allergies Allergy/AdvReac Type Severity Reaction Status Date / Time No Known Allergies Allergy Verified 05/02/21 13:17 Assessment & Plan Assessment & Plan (1) MDD (major depressive disorder), recurrent severe, without psychosis: Status: Acute Code(s): F33.2 - Major depressive disorder, recurrent severe without psychotic features (2) Cognitive decline: Status: Acute Code(s): R41.89 - Other symptoms and signs involving cognitive functions and awareness Assessment and Plan: I am not certain whether she has mild cognitive impairment or this is a anxiety and depression with a pseudo-dementia. My recommendation would be to obtain the report of the MRI of the brain that was done within the last 6 months at [facility]. I would recommend an EEG. Blood work for treatable dementia as is normal. She can also have an outpatient neuropsych testing once her major depression is treated and improves. The patient has been reassured. 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 Pt became aware of cognitive decline starting this past Spring 2020. Pt's depression seems to be a combination of reaction to growing awareness of cognitive decline, and going off antidepressants; depression is severe however and will need to be treated At this point, it's unclear the etiology of cognitive decline; patient has been aware of it for the past 9 months however it seems to have gotten increasingly worse as depression set in this past fall/winter; it is unclear if there were signs of cognitive decline prior to this past spring. she was transferred from [facility] to this unit since the patient complained of cognitive deterioration. Since the transfer, her Zyprexa was increased slowly up to 10 mg and her Paxil was titrated up to 30 mg. Plan 1. Keep Paxil 30 mg daily and Zyprexa 10 mg p.o. q.h.s.. 2. Change Klonopin to t.i.d. standing 3. Reassessment 05/26/2021: No change to primary team treatment plan. Did mention ECT to client in the context of gathering history and previous treatments. Client became extremely anxious when this was raised. I spent minutes with the patient and/or on the patient floor today, greater than?50% of which was spent counseling/coordinating care. Reason for contiued inpatient stay Substantial Risk for: inability to function
[2021-05-26] MEDS: OLANZapine 2.5 MG TABLET PO (17:27)
[2021-05-26 18:00] VITALS: BP 124/55; PULSE 92; RESP 18; TEMP 36.5; O2SAT 97
[2021-05-26] MEDS: OLANZapine 7.5 MG TABLET PO (22:20)
[2021-05-27 08:00] VITALS: BP 132/60; PULSE 101; TEMP 36.4; O2SAT 100
[2021-05-27] MEDS: PARoxetine HCL 30 MG TABLET PO (09:11)
[2021-05-27] MEDS: Cyanocobalamin (Vitamin B-12) 100 MCG TABLET PO (09:11)
[2021-05-27] MEDS: Multivitamin TABLET 1 TAB PO (09:11)
[2021-05-27] MEDS: Thiamine HCL 100 MG TABLET PO (09:11)
[2021-05-27] MEDS: clonazePAM 0.5 MG TABLET PO ×3 (09:11→21:50)
[2021-05-27] MEDS: polyethylene glycoL 3350 17 GM POWD.PACK PO ×2 (09:12→21:50)
--- NOTE | 2021-05-27 10:53 | P.PNPSI_ITS ---
Subjective Subjective Date of Service: 05/27/21 Reason For Visit: generalized anxiety disorder major depressive diso Subjective Notes: Conditional Voluntary Interim History: Slept better last night. Maybe slightly less anxious. Still significant concerns around treatment planning. Does come out into the milieu with significant encouragement. Remains anxious. Is concerned around medications and feels that she is unsure what she may or may not need- discu ssed tracking medications with minimal changes at a time, therefore making symptoms or side effects seizure to track. Paxil is currently 30 mg and this may be increased by primary team after the weekend. Sleep has been okay, with some initial insomnia, but otherwise getting 6-7 hours per night. Does appear to have perhaps some thought blocking at times. Medication Compliance: Yes Side effects from medications: No Attending Groups: Yes Review of Systems Acute medical concerns: No Review of Systems Review of Systems Unremarkable Mental Status Exam Mental Status Exam Narrative: seen in day room. Appropriately dressed. Fair self care Very anxious. Is aware where she is, approximate time frame she has been here and also did changing units. Endorses feeling depressed and anxious and hopeless. No current SI. No overt psychosis. May have some thought blocking. Insight and judgment okay Diagnostics Vital Signs (24Hr): Vital Signs - 24 hr 05/26/21 18:00 05/27/21 08:00 Temperature 97.7 F 97.6 F Pulse Rate 92 101 H Respiratory Rate 18 Blood Pressure 124/55 L 132/60 Pulse Oximetry 97 100 BMI result Body Mass Index 20.9 Labs Results: 05/17/21 08:37 05/17/21 08:37 Imaging Radiology Impressions: ITS Impressions Head CT 05/17/21 06:05 IMPRESSION: No acute intracranial pathology. Medications Medications Current Medications Acetaminophen (Acetaminophen 325 Mg Tablet) 650 mg PO Q6H PRN PRN Reason: Headache/Pain Mild Scale (1-3) Last Admin: 05/03/21 19:30 Dose: 650 mg Documented by: Al Hydroxide/Mg Hydroxide (Magnesium Hydrox/Alum Hydrox 30 Ml Oral.Susp) 30 ml PO Q6H PRN PRN Reason: Heartburn/Nausea Clonazepam (Clonazepam 0.5 Mg Tablet) 0.5 mg PO TID YODIT Last Admin: 05/27/21 09:11 Dose: 0.5 mg Documented by: Cyanocobalamin (Cyanocobalamin (Vitamin B-12) 100 Mcg Tablet) 100 mcg PO DAILY [facility] Last Admin: 05/27/21 09:11 Dose: 100 mcg Documented by: Ergocalciferol (Ergocalciferol (Vitamin D2) 1,250 Mcg Capsule) 1,250 mcg PO Q7D [facility] Last Admin: 05/24/21 17:37 Dose: 1,250 mcg Documented by: Magnesium Hydroxide (Milk Of Magnesia 30 Ml Oral.Susp) 30 ml PO DAILY PRN PRN Reason: Constipation Last Admin: 05/25/21 00:47 Dose: 30 ml Documented by: Multivitamins/Vitamin C (Multivitamin Tablet) 1 tab PO DAILY [facility] Last Admin: 05/27/21 09:11 Dose: 1 tab Documented by: Olanzapine (Olanzapine 7.5 Mg Tablet) 7.5 mg PO BEDTIME [facility] Last Admin: 05/26/21 22:20 Dose: 7.5 mg Documented by: Olanzapine (Olanzapine 2.5 Mg Tablet) 2.5 mg PO DAILY@1700 [facility] Last Admin: 05/26/21 17:27 Dose: 2.5 mg Documented by: Paroxetine HCl (Paroxetine Hcl 30 Mg Tablet) 30 mg PO DAILY [facility] Last Admin: 05/27/21 09:11 Dose: 30 mg Documented by: Polyethylene Glycol (Polyethylene Glycol 3350 17 Gm Powd.Pack) 17 gm PO BID [facility] Last Admin: 05/27/21 09:12 Dose: 17 gm Documented by: Thiamine HCl (Thiamine Hcl 100 Mg Tablet) 100 mg PO DAILY [facility] Last Admin: 05/27/21 09:11 Dose: 100 mg Documented by: Trazodone HCl (Trazodone Hcl 25 Mg Halftab) 25 mg PO BEDTIME PRN PRN Reason: Insomnia Last Admin: 05/21/21 23:25 Dose: 25 mg Documented by: Allergies Allergies Allergy/AdvReac Type Severity Reaction Status Date / Time No Known Allergies Allergy Verified 05/02/21 13:17 Assessment & Plan Assessment & Plan (1) MDD (major depressive disorder), recurrent severe, without psychosis: Status: Acute Code(s): F33.2 - Major depressive disorder, recurrent severe without psychotic features (2) Cognitive decline: Status: Acute Code(s): R41.89 - Other symptoms and signs involving cognitive functions and awareness Assessment and Plan: I am not certain whether she has mild cognitive impairment or this is a anxiety and depression with a pseudo-dementia. My recommendation would be to obtain the report of the MRI of the brain that was done within the last 6 months at [facility]. I would recommend an EEG. Blood work for treatable dementia as is normal. She can also have an outpatient neuropsych testing once her major depression is treated and improves. The patient has been reassured. 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 Pt became aware of cognitive decline starting this past Spring 2020. Pt's depression seems to be a combination of reaction to growing awareness of cognitive decline, and going off antidepressants; depression is severe however and will need to be treated At this point, it's unclear the etiology of cognitive decline; patient has been aware of it for the past 9 months however it seems to have gotten increasingly worse as depression set in this past fall/winter; it is unclear if there were signs of cognitive decline prior to this past spring. she was transferred from [facility] to this unit since the patient complained of cognitive deterioration. Since the transfer, her Zyprexa was increased slowly up to 10 mg and her Paxil was titrated up to 30 mg. Plan 1. Keep Paxil 30 mg daily and Zyprexa 10 mg p.o. q.h.s.. 2. Change Klonopin to t.i.d. standing 3. Reassessment 05/27/2021: No change to primary team treatment plan. On 05/26 did mention ECT to client in the context of gathering history and previous treatments. Client became extremely anxious when this was raised. I spent minutes with the patient and/or on the patient floor today, greater than?50% of which was spent counseling/coordinating care. Reason for contiued inpatient stay Substantial Risk for: inability to function
[2021-05-27] MEDS: OLANZapine 2.5 MG TABLET PO (17:06)
[2021-05-27] MEDS: OLANZapine 7.5 MG TABLET PO (21:50)
[2021-05-27 22:14] VITALS: BP 144/61; PULSE 93; RESP 16; TEMP 36.8; O2SAT 99
[2021-05-28 06:00] VITALS: BP 139/72; PULSE 89; RESP 16; TEMP 36.8; O2SAT 99
[2021-05-28] MEDS: PARoxetine HCL 30 MG TABLET PO (08:45)
[2021-05-28] MEDS: Multivitamin TABLET 1 TAB PO (08:45)
[2021-05-28] MEDS: clonazePAM 0.5 MG TABLET PO ×3 (08:45→22:49)
[2021-05-28] MEDS: Cyanocobalamin (Vitamin B-12) 100 MCG TABLET PO (08:45)
[2021-05-28] MEDS: Thiamine HCL 100 MG TABLET PO (08:45)
[2021-05-28] MEDS: polyethylene glycoL 3350 17 GM POWD.PACK PO ×2 (08:46→23:08)
--- NOTE | 2021-05-28 15:15 | P.PNPSI_ITS ---
Subjective Subjective Date of Service: 05/28/21 Reason For Visit: generalized anxiety disorder major depressive diso Subjective Notes: Conditional Voluntary Interim History: the nursing staff reported the patient was visible more the unit, she attended a few groups and apparently last weekend, the staff took away all her papers that she was writing there. On interview the patient was very distressed that they took out all the notes that she used to have she had a lot of papers in a disorganized manner writing on the notes that she has. On interview, the patient was even writing on paper towel. We discussed the case with the nurse seed corn manager production and will, with a plan so she can document or internal in a proper manner. It seems that writing down sooths the patient Mental Status Exam Mental Status Exam Patient Appearance: Well Grooomed Patient Orientation: Person Level of Consciousness: Awake Patient Behavior: Cooperative Mood Description: Depressed Affect Description: Constricted Ability to Follow Directions: Good Speech Pattern: Appropriate Hallucinations: None Delusions: Paranoid Ideation Thought Process: Illogical Thought Content: positive for Disoriented Judgement: Fair Diagnostics Vital Signs (24Hr): Vital Signs - 24 hr 05/27/21 22:14 05/28/21 06:00 Temperature 98.3 F 98.2 F Pulse Rate 93 89 Respiratory Rate 16 16 Blood Pressure 144/61 H 139/72 Pulse Oximetry 99 99 BMI result Body Mass Index 20.9 Labs Results: 05/17/21 08:37 05/17/21 08:37 Imaging Radiology Impressions: ITS Impressions Head CT 05/17/21 06:05 IMPRESSION: No acute intracranial pathology. Medications Medications Current Medications Acetaminophen (Acetaminophen 325 Mg Tablet) 650 mg PO Q6H PRN PRN Reason: Headache/Pain Mild Scale (1-3) Last Admin: 05/03/21 19:30 Dose: 650 mg Documented by: Al Hydroxide/Mg Hydroxide (Magnesium Hydrox/Alum Hydrox 30 Ml Oral.Susp) 30 ml PO Q6H PRN PRN Reason: Heartburn/Nausea Clonazepam (Clonazepam 0.5 Mg Tablet) 0.5 mg PO TID [facility] Last Admin: 05/28/21 14:49 Dose: 0.5 mg Documented by: Cyanocobalamin (Cyanocobalamin (Vitamin B-12) 100 Mcg Tablet) 100 mcg PO DAILY [facility] Last Admin: 05/28/21 08:45 Dose: 100 mcg Documented by: Ergocalciferol (Ergocalciferol (Vitamin D2) 1,250 Mcg Capsule) 1,250 mcg PO Q7D [facility] Last Admin: 05/24/21 17:37 Dose: 1,250 mcg Documented by: Magnesium Hydroxide (Milk Of Magnesia 30 Ml Oral.Susp) 30 ml PO DAILY PRN PRN Reason: Constipation Last Admin: 05/25/21 00:47 Dose: 30 ml Documented by: Multivitamins/Vitamin C (Multivitamin Tablet) 1 tab PO DAILY [facility] Last Admin: 05/28/21 08:45 Dose: 1 tab Documented by: Olanzapine (Olanzapine 7.5 Mg Tablet) 7.5 mg PO BEDTIME [facility] Last Admin: 05/27/21 21:50 Dose: 7.5 mg Documented by: Olanzapine (Olanzapine 2.5 Mg Tablet) 2.5 mg PO DAILY@1700 [facility] Last Admin: 05/27/21 17:06 Dose: 2.5 mg Documented by: Paroxetine HCl (Paroxetine Hcl 30 Mg Tablet) 30 mg PO DAILY [facility] Last Admin: 05/28/21 08:45 Dose: 30 mg Documented by: Polyethylene Glycol (Polyethylene Glycol 3350 17 Gm Powd.Pack) 17 gm PO BID [facility] Last Admin: 05/28/21 08:46 Dose: 17 gm Documented by: Thiamine HCl (Thiamine Hcl 100 Mg Tablet) 100 mg PO DAILY [facility] Last Admin: 05/28/21 08:45 Dose: 100 mg Documented by: Trazodone HCl (Trazodone Hcl 25 Mg Halftab) 25 mg PO BEDTIME PRN PRN Reason: Insomnia Last Admin: 05/21/21 23:25 Dose: 25 mg Documented by: Allergies Allergies Allergy/AdvReac Type Severity Reaction Status Date / Time No Known Allergies Allergy Verified 05/02/21 13:17 Assessment & Plan Assessment & Plan (1) MDD (major depressive disorder), recurrent severe, without psychosis: Status: Acute Code(s): F33.2 - Major depressive disorder, recurrent severe without psychotic features (2) Cognitive decline: Status: Acute Code(s): R41.89 - Other symptoms and signs involving cognitive functions and awareness Assessment and Plan: I am not certain whether she has mild cognitive impairment or this is a anxiety and depression with a pseudo-dementia. My recommendation would be to obtain the report of the MRI of the brain that was done within the last 6 months at [facility]. I would recommend an EEG. Blood work for treatable dementia as is normal. She can also have an outpatient neuropsych testing once her major depression is treated and improves. The patient has been reassured. 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 Pt became aware of cognitive decline starting this past Spring 2020. Pt's depression seems to be a combination of reaction to growing awareness of cognitive decline, and going off antidepressants; depression is severe however and will need to be treated At this point, it's unclear the etiology of cognitive decline; patient has been aware of it for the past 9 months however it seems to have gotten increasingly worse as depression set in this past fall/winter; it is unclear if there were signs of cognitive decline prior to this past spring. she was transferred from [facility] to this unit since the patient complained of cognitive deterioration. Since the transfer, her Zyprexa was increased slowly up to 10 mg and her Paxil was titrated up to 30 mg. Plan 1. increase Paxil up to 40 mg daily and keepZyprexa 10 mg p.o. q.h.s.. 2. Change Klonopin to t.i.d. standing 3. the patient was scared with the possibility of ECT so at this moment we would not consider it I spent minutes with the patient and/or on the patient floor today, greater than?50% of which was spent counseling/coordinating care. Reason for contiued inpatient stay Substantial Risk for: inability to function, rapid decompensation and med/psych decompensation
[2021-05-28] MEDS: OLANZapine 2.5 MG TABLET PO (17:58)
[2021-05-28 18:00] VITALS: BP 143/59; PULSE 91; TEMP 36.8; O2SAT 98
[2021-05-28] MEDS: OLANZapine 7.5 MG TABLET PO (22:49)
[2021-05-29 06:00] VITALS: BP 162/73; PULSE 88; RESP 18; TEMP 36.6; O2SAT 98
[2021-05-29] MEDS: Cyanocobalamin (Vitamin B-12) 100 MCG TABLET PO (09:18)
[2021-05-29] MEDS: polyethylene glycoL 3350 17 GM POWD.PACK PO ×2 (09:18→20:49)
[2021-05-29] MEDS: Thiamine HCL 100 MG TABLET PO (09:19)
[2021-05-29] MEDS: Multivitamin TABLET 1 TAB PO (09:19)
[2021-05-29] MEDS: clonazePAM 0.5 MG TABLET PO ×3 (09:19→20:48)
[2021-05-29] MEDS: PARoxetine HCL 30 MG TABLET PO (09:19)
[2021-05-29] MEDS: OLANZapine 2.5 MG TABLET PO (17:10)
--- NOTE | 2021-05-29 17:31 | HO.PSYCHPN ---
Subjective Subjective Date of Service: 05/29/21 Reason For Visit: generalized anxiety disorder major depressive diso Subjective Notes: Conditional Voluntary Interim History: The nursing staff reported the patient had been more visible in the unit but still paranoid he has a 10 to a few groups. On interview the patient remains very anxious and paranoid, stating that she has thought blocking and she is unable to concentrate. She also complains of over-sedation with Zyprexa. It is clear that Zyprexa has not helped her on her paranoia so will cross taper to Risperdal. Mental Status Exam Mental Status Exam Patient Appearance: Well Grooomed Patient Orientation: Person Level of Consciousness: Awake Patient Behavior: Cooperative Mood Description: Depressed Affect Description: Constricted Patient Cognition Impaired: Yes Ability to Follow Directions: Good Speech Pattern: Aphasic and Monotone Hallucinations: None Delusions: Paranoid Ideation Thought Content: positive for Circumstantial, positive for Perseveration and positive for Poverty of Content Judgement: Fair Diagnostics Vital Signs (24Hr): Vital Signs - 24 hr 05/28/21 18:00 05/29/21 06:00 Temperature 98.3 F 97.9 F Pulse Rate 91 88 Respiratory Rate 18 Blood Pressure 143/59 H 162/73 H Pulse Oximetry 98 98 BMI result Body Mass Index 20.9 Labs Results: 05/17/21 08:37 05/17/21 08:37 Imaging Radiology Impressions: ITS Impressions Head CT 05/17/21 06:05 IMPRESSION: No acute intracranial pathology. Medications Medications Current Medications Acetaminophen (Acetaminophen 325 Mg Tablet) 650 mg PO Q6H PRN PRN Reason: Headache/Pain Mild Scale (1-3) Last Admin: 05/03/21 19:30 Dose: 650 mg Documented by: Al Hydroxide/Mg Hydroxide (Magnesium Hydrox/Alum Hydrox 30 Ml Oral.Susp) 30 ml PO Q6H PRN PRN Reason: Heartburn/Nausea Clonazepam (Clonazepam 0.5 Mg Tablet) 0.5 mg PO TID [facility] Last Admin: 05/29/21 15:39 Dose: 0.5 mg Documented by: Cyanocobalamin (Cyanocobalamin (Vitamin B-12) 100 Mcg Tablet) 100 mcg PO DAILY [facility] Last Admin: 05/29/21 09:18 Dose: 100 mcg Documented by: Ergocalciferol (Ergocalciferol (Vitamin D2) 1,250 Mcg Capsule) 1,250 mcg PO Q7D [facility] Last Admin: 05/24/21 17:37 Dose: 1,250 mcg Documented by: Magnesium Hydroxide (Milk Of Magnesia 30 Ml Oral.Susp) 30 ml PO DAILY PRN PRN Reason: Constipation Last Admin: 05/25/21 00:47 Dose: 30 ml Documented by: Multivitamins/Vitamin C (Multivitamin Tablet) 1 tab PO DAILY [facility] Last Admin: 05/29/21 09:19 Dose: 1 tab Documented by: Paroxetine HCl (Paroxetine Hcl 30 Mg Tablet) 30 mg PO DAILY [facility] Last Admin: 05/29/21 09:19 Dose: 30 mg Documented by: Polyethylene Glycol (Polyethylene Glycol 3350 17 Gm Powd.Pack) 17 gm PO BID [facility] Last Admin: 05/29/21 09:18 Dose: 17 gm Documented by: Thiamine HCl (Thiamine Hcl 100 Mg Tablet) 100 mg PO DAILY [facility] Last Admin: 05/29/21 09:19 Dose: 100 mg Documented by: Trazodone HCl (Trazodone Hcl 25 Mg Halftab) 25 mg PO BEDTIME PRN PRN Reason: Insomnia Last Admin: 05/21/21 23:25 Dose: 25 mg Documented by: Allergies Allergies Allergy/AdvReac Type Severity Reaction Status Date / Time No Known Allergies Allergy Verified 05/02/21 13:17 Assessment & Plan Assessment & Plan (1) MDD (major depressive disorder), recurrent severe, without psychosis: Status: Acute Code(s): F33.2 - Major depressive disorder, recurrent severe without psychotic features (2) Cognitive decline: Status: Acute Code(s): R41.89 - Other symptoms and signs involving cognitive functions and awareness Assessment and Plan: I am not certain whether she has mild cognitive impairment or this is a anxiety and depression with a pseudo-dementia. My recommendation would be to obtain the report of the MRI of the brain that was done within the last 6 months at [facility]. I would recommend an EEG. Blood work for treatable dementia as is normal. She can also have an outpatient neuropsych testing once her major depression is treated and improves. The patient has been reassured. 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 Pt became aware of cognitive decline starting this past Spring 2020. Pt's depression seems to be a combination of reaction to growing awareness of cognitive decline, and going off antidepressants; depression is severe however and will need to be treated At this point, it's unclear the etiology of cognitive decline; patient has been aware of it for the past 9 months however it seems to have gotten increasingly worse as depression set in this past fall/winter; it is unclear if there were signs of cognitive decline prior to this past spring. she was transferred from [facility] to this unit since the patient complained of cognitive deterioration. Since the transfer, her Zyprexa was increased slowly up to 10 mg and her Paxil was titrated up to 30 mg. But so far there is no improvement over psychosis Plan 1. increase Paxil up to 40 mg daily . 2. Start tapering of Zyprexa. 3. Start Risperdal 0.25 mg p.o. b.i.d. to target psychosis I spent minutes with the patient and/or on the patient floor today, greater than?50% of which was spent counseling/coordinating care. Reason for contiued inpatient stay Substantial Risk for: inability to function, rapid decompensation and med/psych decompensation
[2021-05-29 20:40] VITALS: BP 150/65; PULSE 95; RESP 17; TEMP 36.8; O2SAT 97
[2021-05-29] MEDS: OLANZapine 5 MG TABLET PO (20:48)
[2021-05-29] MEDS: risperiDONE 0.25 MG TABLET PO (20:48)
[2021-05-30 08:00] VITALS: BP 174/73; PULSE 88; RESP 18; TEMP 37.1; O2SAT 100
[2021-05-30] MEDS: Thiamine HCL 100 MG TABLET PO (09:10)
[2021-05-30] MEDS: Cyanocobalamin (Vitamin B-12) 100 MCG TABLET PO (09:10)
[2021-05-30] MEDS: PARoxetine HCL 40 MG TABLET PO (09:11)
[2021-05-30] MEDS: risperiDONE 0.25 MG TABLET PO (09:11)
[2021-05-30] MEDS: clonazePAM 0.5 MG TABLET PO (09:11)
[2021-05-30] MEDS: polyethylene glycoL 3350 17 GM POWD.PACK PO ×2 (09:11→22:24)
[2021-05-30] MEDS: Multivitamin TABLET 1 TAB PO (09:11)
--- NOTE | 2021-05-30 14:47 | HO.PSYCHPN ---
Subjective Subjective Date of Service: 05/30/21 Reason For Visit: generalized anxiety disorder major depressive diso Subjective Notes: Conditional Voluntary Interim History: The nursing staff reported the patient has been more out in the common areas but she is very anxious and very paranoid when staff approaches to her. On interview, the patient was writing down as usual on the med changes that we discussed and she had severe thought blocking that she is aware of that. I explained her that due to his long-term anxiety and depression, she has developed psychotic symptoms with thought blocking. She has failed to Zyprexa, at this moment Zyprexa only over-sedated her but does not help to her paranoia. Mental Status Exam Mental Status Exam Patient Appearance: Well Grooomed Patient Orientation: Person Level of Consciousness: Awake Patient Behavior: Cooperative Mood Description: Depressed Affect Description: Constricted Patient Cognition Impaired: No Ability to Follow Directions: Good Speech Pattern: Difficulty Finding Words, Whisper and Delayed Hallucinations: None Delusions: Paranoid Ideation Thought Process: Illogical, Distracted and Evasive Thought Content: positive for Circumstantial Judgement: Fair Diagnostics Vital Signs (24Hr): Vital Signs - 24 hr 05/29/21 20:40 05/30/21 08:00 Temperature 98.3 F 98.8 F Pulse Rate 95 88 Respiratory Rate 17 18 Blood Pressure 150/65 H 174/73 H Pulse Oximetry 97 100 BMI result Body Mass Index 20.9 Labs Results: 05/17/21 08:37 05/17/21 08:37 Imaging Radiology Impressions: ITS Impressions Head CT 05/17/21 06:05 IMPRESSION: No acute intracranial pathology. Medications Medications Current Medications Acetaminophen (Acetaminophen 325 Mg Tablet) 650 mg PO Q6H PRN PRN Reason: Headache/Pain Mild Scale (1-3) Last Admin: 05/03/21 19:30 Dose: 650 mg Documented by: Al Hydroxide/Mg Hydroxide (Magnesium Hydrox/Alum Hydrox 30 Ml Oral.Susp) 30 ml PO Q6H PRN PRN Reason: Heartburn/Nausea Clonazepam (Clonazepam 0.5 Mg Tablet) 0.5 mg PO TID [facility] Last Admin: 05/30/21 09:11 Dose: 0.5 mg Documented by: Cyanocobalamin (Cyanocobalamin (Vitamin B-12) 100 Mcg Tablet) 100 mcg PO DAILY [facility] Last Admin: 05/30/21 09:10 Dose: 100 mcg Documented by: Ergocalciferol (Ergocalciferol (Vitamin D2) 1,250 Mcg Capsule) 1,250 mcg PO Q7D [facility] Last Admin: 05/24/21 17:37 Dose: 1,250 mcg Documented by: Magnesium Hydroxide (Milk Of Magnesia 30 Ml Oral.Susp) 30 ml PO DAILY PRN PRN Reason: Constipation Last Admin: 05/25/21 00:47 Dose: 30 ml Documented by: Multivitamins/Vitamin C (Multivitamin Tablet) 1 tab PO DAILY [facility] Last Admin: 05/30/21 09:11 Dose: 1 tab Documented by: Olanzapine (Olanzapine 5 Mg Tablet) 5 mg PO BEDTIME [facility] Last Admin: 05/29/21 20:48 Dose: 5 mg Documented by: Paroxetine HCl (Paroxetine Hcl 40 Mg Tablet) 40 mg PO DAILY [facility] Last Admin: 05/30/21 09:11 Dose: 40 mg Documented by: Polyethylene Glycol (Polyethylene Glycol 3350 17 Gm Powd.Pack) 17 gm PO BID [facility] Last Admin: 05/30/21 09:11 Dose: 17 gm Documented by: Risperidone (Risperidone 0.25 Mg Tablet) 0.25 mg PO BID [facility] Last Admin: 05/30/21 09:11 Dose: 0.25 mg Documented by: Thiamine HCl (Thiamine Hcl 100 Mg Tablet) 100 mg PO DAILY [facility] Last Admin: 05/30/21 09:10 Dose: 100 mg Documented by: Trazodone HCl (Trazodone Hcl 25 Mg Halftab) 25 mg PO BEDTIME PRN PRN Reason: Insomnia Last Admin: 05/21/21 23:25 Dose: 25 mg Documented by: Allergies Allergies Allergy/AdvReac Type Severity Reaction Status Date / Time No Known Allergies Allergy Verified 05/02/21 13:17 Assessment & Plan Assessment & Plan (1) MDD (major depressive disorder), recurrent severe, without psychosis: Status: Acute Code(s): F33.2 - Major depressive disorder, recurrent severe without psychotic features (2) Cognitive decline: Status: Acute Code(s): R41.89 - Other symptoms and signs involving cognitive functions and awareness Assessment and Plan: I am not certain whether she has mild cognitive impairment or this is a anxiety and depression with a pseudo-dementia. My recommendation would be to obtain the report of the MRI of the brain that was done within the last 6 months at [facility]. I would recommend an EEG. Blood work for treatable dementia as is normal. She can also have an outpatient neuropsych testing once her major depression is treated and improves. The patient has been reassured. 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 Pt became aware of cognitive decline starting this past Spring 2020. Pt's depression seems to be a combination of reaction to growing awareness of cognitive decline, and going off antidepressants; depression is severe however and will need to be treated At this point, it's unclear the etiology of cognitive decline; patient has been aware of it for the past 9 months however it seems to have gotten increasingly worse as depression set in this past fall/winter; it is unclear if there were signs of cognitive decline prior to this past spring. she was transferred from [facility] to this unit since the patient complained of cognitive deterioration. Since the transfer, her Zyprexa was increased slowly up to 10 mg and her Paxil was titrated up to 30 mg. But so far there is no improvement over psychosis Plan 1. increase Paxil up to 40 mg daily . 2. Start tapering of Zyprexa. Now on Zyprexa 5 mg po qhs 3. Increase Risperdal up to 0.5 mg p.o. b.i.d. to target psychosis I spent minutes with the patient and/or on the patient floor today, greater than?50% of which was spent counseling/coordinating care. Reason for contiued inpatient stay Substantial Risk for: inability to function, rapid decompensation and med/psych decompensation
[2021-05-30 21:50] VITALS: BP 135/58; PULSE 101; RESP 17; TEMP 37.1; O2SAT 100
[2021-05-30] MEDS: risperiDONE 0.25 MG TABLET 0.5 MG PO (22:35)
[2021-05-30] MEDS: OLANZapine 5 MG TABLET PO (22:35)
[2021-05-31 07:30] VITALS: BP 150/67; PULSE 95; RESP 16; TEMP 36.2; O2SAT 98
[2021-05-31] MEDS: Cyanocobalamin (Vitamin B-12) 100 MCG TABLET PO (09:39)
[2021-05-31] MEDS: risperiDONE 0.25 MG TABLET 0.5 MG PO ×3 (09:39→20:23)
[2021-05-31] MEDS: Thiamine HCL 100 MG TABLET PO (09:39)
[2021-05-31] MEDS: Multivitamin TABLET 1 TAB PO (09:39)
[2021-05-31] MEDS: PARoxetine HCL 40 MG TABLET PO (09:39)
[2021-05-31] MEDS: polyethylene glycoL 3350 17 GM POWD.PACK PO ×2 (09:41→20:23)
--- NOTE | 2021-05-31 13:55 | HO.PSYCHPN ---
Subjective Subjective Date of Service: 05/31/21 Reason For Visit: generalized anxiety disorder major depressive diso Subjective Notes: Conditional Voluntary Interim History: The nursing staff reported that hte patient took medications with a lot of encouragement. She was seen out for breakfast and she looks more anxious. During the interview, she was extremely anxious, tremor and it seems akathisia?. She has thought blocking unable to process information fast. Mental Status Exam Mental Status Exam Patient Appearance: Well Grooomed Patient Orientation: Person and Situation Level of Consciousness: Disoriented Patient Behavior: Guarded, Suspicious and Timid Mood Description: Withdrawn, Anxious and Apprehensive Affect Description: Constricted Patient Cognition Impaired: Yes Ability to Follow Directions: Good Speech Pattern: Clear, Soft-Spoken and Mumbled Hallucinations: None Delusions: Paranoid Ideation Thought Process: Distracted, Evasive and Confusion Thought Content: positive for Obsessional Thoughts, positive for Circumstantial and positive for Poverty of Content Judgement: Fair Diagnostics Vital Signs (24Hr): Vital Signs - 24 hr 05/30/21 21:50 05/31/21 07:30 Temperature 98.7 F 97.2 F Pulse Rate 101 H 95 Respiratory Rate 17 16 Blood Pressure 135/58 L 150/67 H Pulse Oximetry 100 98 BMI result Body Mass Index 20.9 Labs Results: 05/17/21 08:37 05/17/21 08:37 Imaging Radiology Impressions: ITS Impressions Head CT 05/17/21 06:05 IMPRESSION: No acute intracranial pathology. Medications Medications Current Medications Acetaminophen (Acetaminophen 325 Mg Tablet) 650 mg PO Q6H PRN PRN Reason: Headache/Pain Mild Scale (1-3) Last Admin: 05/03/21 19:30 Dose: 650 mg Documented by: Al Hydroxide/Mg Hydroxide (Magnesium Hydrox/Alum Hydrox 30 Ml Oral.Susp) 30 ml PO Q6H PRN PRN Reason: Heartburn/Nausea Clonazepam (Clonazepam 0.5 Mg Tablet) 0.5 mg PO TID [facility] Cyanocobalamin (Cyanocobalamin (Vitamin B-12) 100 Mcg Tablet) 100 mcg PO DAILY [facility] Last Admin: 05/31/21 09:39 Dose: 100 mcg Documented by: Ergocalciferol (Ergocalciferol (Vitamin D2) 1,250 Mcg Capsule) 1,250 mcg PO Q7D [facility] Last Admin: 05/24/21 17:37 Dose: 1,250 mcg Documented by: Magnesium Hydroxide (Milk Of Magnesia 30 Ml Oral.Susp) 30 ml PO DAILY PRN PRN Reason: Constipation Last Admin: 05/25/21 00:47 Dose: 30 ml Documented by: Multivitamins/Vitamin C (Multivitamin Tablet) 1 tab PO DAILY [facility] Last Admin: 05/31/21 09:39 Dose: 1 tab Documented by: Olanzapine (Olanzapine 2.5 Mg Tablet) 2.5 mg PO BEDTIME [facility] Paroxetine HCl (Paroxetine Hcl 40 Mg Tablet) 40 mg PO DAILY [facility] Last Admin: 05/31/21 09:39 Dose: 40 mg Documented by: Polyethylene Glycol (Polyethylene Glycol 3350 17 Gm Powd.Pack) 17 gm PO BID [facility] Last Admin: 05/31/21 09:41 Dose: 17 gm Documented by: Risperidone (Risperidone 0.25 Mg Tablet) 0.5 mg PO TID [facility] Thiamine HCl (Thiamine Hcl 100 Mg Tablet) 100 mg PO DAILY [facility] Last Admin: 05/31/21 09:39 Dose: 100 mg Documented by: Trazodone HCl (Trazodone Hcl 25 Mg Halftab) 25 mg PO BEDTIME PRN PRN Reason: Insomnia Last Admin: 05/21/21 23:25 Dose: 25 mg Documented by: Allergies Allergies Allergy/AdvReac Type Severity Reaction Status Date / Time No Known Allergies Allergy Verified 05/02/21 13:17 Assessment & Plan Assessment & Plan (1) MDD (major depressive disorder), recurrent severe, without psychosis: Status: Acute Code(s): F33.2 - Major depressive disorder, recurrent severe without psychotic features (2) Cognitive decline: Status: Acute Code(s): R41.89 - Other symptoms and signs involving cognitive functions and awareness Assessment and Plan: I am not certain whether she has mild cognitive impairment or this is a anxiety and depression with a pseudo-dementia. My recommendation would be to obtain the report of the MRI of the brain that was done within the last 6 months at [facility]. I would recommend an EEG. Blood work for treatable dementia as is normal. She can also have an outpatient neuropsych testing once her major depression is treated and improves. The patient has been reassured. 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 Pt became aware of cognitive decline starting this past Spring 2020. Pt's depression seems to be a combination of reaction to growing awareness of cognitive decline, and going off antidepressants; depression is severe however and will need to be treated At this point, it's unclear the etiology of cognitive decline; patient has been aware of it for the past 9 months however it seems to have gotten increasingly worse as depression set in this past fall/winter; it is unclear if there were signs of cognitive decline prior to this past spring. she was transferred from [facility] to this unit since the patient complained of cognitive deterioration. Since the transfer, her Zyprexa was increased slowly up to 10 mg and her Paxil was titrated up to 30 mg. But so far there is no improvement over psychosis Plan 1. Keep Paxil up to 40 mg daily . 2. Start tapering of Zyprexa. Now on Zyprexa 2.5 mg po qhs 3. Increase Risperdal up to 0.5 mg p.o. t.i.d. to target psychosis. 4. Add Ativan PRN I spent minutes with the patient and/or on the patient floor today, greater than?50% of which was spent counseling/coordinating care. Reason for contiued inpatient stay Substantial Risk for: inability to function, rapid decompensation and med/psych decompensation
[2021-05-31] MEDS: clonazePAM 0.5 MG TABLET PO ×2 (14:16→20:22)
[2021-05-31 19:05] VITALS: BP 123/56; PULSE 103; RESP 16; TEMP 37.2; O2SAT 97
[2021-05-31] MEDS: OLANZapine 2.5 MG TABLET PO (20:22)
[2021-06-01] MEDS: risperiDONE 0.25 MG TABLET 0.5 MG PO ×3 (10:16→20:10)
[2021-06-01] MEDS: clonazePAM 0.5 MG TABLET PO ×3 (10:16→20:10)
[2021-06-01] MEDS: Thiamine HCL 100 MG TABLET PO (10:16)
[2021-06-01] MEDS: Cyanocobalamin (Vitamin B-12) 100 MCG TABLET PO (10:17)
[2021-06-01] MEDS: PARoxetine HCL 40 MG TABLET PO (10:17)
[2021-06-01] MEDS: Multivitamin TABLET 1 TAB PO (10:17)
--- NOTE | 2021-06-01 17:18 | HO.PSYCHPN ---
Subjective Subjective Date of Service: 06/01/21 Reason For Visit: generalized anxiety disorder major depressive diso Subjective Notes: Conditional Voluntary Interim History: The nursing staff reports the patient has been visible in the unit, he slept 7 hours last night but still anxious whenever she is approach by staff or peers. On interview the patient looks less anxious but she still has thought blocking. She looks less sedated now that we are tapering of Zyprexa. No evidence of tardive dyskinesia or EPS Mental Status Exam Mental Status Exam Patient Appearance: Well Grooomed Patient Orientation: Person Level of Consciousness: Appropriate Patient Behavior: Guarded and Cooperative Mood Description: Withdrawn and Depressed Affect Description: Constricted Patient Cognition Impaired: Yes Ability to Follow Directions: Good Speech Pattern: Clear Memory Description: Intact Hallucinations: None Delusions: Paranoid Ideation Thought Content: positive for Intact Judgement: Fair Diagnostics Vital Signs (24Hr): Vital Signs - 24 hr 05/31/21 19:05 Temperature 99.0 F Pulse Rate 103 H Respiratory Rate 16 Blood Pressure 123/56 L Pulse Oximetry 97 BMI result Body Mass Index 20.9 Labs Results: 05/17/21 08:37 05/17/21 08:37 Imaging Radiology Impressions: ITS Impressions Head CT 05/17/21 06:05 IMPRESSION: No acute intracranial pathology. Medications Medications Current Medications Acetaminophen (Acetaminophen 325 Mg Tablet) 650 mg PO Q6H PRN PRN Reason: Headache/Pain Mild Scale (1-3) Last Admin: 05/03/21 19:30 Dose: 650 mg Documented by: Al Hydroxide/Mg Hydroxide (Magnesium Hydrox/Alum Hydrox 30 Ml Oral.Susp) 30 ml PO Q6H PRN PRN Reason: Heartburn/Nausea Clonazepam (Clonazepam 0.5 Mg Tablet) 0.5 mg PO TID [facility] Last Admin: 06/01/21 16:34 Dose: 0.5 mg Documented by: Cyanocobalamin (Cyanocobalamin (Vitamin B-12) 100 Mcg Tablet) 100 mcg PO DAILY [facility] Last Admin: 06/01/21 10:17 Dose: 100 mcg Documented by: Ergocalciferol (Ergocalciferol (Vitamin D2) 1,250 Mcg Capsule) 1,250 mcg PO Q7D [facility] Last Admin: 05/31/21 17:38 Dose: Not Given Documented by: Lorazepam (Lorazepam 0.5 Mg Tablet) 0.5 mg PO Q8H PRN PRN Reason: severe anxiety Magnesium Hydroxide (Milk Of Magnesia 30 Ml Oral.Susp) 30 ml PO DAILY PRN PRN Reason: Constipation Last Admin: 05/25/21 00:47 Dose: 30 ml Documented by: Multivitamins/Vitamin C (Multivitamin Tablet) 1 tab PO DAILY [facility] Last Admin: 06/01/21 10:17 Dose: 1 tab Documented by: Olanzapine (Olanzapine 2.5 Mg Tablet) 2.5 mg PO BEDTIME [facility] Last Admin: 05/31/21 20:22 Dose: 2.5 mg Documented by: Paroxetine HCl (Paroxetine Hcl 40 Mg Tablet) 40 mg PO DAILY [facility] Last Admin: 06/01/21 10:17 Dose: 40 mg Documented by: Polyethylene Glycol (Polyethylene Glycol 3350 17 Gm Powd.Pack) 17 gm PO BID [facility] Last Admin: 06/01/21 10:17 Dose: Not Given Documented by: Risperidone (Risperidone 0.25 Mg Tablet) 0.5 mg PO TID [facility] Last Admin: 06/01/21 16:34 Dose: 0.5 mg Documented by: Thiamine HCl (Thiamine Hcl 100 Mg Tablet) 100 mg PO DAILY [facility] Last Admin: 06/01/21 10:16 Dose: 100 mg Documented by: Trazodone HCl (Trazodone Hcl 25 Mg Halftab) 25 mg PO BEDTIME PRN PRN Reason: Insomnia Last Admin: 05/21/21 23:25 Dose: 25 mg Documented by: Allergies Allergies Allergy/AdvReac Type Severity Reaction Status Date / Time No Known Allergies Allergy Verified 05/02/21 13:17 Assessment & Plan Assessment & Plan (1) MDD (major depressive disorder), recurrent severe, without psychosis: Status: Acute Code(s): F33.2 - Major depressive disorder, recurrent severe without psychotic features (2) Cognitive decline: Status: Acute Code(s): R41.89 - Other symptoms and signs involving cognitive functions and awareness Assessment and Plan: I am not certain whether she has mild cognitive impairment or this is a anxiety and depression with a pseudo-dementia. My recommendation would be to obtain the report of the MRI of the brain that was done within the last 6 months at [facility]. I would recommend an EEG. Blood work for treatable dementia as is normal. She can also have an outpatient neuropsych testing once her major depression is treated and improves. The patient has been reassured. 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 Pt became aware of cognitive decline starting this past Spring 2020. Pt's depression seems to be a combination of reaction to growing awareness of cognitive decline, and going off antidepressants; depression is severe however and will need to be treated At this point, it's unclear the etiology of cognitive decline; patient has been aware of it for the past 9 months however it seems to have gotten increasingly worse as depression set in this past fall/winter; it is unclear if there were signs of cognitive decline prior to this past spring. she was transferred from [facility] to this unit since the patient complained of cognitive deterioration. Since the transfer, her Zyprexa was increased slowly up to 10 mg and her Paxil was titrated up to 30 mg. But so far there is no improvement over psychosis Plan 1. Keep Paxil up to 40 mg daily . 2. Discontinue Zyprexa 3. Increase Risperdal up to 0.5 mg p.o. t.i.d. to target psychosis. 4. Add Ativan PRN I spent minutes with the patient and/or on the patient floor today, greater than?50% of which was spent counseling/coordinating care. Reason for contiued inpatient stay Substantial Risk for: inability to function, rapid decompensation and med/psych decompensation
[2021-06-01 18:00] VITALS: BP 107/52; PULSE 99; RESP 17; TEMP 36.7; O2SAT 97
[2021-06-01] MEDS: OLANZapine 2.5 MG TABLET PO (20:10)
[2021-06-02 06:00] VITALS: BP 160/70; PULSE 94; RESP 16; TEMP 37.1; O2SAT 99
[2021-06-02] MEDS: Multivitamin TABLET 1 TAB PO (09:08)
[2021-06-02] MEDS: polyethylene glycoL 3350 17 GM POWD.PACK PO (09:08)
[2021-06-02] MEDS: Cyanocobalamin (Vitamin B-12) 100 MCG TABLET PO (09:08)
[2021-06-02] MEDS: risperiDONE 0.25 MG TABLET 0.5 MG PO ×3 (09:08→21:16)
[2021-06-02] MEDS: PARoxetine HCL 40 MG TABLET PO (09:08)
[2021-06-02] MEDS: clonazePAM 0.5 MG TABLET PO ×3 (09:08→21:17)
[2021-06-02] MEDS: Thiamine HCL 100 MG TABLET PO (09:08)
--- NOTE | 2021-06-02 09:33 | HO.PSYCHPN ---
Subjective Subjective Date of Service: 06/02/21 Reason For Visit: generalized anxiety disorder major depressive diso Subjective Notes: Conditional Voluntary Interim History: The nursing staff reported that the patient, as usual took a long time to take her medications but he she was compliant with it. She slept all night and she has been hoarding her papers. On interview the patient was anxious but she looks more awake and alert since Zyprexa was discontinue still dysphoric with thought blocking Mental Status Exam Mental Status Exam Patient Appearance: Well Grooomed Patient Orientation: Person Level of Consciousness: Awake Patient Behavior: Guarded Mood Description: Constricted Affect Description: Constricted Patient Cognition Impaired: No Ability to Follow Directions: Good Speech Pattern: Monotone and Long Pauses Hallucinations: None Delusions: Paranoid Ideation Thought Content: positive for Linear Depressive Symptoms: Diff. Making Decisions Judgement: Fair Diagnostics Vital Signs (24Hr): Vital Signs - 24 hr 06/01/21 18:00 06/02/21 06:00 Temperature 98.0 F 98.7 F Pulse Rate 99 94 Respiratory Rate 17 16 Blood Pressure 107/52 L 160/70 H Pulse Oximetry 97 99 BMI result Body Mass Index 20.9 Labs Results: 05/17/21 08:37 05/17/21 08:37 Imaging Radiology Impressions: ITS Impressions Head CT 05/17/21 06:05 IMPRESSION: No acute intracranial pathology. Medications Medications Current Medications Acetaminophen (Acetaminophen 325 Mg Tablet) 650 mg PO Q6H PRN PRN Reason: Headache/Pain Mild Scale (1-3) Last Admin: 05/03/21 19:30 Dose: 650 mg Documented by: Al Hydroxide/Mg Hydroxide (Magnesium Hydrox/Alum Hydrox 30 Ml Oral.Susp) 30 ml PO Q6H PRN PRN Reason: Heartburn/Nausea Clonazepam (Clonazepam 0.5 Mg Tablet) 0.5 mg PO TID [facility] Last Admin: 06/02/21 09:08 Dose: 0.5 mg Documented by: Cyanocobalamin (Cyanocobalamin (Vitamin B-12) 100 Mcg Tablet) 100 mcg PO DAILY [facility] Last Admin: 06/02/21 09:08 Dose: 100 mcg Documented by: Ergocalciferol (Ergocalciferol (Vitamin D2) 1,250 Mcg Capsule) 1,250 mcg PO Q7D [facility] Last Admin: 05/31/21 17:38 Dose: Not Given Documented by: Lorazepam (Lorazepam 0.5 Mg Tablet) 0.5 mg PO Q8H PRN PRN Reason: severe anxiety Magnesium Hydroxide (Milk Of Magnesia 30 Ml Oral.Susp) 30 ml PO DAILY PRN PRN Reason: Constipation Last Admin: 05/25/21 00:47 Dose: 30 ml Documented by: Multivitamins/Vitamin C (Multivitamin Tablet) 1 tab PO DAILY [facility] Last Admin: 06/02/21 09:08 Dose: 1 tab Documented by: Olanzapine (Olanzapine 2.5 Mg Tablet) 2.5 mg PO BEDTIME [facility] Last Admin: 06/01/21 20:10 Dose: 2.5 mg Documented by: Paroxetine HCl (Paroxetine Hcl 40 Mg Tablet) 40 mg PO DAILY [facility] Last Admin: 06/02/21 09:08 Dose: 40 mg Documented by: Polyethylene Glycol (Polyethylene Glycol 3350 17 Gm Powd.Pack) 17 gm PO BID [facility] Last Admin: 06/02/21 09:08 Dose: 17 gm Documented by: Risperidone (Risperidone 0.25 Mg Tablet) 0.5 mg PO TID [facility] Last Admin: 06/02/21 09:08 Dose: 0.5 mg Documented by: Thiamine HCl (Thiamine Hcl 100 Mg Tablet) 100 mg PO DAILY [facility] Last Admin: 06/02/21 09:08 Dose: 100 mg Documented by: Trazodone HCl (Trazodone Hcl 25 Mg Halftab) 25 mg PO BEDTIME PRN PRN Reason: Insomnia Last Admin: 05/21/21 23:25 Dose: 25 mg Documented by: Allergies Allergies Allergy/AdvReac Type Severity Reaction Status Date / Time No Known Allergies Allergy Verified 05/02/21 13:17 Assessment & Plan Assessment & Plan (1) MDD (major depressive disorder), recurrent severe, without psychosis: Status: Acute Code(s): F33.2 - Major depressive disorder, recurrent severe without psychotic features (2) Cognitive decline: Status: Acute Code(s): R41.89 - Other symptoms and signs involving cognitive functions and awareness Assessment and Plan: I am not certain whether she has mild cognitive impairment or this is a anxiety and depression with a pseudo-dementia. My recommendation would be to obtain the report of the MRI of the brain that was done within the last 6 months at [facility]. I would recommend an EEG. Blood work for treatable dementia as is normal. She can also have an outpatient neuropsych testing once her major depression is treated and improves. The patient has been reassured. 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 Pt became aware of cognitive decline starting this past Spring 2020. Pt's depression seems to be a combination of reaction to growing awareness of cognitive decline, and going off antidepressants; depression is severe however and will need to be treated At this point, it's unclear the etiology of cognitive decline; patient has been aware of it for the past 9 months however it seems to have gotten increasingly worse as depression set in this past fall/winter; it is unclear if there were signs of cognitive decline prior to this past spring. she was transferred from [facility] to this unit since the patient complained of cognitive deterioration. Since the transfer, her Zyprexa was increased slowly up to 10 mg and her Paxil was titrated up to 30 mg. But so far there is no improvement over psychosis Plan 1. Keep Paxil up to 40 mg daily . 2. Discontinue Zyprexa 3. Increase Risperdal up to 0.5 mg p.o. t.i.d. to target psychosis. 4. Add Ativan PRN I spent minutes with the patient and/or on the patient floor today, greater than?50% of which was spent counseling/coordinating care. Reason for contiued inpatient stay Substantial Risk for: inability to function, rapid decompensation and med/psych decompensation
[2021-06-02 18:00] VITALS: BP 121/53; PULSE 84; RESP 16; TEMP 36.9; O2SAT 96
[2021-06-03 07:30] VITALS: BP 148/80; PULSE 108; RESP 16; TEMP 36.2; O2SAT 98
--- NOTE | 2021-06-03 08:09 | P.PNPSI_ITS ---
Subjective Subjective Date of Service: 06/03/21 Reason For Visit: generalized anxiety disorder major depressive diso Subjective Notes: Conditional Voluntary Interim History: The nursing staff reported that she was aware that her Zyprexa was discontinued but by mistake, was still active and she refused it. She woke up at 3 AM and was worried that this prescriber could be upset. Today, on interview, I apologized for the clerical mistake, that she was right on refusing the Zyprexa. She is still anxious but she looks less internally preocupied. She wants to go home as soon as she is better. Mental Status Exam Mental Status Exam Patient Appearance: Well Grooomed Patient Orientation: Person and Situation Level of Consciousness: Awake Patient Behavior: Appropriate, Cooperative and Suspicious Mood Description: Depressed Affect Description: Constricted Patient Cognition Impaired: No Ability to Follow Directions: Good Speech Pattern: Clear and Monotone Hallucinations: None Delusions: Paranoid Ideation Thought Process: Linear Thought Content: positive for Perseveration and positive for Poverty of Content Judgement: Fair Diagnostics Vital Signs (24Hr): Vital Signs - 24 hr 06/02/21 18:00 Temperature 98.4 F Pulse Rate 84 Respiratory Rate 16 Blood Pressure 121/53 L Pulse Oximetry 96 BMI result Verdana 4 Body Mass Index Verdana 4 20.9 Verdana 4 Verdana 4 Labs Results: 05/17/21 08:37 05/17/21 08:37 Imaging Radiology Impressions: ITS Impressions Head CT 05/17/21 06:05 IMPRESSION: No acute intracranial pathology. Medications Medications Current Medications Acetaminophen (Acetaminophen 325 Mg Tablet) 650 mg PO Q6H PRN PRN Reason: Headache/Pain Mild Scale (1-3) Last Admin: 05/03/21 19:30 Dose: 650 mg Documented by: Al Hydroxide/Mg Hydroxide (Magnesium Hydrox/Alum Hydrox 30 Ml Oral.Susp) 30 ml PO Q6H PRN PRN Reason: Heartburn/Nausea Clonazepam (Clonazepam 0.5 Mg Tablet) 0.5 mg PO TID [facility] Last Admin: 06/02/21 21:17 Dose: 0.5 mg Documented by: Cyanocobalamin (Cyanocobalamin (Vitamin B-12) 100 Mcg Tablet) 100 mcg PO DAILY [facility] Last Admin: 06/02/21 09:08 Dose: 100 mcg Documented by: Ergocalciferol (Ergocalciferol (Vitamin D2) 1,250 Mcg Capsule) 1,250 mcg PO Q7D [facility] Last Admin: 05/31/21 17:38 Dose: Not Given Documented by: Lorazepam (Lorazepam 0.5 Mg Tablet) 0.5 mg PO Q8H PRN PRN Reason: severe anxiety Magnesium Hydroxide (Milk Of Magnesia 30 Ml Oral.Susp) 30 ml PO DAILY PRN PRN Reason: Constipation Last Admin: 05/25/21 00:47 Dose: 30 ml Documented by: Multivitamins/Vitamin C (Multivitamin Tablet) 1 tab PO DAILY [facility] Last Admin: 06/02/21 09:08 Dose: 1 tab Documented by: Olanzapine (Olanzapine 2.5 Mg Tablet) 2.5 mg PO BEDTIME [facility] Last Admin: 06/02/21 22:25 Dose: Not Given Documented by: Paroxetine HCl (Paroxetine Hcl 40 Mg Tablet) 40 mg PO DAILY [facility] Last Admin: 06/02/21 09:08 Dose: 40 mg Documented by: Polyethylene Glycol (Polyethylene Glycol 3350 17 Gm Powd.Pack) 17 gm PO BID [facility] Last Admin: 06/02/21 21:27 Dose: Not Given Documented by: Risperidone (Risperidone 0.25 Mg Tablet) 0.5 mg PO TID [facility] Last Admin: 06/02/21 21:16 Dose: 0.5 mg Documented by: Thiamine HCl (Thiamine Hcl 100 Mg Tablet) 100 mg PO DAILY [facility] Last Admin: 06/02/21 09:08 Dose: 100 mg Documented by: Trazodone HCl (Trazodone Hcl 25 Mg Halftab) 25 mg PO BEDTIME PRN PRN Reason: Insomnia Last Admin: 05/21/21 23:25 Dose: 25 mg Documented by: Allergies Allergies Allergy/AdvReac Type Severity Reaction Status Date / Time No Known Allergies Allergy Verified 05/02/21 13:17 Assessment & Plan Assessment & Plan (1) MDD (major depressive disorder), recurrent severe, without psychosis: Status: Acute Code(s): F33.2 - Major depressive disorder, recurrent severe without psychotic features (2) Cognitive decline: Status: Acute Code(s): R41.89 - Other symptoms and signs involving cognitive functions and awareness Assessment and Plan: I am not certain whether she has mild cognitive impairment or this is a anxiety and depression with a pseudo-dementia. My recommendation would be to obtain the report of the MRI of the brain that was done within the last 6 months at [facility]. I would recommend an EEG. Blood work for treatable dementia as is normal. She can also have an outpatient neuropsych testing once her major depression is treated and improves. The patient has been reassured. 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 Pt became aware of cognitive decline starting this past Spring 2020. Pt's depression seems to be a combination of reaction to growing awareness of cognitive decline, and going off antidepressants; depression is severe however and will need to be treated At this point, it's unclear the etiology of cognitive decline; patient has been aware of it for the past 9 sosa hs however it seems to have gotten increasingly worse as depression set in this past fall/winter; it is unclear if there were signs of cognitive decline prior to this past spring. [facility] since the patient complained of cognitive deterioration. Since the transfer, her Zyprexa was increased slowly up to 10 mg and her Paxil was titrated up to 30 mg. But so far there is no improvement over psychosis Plan 1. Keep Paxil up to 40 mg daily . 2. Discontinue Zyprexa 3. Increase Risperdal up to 1 mg p.o. b.i.d. to target psychosis. 4. Add Ativan PRN I spent minutes with the patient and/or on the patient floor today, greater than?50% of which was spent counseling/coordinating care. Reason for contiued inpatient stay Substantial Risk for: inability to function, rapid decompensation and med/psych decompensation
[2021-06-03] MEDS: PARoxetine HCL 40 MG TABLET PO (09:03)
[2021-06-03] MEDS: clonazePAM 0.5 MG TABLET PO ×3 (09:03→20:01)
[2021-06-03] MEDS: Cyanocobalamin (Vitamin B-12) 100 MCG TABLET PO (09:03)
[2021-06-03] MEDS: Multivitamin TABLET 1 TAB PO (09:03)
[2021-06-03] MEDS: Thiamine HCL 100 MG TABLET PO (09:04)
[2021-06-03] MEDS: polyethylene glycoL 3350 17 GM POWD.PACK PO (09:05)
[2021-06-03] MEDS: risperiDONE 1 MG TABLET PO ×2 (10:27→20:01)
[2021-06-03] MEDS: Loperamide HCl 2 MG CAPSULE PO (16:50)
--- NOTE | 2021-06-03 18:31 | PC.NURSE ---
Patient c/o diarrhea this evening stating , It's been happening all day. Patient was unable to tell TW how many times it happened. MD was notified. Loperamide ordered and administered. Effectiveness pending.
[2021-06-03 19:46] VITALS: BP 128/61; PULSE 100; RESP 18; TEMP 37.4; O2SAT 96
[2021-06-04] MEDS: Loperamide HCl 2 MG CAPSULE PO (00:37)
[2021-06-04 06:00] VITALS: BP 167/69; PULSE 104; RESP 16; TEMP 36.8; O2SAT 99
[2021-06-04] MEDS: PARoxetine HCL 40 MG TABLET PO (09:48)
[2021-06-04] MEDS: Thiamine HCL 100 MG TABLET PO (09:48)
[2021-06-04] MEDS: risperiDONE 1 MG TABLET PO ×2 (09:48→19:52)
[2021-06-04] MEDS: Cyanocobalamin (Vitamin B-12) 100 MCG TABLET PO (09:48)
[2021-06-04] MEDS: clonazePAM 0.5 MG TABLET PO ×2 (09:48→19:52)
--- NOTE | 2021-06-04 14:55 | P.PNPSI_ITS ---
Subjective Subjective Date of Service: 06/04/21 Reason For Visit: generalized anxiety disorder major depressive diso Subjective Notes: Conditional Voluntary Interim History: The nursing staff reported that the patient slept well she spent most of the time in her room but she was more engaged and oriented with staff and peers. She complained of diarrhea yesterday. On interview, the patient more alert and awake she is very anxious but she looks slightly less dysphoric. The social and human services assistant reported that her causing called and the plan is to get her back home with services. Mental Status Exam Mental Status Exam Patient Appearance: Well Grooomed Patient Orientation: Person and Situation Level of Consciousness: Awake Patient Behavior: Guarded and Cooperative Mood Description: Depressed Affect Description: Suspicious and Constricted Patient Cognition Impaired: No Ability to Follow Directions: Good Speech Pattern: Clear Hallucinations: None Delusions: Paranoid Ideation Thought Process: Linear Thought Content: positive for Circumstantial, positive for Perseveration and positive for Poverty of Content Judgement: Fair Diagnostics Vital Signs (24Hr): Vital Signs - 24 hr 06/03/21 19:46 06/04/21 06:00 Temperature 99.3 F 98.2 F Pulse Rate 100 104 H Respiratory Rate 18 16 Blood Pressure 128/61 167/69 H Pulse Oximetry 96 99 BMI result Verdana 4 Body Mass Index Verdana 4 20.9 Verdana 4 Verdana 4 Labs Results: 05/17/21 08:37 05/17/21 08:37 Imaging Radiology Impressions: ITS Impressions Head CT 05/17/21 06:05 IMPRESSION: No acute intracranial pathology. Medications Medications Current Medications Acetaminophen (Acetaminophen 325 Mg Tablet) 650 mg PO Q6H PRN PRN Reason: Headache/Pain Mild Scale (1-3) Last Admin: 05/03/21 19:30 Dose: 650 mg Documented by: Al Hydroxide/Mg Hydroxide (Magnesium Hydrox/Alum Hydrox 30 Ml Oral.Susp) 30 ml PO Q6H PRN PRN Reason: Heartburn/Nausea Clonazepam (Clonazepam 0.5 Mg Tablet) 0.5 mg PO TID [facility] Last Admin: 06/04/21 09:48 Dose: 0.5 mg Documented by: Cyanocobalamin (Cyanocobalamin (Vitamin B-12) 100 Mcg Tablet) 100 mcg PO DAILY [facility] Last Admin: 06/04/21 09:48 Dose: 100 mcg Documented by: Ergocalciferol (Ergocalciferol (Vitamin D2) 1,250 Mcg Capsule) 1,250 mcg PO Q7D [facility] Last Admin: 05/31/21 17:38 Dose: Not Given Documented by: Loperamide HCl (Loperamide Hcl 2 Mg Capsule) 2 mg PO Q4H PRN PRN Reason: Diarrhea Last Admin: 06/04/21 00:37 Dose: 2 mg Documented by: Lorazepam (Lorazepam 0.5 Mg Tablet) 0.5 mg PO Q8H PRN PRN Reason: severe anxiety Magnesium Hydroxide (Milk Of Magnesia 30 Ml Oral.Susp) 30 ml PO DAILY PRN PRN Reason: Constipation Last Admin: 05/25/21 00:47 Dose: 30 ml Documented by: Multivitamins/Vitamin C (Multivitamin Tablet) 1 tab PO DAILY [facility] Last Admin: 06/04/21 10:39 Dose: Not Given Documented by: Paroxetine HCl (Paroxetine Hcl 40 Mg Tablet) 40 mg PO DAILY [facility] Last Admin: 06/04/21 09:48 Dose: 40 mg Documented by: Polyethylene Glycol (Polyethylene Glycol 3350 17 Gm Powd.Pack) 17 gm PO BID [facility] Last Admin: 06/04/21 10:39 Dose: Not Given Documented by: Risperidone (Risperidone 1 Mg Tablet) 1 mg PO BID [facility] Last Admin: 06/04/21 09:48 Dose: 1 mg Documented by: Thiamine HCl (Thiamine Hcl 100 Mg Tablet) 100 mg PO DAILY [facility] Last Admin: 06/04/21 09:48 Dose: 100 mg Documented by: Trazodone HCl (Trazodone Hcl 25 Mg Halftab) 25 mg PO BEDTIME PRN PRN Reason: Insomnia Last Admin: 05/21/21 23:25 Dose: 25 mg Documented by: Allergies Allergies Allergy/AdvReac Type Severity Reaction Status Date / Time No Known Allergies Allergy Verified 05/02/21 13:17 Assessment & Plan Assessment & Plan (1) MDD (major depressive disorder), recurrent severe, without psychosis: Status: Acute Code(s): F33.2 - Major depressive disorder, recurrent severe without psychotic features (2) Cognitive decline: Status: Acute Code(s): R41.89 - Other symptoms and signs involving cognitive functions and awareness Assessment and Plan: I am not certain whether she has mild cognitive impairment or this is a anxiety and depression with a pseudo-dementia. My recommendation would be to obtain the report of the MRI of the brain that was done within the last [address] [facility]. I would recommend an EEG. Blood work for treatable dementia as is normal. She can also have an outpatient neuropsych testing once her major depression is treated and improves. The patient has been reassured. 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 Pt became aware of cognitive decline starting this past Spring 2020. Pt's depression seems to be a combination of reaction to growing awareness of cognitive decline, and going off antidepressants; depression is severe however and will need to be treated At this point, it's unclear the etiology of cognitive decline; patient has been aware of it for the past 9 months however it seems to have gotten increasingly worse as depression set in this past fall/winter; it is unclear if there were signs of cognitive decline prior to this past spring. she was transferred from [facility] to this unit since the patient complained of cognitive deterioration. Since the transfer, her Zyprexa was increased slowly up to 10 mg and her Paxil was titrated up to 30 mg. But so far there is no improvement over psychosis Plan 1. Keep Paxil up to 40 mg daily . 2. Discontinue Zyprexa 3. Increase Risperdal up to 1 mg p.o. b.i.d. to target psychosis. 4. Add Ativan PRN I spent minutes with the patient and/or on the patient floor today, greater than?50% of which was spent counseling/coordinating care. Reason for contiued inpatient stay Substantial Risk for: inability to function, rapid decompensation and med/psych decompensation
--- NOTE | 2021-06-04 15:40 | MHC.CLN ---
F/U VISITED WITH PATIENT AT [facility]. APPEARS TO BE EATING BETTER. SHE ASKED IF ENSURE COULD CAUSE DIARRHEA. I EDUCATED HER THAT PRODUCT WAS SOY BASED AND LACTOSE FREE. ADVISED THAT SHE COULD TAKE A BREAK FROM SUPPLEMENT TO SEE IF GI SYMPTOMS IMPROVE AND IF IT IS OFFERED, SHE DOES NOT HAVE TO DRINK PRODUCT.
[2021-06-04 19:40] VITALS: BP 113/68; PULSE 98; RESP 18; TEMP 37.2; O2SAT 97
[2021-06-05 06:00] VITALS: BP 130/71; PULSE 93; TEMP 36.1; O2SAT 99
[2021-06-05] MEDS: Thiamine HCL 100 MG TABLET PO (08:44)
[2021-06-05] MEDS: PARoxetine HCL 40 MG TABLET PO (08:44)
[2021-06-05] MEDS: Multivitamin TABLET 1 TAB PO (08:44)
[2021-06-05] MEDS: clonazePAM 0.5 MG TABLET PO ×3 (08:44→22:45)
[2021-06-05] MEDS: Cyanocobalamin (Vitamin B-12) 100 MCG TABLET PO (08:45)
[2021-06-05] MEDS: risperiDONE 1 MG TABLET PO ×2 (08:45→20:37)
--- NOTE | 2021-06-05 14:13 | P.PNPSI_ITS ---
Subjective Subjective Date of Service: 06/05/21 Reason For Visit: generalized anxiety disorder major depressive diso Subjective Notes: Conditional Voluntary Interim History: The nursing staff reports the patient has been seclusive and looks very anxious but overall she is less paranoid sings we change Zyprexa to Risperdal. On interview, the patient looks more anxious with thought blocking, unable to choose her diet for tomorrow, asking constantly about her medications. We explained her that her thought blocking is due to her depression and that is why she is taking Risperdal. Mental Status Exam Mental Status Exam Patient Appearance: Appropriate Patient Orientation: Person and Situation Level of Consciousness: Awake Patient Behavior: Suspicious Mood Description: Depressed Affect Description: Constricted Ability to Follow Directions: Good Speech Pattern: Difficulty Finding Words Hallucinations: None Delusions: Paranoid Ideation Thought Process: Slowed Thinking Thought Content: positive for Circumstantial Judgement: Fair Diagnostics Vital Signs (24Hr): Vital Signs - 24 hr 06/04/21 19:40 06/05/21 06:00 Temperature 99 F 97.0 F Pulse Rate 98 93 Respiratory Rate 18 Blood Pressure 113/68 130/71 Pulse Oximetry 97 99 BMI result Verdana 4 Body Mass Index Verdana 4 20.9 Verdana 4 Verdana 4 Labs Results: 05/17/21 08:37 05/17/21 08:37 Imaging Radiology Impressions: ITS Impressions Head CT 05/17/21 06:05 IMPRESSION: No acute intracranial pathology. Medications Medications Current Medications Acetaminophen (Acetaminophen 325 Mg Tablet) 650 mg PO Q6H PRN PRN Reason: Headache/Pain Mild Scale (1-3) Last Admin: 05/03/21 19:30 Dose: 650 mg Documented by: Al Hydroxide/Mg Hydroxide (Magnesium Hydrox/Alum Hydrox 30 Ml Oral.Susp) 30 ml PO Q6H PRN PRN Reason: Heartburn/Nausea Benzocaine (Throat Lozenge, Medicated Lozenge) 1 lozenge MUCOUS MEM Q2H PRN PRN Reason: Sore Throat Clonazepam (Clonazepam 0.5 Mg Tablet) 0.5 mg PO TID [facility] Last Admin: 06/05/21 08:44 Dose: 0.5 mg Documented by: Cyanocobalamin (Cyanocobalamin (Vitamin B-12) 100 Mcg Tablet) 100 mcg PO DAILY [facility] Last Admin: 06/05/21 08:45 Dose: 100 mcg Documented by: Ergocalciferol (Ergocalciferol (Vitamin D2) 1,250 Mcg Capsule) 1,250 mcg PO Q7D [facility] Last Admin: 05/31/21 17:38 Dose: Not Given Documented by: Loperamide HCl (Loperamide Hcl 2 Mg Capsule) 2 mg PO Q4H PRN PRN Reason: Diarrhea Last Admin: 06/04/21 00:37 Dose: 2 mg Documented by: Lorazepam (Lorazepam 0.5 Mg Tablet) 0.5 mg PO Q8H PRN PRN Reason: severe anxiety Magnesium Hydroxide (Milk Of Magnesia 30 Ml Oral.Susp) 30 ml PO DAILY PRN PRN Reason: Constipation Last Admin: 05/25/21 00:47 Dose: 30 ml Documented by: Multivitamins/Vitamin C (Multivitamin Tablet) 1 tab PO DAILY [facility] Last Admin: 06/05/21 08:44 Dose: 1 tab Documented by: Paroxetine HCl (Paroxetine Hcl 40 Mg Tablet) 40 mg PO DAILY [facility] Last Admin: 06/05/21 08:44 Dose: 40 mg Documented by: Polyethylene Glycol (Polyethylene Glycol 3350 17 Gm Powd.Pack) 17 gm PO BID [facility] Last Admin: 06/05/21 08:45 Dose: Not Given Documented by: Risperidone (Risperidone 1 Mg Tablet) 1 mg PO BID [facility] Last Admin: 06/05/21 08:45 Dose: 1 mg Documented by: Thiamine HCl (Thiamine Hcl 100 Mg Tablet) 100 mg PO DAILY [facility] Last Admin: 06/05/21 08:44 Dose: 100 mg Documented by: Trazodone HCl (Trazodone Hcl 25 Mg Halftab) 25 mg PO BEDTIME PRN PRN Reason: Insomnia Last Admin: 05/21/21 23:25 Dose: 25 mg Documented by: Allergies Allergies Allergy/AdvReac Type Severity Reaction Status Date / Time No Known Allergies Allergy Verified 05/02/21 13:17 Assessment & Plan Assessment & Plan (1) MDD (major depressive disorder), recurrent severe, without psychosis: Status: Acute Code(s): F33.2 - Major depressive disorder, recurrent severe without psychotic features (2) Cognitive decline: Status: Acute Code(s): R41.89 - Other symptoms and signs involving cognitive functions and awareness Plan The patient is a 71-year-old female with a long history of depression and anxiety with a prior admission into the hospital for exacerbation of depression. She was brought into the unit from [facility] due to memory problems, cognitive deterioration and increased thought blocking with dysphoria. We have tried Zyprexa with poor results so with cross taper it to Risperdal. Plan Continue Risperdal 1 mg p.o. b.i.d. and Paxil 40 mg Reassessment tomorrow I spent minutes with the patient and/or on the patient floor today, greater than?50% of which was spent counseling/coordinating care. Reason for contiued inpatient stay Substantial Risk for: inability to function, rapid decompensation and med/psych decompensation
[2021-06-05 18:00] VITALS: BP 119/57; PULSE 104; RESP 17; TEMP 37.1; O2SAT 99
[2021-06-06 06:00] VITALS: BP 148/67; PULSE 95; RESP 14; TEMP 36.7; O2SAT 98
[2021-06-06] MEDS: Multivitamin TABLET 1 TAB PO (08:35)
[2021-06-06] MEDS: clonazePAM 0.5 MG TABLET PO ×3 (08:35→21:39)
[2021-06-06] MEDS: PARoxetine HCL 40 MG TABLET PO (08:35)
[2021-06-06] MEDS: Thiamine HCL 100 MG TABLET PO (08:35)
[2021-06-06] MEDS: risperiDONE 1 MG TABLET PO ×2 (08:35→21:40)
[2021-06-06] MEDS: Cyanocobalamin (Vitamin B-12) 100 MCG TABLET PO (08:36)
--- NOTE | 2021-06-06 15:19 | P.PNPSI_ITS ---
Subjective Subjective Date of Service: 06/06/21 Reason For Visit: generalized anxiety disorder major depressive diso Subjective Notes: Conditional Voluntary Interim History: The nursing staff reported the patient has been visible in the unit, going out for meals. On interview the patient reported that she feels worried that in the community she will not be able to perform because she needs prompts to do her regular ADL less. She looks internally preoccupied and very anxious and she always asks several times to the nursing staff about her medications. She writes down different pieces of paper about the medications that she take and scheduling. Mental Status Exam Mental Status Exam Patient Appearance: Appropriate Patient Orientation: Person and Situation Level of Consciousness: Awake Patient Behavior: Cooperative Mood Description: Depressed Affect Description: Constricted Ability to Follow Directions: Good Speech Pattern: Clear Hallucinations: None Delusions: Paranoid Ideation Thought Process: Linear Thought Content: positive for Circumstantial Judgement: Fair Diagnostics Vital Signs (24Hr): Vital Signs - 24 hr 06/05/21 18:00 06/06/21 06:00 Temperature 98.8 F 98.1 F Pulse Rate 104 H 95 Respiratory Rate 17 14 Blood Pressure 119/57 L 148/67 H Pulse Oximetry 99 98 BMI result Verdana 4 Body Mass Index Verdana 4 20.9 Verdana 4 Verdana 4 Labs Results: 05/17/21 08:37 05/17/21 08:37 Imaging Radiology Impressions: ITS Impressions Head CT 05/17/21 06:05 IMPRESSION: No acute intracranial pathology. Medications Medications Current Medications Acetaminophen (Acetaminophen 325 Mg Tablet) 650 mg PO Q6H PRN PRN Reason: Headache/Pain Mild Scale (1-3) Last Admin: 05/03/21 19:30 Dose: 650 mg Documented by: Al Hydroxide/Mg Hydroxide (Magnesium Hydrox/Alum Hydrox 30 Ml Oral.Susp) 30 ml PO Q6H PRN PRN Reason: Heartburn/Nausea Benzocaine (Throat Lozenge, Medicated Lozenge) 1 lozenge MUCOUS MEM Q2H PRN PRN Reason: Sore Throat Clonazepam (Clonazepam 0.5 Mg Tablet) 0.5 mg PO TID [facility] Last Admin: 06/06/21 15:15 Dose: 0.5 mg Documented by: Cyanocobalamin (Cyanocobalamin (Vitamin B-12) 100 Mcg Tablet) 100 mcg PO DAILY [facility] Last Admin: 06/06/21 08:36 Dose: 100 mcg Documented by: Ergocalciferol (Ergocalciferol (Vitamin D2) 1,250 Mcg Capsule) 1,250 mcg PO Q7D [facility] Last Admin: 05/31/21 17:38 Dose: Not Given Documented by: Loperamide HCl (Loperamide Hcl 2 Mg Capsule) 2 mg PO Q4H PRN PRN Reason: Diarrhea Last Admin: 06/04/21 00:37 Dose: 2 mg Documented by: Lorazepam (Lorazepam 0.5 Mg Tablet) 0.5 mg PO Q8H PRN PRN Reason: severe anxiety Magnesium Hydroxide (Milk Of Magnesia 30 Ml Oral.Susp) 30 ml PO DAILY PRN PRN Reason: Constipation Last Admin: 05/25/21 00:47 Dose: 30 ml Documented by: Multivitamins/Vitamin C (Multivitamin Tablet) 1 tab PO DAILY [facility] Last Admin: 06/06/21 08:35 Dose: 1 tab Documented by: Paroxetine HCl (Paroxetine Hcl 40 Mg Tablet) 40 mg PO DAILY [facility] Last Admin: 06/06/21 08:35 Dose: 40 mg Documented by: Polyethylene Glycol (Polyethylene Glycol 3350 17 Gm Powd.Pack) 17 gm PO BID [facility] Last Admin: 06/06/21 08:55 Dose: Not Given Documented by: Thiamine HCl (Thiamine Hcl 100 Mg Tablet) 100 mg PO DAILY [facility] Last Admin: 06/06/21 08:35 Dose: 100 mg Documented by: Trazodone HCl (Trazodone Hcl 25 Mg Halftab) 25 mg PO BEDTIME PRN PRN Reason: Insomnia Last Admin: 05/21/21 23:25 Dose: 25 mg Documented by: Allergies Allergies Allergy/AdvReac Type Severity Reaction Status Date / Time No Known Allergies Allergy Verified 05/02/21 13:17 Assessment & Plan Assessment & Plan (1) MDD (major depressive disorder), recurrent severe, without psychosis: Status: Acute Code(s): F33.2 - Major depressive disorder, recurrent severe without psychotic features (2) Cognitive decline: Status: Acute Code(s): R41.89 - Other symptoms and signs involving cognitive functions and awareness Plan The patient is a 71-year-old female with a long history of depression and anxiety with a prior admission into the hospital for exacerbation of depression. She was brought into the unit from [facility] due to memory problems, cognitive deterioration and increased thought blocking with dysphoria. We have tried Zyprexa with poor results so with cross taper it to Risperdal. Plan Change Risperdal to 0.5 p.o. b.i.d. and 1 mg p.o. q.h.s.. Rest the same Reassessment tomorrow I spent minutes with the patient and/or on the patient floor today, greater than?50% of which was spent counseling/coordinating care. Reason for contiued inpatient stay Substantial Risk for: inability to function, rapid decompensation and med/psych decompensation
[2021-06-06 19:54] VITALS: BP 134/61; PULSE 99; RESP 17; TEMP 36.6; O2SAT 97
[2021-06-07 06:00] VITALS: BP 169/79; PULSE 98; RESP 18; TEMP 36.6; O2SAT 98
[2021-06-07] MEDS: clonazePAM 0.5 MG TABLET PO ×2 (09:51→21:40)
[2021-06-07] MEDS: risperiDONE 0.5 MG TABLET PO (09:52)
--- NOTE | 2021-06-07 14:14 | P.PNPSI_ITS ---
Subjective Subjective Date of Service: 06/07/21 Reason For Visit: generalized anxiety disorder major depressive diso Subjective Notes: Conditional Voluntary Interim History: The nursing staff reported the patient has pain visible in the unit anxious but able to have her meals in the common area. On [place], she was very axnious, since she didn't know what to do, either going back home or to an LONGTERM. Mental Status Exam Mental Status Exam Patient Appearance: Appropriate Patient Orientation: Person, Place and Situation Level of Consciousness: Awake Patient Behavior: Cooperative Mood Description: Nervous Affect Description: Constricted Patient Cognition Impaired: No Ability to Follow Directions: Fair Speech Pattern: Clear Memory Description: Intact Hallucinations: None Delusions: Not Present Thought Process: Linear Thought Content: positive for Circumstantial and positive for Thought Blocking Judgement: Fair Diagnostics Vital Signs (24Hr): Vital Signs - 24 hr 06/06/21 19:54 06/07/21 06:00 Temperature 97.9 F 97.9 F Pulse Rate 99 98 Respiratory Rate 17 18 Blood Pressure 134/61 169/79 H Pulse Oximetry 97 98 BMI result Verdana 4 Body Mass Index Verdana 4 20.9 Verdana 4 Verdana 4 Labs Results: 05/17/21 08:37 05/17/21 08:37 Imaging Radiology Impressions: ITS Impressions Head CT 05/17/21 06:05 IMPRESSION: No acute intracranial pathology. Medications Medications Current Medications Acetaminophen (Acetaminophen 325 Mg Tablet) 650 mg PO Q6H PRN PRN Reason: Headache/Pain Mild Scale (1-3) Last Admin: 05/03/21 19:30 Dose: 650 mg Documented by: Al Hydroxide/Mg Hydroxide (Magnesium Hydrox/Alum Hydrox 30 Ml Oral.Susp) 30 ml PO Q6H PRN PRN Reason: Heartburn/Nausea Benzocaine (Throat Lozenge, Medicated Lozenge) 1 lozenge MUCOUS MEM Q2H PRN PRN Reason: Sore Throat Clonazepam (Clonazepam 0.5 Mg Tablet) 0.5 mg PO TID [facility] Last Admin: 06/07/21 09:51 Dose: 0.5 mg Documented by: Cyanocobalamin (Cyanocobalamin (Vitamin B-12) 100 Mcg Tablet) 100 mcg PO DAILY [facility] Last Admin: 06/07/21 11:03 Dose: Not Given Documented by: Ergocalciferol (Ergocalciferol (Vitamin D2) 1,250 Mcg Capsule) 1,250 mcg PO Q7D [facility] Last Admin: 05/31/21 17:38 Dose: Not Given Documented by: Loperamide HCl (Loperamide Hcl 2 Mg Capsule) 2 mg PO Q4H PRN PRN Reason: Diarrhea Last Admin: 06/04/21 00:37 Dose: 2 mg Documented by: Lorazepam (Lorazepam 0.5 Mg Tablet) 0.5 mg PO Q8H PRN PRN Reason: severe anxiety Magnesium Hydroxide (Milk Of Magnesia 30 Ml Oral.Susp) 30 ml PO DAILY PRN PRN Reason: Constipation Last Admin: 05/25/21 00:47 Dose: 30 ml Documented by: Multivitamins/Vitamin C (Multivitamin Tablet) 1 tab PO DAILY [facility] Last Admin: 06/07/21 11:03 Dose: Not Given Documented by: Paroxetine HCl (Paroxetine Hcl 40 Mg Tablet) 40 mg PO DAILY [facility] Last Admin: 06/07/21 11:03 Dose: Not Given Documented by: Polyethylene Glycol (Polyethylene Glycol 3350 17 Gm Powd.Pack) 17 gm PO BID [facility] Last Admin: 06/07/21 11:03 Dose: Not Given Documented by: Risperidone (Risperidone 0.5 Mg Tablet) 0.5 mg PO BID@0800,1500 [facility] Last Admin: 06/07/21 09:52 Dose: 0.5 mg Documented by: Risperidone (Risperidone 1 Mg Tablet) 1 mg PO BEDTIME [facility] Last Admin: 06/06/21 21:40 Dose: 1 mg Documented by: Thiamine HCl (Thiamine Hcl 100 Mg Tablet) 100 mg PO DAILY [facility] Last Admin: 06/07/21 11:03 Dose: Not Given Documented by: Trazodone HCl (Trazodone Hcl 25 Mg Halftab) 25 mg PO BEDTIME PRN PRN Reason: Insomnia Last Admin: 05/21/21 23:25 Dose: 25 mg Documented by: Allergies Allergies Allergy/AdvReac Type Severity Reaction Status Date / Time No Known Allergies Allergy Verified 05/02/21 13:17 Assessment & Plan Assessment & Plan (1) MDD (major depressive disorder), recurrent severe, without psychosis: Status: Acute Code(s): F33.2 - Major depressive disorder, recurrent severe without psychotic features (2) Cognitive decline: Status: Acute Code(s): R41.89 - Other symptoms and signs involving cognitive functions and awareness Plan The patient is a 71-year-old female with a long history of depression and anxiety with a prior admission into the hospital for exacerbation of d epression. She was brought into the unit from a.m. 5 due to memory problems, cognitive deterioration and increased thought blocking with dysphoria. We have tried Zyprexa with poor results so with cross taper it to Risperdal. Plan Change Risperdal to 0.5 p.o. b.i.d. and 1 mg p.o. q.h.s.. Rest the same Reassessment tomorrow with results of family meeting. I spent minutes with the patient and/or on the patient floor today, greater than?50% of which was spent counseling/coordinating care. Patient educated on: diagnosis and therapeutic strategies Informed Consent: understands Reason for contiued inpatient stay Substantial Risk for: inability to function, rapid decompensation and med/psych decompensation
[2021-06-07 14:21] VITALS: BMI 21.7
[2021-06-07 19:53] VITALS: BP 145/64; PULSE 97; RESP 17; TEMP 36.8; O2SAT 98
[2021-06-07] MEDS: Ergocalciferol (Vitamin D2) 1,250 MCG CAPSULE 1250 MCG PO (21:39)
[2021-06-07] MEDS: risperiDONE 1 MG TABLET PO (21:40)
[2021-06-08 08:00] VITALS: BP 107/51; PULSE 96; RESP 16; TEMP 36.9; O2SAT 97
[2021-06-08] MEDS: PARoxetine HCL 40 MG TABLET PO (08:38)
[2021-06-08] MEDS: clonazePAM 0.5 MG TABLET PO ×3 (08:38→21:01)
[2021-06-08] MEDS: risperiDONE 0.5 MG TABLET PO ×2 (08:39→15:40)
[2021-06-08] MEDS: Thiamine HCL 100 MG TABLET PO (08:39)
[2021-06-08] MEDS: Cyanocobalamin (Vitamin B-12) 100 MCG TABLET PO (08:39)
[2021-06-08] MEDS: Multivitamin TABLET 1 TAB PO (08:39)
--- NOTE | 2021-06-08 15:35 | HO.PSYCHPN ---
Subjective Subjective Date of Service: 06/08/21 Reason For Visit: generalized anxiety disorder major depressive diso Subjective Notes: Conditional Voluntary Interim History: The nursing staff reported that she has been isolative, participating minimally in the unit. Today we discussed the case with Dr. Rivas and according to Neurology consult, she should have an EEG and a Neuro - SPECT. I explained this to the patient and she does not want to have any more tests. Radiology called me and he stated that they do not have the supplies for the SPECT today Mental Status Exam Mental Status Exam Patient Appearance: Well Grooomed Patient Orientation: Person Level of Consciousness: Awake Patient Behavior: Guarded and Suspicious Mood Description: Depressed Affect Description: Constricted Patient Cognition Impaired: Yes Ability to Follow Directions: Good Speech Pattern: Clear Memory Description: Intact Hallucinations: None Delusions: Paranoid Ideation Thought Process: Distracted and Slowed Thinking Thought Content: positive for Perseveration Judgement: Fair Diagnostics Vital Signs (24Hr): Vital Signs - 24 hr 06/07/21 19:53 06/08/21 08:00 Temperature 98.3 F 98.5 F Pulse Rate 97 96 Respiratory Rate 17 16 Blood Pressure 145/64 H 107/51 L Pulse Oximetry 98 97 BMI result Body Mass Index 21.7 Labs Results: 05/17/21 08:37 05/17/21 08:37 Imaging Radiology Impressions: ITS Impressions Head CT 05/17/21 06:05 IMPRESSION: No acute intracranial pathology. Medications Medications Current Medications Acetaminophen (Acetaminophen 325 Mg Tablet) 650 mg PO Q6H PRN PRN Reason: Headache/Pain Mild Scale (1-3) Last Admin: 05/03/21 19:30 Dose: 650 mg Documented by: Al Hydroxide/Mg Hydroxide (Magnesium Hydrox/Alum Hydrox 30 Ml Oral.Susp) 30 ml PO Q6H PRN PRN Reason: Heartburn/Nausea Benzocaine (Throat Lozenge, Medicated Lozenge) 1 lozenge MUCOUS MEM Q2H PRN PRN Reason: Sore Throat Clonazepam (Clonazepam 0.5 Mg Tablet) 0.5 mg PO TID [facility] Last Admin: 06/08/21 08:38 Dose: 0.5 mg Documented by: Cyanocobalamin (Cyanocobalamin (Vitamin B-12) 100 Mcg Tablet) 100 mcg PO DAILY [facility] Last Admin: 06/08/21 08:39 Dose: 100 mcg Documented by: Ergocalciferol (Ergocalciferol (Vitamin D2) 1,250 Mcg Capsule) 1,250 mcg PO Q7D [facility] Last Admin: 06/07/21 21:39 Dose: 1,250 mcg Documented by: Loperamide HCl (Loperamide Hcl 2 Mg Capsule) 2 mg PO Q4H PRN PRN Reason: Diarrhea Last Admin: 06/04/21 00:37 Dose: 2 mg Documented by: Lorazepam (Lorazepam 0.5 Mg Tablet) 0.5 mg PO Q8H PRN PRN Reason: severe anxiety Magnesium Hydroxide (Milk Of Magnesia 30 Ml Oral.Susp) 30 ml PO DAILY PRN PRN Reason: Constipation Last Admin: 05/25/21 00:47 Dose: 30 ml Documented by: Multivitamins/Vitamin C (Multivitamin Tablet) 1 tab PO DAILY [facility] Last Admin: 06/08/21 08:39 Dose: 1 tab Documented by: Paroxetine HCl (Paroxetine Hcl 40 Mg Tablet) 40 mg PO DAILY [facility] Last Admin: 06/08/21 08:38 Dose: 40 mg Documented by: Polyethylene Glycol (Polyethylene Glycol 3350 17 Gm Powd.Pack) 17 gm PO BID [facility] Last Admin: 06/08/21 08:46 Dose: Not Given Documented by: Risperidone (Risperidone 0.5 Mg Tablet) 0.5 mg PO BID@0800,1500 [facility] Last Admin: 06/08/21 08:39 Dose: 0.5 mg Documented by: Risperidone (Risperidone 1 Mg Tablet) 1 mg PO BEDTIME [facility] Last Admin: 06/07/21 21:40 Dose: 1 mg Documented by: Thiamine HCl (Thiamine Hcl 100 Mg Tablet) 100 mg PO DAILY [facility] Last Admin: 06/08/21 08:39 Dose: 100 mg Documented by: Trazodone HCl (Trazodone Hcl 25 Mg Halftab) 25 mg PO BEDTIME PRN PRN Reason: Insomnia Last Admin: 05/21/21 23:25 Dose: 25 mg Documented by: Allergies Allergies Allergy/AdvReac Type Severity Reaction Status Date / Time No Known Allergies Allergy Verified 05/02/21 13:17 Assessment & Plan Assessment & Plan (1) MDD (major depressive disorder), recurrent severe, without psychosis: Status: Acute Code(s): F33.2 - Major depressive disorder, recurrent severe without psychotic features (2) Cognitive decline: Status: Acute Code(s): R41.89 - Other symptoms and signs involving cognitive functions and awareness Plan The patient is a 71-year-old female with a long history of depression and anxiety with a prior admission into the hospital for exacerbation of depression. She was brought into the unit from a.m. 5 due to memory problems, cognitive deterioration and increased thought blocking with dysphoria. We have tried Zyprexa with poor results so with cross taper it to Risperdal. Plan Change Risperdal to 0.5 p.o. b.i.d. and 1 mg p.o. q.h.s.. Rest the same I spent minutes with the patient and/or on the patient floor today, greater than?50% of which was spent counseling/coordinating care. Reason for contiued inpatient stay Substantial Risk for: inability to function, rapid decompensation and med/psych decompensation
[2021-06-08 20:01] VITALS: BP 126/60; PULSE 99; RESP 16; TEMP 36.8; O2SAT 97
[2021-06-08] MEDS: risperiDONE 1 MG TABLET PO (21:01)
--- NOTE | 2021-06-09 07:49 | HO.PSYCHPN ---
Subjective Subjective Date of Service: 06/09/21 Reason For Visit: generalized anxiety disorder major depressive diso Interim History: 06/08:The nursing staff reported that she has been isolative, participating minimally in the unit. Today we discussed the case with Dr. Rivas and according to Neurology consult, she should have an EEG and a Neuro - SPECT. I explained this to the patient and she does not want to have any more tests. Radiology called me and he stated that they do not have the supplies for the SPECT today 06/09: Seems perplexed with much blocking. Was unsure/refused Neuro tests. No med changes. Review of Systems Medical Review of Systems: unchanged Review of Systems Review of Systems Yes all other systems are reviewed and are negative Mental Status Exam Mental Status Exam Patient Appearance: Well Grooomed Patient Orientation: Person Level of Consciousness: Awake Patient Behavior: Guarded and Suspicious Mood Description: Depressed Affect Description: Constricted Patient Cognition Impaired: Yes Ability to Follow Directions: Good Speech Pattern: Clear Memory Description: Intact Diagnostics Vital Signs (24Hr): Vital Signs - 24 hr 06/08/21 08:00 06/08/21 20:01 Temperature 98.5 F 98.2 F Pulse Rate 96 99 Respiratory Rate 16 16 Blood Pressure 107/51 L 126/60 Pulse Oximetry 97 97 BMI result Body Mass Index 21.7 Labs Results: 05/17/21 08:37 05/17/21 08:37 Imaging Radiology Impressions: ITS Impressions Head CT 05/17/21 06:05 IMPRESSION: No acute intracranial pathology. Medications Medications Current Medications Acetaminophen (Acetaminophen 325 Mg Tablet) 650 mg PO Q6H PRN PRN Reason: Headache/Pain Mild Scale (1-3) Last Admin: 05/03/21 19:30 Dose: 650 mg Documented by: Al Hydroxide/Mg Hydroxide (Magnesium Hydrox/Alum Hydrox 30 Ml Oral.Susp) 30 ml PO Q6H PRN PRN Reason: Heartburn/Nausea Benzocaine (Throat Lozenge, Medicated Lozenge) 1 lozenge MUCOUS MEM Q2H PRN PRN Reason: Sore Throat Clonazepam (Clonazepam 0.5 Mg Tablet) 0.5 mg PO TID [facility] Last Admin: 06/08/21 21:01 Dose: 0.5 mg Documented by: Cyanocobalamin (Cyanocobalamin (Vitamin B-12) 100 Mcg Tablet) 100 mcg PO DAILY [facility] Last Admin: 06/08/21 08:39 Dose: 100 mcg Documented by: Ergocalciferol (Ergocalciferol (Vitamin D2) 1,250 Mcg Capsule) 1,250 mcg PO Q7D [facility] Last Admin: 06/07/21 21:39 Dose: 1,250 mcg Documented by: Loperamide HCl (Loperamide Hcl 2 Mg Capsule) 2 mg PO Q4H PRN PRN Reason: Diarrhea Last Admin: 06/04/21 00:37 Dose: 2 mg Documented by: Lorazepam (Lorazepam 0.5 Mg Tablet) 0.5 mg PO Q8H PRN PRN Reason: severe anxiety Magnesium Hydroxide (Milk Of Magnesia 30 Ml Oral.Susp) 30 ml PO DAILY PRN PRN Reason: Constipation Last Admin: 05/25/21 00:47 Dose: 30 ml Documented by: Multivitamins/Vitamin C (Multivitamin Tablet) 1 tab PO DAILY [facility] Last Admin: 06/08/21 08:39 Dose: 1 tab Documented by: Paroxetine HCl (Paroxetine Hcl 40 Mg Tablet) 40 mg PO DAILY [facility] Last Admin: 06/08/21 08:38 Dose: 40 mg Documented by: Polyethylene Glycol (Polyethylene Glycol 3350 17 Gm Powd.Pack) 17 gm PO BID [facility] Last Admin: 06/08/21 21:05 Dose: Not Given Documented by: Risperidone (Risperidone 0.5 Mg Tablet) 0.5 mg PO BID@0800,1500 [facility] Last Admin: 06/08/21 15:40 Dose: 0.5 mg Documented by: Risperidone (Risperidone 1 Mg Tablet) 1 mg PO BEDTIME [facility] Last Admin: 06/08/21 21:01 Dose: 1 mg Documented by: Thiamine HCl (Thiamine Hcl 100 Mg Tablet) 100 mg PO DAILY [facility] Last Admin: 06/08/21 08:39 Dose: 100 mg Documented by: Trazodone HCl (Trazodone Hcl 25 Mg Halftab) 25 mg PO BEDTIME PRN PRN Reason: Insomnia Last Admin: 05/21/21 23:25 Dose: 25 mg Documented by: Allergies Allergies Allergy/AdvReac Type Severity Reaction Status Date / Time No Known Allergies Allergy Verified 05/02/21 13:17 Assessment & Plan Assessment & Plan (1) MDD (major depressive disorder), recurrent severe, without psychosis: Status: Acute Code(s): F33.2 - Major depressive disorder, recurrent severe without psychotic features (2) Cognitive decline: Status: Acute Code(s): R41.89 - Other symptoms and signs involving cognitive functions and awareness Plan The patient is a 71-year-old female with a long history of depression and anxiety with a prior admission into the hospital for exacerbation of depression. She was brought into the unit from a.m. 5 due to memory problems, cognitive deterioration and increased thought blocking with dysphoria. We have tried Zyprexa with poor results so with cross taper it to Risperdal. Plan Change Risperdal to 0.5 p.o. b.i.d. and 1 mg p.o. q.h.s.. Rest the same 06/09: Ct Rx plan. Needs Neuro W/U I spent minutes with the patient and/or on the patient floor today, greater than?50% of which was spent counseling/coordinating care. Reason for contiued inpatient stay Substantial Risk for: rapid decompensation and med/psych decompensation
[2021-06-09 08:00] VITALS: BP 164/73; PULSE 97; RESP 20; TEMP 36.2; O2SAT 98
[2021-06-09] MEDS: PARoxetine HCL 40 MG TABLET PO (08:51)
[2021-06-09] MEDS: clonazePAM 0.5 MG TABLET PO ×3 (08:51→20:00)
[2021-06-09] MEDS: Cyanocobalamin (Vitamin B-12) 100 MCG TABLET PO (08:51)
[2021-06-09] MEDS: risperiDONE 0.5 MG TABLET PO ×2 (08:51→14:42)
[2021-06-09] MEDS: Thiamine HCL 100 MG TABLET PO (08:52)
[2021-06-09] MEDS: Multivitamin TABLET 1 TAB PO (08:52)
[2021-06-09] MEDS: polyethylene glycoL 3350 17 GM POWD.PACK PO (20:00)
[2021-06-09] MEDS: risperiDONE 1 MG TABLET PO (20:00)
[2021-06-09 21:23] VITALS: BP 130/58; PULSE 97; RESP 17; TEMP 37; O2SAT 96
--- NOTE | 2021-06-10 03:57 | P.PNPSI_ITS ---
Subjective Subjective Date of Service: 06/10/21 Reason For Visit: generalized anxiety disorder major depressive diso Interim History: 06/08:The nursing staff reported that she has been isolative, participating minimally in the unit. Today we discussed the case with Dr. Rivas and according to Neurology consult, she should have an EEG and a Neuro - SPECT. I explained this to the patient and she does not want to have any more tests. Radiology called me and he stated that they do not have the supplies for the SPECT today 06/09: Seems perplexed with much blocking. Was unsure/refused Neuro tests. No med changes. 06/10: Remains much the same. Perplexed/perseverates. Complains that she is not clear re Rx plan. Accepted Risp last HS. Marked PM retardation and indecisiveness. Review of Systems Review of Systems Yes all other systems are reviewed and are negative Mental Status Exam Mental Status Exam Patient Appearance: Well Grooomed Patient Orientation: Person Level of Consciousness: Awake Patient Behavior: Guarded and Suspicious Mood Description: Depressed Affect Description: Constricted Patient Cognition Impaired: Yes Ability to Follow Directions: Good Speech Pattern: Clear Memory Description: Intact Diagnostics Vital Signs (24Hr): Vital Signs - 24 hr 06/09/21 08:00 06/09/21 21:23 Temperature 97.2 F 98.6 F Pulse Rate 97 97 Respiratory Rate 20 17 Blood Pressure 164/73 H 130/58 L Pulse Oximetry 98 96 BMI result Verdana 4 Body Mass Index Verdana 4 21.7 Verdana 4 Verdana 4 Labs Results: 05/17/21 08:37 05/17/21 08:37 Imaging Radiology Impressions: ITS Impressions Head CT 05/17/21 06:05 IMPRESSION: No acute intracranial pathology. Medications Medications Current Medications Acetaminophen (Acetaminophen 325 Mg Tablet) 650 mg PO Q6H PRN PRN Reason: Headache/Pain Mild Scale (1-3) Last Admin: 05/03/21 19:30 Dose: 650 mg Documented by: Al Hydroxide/Mg Hydroxide (Magnesium Hydrox/Alum Hydrox 30 Ml Oral.Susp) 30 ml PO Q6H PRN PRN Reason: Heartburn/Nausea Benzocaine (Throat Lozenge, Medicated Lozenge) 1 lozenge MUCOUS MEM Q2H PRN PRN Reason: Sore Throat Clonazepam (Clonazepam 0.5 Mg Tablet) 0.5 mg PO TID [facility] Last Admin: 06/09/21 20:00 Dose: 0.5 mg Documented by: Cyanocobalamin (Cyanocobalamin (Vitamin B-12) 100 Mcg Tablet) 100 mcg PO DAILY [facility] Last Admin: 06/09/21 08:51 Dose: 100 mcg Documented by: Ergocalciferol (Ergocalciferol (Vitamin D2) 1,250 Mcg Capsule) 1,250 mcg PO Q7D [facility] Last Admin: 06/07/21 21:39 Dose: 1,250 mcg Documented by: Loperamide HCl (Loperamide Hcl 2 Mg Capsule) 2 mg PO Q4H PRN PRN Reason: Diarrhea Last Admin: 06/04/21 00:37 Dose: 2 mg Documented by: Lorazepam (Lorazepam 0.5 Mg Tablet) 0.5 mg PO Q8H PRN PRN Reason: severe anxiety Magnesium Hydroxide (Milk Of Magnesia 30 Ml Oral.Susp) 30 ml PO DAILY PRN PRN Reason: Constipation Last Admin: 05/25/21 00:47 Dose: 30 ml Documented by: Multivitamins/Vitamin C (Multivitamin Tablet) 1 tab PO DAILY [facility] Last Admin: 06/09/21 08:52 Dose: 1 tab Documented by: Paroxetine HCl (Paroxetine Hcl 40 Mg Tablet) 40 mg PO DAILY [facility] Last Admin: 06/09/21 08:51 Dose: 40 mg Documented by: Polyethylene Glycol (Polyethylene Glycol 3350 17 Gm Powd.Pack) 17 gm PO BID [facility] Last Admin: 06/09/21 20:00 Dose: 17 gm Documented by: Risperidone (Risperidone 0.5 Mg Tablet) 0.5 mg PO BID@0800,1500 [facility] Last Admin: 06/09/21 14:42 Dose: 0.5 mg Documented by: Risperidone (Risperidone 1 Mg Tablet) 1 mg PO BEDTIME [facility] Last Admin: 06/09/21 20:00 Dose: 1 mg Documented by: Thiamine HCl (Thiamine Hcl 100 Mg Tablet) 100 mg PO DAILY [facility] Last Admin: 06/09/21 08:52 Dose: 100 mg Documented by: Trazodone HCl (Trazodone Hcl 25 Mg Halftab) 25 mg PO BEDTIME PRN PRN Reason: Insomnia Last Admin: 05/21/21 23:25 Dose: 25 mg Documented by: Allergies Allergies Allergy/AdvReac Type Severity Reaction Status Date / Time No Known Allergies Allergy Verified 05/02/21 13:17 Assessment & Plan Assessment & Plan (1) MDD (major depressive disorder), recurrent severe, without psychosis: Status: Acute Code(s): F33.2 - Major depressive disorder, recurrent severe without psychotic features (2) Cognitive decline: Status: Acute Code(s): R41.89 - Other symptoms and signs involving cognitive functions and awareness Plan The patient is a 71-year-old female with a long history of depression and anxiety with a prior admission into the hospital for exacerbation of depression. She was brought into the unit from a.m. 5 due to memory problems, cognitive deterioration and increased thought blocking with dysphoria. We have tried Zyprexa with poor results so with cross taper it to Risperdal. Plan Change Risperdal to 0.5 p.o. b.i.d. and 1 mg p.o. q.h.s.. Rest the same 06/09: Ct Rx plan. Needs Neuro W/U 06/10: Ct Rx plan. Transition to Risperidone I spent minutes with the patient and/or on the patient floor today, greater than?50% of which was spent counseling/coordinating care. Reason for contiued inpatient stay Substantial Risk for: med/psych decompensation
[2021-06-10 06:00] VITALS: BP 162/69; PULSE 101; TEMP 36.8; O2SAT 97
[2021-06-10] MEDS: risperiDONE 0.5 MG TABLET PO ×2 (09:40→16:04)
[2021-06-10] MEDS: clonazePAM 0.5 MG TABLET PO (09:43)
[2021-06-10] MEDS: PARoxetine HCL 40 MG TABLET PO (09:47)
[2021-06-10 19:52] VITALS: BP 117/54; PULSE 99; RESP 17; TEMP 36.8; O2SAT 98
[2021-06-10] MEDS: risperiDONE 1 MG TABLET PO (21:00)
[2021-06-11 08:00] VITALS: BP 140/63; PULSE 102; RESP 16; TEMP 37; O2SAT 98
[2021-06-11] MEDS: Multivitamin TABLET 1 TAB PO (08:44)
[2021-06-11] MEDS: risperiDONE 0.5 MG TABLET PO ×2 (08:44→16:25)
[2021-06-11] MEDS: Thiamine HCL 100 MG TABLET PO (08:44)
[2021-06-11] MEDS: Cyanocobalamin (Vitamin B-12) 100 MCG TABLET PO (08:44)
[2021-06-11] MEDS: PARoxetine HCL 40 MG TABLET PO (08:44)
--- NOTE | 2021-06-11 14:38 | MHC.CLN ---
F/U APPEARS TO BE EATING WELL. PER STAFF, NOT TAKING ENSURE SUPPLEMENT. OK TO DISCONTINUE.
[2021-06-11 15:00] VITALS: BP 140/65; PULSE 107; TEMP 36.2; O2SAT 97
[2021-06-11] MEDS: risperiDONE 1 MG TABLET PO (20:23)
--- NOTE | 2021-06-11 21:14 | P.PNPSI_ITS ---
Subjective Subjective Date of Service: 06/11/21 Reason For Visit: generalized anxiety disorder major depressive diso Subjective Notes: Conditional Voluntary Healthcare Proxy: No Guardianship: No Medical Problems Affecting Mental Status: Yes Interim History: The patient is a 71-year-old female seen today covering for . The patient is severely anxious and ruminating great deal of difficult time with basic functioning easily overwhelmed session LEEP preoccupied. Initially was refusing cooperation with SPECT scan later was agreeable. Tried to explain to patient reason for any functional brain test. verses anatomy patient continues quite anxious dysphoric Medication Compliance: Intermittent Side effects from medications: Yes Review of Systems Acute medical concerns: Yes Dementia versus pseudodementia Medical Review of Systems: unchanged Mental Status Exam Mental Status Exam Patient Appearance: Unkempt Patient Orientation: Person and Place Level of Consciousness: Awake Patient Behavior: Guarded, Suspicious, Anxious and Distractible Mood Description: Depressed and Apprehensive Affect Description: Constricted and Apprehensive Patient Cognition Impaired: Yes Ability to Follow Directions: Good Speech Pattern: Clear, Perseverating and Impoverished Memory Description: Intact Thought Process: Illogical and Slowed Thinking Depressive Symptoms: Increased Anxiety, Increased Irritability, Increased Fatigue, Thoughts of /Suicide and Difficulty Concentrating Judgement: Fair Diagnostics Vital Signs (24Hr): Vital Signs - 24 hr 06/11/21 08:00 06/11/21 15:00 Temperature 98.6 F 97.2 F Pulse Rate 102 H 107 H Respiratory Rate 16 Blood Pressure 140/63 H 140/65 H Pulse Oximetry 98 97 BMI result Body Mass Index 21.7 Labs Results: 05/17/21 08:37 05/17/21 08:37 Imaging Radiology Impressions: ITS Impressions Head CT 05/17/21 06:05 IMPRESSION: No acute intracranial pathology. Medications Medications Current Medications Acetaminophen (Acetaminophen 325 Mg Tablet) 650 mg PO Q6H PRN PRN Reason: Headache/Pain Mild Scale (1-3) Last Admin: 05/03/21 19:30 Dose: 650 mg Documented by: Al Hydroxide/Mg Hydroxide (Magnesium Hydrox/Alum Hydrox 30 Ml Oral.Susp) 30 ml PO Q6H PRN PRN Reason: Heartburn/Nausea Benzocaine (Throat Lozenge, Medicated Lozenge) 1 lozenge MUCOUS MEM Q2H PRN PRN Reason: Sore Throat Cyanocobalamin (Cyanocobalamin (Vitamin B-12) 100 Mcg Tablet) 100 mcg PO DAILY [facility] Last Admin: 06/11/21 08:44 Dose: 100 mcg Documented by: Ergocalciferol (Ergocalciferol (Vitamin D2) 1,250 Mcg Capsule) 1,250 mcg PO Q7D [facility] Last Admin: 06/07/21 21:39 Dose: 1,250 mcg Documented by: Loperamide HCl (Loperamide Hcl 2 Mg Capsule) 2 mg PO Q4H PRN PRN Reason: Diarrhea Last Admin: 06/04/21 00:37 Dose: 2 mg Documented by: Magnesium Hydroxide (Milk Of Magnesia 30 Ml Oral.Susp) 30 ml PO DAILY PRN PRN Reason: Constipation Last Admin: 05/25/21 00:47 Dose: 30 ml Documented by: Multivitamins/Vitamin C (Multivitamin Tablet) 1 tab PO DAILY [facility] Last Admin: 06/11/21 08:44 Dose: 1 tab Documented by: Paroxetine HCl (Paroxetine Hcl 40 Mg Tablet) 40 mg PO DAILY [facility] Last Admin: 06/11/21 08:44 Dose: 40 mg Documented by: Polyethylene Glycol (Polyethylene Glycol 3350 17 Gm Powd.Pack) 17 gm PO BID [facility] Last Admin: 06/11/21 20:28 Dose: Not Given Documented by: Risperidone (Risperidone 0.5 Mg Tablet) 0.5 mg PO BID@0800,1500 [facility] Last Admin: 06/11/21 16:25 Dose: 0.5 mg Documented by: Risperidone (Risperidone 1 Mg Tablet) 1 mg PO BEDTIME [facility] Last Admin: 06/11/21 20:23 Dose: 1 mg Documented by: Thiamine HCl (Thiamine Hcl 100 Mg Tablet) 100 mg PO DAILY [facility] Last Admin: 06/11/21 08:44 Dose: 100 mg Documented by: Trazodone HCl (Trazodone Hcl 25 Mg Halftab) 25 mg PO BEDTIME PRN PRN Reason: Insomnia Last Admin: 05/21/21 23:25 Dose: 25 mg Documented by: Allergies Allergies Allergy/AdvReac Type Severity Reaction Status Date / Time No Known Allergies Allergy Verified 05/02/21 13:17 Assessment & Plan Assessment & Plan (1) MDD (major depressive disorder), recurrent severe, without psychosis: Status: Acute Code(s): F33.2 - Major depressive disorder, recurrent severe without psychotic features (2) Cognitive decline: Status: Acute Code(s): R41.89 - Other symptoms and signs involving cognitive functions and awareness Plan The patient is a 71-year-old female with a long history of depression and anxiety with a prior admission into the hospital for exacerbation of depression. She was brought into the unit from a.m. 5 due to memory problems, cognitive deterioration and increased thought blocking with dysphoria. We have tried Zyprexa with poor results so with cross taper it to Risperdal. Plan Change Risperdal to 0.5 p.o. b.i.d. and 1 mg p.o. q.h.s.. Rest the same 06/09: Ct Rx plan. Needs Neuro W/U 06/10: Ct Rx plan. Transition to Risperidone 06/11/2021 Patient quite anxious and depressed now on Risperdal still has thought blocking anxiety illogical difficulty processing information. Hopefully SPECT scan will help with differential diagnosis. Was referred by Dr. Davis with consideration of ECT I spent minutes with the patient and/or on the patient floor today, greater than?50% of which was spent counseling/coordinating care. Reason for contiued inpatient stay Substantial Risk for: inability to function, rapid decompensation and med/psych decompensation
[2021-06-11 21:59] VITALS: BP 147/82; PULSE 113; RESP 18; TEMP 37.3; O2SAT 98
[2021-06-12 08:46] VITALS: BP 156/67; PULSE 106; RESP 16; TEMP 36.7; O2SAT 98
[2021-06-12] MEDS: risperiDONE 0.5 MG TABLET PO ×2 (08:47→15:02)
[2021-06-12] MEDS: PARoxetine HCL 40 MG TABLET PO (08:47)
--- NOTE | 2021-06-12 16:36 | P.PNPSI_ITS ---
Subjective Subjective Date of Service: 06/12/21 Reason For Visit: generalized anxiety disorder major depressive diso Subjective Notes: Conditional Voluntary Interim History: The nursing staff reported that yesterday the patient had a SPECT with a lot of encouragement. She remains paranoid and during the interview it was clear that still she has a very delayed thought process, a little better but still ruminating unable to process information in a timely manner. We spent more than 30 minutes explaining her diagnosis and the need of possible ECT. Today she refused EEG we will try to convince the patient to have the whole worked out as soon as possible. I explained the patient that at this point, since she has not responded well to medication treatment, she would be a good candidate for ECT. Mental Status Exam Mental Status Exam Patient Appearance: Well Grooomed Patient Orientation: Person and Situation Level of Consciousness: Awake and Alert Patient Behavior: Cooperative Mood Description: Depressed Affect Description: Constricted Patient Cognition Impaired: No Ability to Follow Directions: Fair Speech Pattern: Clear Delusions: Paranoid Ideation Thought Process: Distracted and Slowed Thinking Thought Content: positive for Perseveration and positive for Poverty of Content Judgement: Fair Diagnostics Vital Signs (24Hr): Vital Signs - 24 hr 06/11/21 21:59 06/12/21 08:46 Temperature 99.2 F 98.0 F Pulse Rate 113 H 106 H Respiratory Rate 18 16 Blood Pressure 147/82 H 156/67 H Pulse Oximetry 98 98 BMI result Body Mass Index 21.7 Labs Results: 05/17/21 08:37 05/17/21 08:37 Imaging Radiology Impressions: ITS Impressions Head CT 05/17/21 06:05 IMPRESSION: No acute intracranial pathology. Medications Medications Current Medications Acetaminophen (Acetaminophen 325 Mg Tablet) 650 mg PO Q6H PRN PRN Reason: Headache/Pain Mild Scale (1-3) Last Admin: 05/03/21 19:30 Dose: 650 mg Documented by: Al Hydroxide/Mg Hydroxide (Magnesium Hydrox/Alum Hydrox 30 Ml Oral.Susp) 30 ml PO Q6H PRN PRN Reason: Heartburn/Nausea Benzocaine (Throat Lozenge, Medicated Lozenge) 1 lozenge MUCOUS MEM Q2H PRN PRN Reason: Sore Throat Cyanocobalamin (Cyanocobalamin (Vitamin B-12) 100 Mcg Tablet) 100 mcg PO DAILY [facility] Last Admin: 06/12/21 08:53 Dose: Not Given Documented by: Ergocalciferol (Ergocalciferol (Vitamin D2) 1,250 Mcg Capsule) 1,250 mcg PO Q7D [facility] Last Admin: 06/07/21 21:39 Dose: 1,250 mcg Documented by: Loperamide HCl (Loperamide Hcl 2 Mg Capsule) 2 mg PO Q4H PRN PRN Reason: Diarrhea Last Admin: 06/04/21 00:37 Dose: 2 mg Documented by: Magnesium Hydroxide (Milk Of Magnesia 30 Ml Oral.Susp) 30 ml PO DAILY PRN PRN Reason: Constipation Last Admin: 05/25/21 00:47 Dose: 30 ml Documented by: Multivitamins/Vitamin C (Multivitamin Tablet) 1 tab PO DAILY [facility] Last Admin: 06/12/21 08:53 Dose: Not Given Documented by: Paroxetine HCl (Paroxetine Hcl 40 Mg Tablet) 40 mg PO DAILY [facility] Last Admin: 06/12/21 08:47 Dose: 40 mg Documented by: Polyethylene Glycol (Polyethylene Glycol 3350 17 Gm Powd.Pack) 17 gm PO BID [facility] Last Admin: 06/12/21 08:53 Dose: Not Given Documented by: Risperidone (Risperidone 0.5 Mg Tablet) 0.5 mg PO BID@0800,1500 [facility] Last Admin: 06/12/21 15:02 Dose: 0.5 mg Documented by: Risperidone (Risperidone 1 Mg Tablet) 1 mg PO BEDTIME [facility] Last Admin: 06/11/21 20:23 Dose: 1 mg Documented by: Thiamine HCl (Thiamine Hcl 100 Mg Tablet) 100 mg PO DAILY [facility] Last Admin: 06/12/21 08:54 Dose: Not Given Documented by: Trazodone HCl (Trazodone Hcl 25 Mg Halftab) 25 mg PO BEDTIME PRN PRN Reason: Insomnia Last Admin: 05/21/21 23:25 Dose: 25 mg Documented by: Allergies Allergies Allergy/AdvReac Type Severity Reaction Status Date / Time No Known Allergies Allergy Verified 05/02/21 13:17 Assessment & Plan Assessment & Plan (1) MDD (major depressive disorder), recurrent severe, without psychosis: Status: Acute Code(s): F33.2 - Major depressive disorder, recurrent severe without psychotic features (2) Cognitive decline: Status: Acute Code(s): R41.89 - Other symptoms and signs involving cognitive functions and awareness Plan The patient is a 71-year-old female with a long history of depression and anxiety with a prior admission into the hospital for exacerbation of depression. She was brought into the unit from a.m. 5 due to memory problems, cognitive deterioration and increased thought blocking with dysphoria. We have tried Zyprexa with poor results so with cross taper it to Risperdal. Plan Change Risperdal to 0.5 p.o. b.i.d. and 1 mg p.o. q.h.s.. Rest the same Follow-up SPECT. I spent minutes with the patient and/or on the patient floor today, greater than?50% of which was spent counseling/coordinating care. Reason for contiued inpatient stay Substantial Risk for: inability to function, rapid decompensation and med/psych decompensation
[2021-06-12] MEDS: risperiDONE 1 MG TABLET PO (21:00)
[2021-06-12 21:30] VITALS: BP 128/51; PULSE 102; RESP 19; TEMP 37.2; O2SAT 97
[2021-06-13 08:00] VITALS: BP 161/72; PULSE 93; RESP 14; TEMP 37.2; O2SAT 97
[2021-06-13] MEDS: Thiamine HCL 100 MG TABLET PO (08:23)
[2021-06-13] MEDS: risperiDONE 0.5 MG TABLET PO ×2 (08:23→14:50)
[2021-06-13] MEDS: PARoxetine HCL 40 MG TABLET PO (08:23)
[2021-06-13] MEDS: Multivitamin TABLET 1 TAB PO (08:23)
[2021-06-13] MEDS: Cyanocobalamin (Vitamin B-12) 100 MCG TABLET PO (08:23)
--- NOTE | 2021-06-13 16:37 | P.PNPSI_ITS ---
Subjective Subjective Date of Service: 06/13/21 Reason For Visit: generalized anxiety disorder major depressive diso Subjective Notes: Conditional Voluntary Interim History: The nursing staff reported the patient states on her bed most of the time, she is visible in the unit. On interview, the patient acknowledged that she has delayed responses and thought blocking at times. She had a Hernando test today and she scored 27/30. It is clear that she does not have dementia that most of her symptoms are in clear correlation of her depression and I offered ECT. According to Dr. Rivas, her primary psychiatrist in the community referred here for ECT. We had a telephone conversation with her from [place] who is her healthcare proxy and she is aware of the situation. Probably will invoke healthcare proxy in order to start discharge planning Mental Status Exam Mental Status Exam Patient Appearance: Well Grooomed Patient Orientation: Person Level of Consciousness: Awake Patient Behavior: Guarded and Cooperative Mood Description: Withdrawn and Depressed Affect Description: Constricted Patient Cognition Impaired: No Ability to Follow Directions: Good Speech Pattern: Monotone and Soft-Spoken Hallucinations: None Delusions: Paranoid Ideation Thought Process: Distracted Thought Content: positive for Circumstantial Judgement: Fair Diagnostics Vital Signs (24Hr): Vital Signs - 24 hr 06/12/21 21:30 06/13/21 08:00 Temperature 99 F 99 F Pulse Rate 102 H 93 Respiratory Rate 19 14 Blood Pressure 128/51 L 161/72 H Pulse Oximetry 97 97 BMI result Body Mass Index 21.7 Labs Results: 05/17/21 08:37 05/17/21 08:37 Imaging Radiology Impressions: ITS Impressions Head CT 05/17/21 06:05 IMPRESSION: No acute intracranial pathology. SPECT Scan-Brain NM 06/11/21 15:35 IMPRESSION: Diffusely decreased perfusion in the right frontal and parietal cerebral cortex is most consistent with a vascular etiology. Although such unilateral findings can be seen in Alzheimer's disease, this unilateral involvement would be atypical. Correlation with a current MRI of the brain is recommended for further evaluation, if not contraindicated. Medications Medications Current Medications Acetaminophen (Acetaminophen 325 Mg Tablet) 650 mg PO Q6H PRN PRN Reason: Headache/Pain Mild Scale (1-3) Last Admin: 05/03/21 19:30 Dose: 650 mg Documented by: Al Hydroxide/Mg Hydroxide (Magnesium Hydrox/Alum Hydrox 30 Ml Oral.Susp) 30 ml PO Q6H PRN PRN Reason: Heartburn/Nausea Benzocaine (Throat Lozenge, Medicated Lozenge) 1 lozenge MUCOUS MEM Q2H PRN PRN Reason: Sore Throat Cyanocobalamin (Cyanocobalamin (Vitamin B-12) 100 Mcg Tablet) 100 mcg PO DAILY [facility] Last Admin: 06/13/21 08:23 Dose: 100 mcg Documented by: Ergocalciferol (Ergocalciferol (Vitamin D2) 1,250 Mcg Capsule) 1,250 mcg PO Q7D [facility] Last Admin: 06/07/21 21:39 Dose: 1,250 mcg Documented by: Loperamide HCl (Loperamide Hcl 2 Mg Capsule) 2 mg PO Q4H PRN PRN Reason: Diarrhea Last Admin: 06/04/21 00:37 Dose: 2 mg Documented by: Magnesium Hydroxide (Milk Of Magnesia 30 Ml Oral.Susp) 30 ml PO DAILY PRN PRN Reason: Constipation Last Admin: 05/25/21 00:47 Dose: 30 ml Documented by: Multivitamins/Vitamin C (Multivitamin Tablet) 1 tab PO DAILY [facility] Last Admin: 06/13/21 08:23 Dose: 1 tab Documented by: Paroxetine HCl (Paroxetine Hcl 40 Mg Tablet) 40 mg PO DAILY [facility] Last Admin: 06/13/21 08:23 Dose: 40 mg Documented by: Polyethylene Glycol (Polyethylene Glycol 3350 17 Gm Powd.Pack) 17 gm PO BID [facility] Last Admin: 06/13/21 08:38 Dose: Not Given Documented by: Risperidone (Risperidone 0.5 Mg Tablet) 0.5 mg PO BID@0800,1500 [facility] Last Admin: 06/13/21 14:50 Dose: 0.5 mg Documented by: Risperidone (Risperidone 1 Mg Tablet) 1 mg PO BEDTIME [facility] Last Admin: 06/12/21 21:00 Dose: 1 mg Documented by: Thiamine HCl (Thiamine Hcl 100 Mg Tablet) 100 mg PO DAILY [facility] Last Admin: 06/13/21 08:23 Dose: 100 mg Documented by: Trazodone HCl (Trazodone Hcl 25 Mg Halftab) 25 mg PO BEDTIME PRN PRN Reason: Insomnia Last Admin: 05/21/21 23:25 Dose: 25 mg Documented by: Allergies Allergies Allergy/AdvReac Type Severity Reaction Status Date / Time No Known Allergies Allergy Verified 05/02/21 13:17 Assessment & Plan Assessment & Plan (1) MDD (major depressive disorder), recurrent severe, without psychosis: Status: Acute Code(s): F33.2 - Major depressive disorder, recurrent severe without psychotic features (2) Cognitive decline: Status: Acute Code(s): R41.89 - Other symptoms and signs involving cognitive functions and awareness Plan The patient is a 71-year-old female with a long history of depression and anxiety with a prior admission into the hospital for exacerbation of depression. She was brought into the unit from a.m. 5 due to memory problems, cognitive deterioration and increased thought blocking with dysphoria. We have tried Zyprexa with poor results so with cross taper it to Risperdal. Plan Change Risperdal to 0.5 p.o. b.i.d. and 1 mg p.o. q.h.s.. Rest the same Follow-up SPECT. I spent minutes with the patient and/or on the patient floor today, greater than?50% of which was spent counseling/coordinating care. Reason for contiued inpatient stay Substantial Risk for: inability to function, rapid decompensation and med/psych decompensation
[2021-06-13 19:55] VITALS: BP 121/59; PULSE 96; RESP 17; TEMP 36.9; O2SAT 97
[2021-06-13] MEDS: risperiDONE 1 MG TABLET PO (20:18)
[2021-06-13] MEDS: Throat Lozenge, Medicated LOZENGE 1 LOZENGE MUCOUS MEM (20:25)
[2021-06-14 06:00] VITALS: BP 165/74; PULSE 105; RESP 16; TEMP 37.3; O2SAT 96
[2021-06-14 07:00] VITALS: BMI 22.6
[2021-06-14] MEDS: PARoxetine HCL 40 MG TABLET PO (09:54)
[2021-06-14] MEDS: Cyanocobalamin (Vitamin B-12) 100 MCG TABLET PO (09:54)
[2021-06-14] MEDS: Multivitamin TABLET 1 TAB PO (09:54)
[2021-06-14] MEDS: risperiDONE 0.5 MG TABLET PO ×2 (09:55→15:24)
[2021-06-14] MEDS: Thiamine HCL 100 MG TABLET PO (09:55)
--- NOTE | 2021-06-14 15:13 | P.PNPSI_ITS ---
Subjective Subjective Date of Service: 06/14/21 Reason For Visit: generalized anxiety disorder major depressive diso Subjective Notes: Conditional Voluntary Interim History: The nursing staff reported that she had been awake last night and at 01:00 they had to take out all her papers since she gives hoarding and writing on them. According to a friend of the family, the patient usually makes list and usually to write it down everything as a baseline. The patient remains with severe thought blocking but cognitively she is at baseline. She is unable to take a decision about ECT, she is very scared of this procedure. She is unable to sign releases for discharge and, at this moment, it is clear that it would be unsafe to discharge her to her home since she needs several prompts and cues. We will invoke her helth care proxy today Mental Status Exam Mental Status Exam Patient Appearance: Appropriate Patient Orientation: Person and Situation Level of Consciousness: Awake Patient Behavior: Cooperative Mood Description: Depressed Affect Description: Constricted and Flat Patient Cognition Impaired: No Ability to Follow Directions: Good Speech Pattern: Clear and Monotone Hallucinations: None Delusions: Not Present Thought Content: positive for Linear Judgement: Fair Diagnostics Vital Signs (24Hr): Vital Signs - 24 hr 06/13/21 19:55 06/14/21 06:00 Temperature 98.5 F 99.1 F Pulse Rate 96 105 H Respiratory Rate 17 16 Blood Pressure 121/59 L 165/74 H Pulse Oximetry 97 96 BMI result Body Mass Index 21.7 Labs Results: 05/17/21 08:37 05/17/21 08:37 Imaging Radiology Impressions: ITS Impressions Head CT 05/17/21 06:05 IMPRESSION: No acute intracranial pathology. SPECT Scan-Brain NM 06/11/21 15:35 IMPRESSION: Diffusely decreased perfusion in the right frontal and parietal cerebral cortex is most consistent with a vascular etiology. Although such unilateral findings can be seen in Alzheimer's disease, this unilateral involvement would be atypical. Correlation with a current MRI of the brain is recommended for further evaluation, if not contraindicated. Medications Medications Current Medications Acetaminophen (Acetaminophen 325 Mg Tablet) 650 mg PO Q6H PRN PRN Reason: Headache/Pain Mild Scale (1-3) Last Admin: 05/03/21 19:30 Dose: 650 mg Documented by: Al Hydroxide/Mg Hydroxide (Magnesium Hydrox/Alum Hydrox 30 Ml Oral.Susp) 30 ml PO Q6H PRN PRN Reason: Heartburn/Nausea Benzocaine (Throat Lozenge, Medicated Lozenge) 1 lozenge MUCOUS MEM Q2H PRN PRN Reason: Sore Throat Last Admin: 06/13/21 20:25 Dose: 1 lozenge Documented by: Cyanocobalamin (Cyanocobalamin (Vitamin B-12) 100 Mcg Tablet) 100 mcg PO DAILY [facility] Last Admin: 06/14/21 09:54 Dose: 100 mcg Documented by: Ergocalciferol (Ergocalciferol (Vitamin D2) 1,250 Mcg Capsule) 1,250 mcg PO Q7D [facility] Last Admin: 06/07/21 21:39 Dose: 1,250 mcg Documented by: Loperamide HCl (Loperamide Hcl 2 Mg Capsule) 2 mg PO Q4H PRN PRN Reason: Diarrhea Last Admin: 06/04/21 00:37 Dose: 2 mg Documented by: Magnesium Hydroxide (Milk Of Magnesia 30 Ml Oral.Susp) 30 ml PO DAILY PRN PRN Reason: Constipation Last Admin: 05/25/21 00:47 Dose: 30 ml Documented by: Multivitamins/Vitamin C (Multivitamin Tablet) 1 tab PO DAILY [facility] Last Admin: 06/14/21 09:54 Dose: 1 tab Documented by: Paroxetine HCl (Paroxetine Hcl 40 Mg Tablet) 40 mg PO DAILY [facility] Last Admin: 06/14/21 09:54 Dose: 40 mg Documented by: Polyethylene Glycol (Polyethylene Glycol 3350 17 Gm Powd.Pack) 17 gm PO BID [facility] Last Admin: 06/14/21 09:57 Dose: Not Given Documented by: Risperidone (Risperidone 0.5 Mg Tablet) 0.5 mg PO BID@0800,1500 [facility] Last Admin: 06/14/21 09:55 Dose: 0.5 mg Documented by: Risperidone (Risperidone 1 Mg Tablet) 1 mg PO BEDTIME [facility] Last Admin: 06/13/21 20:18 Dose: 1 mg Documented by: Thiamine HCl (Thiamine Hcl 100 Mg Tablet) 100 mg PO DAILY [facility] Last Admin: 06/14/21 09:55 Dose: 100 mg Documented by: Trazodone HCl (Trazodone Hcl 25 Mg Halftab) 25 mg PO BEDTIME PRN PRN Reason: Insomnia Last Admin: 05/21/21 23:25 Dose: 25 mg Documented by: Allergies Allergies Allergy/AdvReac Type Severity Reaction Status Date / Time No Known Allergies Allergy Verified 05/02/21 13:17 Assessment & Plan Assessment & Plan (1) MDD (major depressive disorder), recurrent severe, without psychosis: Status: Acute Code(s): F33.2 - Major depressive disorder, recurrent severe without psychotic features (2) Cognitive decline: Status: Acute Code(s): R41.89 - Other symptoms and signs involving cognitive functions and awareness Plan The patient is a 71-year-old female with a long history of depression and anxiety with a prior admission into the hospital for exacerbation of depression. She was brought into the unit from a.m. 5 due to memory problems, cognitive deterioration and increased thought blocking with dysphoria. We have tried Zyprexa with poor results so with cross taper it to Risperdal. Plan Continue same treatment. Discontinue Klonopin since there is no change in her mental status with this medication. Healthcare proxy invoked today I spent minutes with the patient and/or on the patient floor today, greater than?50% of which was spent counseling/coordinating care. Reason for contiued inpatient stay Substantial Risk for: inability to function, rapid decompensation and med/psych decompensation
[2021-06-14] MEDS: Throat Lozenge, Medicated LOZENGE 1 LOZENGE MUCOUS MEM ×2 (15:24→21:40)
[2021-06-14] MEDS: Ergocalciferol (Vitamin D2) 1,250 MCG CAPSULE 1250 MCG PO (17:34)
[2021-06-14 20:20] VITALS: BP 141/68; PULSE 95; RESP 17; TEMP 37; O2SAT 96
[2021-06-15 08:00] VITALS: BP 141/63; PULSE 101; TEMP 37.3; O2SAT 97
[2021-06-15] MEDS: risperiDONE 0.5 MG TABLET PO ×2 (08:45→15:13)
[2021-06-15] MEDS: Multivitamin TABLET 1 TAB PO (08:45)
[2021-06-15] MEDS: Cyanocobalamin (Vitamin B-12) 100 MCG TABLET PO (08:45)
[2021-06-15] MEDS: Thiamine HCL 100 MG TABLET PO (08:45)
[2021-06-15 11:28] LABS: COVID-19 Test Negative (Negative); IDNOW Serial# 9DD0AD1C
--- NOTE | 2021-06-15 13:53 | P.PNPSI_ITS ---
Subjective Subjective Date of Service: 06/15/21 Reason For Visit: generalized anxiety disorder major depressive diso Subjective Notes: Conditional Voluntary Interim History: The nursing staff reports the patient slept well, she is is isolative in her room, writing down on her papers. She had been complaining of sore throat, increased lymph nodes but no fever. A copy test was done aids negative. We will consult with hospitalist. On interview, the patient denies new symptoms she still with some thought blocking. The SPECT Showed hypoperfusion of the frontal and temporal lobes, compatible with dementia as and pseudo-dementia . She has scored 27/30 on the [place] and it has been consistently on the range Mental Status Exam Mental Status Exam Patient Appearance: Well Grooomed Patient Orientation: Person Level of Consciousness: Awake Patient Behavior: Appropriate and Cooperative Mood Description: Calm Affect Description: Constricted Ability to Follow Directions: Good Speech Pattern: Clear and Appropriate Delusions: Not Present Thought Process: Distracted Thought Content: positive for Circumstantial Judgement: Fair Diagnostics Vital Signs (24Hr): Vital Signs - 24 hr 06/14/21 20:20 06/15/21 08:00 Temperature 98.6 F 99.2 F Pulse Rate 95 101 H Respiratory Rate 17 Blood Pressure 141/68 H 141/63 H Pulse Oximetry 96 97 BMI result Body Mass Index 22.6 Labs Results: 05/17/21 08:37 05/17/21 08:37 Labs: Laboratory Results - last 48 hr 06/15/21 11:07 COVID-19 (AJBARI) Negative COVID-19 Clin Com See Note Imaging Radiology Impressions: ITS Impressions Head CT 05/17/21 06:05 IMPRESSION: No acute intracranial pathology. SPECT Scan-Brain NM 06/11/21 15:35 IMPRESSION: Diffusely decreased perfusion in the right frontal and parietal cerebral cortex is most consistent with a vascular etiology. Although such unilateral findings can be seen in Alzheimer's disease, this unilateral involvement would be atypical. Correlation with a current MRI of the brain is recommended for further evaluation, if not contraindicated. Medications Medications Current Medications Acetaminophen (Acetaminophen 325 Mg Tablet) 650 mg PO Q6H PRN PRN Reason: Headache/Pain Mild Scale (1-3) Last Admin: 05/03/21 19:30 Dose: 650 mg Documented by: Al Hydroxide/Mg Hydroxide (Magnesium Hydrox/Alum Hydrox 30 Ml Oral.Susp) 30 ml PO Q6H PRN PRN Reason: Heartburn/Nausea Benzocaine (Throat Lozenge, Medicated Lozenge) 1 lozenge MUCOUS MEM Q2H PRN PRN Reason: Sore Throat Last Admin: 06/14/21 21:40 Dose: 1 lozenge Documented by: Cyanocobalamin (Cyanocobalamin (Vitamin B-12) 100 Mcg Tablet) 100 mcg PO DAILY [facility] Last Admin: 06/15/21 08:45 Dose: 100 mcg Documented by: Ergocalciferol (Ergocalciferol (Vitamin D2) 1,250 Mcg Capsule) 1,250 mcg PO Q7D [facility] Last Admin: 06/14/21 17:34 Dose: 1,250 mcg Documented by: Loperamide HCl (Loperamide Hcl 2 Mg Capsule) 2 mg PO Q4H PRN PRN Reason: Diarrhea Last Admin: 06/04/21 00:37 Dose: 2 mg Documented by: Magnesium Hydroxide (Milk Of Magnesia 30 Ml Oral.Susp) 30 ml PO DAILY PRN PRN Reason: Constipation Last Admin: 05/25/21 00:47 Dose: 30 ml Documented by: Multivitamins/Vitamin C (Multivitamin Tablet) 1 tab PO DAILY [facility] Last Admin: 06/15/21 08:45 Dose: 1 tab Documented by: Paroxetine HCl (Paroxetine Hcl 40 Mg Tablet) 40 mg PO DAILY [facility] Last Admin: 06/15/21 09:01 Dose: Not Given Documented by: Polyethylene Glycol (Polyethylene Glycol 3350 17 Gm Powd.Pack) 17 gm PO BID [facility] Last Admin: 06/15/21 09:01 Dose: Not Given Documented by: Risperidone (Risperidone 0.5 Mg Tablet) 0.5 mg PO BID@0800,1500 [facility] Last Admin: 06/15/21 08:45 Dose: 0.5 mg Documented by: Risperidone (Risperidone 1 Mg Tablet) 1 mg PO BEDTIME [facility] Last Admin: 06/14/21 21:44 Dose: Not Given Documented by: Thiamine HCl (Thiamine Hcl 100 Mg Tablet) 100 mg PO DAILY [facility] Last Admin: 06/15/21 08:45 Dose: 100 mg Documented by: Trazodone HCl (Trazodone Hcl 25 Mg Halftab) 25 mg PO BEDTIME PRN PRN Reason: Insomnia Last Admin: 05/21/21 23:25 Dose: 25 mg Documented by: Allergies Allergies Allergy/AdvReac Type Severity Reaction Status Date / Time No Known Allergies Allergy Verified 05/02/21 13:17 Assessment & Plan Assessment & Plan (1) MDD (major depressive disorder), recurrent severe, without psychosis: Status: Acute Code(s): F33.2 - Major depressive disorder, recurrent severe without psychotic features (2) Cognitive decline: Status: Acute Code(s): R41.89 - Other symptoms and signs involving cognitive functions and awareness Plan The patient is a 71-year-old female with a long history of depression and anxiety with a prior admission into the hospital for exacerbation of depression. She was brought into the unit from a.m. 5 due to memory problems, cognitive deterioration and increased thought blocking with dysphoria. We have tried Zyprexa with poor results so with cross taper it to Risperdal. Plan Continue same treatment. Discontinue Klonopin since there is no change in her mental status with this medication. Healthcare proxy invoked today. Copy test negative and consult to hospitalist I spent minutes with the patient and/or on the patient floor today, greater than?50% of which was spent counseling/coordinating care. Reason for contiued inpatient stay Substantial Risk for: inability to function, rapid decompensation and med/psych decompensation
--- NOTE | 2021-06-15 14:15 | MHC.CLN ---
F/U STAFF REPORTS THAT PATIENT HAS NOT BEEN EATING WELL FOR A FEW DAYS. WILL ADD ENSURE BID (700 KCAL, 40 G PROTEIN).
[2021-06-15 14:58] LABS: Strep A Nucleic Acid Negative (Negative)
--- NOTE | 2021-06-15 14:58 | P.CONHOSP_ITS ---
History of Present Illness Data of Consult Service Date: 06/15/21 Primary Care Provider: Bong Brannon MD HPI Reason for consult: Sore throat This is a 71 yo F who I am asked to see for evaluation of sore throat. Of patient, I had seen the patient on 05/03/21 for routine medical H&P and pre-op eval for ECT. Patient is seen and examined on the inpatient [facility] unit. She reports swollen throat and not sore. She denies any dysphagia. Denies any cough. Denies any fevers or chills. Reports this is on going for 2-3 weeks. Denies any feelings of somethign stuck in her throat. PMH Denies any PMH PSH Lumbar fusion Hysterectomy Lapratomy -- unclear for what reason, she describes it twisting of my bowels FM CAD in her mother who had CABG in her 70s SH Social drinking, sometimes a glass of wine with dinner Life long non-tobacco user no illicit substance Review of Systems Review of Systems: Yes all other systems are reviewed and are negative [facility] Medical History (Updated 06/15/21 @ 15:07 by Jacinto Cochran MD) MDD (major depressive disorder), recurrent severe, without psychosis Family History (Updated 05/03/21 @ 11:54 by Jacinto Cochran MD) Other CAD (coronary artery disease) Surgical History (Updated 05/03/21 @ 11:55 by Jacinto Cochran MD) H/O exploratory laparotomy H/O: hysterectomy History of lumbar fusion Social History Household Members: None Housing: House Do you presently have visiting nurse or other home services: Yes (home health aide) Patient Tobacco Use Status: Never used Tobacco e-Cigarette/Vaping Use: Never Used Use of substances other than those prescribed or required for medical reasons: No Currently Displaying Signs/Symptoms of Drug Intoxication Withdrawal: No Advance Directives: No Advance Directives Information Provided: No Advance Directives on File: No Do you have thoughts of harming others: None Do you have a plan to hurt others: No Plan Recently lost weight without trying: Yes How much weight loss: 34pounds or more Eating poorly because of decreased appetite: Yes Nutrition screen score: 7 Nutrition Risks: Poor intake 0-25% >4 days Patient : No : No Poor oral hygiene: No service: No Sexual orientation: Straight/Heterosexual Meds Allergies Allergy/AdvReac Type Severity Reaction Status Date / Time No Known Allergies Allergy Verified 05/02/21 13:17 Active Medications: Current Medications Acetaminophen (Acetaminophen 325 Mg Tablet) 650 mg PO Q6H PRN PRN Reason: Headache/Pain Mild Scale (1-3) Last Admin: 05/03/21 19:30 Dose: 650 mg Documented by: Al Hydroxide/Mg Hydroxide (Magnesium Hydrox/Alum Hydrox 30 Ml Oral.Susp) 30 ml PO Q6H PRN PRN Reason: Heartburn/Nausea Benzocaine (Throat Lozenge, Medicated Lozenge) 1 lozenge MUCOUS MEM Q2H PRN PRN Reason: Sore Throat Last Admin: 06/14/21 21:40 Dose: 1 lozenge Documented by: Cyanocobalamin (Cyanocobalamin (Vitamin B-12) 100 Mcg Tablet) 100 mcg PO DAILY [facility] Last Admin: 06/15/21 08:45 Dose: 100 mcg Documented by: Ergocalciferol (Ergocalciferol (Vitamin D2) 1,250 Mcg Capsule) 1,250 mcg PO Q7D [facility] Last Admin: 06/14/21 17:34 Dose: 1,250 mcg Documented by: Loperamide HCl (Loperamide Hcl 2 Mg Capsule) 2 mg PO Q4H PRN PRN Reason: Diarrhea Last Admin: 06/04/21 00:37 Dose: 2 mg Documented by: Magnesium Hydroxide (Milk Of Magnesia 30 Ml Oral.Susp) 30 ml PO DAILY PRN PRN Reason: Constipation Last Admin: 05/25/21 00:47 Dose: 30 ml Documented by: Multivitamins/Vitamin C (Multivitamin Tablet) 1 tab PO DAILY [facility] Last Admin: 06/15/21 08:45 Dose: 1 tab Documented by: Paroxetine HCl (Paroxetine Hcl 40 Mg Tablet) 40 mg PO DAILY [facility] Last Admin: 06/15/21 09:01 Dose: Not Given Documented by: Polyethylene Glycol (Polyethylene Glycol 3350 17 Gm Powd.Pack) 17 gm PO BID [facility] Last Admin: 06/15/21 09:01 Dose: Not Given Documented by: Risperidone (Risperidone 0.5 Mg Tablet) 0.5 mg PO BID@0800,1500 [facility] Last Admin: 06/15/21 08:45 Dose: 0.5 mg Documented by: Risperidone (Risperidone 1 Mg Tablet) 1 mg PO BEDTIME [facility] Last Admin: 06/14/21 21:44 Dose: Not Given Documented by: Thiamine HCl (Thiamine Hcl 100 Mg Tablet) 100 mg PO DAILY [facility] Last Admin: 06/15/21 08:45 Dose: 100 mg Documented by: Trazodone HCl (Trazodone Hcl 25 Mg Halftab) 25 mg PO BEDTIME PRN PRN Reason: Insomnia Last Admin: 05/21/21 23:25 Dose: 25 mg Documented by: Home Medications Medication Instructions Recorded Confirmed Last Taken Type No Known Home Meds 05/09/21 05/09/21 Unknown History Physical Exam Vital Signs and Narrative: Vital Signs: Last Vital Signs Temp 99.2 F 06/15/21 08:00 Pulse 101 H 06/15/21 08:00 Resp 17 06/14/21 20:20 BP 141/63 H 06/15/21 08:00 Pulse Ox 97 06/15/21 08:00 BMI result Body Mass Index 22.6 Const: Other: General - no acute distress, appears comfortable HEENT - no palpable supraclavicular / cervical lymphadenopathy; posterior pharanx with no erythema or exudates appreciated Cardiovascular - regular rate and rhythm, S1-S2 Lungs - normal respiratory effort, clear to auscultation bilaterally, no wheezing Abdomen - soft, nontender, no rebound or guarding Extremities - no edema bilaterally Neuro - awake and alert, no focal deficits Results Labs CBC and Chem 7: 05/17/21 08:37 05/17/21 08:37 Labs: Laboratory Results - last 24 hr 06/15/21 06/15/21 11:07 13:36 COVID-19 (JABARI) Negative COVID-19 Clin Com See Note S. pyogenes GrpA ALBERTO Negative Assessment and Plan (1) Sore throat: Status: Acute Plan 71 yo F being treated on the [facility] unit. Medical consult requested for evaluation of swollen / sore throat. I do not appreciate any erythema or exudates on exam. A Rapid Strep + culture has been collected. Would await the result of this. At this time, antibiotics are not needed. Can give Cepacol lozenges PRN as you are doing. D/W Psych Attending - Dr. Rosas Please re-consult if any further questions. Thank you.
[2021-06-15 18:00] VITALS: BP 151/54; PULSE 98; RESP 18; TEMP 36.8; O2SAT 100
[2021-06-15] MEDS: risperiDONE 1 MG TABLET PO (21:12)
[2021-06-16 08:27] LABS: MANUAL DIFF FLAG NO
[2021-06-16] MEDS: Multivitamin TABLET 1 TAB PO (08:27)
[2021-06-16] MEDS: PARoxetine HCL 40 MG TABLET PO (08:27)
[2021-06-16] MEDS: risperiDONE 0.5 MG TABLET PO (08:27)
[2021-06-16] MEDS: Thiamine HCL 100 MG TABLET PO (08:28)
[2021-06-16] MEDS: Cyanocobalamin (Vitamin B-12) 100 MCG TABLET PO (08:28)
[2021-06-16] MEDS: polyethylene glycoL 3350 17 GM POWD.PACK PO (08:28)
[2021-06-16 08:30] VITALS: BP 137/63; PULSE 118; RESP 17; TEMP 36.9; O2SAT 97
[2021-06-16 08:36] LABS: Basophils Percent Auto 0.3 % (0-2); Eosinophils Percent Auto 0.3 % (0-4); Hemoglobin 14.3 g/dl (12.0-16.0); Imm Gran Abs Auto 0.04 X10*3/uL (0.00-0.03); Imm Gran Pct Auto 0.3 % (0.0-0.4); Lymphocytes Absolute Auto 1.6 X10*3/uL (1.2-4.9); Lymphocytes Percent Auto 13.8 % (20-40); Mean Corpuscular HGB Conc 33.3 g/dl (31.0-35.0); Mean Corpuscular Hemoglobin 29.5 pg (27.0-33.0); Mean Corpuscular Volume 88.7 fL (80.0-98.0); Mean Platelet Volume 11.3 fL (9.4-12.3); Monocytes Percent Auto 8.3 % (2-11); Platelet Count 233 X10*3/uL (160-400); Red Blood Count 4.85 X10*6/uL (4.20-5.50); Red Cell Distribution Width 12.9 % (11.0-16.0); White Blood Count 11.6 X10*3/uL (4.8-10.8)
[2021-06-16 08:50] LABS: Anion Gap 14 (12-20); Blood Urea Nitrogen 11 mg/dL (9-16); Calcium 10.6 mg/dL (8.4-10.2); Carbon Dioxide 26 mmol/L (22-29); Chloride 104 mmol/L (96-108); Creatinine Clr Calc Pharmacy 51.7; Estimated Glomerular Filt Rate > 60; Glucose Random 110 mg/dL (60-115); Potassium 4.5 mmol/L (3.3-5.1); Sodium 139 mmol/L (135-145)
--- NOTE | 2021-06-16 14:46 | P.PNPSI_ITS ---
Subjective Subjective Date of Service: 06/16/21 Reason For Visit: generalized anxiety disorder major depressive diso Interim History: Patient seen and discussed with nursing. She reports she is feeling scattered today. Having a hard time filling out the menu. Says yesterday she was better. She is indecisive and apprehensive. She is mstly isolative. She is somewhat perseverative. She is writing down on her papers. We will consult with hospitalist. On interview, the patient denies new symptoms she still with some thought blocking. The SPECT Showed hypoperfusion of the frontal and temporal lobes, compatible with dementia as and pseudo-dementia . She has scored 27/30 on the [place] and it has been consistently on the range Medication Compliance: Yes Review of Systems Acute medical concerns: No Review of Systems Review of Systems Yes all other systems are reviewed and are negative Mental Status Exam Mental Status Exam Patient Appearance: Well Grooomed Patient Orientation: Person Level of Consciousness: Awake Patient Behavior: Appropriate, Cooperative, Timid, Anxious, Fearful, Distrac tible and Isolative Mood Description: Calm, Withdrawn, Depressed, Fearful, Anxious, Nervous and Apprehensive Affect Description: Calm, Constricted, Depressed, Nervous and Apprehensive Patient Cognition Impaired: No Ability to Follow Directions: Good Speech Pattern: Clear, Perseverating and Appropriate Memory Description: Intact Hallucinations: None Delusions: Not Present Thought Process: Distracted and Slowed Thinking Thought Content: positive for Preoccupation, positive for Thought Blocking and positive for Slowed Thinking Depressive Symptoms: Increased Anxiety, Diff. Making Decisions, Difficulty Sleeping, Isolating-Friends/Family, Loss of Energy and Difficulty Concentrating Abnormal Motor Activity Signs and Symptoms: Psychomotor Retardation Judgement: Fair Diagnostics Vital Signs (24Hr): Vital Signs - 24 hr 06/15/21 18:00 06/16/21 08:30 Temperature 98.2 F 98.4 F Pulse Rate 98 118 H Respiratory Rate 18 17 Blood Pressure 151/54 H 137/63 Pulse Oximetry 100 97 BMI result Body Mass Index 22.6 Labs Results: 06/16/21 07:53 06/16/21 07:53 Labs: Laboratory Results - last 48 hr 06/15/21 06/15/21 06/16/21 11:07 13:36 07:53 WBC 11.6 H RBC 4.85 Hgb 14.3 Hct 43.0 MCV 88.7 MCH 29.5 MCHC 33.3 RDW 12.9 Plt Count 233 MPV 11.3 Immature Gran % (Auto) 0.3 Neut % (Auto) 77.0 H Lymph % (Auto) 13.8 L Hitchcock % (Auto) 8.3 Eos % (Auto) 0.3 Baso % (Auto) 0.3 Lymph # (Auto) 1.6 Hitchcock # (Auto) 1.0 Eos # (Auto) 0.0 Baso # (Auto) 0.0 Abs Immat Gran (auto) 0.04 H Absolute Neuts (auto) 9.0 H Absolute Nucleated RBC 0.000 Nucleated RBC % (auto) 0.0 Sodium Potassium Chloride Carbon Dioxide Anion Gap BUN Creatinine Estim Creat Clear Calc Estimated GFR Random Glucose Calcium COVID-19 (JABARI) Negative COVID-19 Clin Com See Note S. pyogenes GrpA ALBERTO Negative 06/16/21 07:53 WBC RBC Hgb Hct MCV MCH MCHC RDW Plt Count MPV Immature Gran % (Auto) Neut % (Auto) Lymph % (Auto) Hitchcock % (Auto) Eos % (Auto) Baso % (Auto) Lymph # (Auto) Hitchcock # (Auto) Eos # (Auto) Baso # (Auto) Abs Immat Gran (auto) Absolute Neuts (auto) Absolute Nucleated RBC Nucleated RBC % (auto) Sodium 139 Potassium 4.5 Chloride 104 Carbon Dioxide 26 Anion Gap 14 BUN 11 Creatinine 0.70 Estim Creat Clear Calc 51.7 Estimated GFR > 60 Random Glucose 110 Calcium 10.6 H COVID-19 (JABARI) COVID-19 Clin Com S. pyogenes GrpA ALBERTO Imaging Radiology Impressions: ITS Impressions Head CT 05/17/21 06:05 IMPRESSION: No acute intracranial pathology. SPECT Scan-Brain NM 06/11/21 15:35 IMPRESSION: Diffusely decreased perfusion in the right frontal and parietal cerebral cortex is most consistent with a vascular etiology. Although such unilateral findings can be seen in Alzheimer's disease, this unilateral involvement would be atypical. Correlation with a current MRI of the brain is recommended for further evaluation, if not contraindicated. Medications Medications Current Medications Acetaminophen (Acetaminophen 325 Mg Tablet) 650 mg PO Q6H PRN PRN Reason: Headache/Pain Mild Scale (1-3) Last Admin: 05/03/21 19:30 Dose: 650 mg Documented by: Al Hydroxide/Mg Hydroxide (Magnesium Hydrox/Alum Hydrox 30 Ml Oral.Susp) 30 ml PO Q6H PRN PRN Reason: Heartburn/Nausea Benzocaine (Throat Lozenge, Medicated Lozenge) 1 lozenge MUCOUS MEM Q2H PRN PRN Reason: Sore Throat Last Admin: 06/14/21 21:40 Dose: 1 lozenge Documented by: Cyanocobalamin (Cyanocobalamin (Vitamin B-12) 100 Mcg Tablet) 100 mcg PO DAILY [facility] Last Admin: 06/16/21 08:28 Dose: 100 mcg Documented by: Ergocalciferol (Ergocalciferol (Vitamin D2) 1,250 Mcg Capsule) 1,250 mcg PO Q7D [facility] Last Admin: 06/14/21 17:34 Dose: 1,250 mcg Documented by: Loperamide HCl (Loperamide Hcl 2 Mg Capsule) 2 mg PO Q4H PRN PRN Reason: Diarrhea Last Admin: 06/04/21 00:37 Dose: 2 mg Documented by: Magnesium Hydroxide (Milk Of Magnesia 30 Ml Oral.Susp) 30 ml PO DAILY PRN PRN Reason: Constipation Last Admin: 05/25/21 00:47 Dose: 30 ml Documented by: Multivitamins/Vitamin C (Multivitamin Tablet) 1 tab PO DAILY [facility] Last Admin: 06/16/21 08:27 Dose: 1 tab Documented by: Paroxetine HCl (Paroxetine Hcl 40 Mg Tablet) 40 mg PO DAILY [facility] Last Admin: 06/16/21 08:27 Dose: 40 mg Documented by: Polyethylene Glycol (Polyethylene Glycol 3350 17 Gm Powd.Pack) 17 gm PO BID [facility] Last Admin: 06/16/21 08:28 Dose: 17 gm Documented by: Risperidone (Risperidone 0.5 Mg Tablet) 0.5 mg PO BID@0800,1500 [facility] Last Admin: 06/16/21 08:27 Dose: 0.5 mg Documented by: Risperidone (Risperidone 1 Mg Tablet) 1 mg PO BEDTIME [facility] Last Admin: 06/15/21 21:12 Dose: 1 mg Documented by: Thiamine HCl (Thiamine Hcl 100 Mg Tablet) 100 mg PO DAILY [facility] Last Admin: 06/16/21 08:28 Dose: 100 mg Documented by: Trazodone HCl (Trazodone Hcl 25 Mg Halftab) 25 mg PO BEDTIME PRN PRN Reason: Insomnia Last Admin: 01/17/22 23:25 Dose: 25 mg Documented by: Allergies Allergies Allergy/AdvReac Type Severity Reaction Status Date / Time No Known Allergies Allergy Verified 05/02/21 13:17 Assessment & Plan Assessment & Plan (1) Sore throat: Status: Acute Code(s): J02.9 - Acute pharyngitis, unspecified (2) MDD (major depressive disorder), recurrent severe, without psychosis: Status: Acute Code(s): F33.2 - Major depressive disorder, recurrent severe without psychotic features Assessment and Plan: (1) MDD (major depressive disorder), recurrent severe, without psychosis: ?Status:?Acute ?Code(s): F33.2 - Major depressive disorder, recurrent severe without psychotic features (2) Cognitive decline: ?Status:?Acute ?Code(s): R41.89 - Other symptoms and signs involving cognitive functions and awareness Plan The patient is a 71-year-old female with a long history of depression and anxiety with a prior admission into the hospital for exacerbation of depression.? She was brought into the unit from a.m. 5 due to memory problems, cognitive deterioration and increased thought blocking with dysphoria.? We have tried Zyprexa with poor results so with cross taper it to Risperdal.? Plan Continue same treatment.? Discontinue Klonopin since there is no change in her mental status with this medication. Healthcare proxy invoked? Plan 71 yo F being treated on the [facility] unit. Medical consult requested for evaluation of swollen / sore throat. I do not appreciate any erythema or exudates on exam. A Rapid Strep + culture has been collected. Would await the result of this. At this time, antibiotics are not needed. Can give Cepacol lozenges PRN as you are doing. D/W Psych Attending - Dr. Rosas Please re-consult if any further questions. Thank you. I spent minutes with the patient and/or on the patient floor today, greater than?50% of which was spent counseling/coordinating care. Patient educated on: diagnosis and ECT Reason for contiued inpatient stay Substantial Risk for: inability to function and rapid decompensation
[2021-06-16 18:00] VITALS: BP 147/63; PULSE 92; RESP 18; TEMP 37; O2SAT 98
[2021-06-17 06:00] VITALS: BP 175/80; PULSE 99; RESP 16; TEMP 37.4; O2SAT 99
[2021-06-17] MEDS: Cyanocobalamin (Vitamin B-12) 100 MCG TABLET PO (08:47)
[2021-06-17] MEDS: Multivitamin TABLET 1 TAB PO (08:47)
[2021-06-17] MEDS: Thiamine HCL 100 MG TABLET PO (08:47)
[2021-06-17] MEDS: risperiDONE 0.5 MG TABLET PO ×2 (08:47→14:30)
[2021-06-17] MEDS: PARoxetine HCL 40 MG TABLET PO (08:48)
--- NOTE | 2021-06-17 17:30 | HO.PSYCHPN ---
Subjective Subjective Date of Service: 06/17/21 Reason For Visit: generalized anxiety disorder major depressive diso Interim History: Patient seen and discussed with nursing. She ontinues to exhibit significant ambivalence and confusion. She is anxious.She is indecisive and apprehensive. She wrote some questions about ECT which were answered. She will also be shown an educational video with the RN. . . She is mostly isolative. She is writing down on her papers. On interview, the patient denies new symptoms she still with some thought blocking. The SPECT Showed hypoperfusion of the frontal and temporal lobes, compatible with dementia as and pseudo-dementia . She has scored 27/30 on the [place] and it has been consistently on the range Review of Systems Review of Systems Yes all other systems are reviewed and are negative Mental Status Exam Mental Status Exam Patient Appearance: Well Grooomed Patient Orientation: Person Level of Consciousness: Awake Patient Behavior: Appropriate, Cooperative, Timid, Anxious, Fearful, Distractible and Isolative Mood Description: Calm, Withdrawn, Depressed, Fearful, Anxious, Nervous and Apprehensive Affect Description: Calm, Constricted, Depressed, Nervous and Apprehensive Patient Cognition Impaired: No Ability to Follow Directions: Good Speech Pattern: Clear, Perseverating and Appropriate Memory Description: Intact Diagnostics Vital Signs (24Hr): Vital Signs - 24 hr 06/16/21 18:00 06/17/21 06:00 Temperature 98.6 F 99.3 F Pulse Rate 92 99 Respiratory Rate 18 16 Blood Pressure 147/63 H 175/80 H Pulse Oximetry 98 99 BMI result Body Mass Index 22.6 Labs Results: 06/16/21 07:53 06/16/21 07:53 Labs: Laboratory Results - last 48 hr 06/16/21 06/16/21 07:53 07:53 WBC 11.6 H RBC 4.85 Hgb 14.3 Hct 43.0 MCV 88.7 MCH 29.5 MCHC 33.3 RDW 12.9 Plt Count 233 MPV 11.3 Immature Gran % (Auto) 0.3 Neut % (Auto) 77.0 H Lymph % (Auto) 13.8 L [place] % (Auto) 8.3 Eos % (Auto) 0.3 Baso % (Auto) 0.3 Lymph # (Auto) 1.6 [place] # (Auto) 1.0 Eos # (Auto) 0.0 Baso # (Auto) 0.0 Abs Immat Gran (auto) 0.04 H Absolute Neuts (auto) 9.0 H Absolute Nucleated RBC 0.000 Nucleated RBC % (auto) 0.0 Sodium 139 Potassium 4.5 Chloride 104 Carbon Dioxide 26 Anion Gap 14 BUN 11 Creatinine 0.70 Estim Creat Clear Calc 51.7 Estimated GFR > 60 Random Glucose 110 Calcium 10.6 H Imaging Radiology Impressions: ITS Impressions Head CT 05/17/21 06:05 IMPRESSION: No acute intracranial pathology. SPECT Scan-Brain NM 06/11/21 15:35 IMPRESSION: Diffusely decreased perfusion in the right frontal and parietal cerebral cortex is most consistent with a vascular etiology. Although such unilateral findings can be seen in Alzheimer's disease, this unilateral involvement would be atypical. Correlation with a current MRI of the brain is recommended for further evaluation, if not contraindicated. Medications Medications Current Medications Acetaminophen (Acetaminophen 325 Mg Tablet) 650 mg PO Q6H PRN PRN Reason: Headache/Pain Mild Scale (1-3) Last Admin: 05/03/21 19:30 Dose: 650 mg Documented by: Al Hydroxide/Mg Hydroxide (Magnesium Hydrox/Alum Hydrox 30 Ml Oral.Susp) 30 ml PO Q6H PRN PRN Reason: Heartburn/Nausea Benzocaine (Throat Lozenge, Medicated Lozenge) 1 lozenge MUCOUS MEM Q2H PRN PRN Reason: Sore Throat Last Admin: 06/14/21 21:40 Dose: 1 lozenge Documented by: Cyanocobalamin (Cyanocobalamin (Vitamin B-12) 100 Mcg Tablet) 100 mcg PO DAILY [facility] Last Admin: 06/17/21 08:47 Dose: 100 mcg Documented by: Ergocalciferol (Ergocalciferol (Vitamin D2) 1,250 Mcg Capsule) 1,250 mcg PO Q7D [facility] Last Admin: 06/14/21 17:34 Dose: 1,250 mcg Documented by: Loperamide HCl (Loperamide Hcl 2 Mg Capsule) 2 mg PO Q4H PRN PRN Reason: Diarrhea Last Admin: 06/04/21 00:37 Dose: 2 mg Documented by: Magnesium Hydroxide (Milk Of Magnesia 30 Ml Oral.Susp) 30 ml PO DAILY PRN PRN Reason: Constipation Last Admin: 05/25/21 00:47 Dose: 30 ml Documented by: Multivitamins/Vitamin C (Multivitamin Tablet) 1 tab PO DAILY [facility] Last Admin: 06/17/21 08:47 Dose: 1 tab Documented by: Paroxetine HCl (Paroxetine Hcl 40 Mg Tablet) 40 mg PO DAILY [facility] Last Admin: 06/17/21 08:48 Dose: 40 mg Documented by: Polyethylene Glycol (Polyethylene Glycol 3350 17 Gm Powd.Pack) 17 gm PO BID [facility] Last Admin: 06/17/21 08:48 Dose: Not Given Documented by: Risperidone (Risperidone 0.5 Mg Tablet) 0.5 mg PO BID@0800,1500 [facility] Last Admin: 06/17/21 14:30 Dose: 0.5 mg Documented by: Risperidone (Risperidone 1 Mg Tablet) 1 mg PO BEDTIME [facility] Last Admin: 06/16/21 21:46 Dose: Not Given Documented by: Thiamine HCl (Thiamine Hcl 100 Mg Tablet) 100 mg PO DAILY [facility] Last Admin: 06/17/21 08:47 Dose: 100 mg Documented by: Trazodone HCl (Trazodone Hcl 25 Mg Halftab) 25 mg PO BEDTIME PRN PRN Reason: Insomnia Last Admin: 05/21/21 23:25 Dose: 25 mg Documented by: Allergies Allergies Allergy/AdvReac Type Severity Reaction Status Date / Time No Known Allergies Allergy Verified 05/02/21 13:17 Assessment & Plan Assessment & Plan (1) Sore throat: Status: Acute Code(s): J02.9 - Acute pharyngitis, unspecified (2) MDD (major depressive disorder), recurrent severe, without psychosis: Status: Acute Code(s): F33.2 - Major depressive disorder, recurrent severe without psychotic features Assessment and Plan: (1) MDD (major depressive disorder), recurrent severe, without psychosis: ?Status:?Acute ?Code(s): F33.2 - Major depressive disorder, recurrent severe without psychotic features (2) Cognitive decline: ?Status:?Acute ?Code(s): R41.89 - Other symptoms and signs involving cognitive functions and awareness Plan The patient is a 71-year-old female with a long history of depression and anxiety with a prior admission into the hospital for exacerbation of depression.? She was brought into the unit from a.m. 5 due to memory problems, cognitive deterioration and increased thought blocking with dysphoria.? We have tried Zyprexa with poor results so with cross taper it to Risperdal.? Plan Continue same treatment.? Discontinue Klonopin since there is no change in her mental status with this medication. Healthcare proxy invoked? Plan 71 yo F being treated on the [facility]. Medical consult requested for evaluation of swollen / sore throat. I do not appreciate any erythema or exudates on exam. A Rapid Strep + culture has been collected. Would await the result of this. At this time, antibiotics are not needed. Can give Cepacol lozenges PRN as you are doing. D/W Psych Attending - Dr. Rosas Please re-consult if any further questions. Thank you. I spent minutes with the patient and/or on the patient floor today, greater than?50% of which was spent counseling/coordinating care. Patient educated on: ECT Reason for contiued inpatient stay Substantial Risk for: inability to function and rapid decompensation
[2021-06-17 19:59] VITALS: BP 146/67; PULSE 110; RESP 17; TEMP 37.4; O2SAT 96
[2021-06-17] MEDS: risperiDONE 1 MG TABLET PO (20:39)
[2021-06-18 08:00] VITALS: BP 173/70; PULSE 100; RESP 18; TEMP 36.9; O2SAT 97
[2021-06-18] MEDS: Thiamine HCL 100 MG TABLET PO (09:14)
[2021-06-18] MEDS: Multivitamin TABLET 1 TAB PO (09:14)
[2021-06-18] MEDS: PARoxetine HCL 40 MG TABLET PO (09:14)
[2021-06-18] MEDS: risperiDONE 0.5 MG TABLET PO ×2 (09:15→15:26)
[2021-06-18] MEDS: Cyanocobalamin (Vitamin B-12) 100 MCG TABLET PO (09:15)
--- NOTE | 2021-06-18 13:31 | P.PNPSI_ITS ---
Subjective Subjective Date of Service: 06/18/21 Reason For Visit: generalized anxiety disorder major depressive diso Subjective Notes: Conditional Voluntary Interim History: the nursing staff reported patient has been isolative, writing down on papers about her menu in activities. The staff has noticed that they have to remove the paperwork before she goes to sleep if not she continues writing it and she does not rest. 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 Again we discussed the possibility of ECT and more psych-education into ECT was provided Mental Status Exam Mental Status Exam Patient Appearance: Appropriate Patient Orientation: Person and Situation Level of Consciousness: Awake Patient Behavior: Guarded and Cooperative Mood Description: Withdrawn Affect Description: Constricted and Flat Patient Cognition Impaired: No Ability to Follow Directions: Fair Speech Pattern: Perseverating and Difficulty Finding Words Hallucinations: None Delusions: Not Present Thought Process: Slowed Thinking Thought Content: positive for Poverty of Content Judgement: Fair Diagnostics Vital Signs (24Hr): Vital Signs - 24 hr 06/17/21 19:59 06/18/21 08:00 Temperature 99.4 F 98.4 F Pulse Rate 110 H 100 Respiratory Rate 17 18 Blood Pressure 146/67 H 173/70 H Pulse Oximetry 96 97 BMI result Body Mass Index 22.6 Labs Results: 06/16/21 07:53 06/16/21 07:53 Imaging Radiology Impressions: ITS Impressions Head CT 05/17/21 06:05 IMPRESSION: No acute intracranial pathology. SPECT Scan-Brain NM 06/11/21 15:35 IMPRESSION: Diffusely decreased perfusion in the right frontal and parietal cerebral cortex is most consistent with a vascular etiology. Although such unilateral findings can be seen in Alzheimer's disease, this unilateral involvement would be atypical. Correlation with a current MRI of the brain is recommended for further evaluation, if not contraindicated. Medications Medications Current Medications Acetaminophen (Acetaminophen 325 Mg Tablet) 650 mg PO Q6H PRN PRN Reason: Headache/Pain Mild Scale (1-3) Last Admin: 05/03/21 19:30 Dose: 650 mg Documented by: Al Hydroxide/Mg Hydroxide (Magnesium Hydrox/Alum Hydrox 30 Ml Oral.Susp) 30 ml PO Q6H PRN PRN Reason: Heartburn/Nausea Benzocaine (Throat Lozenge, Medicated Lozenge) 1 lozenge MUCOUS MEM Q2H PRN PRN Reason: Sore Throat Last Admin: 06/14/21 21:40 Dose: 1 lozenge Documented by: Cyanocobalamin (Cyanocobalamin (Vitamin B-12) 100 Mcg Tablet) 100 mcg PO DAILY [facility] Last Admin: 06/18/21 09:15 Dose: 100 mcg Documented by: Ergocalciferol (Ergocalciferol (Vitamin D2) 1,250 Mcg Capsule) 1,250 mcg PO Q7D [facility] Last Admin: 06/14/21 17:34 Dose: 1,250 mcg Documented by: Loperamide HCl (Loperamide Hcl 2 Mg Capsule) 2 mg PO Q4H PRN PRN Reason: Diarrhea Last Admin: 06/04/21 00:37 Dose: 2 mg Documented by: Magnesium Hydroxide (Milk Of Magnesia 30 Ml Oral.Susp) 30 ml PO DAILY PRN PRN Reason: Constipation Last Admin: 05/25/21 00:47 Dose: 30 ml Documented by: Multivitamins/Vitamin C (Multivitamin Tablet) 1 tab PO DAILY [facility] [place] Last Admin: 06/18/21 09:14 Dose: 1 tab Documented by: Paroxetine HCl (Paroxetine Hcl 40 Mg Tablet) 40 mg PO DAILY [facility] [place] Last Admin: 06/18/21 09:14 Dose: 40 mg Documented by: Polyethylene Glycol (Polyethylene Glycol 3350 17 Gm Powd.Pack) 17 gm PO BID [facility] [place] Last Admin: 06/18/21 10:04 Dose: Not Given Documented by: Risperidone (Risperidone 0.5 Mg Tablet) 0.5 mg PO BID@0800,1500 [facility] [place] Last Admin: 06/18/21 09:15 Dose: 0.5 mg Documented by: Risperidone (Risperidone 1 Mg Tablet) 1 mg PO BEDTIME [facility] [place] Last Admin: 06/17/21 20:39 Dose: 1 mg Documented by: Thiamine HCl (Thiamine Hcl 100 Mg Tablet) 100 mg PO DAILY [facility] Last Admin: 06/18/21 09:14 Dose: 100 mg Documented by: Trazodone HCl (Trazodone Hcl 25 Mg Halftab) 25 mg PO BEDTIME PRN PRN Reason: Insomnia Last Admin: 05/21/21 23:25 Dose: 25 mg Documented by: Allergies Allergies Allergy/AdvReac Type Severity Reaction Status Date / Time No Known Allergies Allergy Verified 05/02/21 13:17 Assessment & Plan Assessment & Plan (1) Sore throat: Status: Acute Code(s): J02.9 - Acute pharyngitis, unspecified (2) MDD (major depressive disorder), recurrent severe, without psychosis: Status: Acute Code(s): F33.2 - Major depressive disorder, recurrent severe without psychotic features Assessment and Plan: (1) MDD (major depressive disorder), recurrent severe, without psychosis: ?Status:?Acute ?Code(s): F33.2 - Major depressive disorder, recurrent severe without psychotic features (2) Cognitive decline: ?Status:?Acute ?Code(s): R41.89 - Other symptoms and signs involving cognitive functions and awareness Plan The patient is a 71-year-old female with a long history of depression and anxiety with a prior admission into the hospital for exacerbation of depression.? She was brought into the unit from a.m. 5 due to memory problems, cognitive deterioration and increased thought blocking with dysphoria.? We have tried Zyprexa with poor results so with cross taper it to Risperdal.? Plan Continue same treatment.? Discontinue Klonopin since there is no change in her mental status with this medication. Healthcare proxy invoked? Plan 71 yo F being treated on the [facility] unit. Medical consult requested for evaluation of swollen / sore throat. I do not appreciate any erythema or exudates on exam. A Rapid Strep + culture has been collected. Would await the result of this. At this time, antibiotics are not needed. Can give Cepacol lozenges PRN as you are doing. D/W Psych Attending - Dr. Rosas Please re-consult if any further questions. Thank you. I spent minutes with the patient and/or on the patient floor today, greater than?50% of which was spent counseling/coordinating care. Reason for contiued inpatient stay Substantial Risk for: inability to function, rapid decompensation and med/psych decompensation
[2021-06-18 20:04] VITALS: BP 146/71; PULSE 112; RESP 19; TEMP 37.3; O2SAT 94
[2021-06-18] MEDS: risperiDONE 1 MG TABLET PO (21:01)
[2021-06-19 06:00] VITALS: BP 164/79; PULSE 51; RESP 14; TEMP 36.9; O2SAT 99
[2021-06-19] MEDS: Thiamine HCL 100 MG TABLET PO (08:23)
[2021-06-19] MEDS: PARoxetine HCL 40 MG TABLET PO (08:23)
[2021-06-19] MEDS: Multivitamin TABLET 1 TAB PO (08:23)
[2021-06-19] MEDS: risperiDONE 0.5 MG TABLET PO ×2 (08:23→16:29)
[2021-06-19] MEDS: Cyanocobalamin (Vitamin B-12) 100 MCG TABLET PO (08:24)
--- NOTE | 2021-06-19 15:15 | P.PNPSI_ITS ---
Subjective Subjective Date of Service: 06/19/21 Reason For Visit: generalized anxiety disorder major depressive diso Subjective Notes: Conditional Voluntary Interim History: The nursing staff reported the patient took a long time to take all her medications since she was extremely anxious, OCD symptoms. The high school social studies teacher has contacted her causing Tatianna who is the healthcare proxy And we will have a meeting pretty soon. On interview the the patient reports anxiety no changes in her mental status is still with thought blocking Mental Status Exam Mental Status Exam Patient Appearance: Appropriate Patient Orientation: Person and Situation Level of Consciousness: Awake Patient Behavior: Guarded and Passive Mood Description: Calm and Depressed Affect Description: Constricted Patient Cognition Impaired: No Ability to Follow Directions: Good Speech Pattern: Clear Memory Description: Intact Hallucinations: None Delusions: Not Present Thought Process: Linear Thought Content: positive for Intact Judgement: Fair Diagnostics Vital Signs (24Hr): Vital Signs - 24 hr 06/18/21 20:04 06/19/21 06:00 Temperature 99.2 F 98.4 F Pulse Rate 112 H 51 Respiratory Rate 19 14 Blood Pressure 146/71 H 164/79 H Pulse Oximetry 94 99 BMI result Body Mass Index 22.6 Labs Results: 06/16/21 07:53 06/16/21 07:53 Imaging Radiology Impressions: ITS Impressions Head CT 05/17/21 06:05 IMPRESSION: No acute intracranial pathology. SPECT Scan-Brain NM 06/11/21 15:35 IMPRESSION: Diffusely decreased perfusion in the right frontal and parietal cerebral cortex is most consistent with a vascular etiology. Although such unilateral findings can be seen in Alzheimer's disease, this unilateral involvement would be atypical. Correlation with a current MRI of the brain is recommended for further evaluation, if not contraindicated. Medications Medications Current Medications Acetaminophen (Acetaminophen 325 Mg Tablet) 650 mg PO Q6H PRN PRN Reason: Headache/Pain Mild Scale (1-3) Last Admin: 05/03/21 19:30 Dose: 650 mg Documented by: Al Hydroxide/Mg Hydroxide (Magnesium Hydrox/Alum Hydrox 30 Ml Oral.Susp) 30 ml PO Q6H PRN PRN Reason: Heartburn/Nausea Benzocaine (Throat Lozenge, Medicated Lozenge) 1 lozenge MUCOUS MEM Q2H PRN PRN Reason: Sore Throat Last Admin: 06/14/21 21:40 Dose: 1 lozenge Documented by: Cyanocobalamin (Cyanocobalamin (Vitamin B-12) 100 Mcg Tablet) 100 mcg PO DAILY [facility] Last Admin: 06/19/21 08:24 Dose: 100 mcg Documented by: Ergocalciferol (Ergocalciferol (Vitamin D2) 1,250 Mcg Capsule) 1,250 mcg PO Q7D [facility] Last Admin: 06/14/21 17:34 Dose: 1,250 mcg Documented by: Loperamide HCl (Loperamide Hcl 2 Mg Capsule) 2 mg PO Q4H PRN PRN Reason: Diarrhea Last Admin: 06/04/21 00:37 Dose: 2 mg Documented by: Magnesium Hydroxide (Milk Of Magnesia 30 Ml Oral.Susp) 30 ml PO DAILY PRN PRN Reason: Constipation Last Admin: 05/25/21 00:47 Dose: 30 ml Documented by: Multivitamins/Vitamin C (Multivitamin Tablet) 1 tab PO DAILY [facility] Last Admin: 06/19/21 08:23 Dose: 1 tab Documented by: Paroxetine HCl (Paroxetine Hcl 40 Mg Tablet) 40 mg PO DAILY [facility] Last Admin: 06/19/21 08:23 Dose: 40 mg Documented by: Polyethylene Glycol (Polyethylene Glycol 3350 17 Gm Powd.Pack) 17 gm PO BID [facility] Last Admin: 06/19/21 08:28 Dose: Not Given Documented by: Risperidone (Risperidone 0.5 Mg Tablet) 0.5 mg PO BID@0800,1500 [facility] Last Admin: 06/19/21 08:23 Dose: 0.5 mg Documented by: Risperidone (Risperidone 1 Mg Tablet) 1 mg PO BEDTIME [facility] Last Admin: 06/18/21 21:01 Dose: 1 mg Documented by: Thiamine HCl (Thiamine Hcl 100 Mg Tablet) 100 mg PO DAILY [facility] Last Admin: 06/19/21 08:23 Dose: 100 mg Documented by: Trazodone HCl (Trazodone Hcl 25 Mg Halftab) 25 mg PO BEDTIME PRN PRN Reason: Insomnia Last Admin: 05/21/21 23:25 Dose: 25 mg Documented by: Allergies Allergies Allergy/AdvReac Type Severity Reaction Status Date / Time No Known Allergies Allergy Verified 05/02/21 13:17 Assessment & Plan Assessment & Plan (1) Sore throat: Status: Acute Code(s): J02.9 - Acute pharyngitis, unspecified (2) MDD (major depressive disorder), recurrent severe, without psychosis: Status: Acute Code(s): F33.2 - Major depressive disorder, recurrent severe without psychotic features Plan the patient is a 71-year-old female with a long history of anxiety and depression, OCD symptoms admitted into the facility for exacerbation of depression with thought blocking and the possibility of sell the dementia. She was already tested and so far, there is no evidence of dementia mostly depressive symptoms with thought process disorder, mostly thought blocking. She has already failed to Zyprexa so far she is doing much better with risperidone but her functionality still impaired. The patient has a very difficult time to take decisions and in general her ability to take care of herself is very limited. Plan 1. Continue same medications. 2. ECT was discussed with the patient, will talk with her healthcare proxy. 3. The patient cannot take care of herself so she will probably we have to go to an [facility]. I spent minutes with the patient and/or on the patient floor today, greater than?50% of which was spent counseling/coordinating care. Reason for contiued inpatient stay Substantial Risk for: inability to function, rapid decompensation and med/psych decompensation
[2021-06-19 20:06] VITALS: BP 166/67; PULSE 107; RESP 16; TEMP 37.2; O2SAT 99
[2021-06-19] MEDS: risperiDONE 1 MG TABLET PO (20:30)
[2021-06-20 08:00] VITALS: BP 118/56; PULSE 89; RESP 17; TEMP 36.6; O2SAT 98
[2021-06-20] MEDS: risperiDONE 0.5 MG TABLET PO (09:32)
[2021-06-20] MEDS: PARoxetine HCL 40 MG TABLET PO (09:32)
[2021-06-20] MEDS: Thiamine HCL 100 MG TABLET PO (09:32)
[2021-06-20] MEDS: Multivitamin TABLET 1 TAB PO (09:32)
[2021-06-20] MEDS: Cyanocobalamin (Vitamin B-12) 100 MCG TABLET PO (09:32)
--- NOTE | 2021-06-20 13:58 | HO.PSYCHPN ---
Subjective Subjective Date of Service: 06/20/21 Reason For Visit: generalized anxiety disorder major depressive diso Subjective Notes: Conditional Voluntary Interim History: The nursing staff reported the patient takes between 20 minutes to 45 minutes to review all her medications which she has to take. She still have thought blocking, mild psychomotor retardation but she is redirectable. Today we had a meeting with her healthcare proxy Tatianna and explain her that she needs to have ECT. In the meeting, we explained her that we can affirmed her her care proxy so she can have ECT without her full consent. At this moment, the patient remains as usual, with delayed response, thought blocking, unable to take informed decisions. He takes more than half an hour for her to choose her menu every day. We have discussed all these days regarding ECT but she is unable to take a decision and she has noticed that she cannot make decisions by herself. Mental Status Exam Mental Status Exam Patient Appearance: Appropriate Patient Orientation: Person and Situation Level of Consciousness: Awake Patient Behavior: Cooperative Mood Description: Depressed Affect Description: Constricted Patient Cognition Impaired: No Ability to Follow Directions: Good Speech Pattern: Clear Hallucinations: None Delusions: Not Present Thought Process: Linear Thought Content: positive for Intact Judgement: Fair Diagnostics Vital Signs (24Hr): Vital Signs - 24 hr 06/19/21 20:06 06/20/21 08:00 Temperature 98.9 F 97.8 F Pulse Rate 107 H 89 Respiratory Rate 16 17 Blood Pressure 166/67 H 118/56 L Pulse Oximetry 99 98 BMI result Body Mass Index 22.6 Labs Results: 06/16/21 07:53 06/16/21 07:53 Imaging Radiology Impressions: ITS Impressions Head CT 05/17/21 06:05 IMPRESSION: No acute intracranial pathology. SPECT Scan-Brain NM 06/11/21 15:35 IMPRESSION: Diffusely decreased perfusion in the right frontal and parietal cerebral cortex is most consistent with a vascular etiology. Although such unilateral findings can be seen in Alzheimer's disease, this unilateral involvement would be atypical. Correlation with a current MRI of the brain is recommended for further evaluation, if not contraindicated. Medications Medications Current Medications Acetaminophen (Acetaminophen 325 Mg Tablet) 650 mg PO Q6H PRN PRN Reason: Headache/Pain Mild Scale (1-3) Last Admin: 05/03/21 19:30 Dose: 650 mg Documented by: Al Hydroxide/Mg Hydroxide (Magnesium Hydrox/Alum Hydrox 30 Ml Oral.Susp) 30 ml PO Q6H PRN PRN Reason: Heartburn/Nausea Benzocaine (Throat Lozenge, Medicated Lozenge) 1 lozenge MUCOUS MEM Q2H PRN PRN Reason: Sore Throat Last Admin: 06/14/21 21:40 Dose: 1 lozenge Documented by: Cyanocobalamin (Cyanocobalamin (Vitamin B-12) 100 Mcg Tablet) 100 mcg PO DAILY [facility] Last Admin: 06/20/21 09:32 Dose: 100 mcg Documented by: Ergocalciferol (Ergocalciferol (Vitamin D2) 1,250 Mcg Capsule) 1,250 mcg PO Q7D [facility] Last Admin: 06/14/21 17:34 Dose: 1,250 mcg Documented by: Loperamide HCl (Loperamide Hcl 2 Mg Capsule) 2 mg PO Q4H PRN PRN Reason: Diarrhea Last Admin: 06/04/21 00:37 Dose: 2 mg Documented by: Magnesium Hydroxide (Milk Of Magnesia 30 Ml Oral.Susp) 30 ml PO DAILY PRN PRN Reason: Constipation Last Admin: 05/25/21 00:47 Dose: 30 ml Documented by: Multivitamins/Vitamin C (Multivitamin Tablet) 1 tab PO DAILY [facility] Last Admin: 06/20/21 09:32 Dose: 1 tab Documented by: Paroxetine HCl (Paroxetine Hcl 40 Mg Tablet) 40 mg PO DAILY [facility] Last Admin: 06/20/21 09:32 Dose: 40 mg Documented by: Polyethylene Glycol (Polyethylene Glycol 3350 17 Gm Powd.Pack) 17 gm PO BID [facility] Last Admin: 06/20/21 09:43 Dose: Not Given Documented by: Risperidone (Risperidone 0.5 Mg Tablet) 0.5 mg PO BID@0800,1500 [facility] Last Admin: 06/20/21 09:32 Dose: 0.5 mg Documented by: Risperidone (Risperidone 1 Mg Tablet) 1 mg PO BEDTIME [facility] Last Admin: 06/19/21 20:30 Dose: 1 mg Documented by: Thiamine HCl (Thiamine Hcl 100 Mg Tablet) 100 mg PO DAILY [facility] Last Admin: 06/20/21 09:32 Dose: 100 mg Documented by: Trazodone HCl (Trazodone Hcl 25 Mg Halftab) 25 mg PO BEDTIME PRN PRN Reason: Insomnia Last Admin: 05/21/21 23:25 Dose: 25 mg Documented by: Allergies Allergies Allergy/AdvReac Type Severity Reaction Status Date / Time No Known Allergies Allergy Verified 05/02/21 13:17 Assessment & Plan Assessment & Plan (1) Sore throat: Status: Acute Code(s): J02.9 - Acute pharyngitis, unspecified (2) MDD (major depressive disorder), recurrent severe, without psychosis: Status: Acute Code(s): F33.2 - Major depressive disorder, recurrent severe without psychotic features Plan the patient is a 71-year-old female with a long history of anxiety and depression, OCD symptoms admitted into the facility for exacerbation of depression with thought blocking and the possibility of sell the dementia. She was already tested and so far, there is no evidence of dementia mostly depressive symptoms with thought process disorder, mostly thought blocking. She has already failed to Zyprexa so far she is doing much better with risperidone but her functionality still impaired. The patient has a very difficult time to take decisions and in general her ability to take care of herself is very limited. Plan 1. Continue same medications. 2. ECT was discussed with the patient, We had talk with her healthcare proxy today and she will come up with a decision in the next days.. 3. The patient cannot take care of herself , she needs constant cues and redirection so she will probably we have to go to an [facility]. I spent minutes with the patient and/or on the patient floor today, greater than?50% of which was spent counseling/coordinating care. Reason for contiued inpatient stay Substantial Risk for: inability to function, rapid decompensation and med/psych decompensation
[2021-06-20 18:00] VITALS: BP 154/66; PULSE 107; RESP 18; TEMP 36.6; O2SAT 95
[2021-06-20] MEDS: risperiDONE 1 MG TABLET PO (20:34)
[2021-06-21 08:48] VITALS: BP 152/76; PULSE 101; RESP 14; TEMP 37.4; O2SAT 98
[2021-06-21] MEDS: Thiamine HCL 100 MG TABLET PO (08:50)
[2021-06-21] MEDS: PARoxetine HCL 40 MG TABLET PO (08:50)
[2021-06-21] MEDS: Cyanocobalamin (Vitamin B-12) 100 MCG TABLET PO (08:50)
[2021-06-21] MEDS: risperiDONE 0.5 MG TABLET PO (08:50)
[2021-06-21] MEDS: Multivitamin TABLET 1 TAB PO (08:50)
--- NOTE | 2021-06-21 15:57 | P.PNPSI_ITS ---
Subjective Subjective Date of Service: 06/21/21 Reason For Visit: generalized anxiety disorder major depressive diso Subjective Notes: Conditional Voluntary Interim History: the nursing staff reported the patient has been a little more visible in the unit but still very anxious and perseverating unable to take decisions periods On interview the patient reported that she was visited by her friend Tatianna who is the healthcare proxy and she has not make a decision to get ECT. Mental Status Exam Mental Status Exam Patient Appearance: Well Grooomed Patient Orientation: Person and Situation Level of Consciousness: Awake and Appropriate Patient Behavior: Cooperative Mood Description: Constricted Affect Description: Constricted Patient Cognition Impaired: No Ability to Follow Directions: Good Speech Pattern: Appropriate Memory Description: Intact Hallucinations: None Delusions: Not Present Thought Process: Distracted and Slowed Thinking Thought Content: positive for Obsessional Thoughts and positive for Circumstantial Judgement: Fair Diagnostics Vital Signs (24Hr): Vital Signs - 24 hr 06/20/21 18:00 06/21/21 08:48 Temperature 98 F 99.4 F Pulse Rate 107 H 101 H Respiratory Rate 18 14 Blood Pressure 154/66 H 152/76 H Pulse Oximetry 95 98 BMI result Body Mass Index 22.6 Labs Results: 06/16/21 07:53 06/16/21 07:53 Imaging Radiology Impressions: ITS Impressions Head CT 05/17/21 06:05 IMPRESSION: No acute intracranial pathology. SPECT Scan-Brain NM 06/11/21 15:35 IMPRESSION: Diffusely decreased perfusion in the right frontal and parietal cerebral cortex is most consistent with a vascular etiology. Although such unilateral findings can be seen in Alzheimer's disease, this unilateral involvement would be atypical. Correlation with a current MRI of the brain is recommended for further evaluation, if not contraindicated. Medications Medications Current Medications Acetaminophen (Acetaminophen 325 Mg Tablet) 650 mg PO Q6H PRN PRN Reason: Headache/Pain Mild Scale (1-3) Last Admin: 05/03/21 19:30 Dose: 650 mg Documented by: Al Hydroxide/Mg Hydroxide (Magnesium Hydrox/Alum Hydrox 30 Ml Oral.Susp) 30 ml PO Q6H PRN PRN Reason: Heartburn/Nausea Benzocaine (Throat Lozenge, Medicated Lozenge) 1 lozenge MUCOUS MEM Q2H PRN PRN Reason: Sore Throat Last Admin: 06/14/21 21:40 Dose: 1 lozenge Documented by: Cyanocobalamin (Cyanocobalamin (Vitamin B-12) 100 Mcg Tablet) 100 mcg PO DAILY [facility] Last Admin: 06/21/21 08:50 Dose: 100 mcg Documented by: Ergocalciferol (Ergocalciferol (Vitamin D2) 1,250 Mcg Capsule) 1,250 mcg PO Q7D [facility] Last Admin: 06/14/21 17:34 Dose: 1,250 mcg Documented by: Loperamide HCl (Loperamide Hcl 2 Mg Capsule) 2 mg PO Q4H PRN PRN Reason: Diarrhea Last Admin: 06/04/21 00:37 Dose: 2 mg Documented by: Magnesium Hydroxide (Milk Of Magnesia 30 Ml Oral.Susp) 30 ml PO DAILY PRN PRN Reason: Constipation Last Admin: 05/25/21 00:47 Dose: 30 ml Documented by: Multivitamins/Vitamin C (Multivitamin Tablet) 1 tab PO DAILY [facility] Last Admin: 06/21/21 08:50 Dose: 1 tab Documented by: Paroxetine HCl (Paroxetine Hcl 40 Mg Tablet) 40 mg PO DAILY [facility] Last Admin: 06/21/21 08:50 Dose: 40 mg Documented by: Polyethylene Glycol (Polyethylene Glycol 3350 17 Gm Powd.Pack) 17 gm PO BID [facility] Last Admin: 06/21/21 08:51 Dose: Not Given Documented by: Risperidone (Risperidone 0.5 Mg Tablet) 0.5 mg PO BID@0800,1500 [facility] Last Admin: 06/21/21 08:50 Dose: 0.5 mg Documented by: Risperidone (Risperidone 1 Mg Tablet) 1 mg PO BEDTIME [facility] Last Admin: 06/20/21 20:34 Dose: 1 mg Documented by: Thiamine HCl (Thiamine Hcl 100 Mg Tablet) 100 mg PO DAILY [facility] Last Admin: 06/21/21 08:50 Dose: 100 mg Documented by: Trazodone HCl (Trazodone Hcl 25 Mg Halftab) 25 mg PO BEDTIME PRN PRN Reason: Insomnia Last Admin: 05/21/21 23:25 Dose: 25 mg Documented by: Allergies Allergies Allergy/AdvReac Type Severity Reaction Status Date / Time No Known Allergies Allergy Verified 05/02/21 13:17 Assessment & Plan Assessment & Plan (1) Sore throat: Status: Acute Code(s): J02.9 - Acute pharyngitis, unspecified (2) MDD (major depressive disorder), recurrent severe, without psychosis: Status: Acute Code(s): F33.2 - Major depressive disorder, recurrent severe without psychotic features Plan the patient is a 71-year-old female with a long history of anxiety and depression, OCD symptoms admitted into the facility for exacerbation of depression with thought blocking and the possibility of sell the dementia. She was already tested and so far, there is no evidence of dementia mostly depressive symptoms with thought process disorder, mostly thought blocking. She has already failed to Zyprexa so far she is doing much better with risperidone but her functionality still impaired. The patient has a very difficult time to take decisions and in general her ability to take care of herself is very limited. Plan 1. Continue same medications. 2. ECT was discussed with the patient, We had talk with her healthcare proxy today and she will come up with a decision in the next days.. 3. The patient cannot take care of herself , she needs constant cues and redirection so she will probably we have to go to an [facility]. I spent minutes with the patient and/or on the patient floor today, g reater than?50% of which was spent counseling/coordinating care. Reason for contiued inpatient stay Substantial Risk for: inability to function, rapid decompensation and med/psych decompensation
[2021-06-21 20:14] VITALS: BP 133/60; PULSE 96; RESP 17; TEMP 37.1; O2SAT 99
[2021-06-22 08:19] VITALS: BP 165/67; PULSE 83; RESP 14; TEMP 36.9; O2SAT 100
[2021-06-22] MEDS: Thiamine HCL 100 MG TABLET PO (08:20)
[2021-06-22] MEDS: PARoxetine HCL 40 MG TABLET PO (08:20)
[2021-06-22] MEDS: Cyanocobalamin (Vitamin B-12) 100 MCG TABLET PO (08:20)
[2021-06-22] MEDS: Multivitamin TABLET 1 TAB PO (08:20)
[2021-06-22] MEDS: risperiDONE 0.5 MG TABLET PO (08:20)
--- NOTE | 2021-06-22 15:14 | HO.PSYCHPN ---
Subjective Subjective Date of Service: 06/22/21 Reason For Visit: generalized anxiety disorder major depressive diso Subjective Notes: Conditional Voluntary Interim History: the nursing staff reported that the patient refused medications twice yesterday. She slept well but she remains perseverative, mostly in her room. 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 The manager social work reported that her healthcare proxy does not want to do ECT without a full consent of the patient. Mental Status Exam Mental Status Exam Patient Appearance: Appropriate Patient Orientation: Person and Situation Level of Consciousness: Awake Patient Behavior: Guarded and Passive Mood Description: Blunted Affect Description: Constricted Patient Cognition Impaired: No Ability to Follow Directions: Fair Speech Pattern: Clear Memory Description: Intact Hallucinations: None Delusions: Paranoid Ideation Thought Process: Distracted and Slowed Thinking Thought Content: positive for Poverty of Content and positive for Thought Blocking Judgement: Fair Diagnostics Vital Signs (24Hr): Vital Signs - 24 hr 06/21/21 20:14 06/22/21 08:19 Temperature 98.7 F 98.5 F Pulse Rate 96 83 Respiratory Rate 17 14 Blood Pressure 133/60 165/67 H Pulse Oximetry 99 100 BMI result Body Mass Index 22.6 Labs Results: 06/16/21 07:53 06/16/21 07:53 Imaging Radiology Impressions: ITS Impressions Head CT 05/17/21 06:05 IMPRESSION: No acute intracranial pathology. SPECT Scan-Brain NM 06/11/21 15:35 IMPRESSION: Diffusely decreased perfusion in the right frontal and parietal cerebral cortex is most consistent with a vascular etiology. Although such unilateral findings can be seen in Alzheimer's disease, this unilateral involvement would be atypical. Correlation with a current MRI of the brain is recommended for further evaluation, if not contraindicated. Medications Medications Current Medications Acetaminophen (Acetaminophen 325 Mg Tablet) 650 mg PO Q6H PRN PRN Reason: Headache/Pain Mild Scale (1-3) Last Admin: 05/03/21 19:30 Dose: 650 mg Documented by: Al Hydroxide/Mg Hydroxide (Magnesium Hydrox/Alum Hydrox 30 Ml Oral.Susp) 30 ml PO Q6H PRN PRN Reason: Heartburn/Nausea Benzocaine (Throat Lozenge, Medicated Lozenge) 1 lozenge MUCOUS MEM Q2H PRN PRN Reason: Sore Throat Last Admin: 02/10/22 21:40 Dose: 1 lozenge Documented by: Cyanocobalamin (Cyanocobalamin (Vitamin B-12) 100 Mcg Tablet) 100 mcg PO DAILY [facility] Last Admin: 06/22/21 08:20 Dose: 100 mcg Documented by: Ergocalciferol (Ergocalciferol (Vitamin D2) 1,250 Mcg Capsule) 1,250 mcg PO Q7D [facility] Last Admin: 06/21/21 20:06 Dose: Not Given Documented by: Loperamide HCl (Loperamide Hcl 2 Mg Capsule) 2 mg PO Q4H PRN PRN Reason: Diarrhea Last Admin: 06/04/21 00:37 Dose: 2 mg Documented by: Magnesium Hydroxide (Milk Of Magnesia 30 Ml Oral.Susp) 30 ml PO DAILY PRN PRN Reason: Constipation Last Admin: 05/25/21 00:47 Dose: 30 ml Documented by: Multivitamins/Vitamin C (Multivitamin Tablet) 1 tab PO DAILY [facility] Last Admin: 06/22/21 08:20 Dose: 1 tab Documented by: Paroxetine HCl (Paroxetine Hcl 40 Mg Tablet) 40 mg PO DAILY [facility] Last Admin: 06/22/21 08:20 Dose: 40 mg Documented by: Polyethylene Glycol (Polyethylene Glycol 3350 17 Gm Powd.Pack) 17 gm PO BID [facility] Last Admin: 06/22/21 08:21 Dose: Not Given Documented by: Risperidone (Risperidone 0.5 Mg Tablet) 0.5 mg PO BID@0800,1500 [facility] Last Admin: 06/22/21 08:20 Dose: 0.5 mg Documented by: Risperidone (Risperidone 1 Mg Tablet) 1 mg PO BEDTIME [facility] Last Admin: 06/21/21 20:12 Dose: Not Given Documented by: Thiamine HCl (Thiamine Hcl 100 Mg Tablet) 100 mg PO DAILY [facility] Last Admin: 06/22/21 08:20 Dose: 100 mg Documented by: Trazodone HCl (Trazodone Hcl 25 Mg Halftab) 25 mg PO BEDTIME PRN PRN Reason: Insomnia Last Admin: 05/21/21 23:25 Dose: 25 mg Documented by: Allergies Allergies Allergy/AdvReac Type Severity Reaction Status Date / Time No Known Allergies Allergy Verified 05/02/21 13:17 Assessment & Plan Assessment & Plan (1) Sore throat: Status: Acute Code(s): J02.9 - Acute pharyngitis, unspecified (2) MDD (major depressive disorder), recurrent severe, without psychosis: Status: Acute Code(s): F33.2 - Major depressive disorder, recurrent severe without psychotic features Plan the patient is a 71-year-old female with a long history of anxiety and depression, OCD symptoms admitted into the facility for exacerbation of depression with thought blocking and the possibility of sell the dementia. She was already tested and so far, there is no evidence of dementia mostly depressive symptoms with thought process disorder, mostly thought blocking. She has already failed to Zyprexa so far she is doing much better with risperidone but her functionality still impaired. The patient has a very difficult time to take decisions and in general her ability to take care of herself is very limited. Plan 1. Continue same medications. 2. ECT was discussed with the patient, We had talk with her healthcare proxy And apparently they are reluctant to try ECT 3. The patient cannot take care of herself , she needs constant cues and redirection so she will probably we have to go to an [facility]. I spent minutes with the patient and/or on the patient floor today, greater than?50% of which was spent counseling/coordinating care. Reason for contiued inpatient stay Substantial Risk for: inability to function, rapid decompensation and med/psych decompensation
[2021-06-22] MEDS: risperiDONE 1 MG TABLET PO (20:03)
[2021-06-22 20:10] VITALS: BP 146/68; PULSE 97; RESP 17; TEMP 37.1; O2SAT 100
[2021-06-23 08:00] VITALS: BP 135/61; PULSE 90; TEMP 36.6; O2SAT 99
[2021-06-23] MEDS: Multivitamin TABLET 1 TAB PO (08:44)
[2021-06-23] MEDS: Thiamine HCL 100 MG TABLET PO (08:44)
[2021-06-23] MEDS: PARoxetine HCL 40 MG TABLET PO (08:44)
[2021-06-23] MEDS: risperiDONE 0.5 MG TABLET PO ×2 (08:45→14:51)
[2021-06-23] MEDS: Cyanocobalamin (Vitamin B-12) 100 MCG TABLET PO (08:45)
--- NOTE | 2021-06-23 11:09 | HO.PSYCHPN ---
Subjective Subjective Date of Service: 06/23/21 Reason For Visit: generalized anxiety disorder major depressive diso Interim History: visibly tremulous in the legs, hesitant, clearly anxious. states she just doesn't know about ECT, if she should do it. MD speaks with her for a time, discussing benefits of ECT and encouraging her to consider it as an option since she has been here quite a while and psychopharm does not appear to be helping her much. appears essentially paralyzed by her anxiety. c/o blurry vision. per staff, was restless, unsteady, confused, agitated last evening. extremely anxious. poor sleep. taking meds. Mental Status Exam Mental Status Exam Narrative: tremulous in the legs, tense body posturing. cooperative. no PMA/PMR. speech halting, decr in amount, incr latency, nml loudness. thoughts linear and logical to an extent, but extremely colored by her anxiety. affect constricted, normo-intense, non-labile. mood anxious. no SI/HI/AVH expressed. Diagnostics Vital Signs (24Hr): Vital Signs - 24 hr 06/22/21 20:10 06/23/21 08:00 Temperature 98.7 F 97.9 F Pulse Rate 97 90 Respiratory Rate 17 Blood Pressure 146/68 H 135/61 Pulse Oximetry 100 99 BMI result Body Mass Index 22.6 Labs Results: 06/16/21 07:53 06/16/21 07:53 Imaging Radiology Impressions: ITS Impressions Head CT 05/17/21 06:05 IMPRESSION: No acute intracranial pathology. SPECT Scan-Brain NM 06/11/21 15:35 IMPRESSION: Diffusely decreased perfusion in the right frontal and parietal cerebral cortex is most consistent with a vascular etiology. Although such unilateral findings can be seen in Alzheimer's disease, this unilateral involvement would be atypical. Correlation with a current MRI of the brain is recommended for further evaluation, if not contraindicated. Medications Medications Current Medications Acetaminophen (Acetaminophen 325 Mg Tablet) 650 mg PO Q6H PRN PRN Reason: Headache/Pain Mild Scale (1-3) Last Admin: 05/03/21 19:30 Dose: 650 mg Documented by: Al Hydroxide/Mg Hydroxide (Magnesium Hydrox/Alum Hydrox 30 Ml Oral.Susp) 30 ml PO Q6H PRN PRN Reason: Heartburn/Nausea Benzocaine (Throat Lozenge, Medicated Lozenge) 1 lozenge MUCOUS MEM Q2H PRN PRN Reason: Sore Throat Last Admin: 06/14/21 21:40 Dose: 1 lozenge Documented by: Cyanocobalamin (Cyanocobalamin (Vitamin B-12) 100 Mcg Tablet) 100 mcg PO DAILY [facility] Last Admin: 06/23/21 08:45 Dose: 100 mcg Documented by: Ergocalciferol (Ergocalciferol (Vitamin D2) 1,250 Mcg Capsule) 1,250 mcg PO Q7D [facility] Last Admin: 06/21/21 20:06 Dose: Not Given Documented by: Loperamide HCl (Loperamide Hcl 2 Mg Capsule) 2 mg PO Q4H PRN PRN Reason: Diarrhea Last Admin: 06/04/21 00:37 Dose: 2 mg Documented by: Magnesium Hydroxide (Milk Of Magnesia 30 Ml Oral.Susp) 30 ml PO DAILY PRN PRN Reason: Constipation Last Admin: 05/25/21 00:47 Dose: 30 ml Documented by: Multivitamins/Vitamin C (Multivitamin Tablet) 1 tab PO DAILY [facility] Last Admin: 06/23/21 08:44 Dose: 1 tab Documented by: Paroxetine HCl (Paroxetine Hcl 40 Mg Tablet) 40 mg PO DAILY [facility] Last Admin: 06/23/21 08:44 Dose: 40 mg Documented by: Polyethylene Glycol (Polyethylene Glycol 3350 17 Gm Powd.Pack) 17 gm PO BID [facility] Last Admin: 06/23/21 09:07 Dose: Not Given Documented by: Risperidone (Risperidone 0.5 Mg Tablet) 0.5 mg PO BID@0800,1500 [facility] Last Admin: 06/23/21 08:45 Dose: 0.5 mg Documented by: Risperidone (Risperidone 1 Mg Tablet) 1 mg PO BEDTIME [facility] Last Admin: 06/22/21 20:03 Dose: 1 mg Documented by: Thiamine HCl (Thiamine Hcl 100 Mg Tablet) 100 mg PO DAILY [facility] Last Admin: 06/23/21 08:44 Dose: 100 mg Documented by: Trazodone HCl (Trazodone Hcl 25 Mg Halftab) 25 mg PO BEDTIME PRN PRN Reason: Insomnia Last Admin: 05/21/21 23:25 Dose: 25 mg Documented by: Allergies Allergies Allergy/AdvReac Type Severity Reaction Status Date / Time No Known Allergies Allergy Verified 05/02/21 13:17 Assessment & Plan Assessment & Plan (1) Sore throat: Status: Acute Code(s): J02.9 - Acute pharyngitis, unspecified (2) MDD (major depressive disorder), recurrent severe, without psychosis: Status: Acute Code(s): F33.2 - Major depressive disorder, recurrent severe without psychotic features Plan the patient is a 71-year-old female with a long history of anxiety and depression, OCD symptoms admitted into the facility for exacerbation of depression with thought blocking and the possibility of sell the dementia. She was already tested and so far, there is no evidence of dementia mostly depressive symptoms with thought process disorder, mostly thought blocking. She has already failed to Zyprexa so far she is doing much better with risperidone but her functionality still impaired. The patient has a very difficult time to take decisions and in general her ability to take care of herself is very limited. Plan 1. Continue same medications. 2. ECT was discussed with the patient, We had talk with her healthcare proxy And apparently they are reluctant to try ECT 3. The patient cannot take care of herself , she needs constant cues and redirection so she will probably we have to go to an [facility]. I spent minutes with the patient and/or on the patient floor today, greater than?50% of which was spent counseling/coordinating care. Reason for contiued inpatient stay Substantial Risk for: inability to function
[2021-06-23] MEDS: risperiDONE 1 MG TABLET PO (20:51)
[2021-06-23 20:54] VITALS: BP 143/65; PULSE 86; RESP 17; TEMP 36.9; O2SAT 94
[2021-06-24 06:00] VITALS: BP 133/58; PULSE 101; TEMP 36.8; O2SAT 97
[2021-06-24] MEDS: risperiDONE 0.5 MG TABLET PO (09:15)
[2021-06-24] MEDS: PARoxetine HCL 40 MG TABLET PO (09:17)
--- NOTE | 2021-06-24 10:32 | P.PNPSI_ITS ---
Subjective Subjective Date of Service: 06/24/21 Reason For Visit: generalized anxiety disorder major depressive diso Interim History: appears as per usual. paralyzed by anxiety, tremulous, hyperventilating. asking what ECT stands for and when she might receive her first treatment. does not indicate whether she intends to engage in ECT, however. does not respond to MD's questions by the end of the interview, appearing too paralyzed to do so. encouraged to consider ECT. per staff, slept well overnight. showered last evening. Mental Status Exam Mental Status Exam Narrative: tremulous throughout, tense body posturing. cooperative. no PMA/PMR. speech halting, decr in amount, incr latency, nml loudness. thoughts linear and logical to an extent, but extremely colored by her anxiety. affect constricted, normo-intense, non-labile. mood anxious. no SI/HI/AVH expressed. Diagnostics Vital Signs (24Hr): Vital Signs - 24 hr 06/23/21 20:54 Temperature 98.5 F Pulse Rate 86 Respiratory Rate 17 Blood Pressure 143/65 H Pulse Oximetry 94 BMI result Body Mass Index 22.6 Labs Results: 06/16/21 07:53 06/16/21 07:53 Imaging Radiology Impressions: ITS Impressions Head CT 05/17/21 06:05 IMPRESSION: No acute intracranial pathology. SPECT Scan-Brain NM 06/11/21 15:35 IMPRESSION: Diffusely decreased perfusion in the right frontal and parietal cerebral cortex is most consistent with a vascular etiology. Although such unilateral findings can be seen in Alzheimer's disease, this unilateral involvement would be atypical. Correlation with a current MRI of the brain is recommended for further evaluation, if not contraindicated. Medications Medications Current Medications Acetaminophen (Acetaminophen 325 Mg Tablet) 650 mg PO Q6H PRN PRN Reason: Headache/Pain Mild Scale (1-3) Last Admin: 05/03/21 19:30 Dose: 650 mg Documented by: Al Hydroxide/Mg Hydroxide (Magnesium Hydrox/Alum Hydrox 30 Ml Oral.Susp) 30 ml PO Q6H PRN PRN Reason: Heartburn/Nausea Benzocaine (Throat Lozenge, Medicated Lozenge) 1 lozenge MUCOUS MEM Q2H PRN PRN Reason: Sore Throat Last Admin: 06/14/21 21:40 Dose: 1 lozenge Documented by: Cyanocobalamin (Cyanocobalamin (Vitamin B-12) 100 Mcg Tablet) 100 mcg PO DAILY [facility] Last Admin: 06/23/21 08:45 Dose: 100 mcg Documented by: Ergocalciferol (Ergocalciferol (Vitamin D2) 1,250 Mcg Capsule) 1,250 mcg PO Q7D [facility] Last Admin: 06/21/21 20:06 Dose: Not Given Documented by: Loperamide HCl (Loperamide Hcl 2 Mg Capsule) 2 mg PO Q4H PRN PRN Reason: Diarrhea Last Admin: 06/04/21 00:37 Dose: 2 mg Documented by: Magnesium Hydroxide (Milk Of Magnesia 30 Ml Oral.Susp) 30 ml PO DAILY PRN PRN Reason: Constipation Last Admin: 05/25/21 00:47 Dose: 30 ml Documented by: Multivitamins/Vitamin C (Multivitamin Tablet) 1 tab PO DAILY [facility] Last Admin: 06/23/21 08:44 Dose: 1 tab Documented by: Paroxetine HCl (Paroxetine Hcl 40 Mg Tablet) 40 mg PO DAILY [facility] Last Admin: 06/24/21 09:17 Dose: 40 mg Documented by: Polyethylene Glycol (Polyethylene Glycol 3350 17 Gm Powd.Pack) 17 gm PO BID [facility] Last Admin: 06/23/21 20:55 Dose: Not Given Documented by: Risperidone (Risperidone 0.5 Mg Tablet) 0.5 mg PO BID@0800,1500 [facility] Last Admin: 06/24/21 09:15 Dose: 0.5 mg Documented by: Risperidone (Risperidone 1 Mg Tablet) 1 mg PO BEDTIME [facility] Last Admin: 06/23/21 20:51 Dose: 1 mg Documented by: Thiamine HCl (Thiamine Hcl 100 Mg Tablet) 100 mg PO DAILY [facility] Last Admin: 06/23/21 08:44 Dose: 100 mg Documented by: Trazodone HCl (Trazodone Hcl 25 Mg Halftab) 25 mg PO BEDTIME PRN PRN Reason: Insomnia Last Admin: 05/21/21 23:25 Dose: 25 mg Documented by: Allergies Allergies Allergy/AdvReac Type Severity Reaction Status Date / Time No Known Allergies Allergy Verified 05/02/21 13:17 Assessment & Plan Assessment & Plan (1) Sore throat: Status: Acute Code(s): J02.9 - Acute pharyngitis, unspecified (2) MDD (major depressive disorder), recurrent severe, without psychosis: Status: Acute Code(s): F33.2 - Major depressive disorder, recurrent severe without psychotic features Plan the patient is a 71-year-old female with a long history of anxiety a nd depression, OCD symptoms admitted into the facility for exacerbation of depression with thought blocking and the possibility of sell the dementia. She was already tested and so far, there is no evidence of dementia mostly depressive symptoms with thought process disorder, mostly thought blocking. She has already failed to Zyprexa so far she is doing much better with risperidone but her functionality still impaired. The patient has a very difficult time to take decisions and in general her ability to take care of herself is very limited. Plan 1. Continue same medications. 2. ECT was discussed with the patient, We had talk with her healthcare proxy And apparently they are reluctant to try ECT 3. The patient cannot take care of herself , she needs constant cues and redirection so she will probably we have to go to an [facility]. I spent minutes with the patient and/or on the patient floor today, greater than?50% of which was spent counseling/coordinating care. Reason for contiued inpatient stay Substantial Risk for: inability to function and rapid decompensation
[2021-06-24] MEDS: risperiDONE 1 MG TABLET PO (20:37)
[2021-06-24 20:50] VITALS: BP 166/60; PULSE 96; RESP 16; TEMP 37.4; O2SAT 97
[2021-06-25] MEDS: Multivitamin TABLET 1 TAB PO (08:43)
[2021-06-25] MEDS: risperiDONE 0.5 MG TABLET PO ×2 (08:43→16:27)
[2021-06-25] MEDS: Cyanocobalamin (Vitamin B-12) 100 MCG TABLET PO (08:43)
[2021-06-25] MEDS: Thiamine HCL 100 MG TABLET PO (08:43)
[2021-06-25] MEDS: PARoxetine HCL 40 MG TABLET PO (08:43)
[2021-06-25 09:00] VITALS: BP 180/67; PULSE 90; RESP 16; TEMP 36.6; O2SAT 99
--- NOTE | 2021-06-25 16:45 | P.PNPSI_ITS ---
Subjective Subjective Date of Service: 06/25/21 Reason For Visit: generalized anxiety disorder major depressive diso Interim History: pt encountered in milieu after group, amenable to come to interview room for interview. expresses concern she won't be coherent to MD. repeatedly sitting and then standing and pacing. difficulty generating responses, apparently severely impaired by her anxiety. discuss utility of ECT for depression and MD strongly encouraged pt to consider the option. per staff, awaiting placement for [facility]. ECT remains a possibility but seems doubtful. Mental Status Exam Mental Status Exam Narrative: tremulous throughout, tense body posturing. cooperative. PMA of repeated sitting and standing and pacing. speech halting, decr in amount, incr latency, nml loudness. thoughts linear and logical to an extent, but extremely colored by her anxiety. affect constricted, normo-intense, non-labile. mood anxious. no SI/HI/AVH expressed. Diagnostics Vital Signs (24Hr): Vital Signs - 24 hr 06/24/21 20:50 06/25/21 09:00 Temperature 99.3 F 97.8 F Pulse Rate 96 90 Respiratory Rate 16 16 Blood Pressure 166/60 H 180/67 H Pulse Oximetry 97 99 BMI result Body Mass Index 22.6 Labs Results: 06/16/21 07:53 06/16/21 07:53 Imaging Radiology Impressions: ITS Impressions Head CT 05/17/21 06:05 IMPRESSION: No acute intracranial pathology. SPECT Scan-Brain NM 06/11/21 15:35 IMPRESSION: Diffusely decreased perfusion in the right frontal and parietal cerebral cortex is most consistent with a vascular etiology. Although such unilateral findings can be seen in Alzheimer's disease, this unilateral involvement would be atypical. Correlation with a current MRI of the brain is recommended for further evaluation, if not contraindicated. Medications Medications Current Medications Acetaminophen (Acetaminophen 325 Mg Tablet) 650 mg PO Q6H PRN PRN Reason: Headache/Pain Mild Scale (1-3) Last Admin: 05/03/21 19:30 Dose: 650 mg Documented by: Al Hydroxide/Mg Hydroxide (Magnesium Hydrox/Alum Hydrox 30 Ml Oral.Susp) 30 ml PO Q6H PRN PRN Reason: Heartburn/Nausea Benzocaine (Throat Lozenge, Medicated Lozenge) 1 lozenge MUCOUS MEM Q2H PRN PRN Reason: Sore Throat Last Admin: 06/14/21 21:40 Dose: 1 lozenge Documented by: Cyanocobalamin (Cyanocobalamin (Vitamin B-12) 100 Mcg Tablet) 100 mcg PO DAILY [facility] Last Admin: 06/25/21 08:43 Dose: 100 mcg Documented by: Ergocalciferol (Ergocalciferol (Vitamin D2) 1,250 Mcg Capsule) 1,250 mcg PO Q7D [facility] Last Admin: 06/21/21 20:06 Dose: Not Given Documented by: Loperamide HCl (Loperamide Hcl 2 Mg Capsule) 2 mg PO Q4H PRN PRN Reason: Diarrhea Last Admin: 06/04/21 00:37 Dose: 2 mg Documented by: Magnesium Hydroxide (Milk Of Magnesia 30 Ml Oral.Susp) 30 ml PO DAILY PRN PRN Reason: Constipation Last Admin: 05/25/21 00:47 Dose: 30 ml Documented by: Multivitamins/Vitamin C (Multivitamin Tablet) 1 tab PO DAILY [facility] Last Admin: 06/25/21 08:43 Dose: 1 tab Documented by: Paroxetine HCl (Paroxetine Hcl 40 Mg Tablet) 40 mg PO DAILY [facility] Last Admin: 06/25/21 08:43 Dose: 40 mg Documented by: Polyethylene Glycol (Polyethylene Glycol 3350 17 Gm Powd.Pack) 17 gm PO BID [facility] Last Admin: 06/25/21 09:42 Dose: Not Given Documented by: Risperidone (Risperidone 0.5 Mg Tablet) 0.5 mg PO BID@0800,1500 [facility] Last Admin: 06/25/21 16:27 Dose: 0.5 mg Documented by: Risperidone (Risperidone 1 Mg Tablet) 1 mg PO BEDTIME [facility] Last Admin: 06/24/21 20:37 Dose: 1 mg Documented by: Thiamine HCl (Thiamine Hcl 100 Mg Tablet) 100 mg PO DAILY [facility] Last Admin: 06/25/21 08:43 Dose: 100 mg Documented by: Trazodone HCl (Trazodone Hcl 25 Mg Halftab) 25 mg PO BEDTIME PRN PRN Reason: Insomnia Last Admin: 05/21/21 23:25 Dose: 25 mg Documented by: Allergies Allergies Allergy/AdvReac Type Severity Reaction Status Date / Time No Known Allergies Allergy Verified 05/02/21 13:17 Assessment & Plan Assessment & Plan (1) Sore throat: Status: Acute Code(s): J02.9 - Acute pharyngitis, unspecified (2) MDD (major depressive disorder), recurrent severe, without psychosis: Status: Acute Code(s): F33.2 - Major depressive disorder, recurrent severe without psychotic features Plan the patient is a 71-year-old female with a long history of anxiety and depression, OCD symptoms admitted into the facility for exacerbation of depression with thought blocking and the possibility of sell the dementia. She was already tested and so far, there is no evidence of dementia mostly depressive symptoms with thought process disorder, mostly thought blocking. She has already failed to Zyprexa so far she is doing much better with risperidone but her functionality still impaired. The patient has a very difficult time to take decisions and in general her ability to take care of herself is very limited. Plan 1. Continue same medications. 2. ECT was discussed with the patient, We had talk with her healthcare proxy And apparently they are reluctant to try ECT 3. The patient cannot take care of herself , she needs constant cues and redirection so she will probably we have to go to an [facility]. I spent minutes with the patient and/or on the patient floor today, greater than?50% of which was spent counseling/coordinating care. Reason for contiued inpatient stay Substantial Risk for: inability to function
[2021-06-25 19:00] VITALS: BP 175/81; PULSE 117; RESP 18; TEMP 36.8; O2SAT 99
[2021-06-25] MEDS: risperiDONE 1 MG TABLET PO (21:04)
[2021-06-26 07:30] VITALS: BP 156/64; PULSE 91; RESP 22; TEMP 36.8; O2SAT 98
[2021-06-26] MEDS: PARoxetine HCL 40 MG TABLET PO (08:47)
[2021-06-26] MEDS: Thiamine HCL 100 MG TABLET PO (08:47)
[2021-06-26] MEDS: risperiDONE 0.5 MG TABLET PO ×2 (08:47→16:05)
[2021-06-26] MEDS: Multivitamin TABLET 1 TAB PO (08:47)
[2021-06-26] MEDS: Cyanocobalamin (Vitamin B-12) 100 MCG TABLET PO (08:48)
--- NOTE | 2021-06-26 11:33 | P.PNPSI_ITS ---
Subjective Subjective Date of Service: 06/26/21 Reason For Visit: generalized anxiety disorder major depressive diso Subjective Notes: Conditional Voluntary Interim History: The nursing staff reported that the patient remains appropriate, she slept 7 hours and she was very focus on the drinks that she was taking on her tray. The medical social consultant reported that an assisted living facility will screen her today. On interview, the patient remains perseverative, anxious at times and able to take decisions by herself, no changes in her mental status. The healthcare proxy does not want to do ECT so at this point, ECT will not be pursued Mental Status Exam Mental Status Exam Patient Appearance: Appropriate Patient Orientation: Person and Situation Level of Consciousness: Awake and Appropriate Patient Behavior: Guarded, Passive and Suspicious Mood Description: Depressed Affect Description: Constricted Patient Cognition Impaired: No Ability to Follow Directions: Good Speech Pattern: Clear Memory Description: Intact Hallucinations: None Delusions: Paranoid Ideation Thought Process: Distracted and Evasive Thought Content: positive for [place], positive for Obsessional Thoughts and positive for Poverty of Content Judgement: Fair Diagnostics Vital Signs (24Hr): Vital Signs - 24 hr 06/25/21 19:00 06/26/21 07:30 Temperature 98.3 F 98.3 F Pulse Rate 117 H 91 Respiratory Rate 18 22 H Blood Pressure 175/81 H 156/64 H Pulse Oximetry 99 98 BMI result Body Mass Index 22.6 Labs Results: 06/16/21 07:53 06/16/21 07:53 Imaging Radiology Impressions: ITS Impressions Head CT 05/17/21 06:05 IMPRESSION: No acute intracranial pathology. SPECT Scan-Brain NM 06/11/21 15:35 IMPRESSION: Diffusely decreased perfusion in the right frontal and parietal cerebral cortex is most consistent with a vascular etiology. Although such unilateral findings can be seen in Alzheimer's disease, this unilateral involvement would be atypical. Correlation with a current MRI of the brain is recommended for further evaluation, if not contraindicated. Medications Medications Current Medications Acetaminophen (Acetaminophen 325 Mg Tablet) 650 mg PO Q6H PRN PRN Reason: Headache/Pain Mild Scale (1-3) Last Admin: 05/03/21 19:30 Dose: 650 mg Documented by: Al Hydroxide/Mg Hydroxide (Magnesium Hydrox/Alum Hydrox 30 Ml Oral.Susp) 30 ml PO Q6H PRN PRN Reason: Heartburn/Nausea Benzocaine (Throat Lozenge, Medicated Lozenge) 1 lozenge MUCOUS MEM Q2H PRN PRN Reason: Sore Throat Last Admin: 06/14/21 21:40 Dose: 1 lozenge Documented by: Clonazepam (Clonazepam 0.5 Mg Tablet) 0.5 mg PO TID [facility] Cyanocobalamin (Cyanocobalamin (Vitamin B-12) 100 Mcg Tablet) 100 mcg PO DAILY [facility] Last Admin: 06/26/21 08:48 Dose: 100 mcg Documented by: Ergocalciferol (Ergocalciferol (Vitamin D2) 1,250 Mcg Capsule) 1,250 mcg PO Q7D [facility] Last Admin: 06/21/21 20:06 Dose: Not Given Documented by: Loperamide HCl (Loperamide Hcl 2 Mg Capsule) 2 mg PO Q4H PRN PRN Reason: Diarrhea Last Admin: 06/04/21 00:37 Dose: 2 mg Documented by: Magnesium Hydroxide (Milk Of Magnesia 30 Ml Oral.Susp) 30 ml PO DAILY PRN PRN Reason: Constipation Last Admin: 05/25/21 00:47 Dose: 30 ml Documented by: Multivitamins/Vitamin C (Multivitamin Tablet) 1 tab PO DAILY [facility] Last Admin: 06/26/21 08:47 Dose: 1 tab Documented by: Paroxetine HCl (Paroxetine Hcl 40 Mg Tablet) 40 mg PO DAILY [facility] Last Admin: 06/26/21 08:47 Dose: 40 mg Documented by: Polyethylene Glycol (Polyethylene Glycol 3350 17 Gm Powd.Pack) 17 gm PO BID [facility] Last Admin: 06/26/21 08:54 Dose: Not Given Documented by: Risperidone (Risperidone 0.5 Mg Tablet) 0.5 mg PO BID@0800,1500 [facility] Last Admin: 06/26/21 08:47 Dose: 0.5 mg Documented by: Risperidone (Risperidone 1 Mg Tablet) 1 mg PO BEDTIME [facility] Last Admin: 06/25/21 21:04 Dose: 1 mg Documented by: Thiamine HCl (Thiamine Hcl 100 Mg Tablet) 100 mg PO DAILY [facility] Last Admin: 06/26/21 08:47 Dose: 100 mg Documented by: Trazodone HCl (Trazodone Hcl 25 Mg Halftab) 25 mg PO BEDTIME PRN PRN Reason: Insomnia Last Admin: 05/21/21 23:25 Dose: 25 mg Documented by: Allergies Allergies Allergy/AdvReac Type Severity Reaction Status Date / Time No Known Allergies Allergy Verified 05/02/21 13:17 Assessment & Plan Assessment & Plan (1) Sore throat: Status: Acute Code(s): J02.9 - Acute pharyngitis, unspecified (2) MDD (major depressive disorder), recurrent severe, without psychosis: Status: Acute Code(s): F33.2 - Major depressive disorder, recurrent severe without psychotic features Plan the patient is a 71-year-old female with a long history of anxiety and depression, OCD symptoms admitted into the facility for exacerbation of depression with thought blocking and the possibility of sell the dementia. She was already tested and so far, there is no evidence of dementia mostly depressive symptoms with thought process disorder, mostly thought blocking. She has already failed to Zyprexa so far she is doing much better with risperidone but her functionality still impaired. The patient has a very difficult time to take decisions and in general her ability to take care of herself is very limited. Plan 1. Continue same medications. Re-start Klonopin due to anxiety. 2. ECT was discussed with the patient, We had talk with her healthcare proxy And apparently they are reluctant to try ECT 3. The patient cannot take care of herself , she needs constant cues and redirection so she will probably we have to go to an [facility]. Today she will be ass essed by the staff of an [facility]. I spent minutes with the patient and/or on the patient floor today, greater than?50% of which was spent counseling/coordinating care. Reason for contiued inpatient stay Substantial Risk for: inability to function, rapid decompensation and med/psych decompensation
[2021-06-26] MEDS: clonazePAM 0.5 MG TABLET PO ×2 (16:05→20:17)
[2021-06-26] MEDS: risperiDONE 1 MG TABLET PO (20:11)
[2021-06-26 20:56] VITALS: BP 100/62; PULSE 101; RESP 17; TEMP 37.4; O2SAT 98
[2021-06-27 08:00] VITALS: PULSE 93; RESP 16; TEMP 37.1; O2SAT 98
[2021-06-27] MEDS: clonazePAM 0.5 MG TABLET PO ×3 (08:54→20:55)
[2021-06-27] MEDS: Thiamine HCL 100 MG TABLET PO (08:54)
[2021-06-27] MEDS: Multivitamin TABLET 1 TAB PO (08:54)
[2021-06-27] MEDS: PARoxetine HCL 40 MG TABLET PO (08:54)
[2021-06-27] MEDS: risperiDONE 0.5 MG TABLET PO ×2 (08:54→14:28)
[2021-06-27] MEDS: Cyanocobalamin (Vitamin B-12) 100 MCG TABLET PO (08:55)
--- NOTE | 2021-06-27 14:28 | HO.PSYCHPN ---
Subjective Subjective Date of Service: 06/27/21 Reason For Visit: generalized anxiety disorder major depressive diso Subjective Notes: Conditional Voluntary Interim History: The nursing staff reported the patient has been cooperative and pleasant compliant with treatment no changes in her mental status. The geriatric social work professor reported that the [facility] has accepted her. On interview, the patient reports no changes in her symptoms she still anxious. Mental Status Exam Mental Status Exam Patient Appearance: Appropriate Patient Orientation: Person and Situation Level of Consciousness: Awake Patient Behavior: Guarded and Cooperative Mood Description: Withdrawn Affect Description: Constricted Patient Cognition Impaired: No Ability to Follow Directions: Good Speech Pattern: Clear Hallucinations: None Delusions: Paranoid Ideation Thought Process: Linear and Slowed Thinking Thought Content: positive for [place] and positive for Poverty of Content Judgement: Fair Diagnostics Vital Signs (24Hr): Vital Signs - 24 hr 06/26/21 20:56 06/27/21 08:00 Temperature 99.4 F 98.7 F Pulse Rate 101 H 93 Respiratory Rate 17 16 Blood Pressure 100/62 Pulse Oximetry 98 98 BMI result Body Mass Index 22.6 Labs Results: 06/16/21 07:53 06/16/21 07:53 Imaging Radiology Impressions: ITS Impressions Head CT 05/17/21 06:05 IMPRESSION: No acute intracranial pathology. SPECT Scan-Brain NM 06/11/21 15:35 IMPRESSION: Diffusely decreased perfusion in the right frontal and parietal cerebral cortex is most consistent with a vascular etiology. Although such unilateral findings can be seen in Alzheimer's disease, this unilateral involvement would be atypical. Correlation with a current MRI of the brain is recommended for further evaluation, if not contraindicated. Medications Medications Current Medications Acetaminophen (Acetaminophen 325 Mg Tablet) 650 mg PO Q6H PRN PRN Reason: Headache/Pain Mild Scale (1-3) Last Admin: 05/03/21 19:30 Dose: 650 mg Documented by: Al Hydroxide/Mg Hydroxide (Magnesium Hydrox/Alum Hydrox 30 Ml Oral.Susp) 30 ml PO Q6H PRN PRN Reason: Heartburn/Nausea Benzocaine (Throat Lozenge, Medicated Lozenge) 1 lozenge MUCOUS MEM Q2H PRN PRN Reason: Sore Throat Last Admin: 06/14/21 21:40 Dose: 1 lozenge Documented by: Clonazepam (Clonazepam 0.5 Mg Tablet) 0.5 mg PO TID [facility] Last Admin: 06/27/21 08:54 Dose: 0.5 mg Documented by: Cyanocobalamin (Cyanocobalamin (Vitamin B-12) 100 Mcg Tablet) 100 mcg PO DAILY [facility] Last Admin: 06/27/21 08:55 Dose: 100 mcg Documented by: Ergocalciferol (Ergocalciferol (Vitamin D2) 1,250 Mcg Capsule) 1,250 mcg PO Q7D [facility] Last Admin: 06/21/21 20:06 Dose: Not Given Documented by: Loperamide HCl (Loperamide Hcl 2 Mg Capsule) 2 mg PO Q4H PRN PRN Reason: Diarrhea Last Admin: 06/04/21 00:37 Dose: 2 mg Documented by: Magnesium Hydroxide (Milk Of Magnesia 30 Ml Oral.Susp) 30 ml PO DAILY PRN PRN Reason: Constipation Last Admin: 05/25/21 00:47 Dose: 30 ml Documented by: Multivitamins/Vitamin C (Multivitamin Tablet) 1 tab PO DAILY [facility] Last Admin: 06/27/21 08:54 Dose: 1 tab Documented by: Paroxetine HCl (Paroxetine Hcl 40 Mg Tablet) 40 mg PO DAILY [facility] Last Admin: 06/27/21 08:54 Dose: 40 mg Documented by: Polyethylene Glycol (Polyethylene Glycol 3350 17 Gm Powd.Pack) 17 gm PO BID [facility] Last Admin: 06/27/21 09:08 Dose: Not Given Documented by: Risperidone (Risperidone 0.5 Mg Tablet) 0.5 mg PO BID@0800,1500 [facility] Last Admin: 06/27/21 08:54 Dose: 0.5 mg Documented by: Risperidone (Risperidone 1 Mg Tablet) 1 mg PO BEDTIME [facility] Last Admin: 06/26/21 20:11 Dose: 1 mg Documented by: Thiamine HCl (Thiamine Hcl 100 Mg Tablet) 100 mg PO DAILY [facility] Last Admin: 06/27/21 08:54 Dose: 100 mg Documented by: Trazodone HCl (Trazodone Hcl 25 Mg Halftab) 25 mg PO BEDTIME PRN PRN Reason: Insomnia Last Admin: 05/21/21 23:25 Dose: 25 mg Documented by: Allergies Allergies Allergy/AdvReac Type Severity Reaction Status Date / Time No Known Allergies Allergy Verified 05/02/21 13:17 Assessment & Plan Assessment & Plan (1) Sore throat: Status: Acute Code(s): J02.9 - Acute pharyngitis, unspecified (2) MDD (major depressive disorder), recurrent severe, without psychosis: Status: Acute Code(s): F33.2 - Major depressive disorder, recurrent severe without psychotic features Plan the patient is a 71-year-old female with a long history of anxiety and depression, OCD symptoms admitted into the facility for exacerbation of depression with thought blocking and the possibility of sell the dementia. She was already tested and so far, there is no evidence of dementia mostly depressive symptoms with thought process disorder, mostly thought blocking. She has already failed to Zyprexa so far she is doing much better with risperidone but her functionality still impaired. The patient has a very difficult time to take decisions and in general her ability to take care of herself is very limited. Plan 1. Continue same medications. Re-start Klonopin due to anxiety. 2. ECT was discussed with the patient, We had talk with her healthcare proxy And apparently they are reluctant to try ECT 3. . [facility] has accepted her, start discharge planning I spent minutes with the patient and/or on the patient floor today, greater than?50% of which was spent counseling/coordinating care. Reason for contiued inpatient stay Substantial Risk for: inability to function, rapid decompensation and med/psych decompensation
[2021-06-27 18:00] VITALS: BP 128/52; PULSE 85; RESP 16; TEMP 36.3; O2SAT 99
[2021-06-27] MEDS: risperiDONE 1 MG TABLET PO (20:54)
[2021-06-28 08:00] VITALS: BP 151/69; PULSE 99; RESP 14; TEMP 36.8; O2SAT 98
[2021-06-28] MEDS: clonazePAM 0.5 MG TABLET PO ×3 (09:12→21:34)
[2021-06-28] MEDS: risperiDONE 0.5 MG TABLET PO ×2 (09:12→15:00)
[2021-06-28] MEDS: Multivitamin TABLET 1 TAB PO (09:12)
[2021-06-28] MEDS: Thiamine HCL 100 MG TABLET PO (09:12)
[2021-06-28] MEDS: Cyanocobalamin (Vitamin B-12) 100 MCG TABLET PO (09:13)
[2021-06-28] MEDS: PARoxetine HCL 40 MG TABLET PO (09:13)
--- NOTE | 2021-06-28 15:08 | P.PNPSI_ITS ---
Subjective Subjective Date of Service: 06/28/21 Reason For Visit: generalized anxiety disorder major depressive diso Subjective Notes: Conditional Voluntary Interim History: The nursing staff reported the patient remains with OCD behaviors needs a lot of encouragement to take medications or to choose her diet. On interview, the patient denies new symptoms still unable to process information or take decisions. A front of her while a visited her and she has noticed that her level of cognition is not at baseline. At this moment, we will not do ECT sings the healthcare proxy does not want to do it. Mental Status Exam Mental Status Exam Patient Appearance: Well Grooomed Patient Orientation: Person Level of Consciousness: Awake Patient Behavior: Guarded, Passive and Suspicious Mood Description: Depressed Affect Description: Constricted Patient Cognition Impaired: No Ability to Follow Directions: Good Speech Pattern: Clear Memory Description: Intact Hallucinations: None Delusions: Paranoid Ideation Thought Process: Linear Thought Content: positive for Circumstantial Judgement: Fair Diagnostics Vital Signs (24Hr): Vital Signs - 24 hr 06/27/21 18:00 06/28/21 08:00 Temperature 97.4 F 98.2 F Pulse Rate 85 99 Respiratory Rate 16 14 Blood Pressure 128/52 L 151/69 H Pulse Oximetry 99 98 BMI result Body Mass Index 22.6 Labs Results: 06/16/21 07:53 06/16/21 07:53 Imaging Radiology Impressions: ITS Impressions Head CT 05/17/21 06:05 IMPRESSION: No acute intracranial pathology. SPECT Scan-Brain NM 06/11/21 15:35 IMPRESSION: Diffusely decreased perfusion in the right frontal and parietal cerebral cortex is most consistent with a vascular etiology. Although such unilateral findings can be seen in Alzheimer's disease, this unilateral involvement would be atypical. Correlation with a current MRI of the brain is recommended for further evaluation, if not contraindicated. Medications Medications Current Medications Acetaminophen (Acetaminophen 325 Mg Tablet) 650 mg PO Q6H PRN PRN Reason: Headache/Pain Mild Scale (1-3) Last Admin: 05/03/21 19:30 Dose: 650 mg Documented by: Al Hydroxide/Mg Hydroxide (Magnesium Hydrox/Alum Hydrox 30 Ml Oral.Susp) 30 ml PO Q6H PRN PRN Reason: Heartburn/Nausea Benzocaine (Throat Lozenge, Medicated Lozenge) 1 lozenge MUCOUS MEM Q2H PRN PRN Reason: Sore Throat Last Admin: 06/14/21 21:40 Dose: 1 lozenge Documented by: Clonazepam (Clonazepam 0.5 Mg Tablet) 0.5 mg PO TID [facility] Last Admin: 06/28/21 15:00 Dose: 0.5 mg Documented by: Cyanocobalamin (Cyanocobalamin (Vitamin B-12) 100 Mcg Tablet) 100 mcg PO DAILY [facility] Last Admin: 06/28/21 09:13 Dose: 100 mcg Documented by: Ergocalciferol (Ergocalciferol (Vitamin D2) 1,250 Mcg Capsule) 1,250 mcg PO Q7D [facility] Last Admin: 06/21/21 20:06 Dose: Not Given Documented by: Loperamide HCl (Loperamide Hcl 2 Mg Capsule) 2 mg PO Q4H PRN PRN Reason: Diarrhea Last Admin: 06/04/21 00:37 Dose: 2 mg Documented by: Magnesium Hydroxide (Milk Of Magnesia 30 Ml Oral.Susp) 30 ml PO DAILY PRN PRN Reason: Constipation Last Admin: 05/25/21 00:47 Dose: 30 ml Documented by: Multivitamins/Vitamin C (Multivitamin Tablet) 1 tab PO DAILY [facility] Last Admin: 06/28/21 09:12 Dose: 1 tab Documented by: Paroxetine HCl (Paroxetine Hcl 40 Mg Tablet) 40 mg PO DAILY [facility] Last Admin: 06/28/21 09:13 Dose: 40 mg Documented by: Polyethylene Glycol (Polyethylene Glycol 3350 17 Gm Powd.Pack) 17 gm PO BID [facility] Last Admin: 06/28/21 09:12 Dose: Not Given Documented by: Risperidone (Risperidone 0.5 Mg Tablet) 0.5 mg PO BID@0800,1500 [facility] Last Admin: 06/28/21 15:00 Dose: 0.5 mg Documented by: Risperidone (Risperidone 1 Mg Tablet) 1 mg PO BEDTIME [facility] Last Admin: 06/27/21 20:54 Dose: 1 mg Documented by: Thiamine HCl (Thiamine Hcl 100 Mg Tablet) 100 mg PO DAILY [facility] Last Admin: 06/28/21 09:12 Dose: 100 mg Documented by: Trazodone HCl (Trazodone Hcl 25 Mg Halftab) 25 mg PO BEDTIME PRN PRN Reason: Insomnia Last Admin: 05/21/21 23:25 Dose: 25 mg Documented by: Allergies Allergies Allergy/AdvReac Type Severity Reaction Status Date / Time No Known Allergies Allergy Verified 05/02/21 13:17 Assessment & Plan Assessment & Plan (1) Sore throat: Status: Acute Code(s): J02.9 - Acute pharyngitis, unspecified (2) MDD (major depressive disorder), recurrent severe, without psychosis: Status: Acute Code(s): F33.2 - Major depressive disorder, recurrent severe without psychotic features Plan the patient is a 71-year-old female with a long history of anxiety and depression, OCD symptoms admitted into the facility for exacerbation of depression with thought blocking and the possibility of sell the dementia. She was already tested and so far, there is no evidence of dementia mostly depressive symptoms with thought process disorder, mostly thought blocking. She has already failed to Zyprexa so far she is doing much better with risperidone but her functionality still impaired. The patient has a very difficult time to take decisions and in general her ability to take care of herself is very limited. Plan 1. Continue same medications. Re-start Klonopin due to anxiety. 2. ECT was discussed with the patient, We had talk with her healthcare proxy And apparently they are reluctant to try ECT 3. . [facility] accepted her, start discharge planning 4. COVID-19 test for placement I spent minutes with the patient and/or on the patient floor today, greater than?50% of which was spent counseling/coordinating care. Reason for contiued inpatient stay Substantial Risk for: inability to function, rapid decompensation and med/psych decompensation
--- NOTE | 2021-06-28 15:19 | HO.PSYCHPN ---
Subjective Subjective Date of Service: 06/30/21 Reason For Visit: generalized anxiety disorder major depressive diso Diagnostics Vital Signs (24Hr): Vital Signs - 24 hr 06/27/21 18:00 06/28/21 08:00 Temperature 97.4 F 98.2 F Pulse Rate 85 99 Respiratory Rate 16 14 Blood Pressure 128/52 L 151/69 H Pulse Oximetry 99 98 BMI result Body Mass Index 22.6 Labs Results: 06/16/21 07:53 06/16/21 07:53 Imaging Radiology Impressions: ITS Impressions Head CT 05/17/21 06:05 IMPRESSION: No acute intracranial pathology. SPECT Scan-Brain NM 06/11/21 15:35 IMPRESSION: Diffusely decreased perfusion in the right frontal and parietal cerebral cortex is most consistent with a vascular etiology. Although such unilateral findings can be seen in Alzheimer's disease, this unilateral involvement would be atypical. Correlation with a current MRI of the brain is recommended for further evaluation, if not contraindicated. Medications Medications Current Medications Acetaminophen (Acetaminophen 325 Mg Tablet) 650 mg PO Q6H PRN PRN Reason: Headache/Pain Mild Scale (1-3) Last Admin: 05/03/21 19:30 Dose: 650 mg Documented by: Al Hydroxide/Mg Hydroxide (Magnesium Hydrox/Alum Hydrox 30 Ml Oral.Susp) 30 ml PO Q6H PRN PRN Reason: Heartburn/Nausea Benzocaine (Throat Lozenge, Medicated Lozenge) 1 lozenge MUCOUS MEM Q2H PRN PRN Reason: Sore Throat Last Admin: 06/14/21 21:40 Dose: 1 lozenge Documented by: Clonazepam (Clonazepam 0.5 Mg Tablet) 0.5 mg PO TID [facility] Last Admin: 06/28/21 15:00 Dose: 0.5 mg Documented by: Cyanocobalamin (Cyanocobalamin (Vitamin B-12) 100 Mcg Tablet) 100 mcg PO DAILY [facility] Last Admin: 06/28/21 09:13 Dose: 100 mcg Documented by: Ergocalciferol (Ergocalciferol (Vitamin D2) 1,250 Mcg Capsule) 1,250 mcg PO Q7D [facility] Last Admin: 06/21/21 20:06 Dose: Not Given Documented by: Loperamide HCl (Loperamide Hcl 2 Mg Capsule) 2 mg PO Q4H PRN PRN Reason: Diarrhea Last Admin: 06/04/21 00:37 Dose: 2 mg Documented by: Magnesium Hydroxide (Milk Of Magnesia 30 Ml Oral.Susp) 30 ml PO DAILY PRN PRN Reason: Constipation Last Admin: 05/25/21 00:47 Dose: 30 ml Documented by: Multivitamins/Vitamin C (Multivitamin Tablet) 1 tab PO DAILY [facility] Last Admin: 06/28/21 09:12 Dose: 1 tab Documented by: Paroxetine HCl (Paroxetine Hcl 40 Mg Tablet) 40 mg PO DAILY [facility] Last Admin: 06/28/21 09:13 Dose: 40 mg Documented by: Polyethylene Glycol (Polyethylene Glycol 3350 17 Gm Powd.Pack) 17 gm PO BID [facility] Last Admin: 06/28/21 09:12 Dose: Not Given Documented by: Risperidone (Risperidone 0.5 Mg Tablet) 0.5 mg PO BID@0800,1500 [facility] Last Admin: 06/28/21 15:00 Dose: 0.5 mg Documented by: Risperidone (Risperidone 1 Mg Tablet) 1 mg PO BEDTIME [facility] Last Admin: 06/27/21 20:54 Dose: 1 mg Documented by: Thiamine HCl (Thiamine Hcl 100 Mg Tablet) 100 mg PO DAILY [facility] Last Admin: 06/28/21 09:12 Dose: 100 mg Documented by: Trazodone HCl (Trazodone Hcl 25 Mg Halftab) 25 mg PO BEDTIME PRN PRN Reason: Insomnia Last Admin: 05/21/21 23:25 Dose: 25 mg Documented by: Allergies Allergies Allergy/AdvReac Type Severity Reaction Status Date / Time No Known Allergies Allergy Verified 05/02/21 13:17 Assessment & Plan Assessment & Plan (1) Sore throat: Status: Acute Code(s): J02.9 - Acute pharyngitis, unspecified (2) MDD (major depressive disorder), recurrent severe, without psychosis: Status: Acute Code(s): F33.2 - Major depressive disorder, recurrent severe without psychotic features Plan the patient is a 71-year-old female with a long history of anxiety and depression, OCD symptoms admitted into the facility for exacerbation of depression with thought blocking and the possibility of sell the dementia. She was already tested and so far, there is no evidence of dementia mostly depressive symptoms with thought process disorder, mostly thought blocking. She has already failed to Zyprexa so far she is doing much better with risperidone but her functionality still impaired. The patient has a very difficult time to take decisions and in general her ability to take care of herself is very limited. Plan 1. Continue same medications. Re-start Klonopin due to anxiety. 2. ECT was discussed with the patient, We had talk with her healthcare proxy And apparently they are reluctant to try ECT 3. . [facility] has accepted her, start discharge planning 4. COVID-19 test for placement I spent minutes with the patient and/or on the patient floor today, greater than?50% of which was spent counseling/coordinating care.
[2021-06-28 16:31] LABS: COVID-19 Test Negative (Negative); IDNOW Serial# 16C4AD1C
[2021-06-28] MEDS: risperiDONE 1 MG TABLET PO (21:34)
[2021-06-29 06:00] VITALS: BP 117/58; PULSE 96; RESP 18; TEMP 36.4; O2SAT 98
[2021-06-29] MEDS: PARoxetine HCL 40 MG TABLET PO (09:31)
[2021-06-29] MEDS: Thiamine HCL 100 MG TABLET PO (09:31)
[2021-06-29] MEDS: Multivitamin TABLET 1 TAB PO (09:31)
[2021-06-29] MEDS: Cyanocobalamin (Vitamin B-12) 100 MCG TABLET PO (09:32)
[2021-06-29] MEDS: clonazePAM 0.5 MG TABLET PO ×3 (10:45→20:33)
[2021-06-29] MEDS: risperiDONE 0.5 MG TABLET PO ×2 (10:45→14:56)
--- NOTE | 2021-06-29 15:18 | HO.PSYCHPN ---
Subjective Subjective Date of Service: 06/29/21 Reason For Visit: generalized anxiety disorder major depressive diso Subjective Notes: Conditional Voluntary Interim History: The nursing staff reports the patient still perseverative and confused at times. The addiction social worker reported the patient has been accepted to assisted living facility and she will be discharged on Friday at 13:00. On interview the patient still complains of feeling unable to take decisions by herself. Mental Status Exam Mental Status Exam Patient Appearance: Appropriate Patient Orientation: Person and Situation Level of Consciousness: Awake Patient Behavior: Guarded, Cooperative and Suspicious Mood Description: Depressed Affect Description: Constricted Patient Cognition Impaired: No Ability to Follow Directions: Fair Speech Pattern: Clear Memory Description: Intact Hallucinations: None Delusions: Paranoid Ideation Thought Process: Evasive Thought Content: positive for Poverty of Content Judgement: Fair Diagnostics Vital Signs (24Hr): Vital Signs - 24 hr 06/29/21 06:00 Temperature 97.6 F Pulse Rate 96 Respiratory Rate 18 Blood Pressure 117/58 L Pulse Oximetry 98 BMI result Body Mass Index 22.6 Labs Results: 06/16/21 07:53 06/16/21 07:53 Labs: Laboratory Results - last 48 hr 06/28/21 15:51 COVID-19 ([facility]) Negative COVID-19 Clin Com See Note Imaging Radiology Impressions: ITS Impressions Head CT 05/17/21 06:05 IMPRESSION: No acute intracranial pathology. SPECT Scan-Brain NM 06/11/21 15:35 IMPRESSION: Diffusely decreased perfusion in the right frontal and parietal cerebral cortex is most consistent with a vascular etiology. Although such unilateral findings can be seen in Alzheimer's disease, this unilateral involvement would be atypical. Correlation with a current MRI of the brain is recommended for further evaluation, if not contraindicated. Medications Medications Current Medications Acetaminophen (Acetaminophen 325 Mg Tablet) 650 mg PO Q6H PRN PRN Reason: Headache/Pain Mild Scale (1-3) Last Admin: 05/03/21 19:30 Dose: 650 mg Documented by: Al Hydroxide/Mg Hydroxide (Magnesium Hydrox/Alum Hydrox 30 Ml Oral.Susp) 30 ml PO Q6H PRN PRN Reason: Heartburn/Nausea Benzocaine (Throat Lozenge, Medicated Lozenge) 1 lozenge MUCOUS MEM Q2H PRN PRN Reason: Sore Throat Last Admin: 06/14/21 21:40 Dose: 1 lozenge Documented by: Clonazepam (Clonazepam 0.5 Mg Tablet) 0.5 mg PO TID [facility] Last Admin: 06/29/21 14:56 Dose: 0.5 mg Documented by: Cyanocobalamin (Cyanocobalamin (Vitamin B-12) 100 Mcg Tablet) 100 mcg PO DAILY [facility] Last Admin: 06/29/21 09:32 Dose: 100 mcg Documented by: Ergocalciferol (Ergocalciferol (Vitamin D2) 1,250 Mcg Capsule) 1,250 mcg PO Q7D [facility] Last Admin: 06/29/21 10:46 Dose: Not Given Documented by: Loperamide HCl (Loperamide Hcl 2 Mg Capsule) 2 mg PO Q4H PRN PRN Reason: Diarrhea Last Admin: 06/04/21 00:37 Dose: 2 mg Documented by: Magnesium Hydroxide (Milk Of Magnesia 30 Ml Oral.Susp) 30 ml PO DAILY PRN PRN Reason: Constipation Last Admin: 05/25/21 00:47 Dose: 30 ml Documented by: Multivitamins/Vitamin C (Multivitamin Tablet) 1 tab PO DAILY [facility] Last Admin: 06/29/21 09:31 Dose: 1 tab Documented by: Paroxetine HCl (Paroxetine Hcl 40 Mg Tablet) 40 mg PO DAILY [facility] Last Admin: 06/29/21 09:31 Dose: 40 mg Documented by: Polyethylene Glycol (Polyethylene Glycol 3350 17 Gm Powd.Pack) 17 gm PO BID [facility] Last Admin: 06/29/21 10:45 Dose: Not Given Documented by: Risperidone (Risperidone 0.5 Mg Tablet) 0.5 mg PO BID@0800,1500 [facility] Last Admin: 06/29/21 14:56 Dose: 0.5 mg Documented by: Risperidone (Risperidone 1 Mg Tablet) 1 mg PO BEDTIME [facility] Last Admin: 06/28/21 21:34 Dose: 1 mg Documented by: Thiamine HCl (Thiamine Hcl 100 Mg Tablet) 100 mg PO DAILY [facility] Last Admin: 06/29/21 09:31 Dose: 100 mg Documented by: Trazodone HCl (Trazodone Hcl 25 Mg Halftab) 25 mg PO BEDTIME PRN PRN Reason: Insomnia Last Admin: 05/21/21 23:25 Dose: 25 mg Documented by: Allergies Allergies Allergy/AdvReac Type Severity Reaction Status Date / Time No Known Allergies Allergy Verified 05/02/21 13:17 Assessment & Plan Assessment & Plan (1) Sore throat: Status: Acute Code(s): J02.9 - Acute pharyngitis, unspecified (2) MDD (major depressive disorder), recurrent severe, without psychosis: Status: Acute Code(s): F33.2 - Major depressive disorder, recurrent severe without psychotic features Plan the patient is a 71-year-old female with a long history of anxiety and depression, OCD symptoms admitted into the facility for exacerbation of depression with thought blocking and the possibility of sell the dementia. She was already tested and so far, there is no evidence of dementia mostly depressive symptoms with thought process disorder, mostly thought blocking. She has already failed to Zyprexa so far she is doing much better with risperidone but her functionality still impaired. The patient has a very difficult time to take decisions and in general her ability to take care of herself is very limited. Plan 1. Continue same medications. Re-start Klonopin due to anxiety. 2. ECT was discussed with the patient, We had talk with her healthcare proxy And apparently they are reluctant to try ECT 3. . [facility] has accepted her, start discharge planning 4. COVID-19 test for placement test to be done on Friday I spent minutes with the patient and/or on the patient floor today, greater than?50% of which was spent counseling/coordinating care. Reason for contiued inpatient stay Substantial Risk for: inability to function, rapid decompensation and med/psych decompensation
[2021-06-29 19:30] VITALS: BP 115/58; PULSE 94; RESP 18; TEMP 36.6; O2SAT 98
[2021-06-29] MEDS: risperiDONE 1 MG TABLET PO (20:33)
--- NOTE | 2021-06-30 02:10 | PC.NURSE ---
Pt leonor saying i DONT WANT TO GO TO ASSISTED LIVING, i CANT TAKE CARE OF MYSELF. i WANT TO GO TO A [facility]
[2021-06-30 07:55] VITALS: BP 120/60; PULSE 92; RESP 18; TEMP 36.9; O2SAT 99
[2021-06-30] MEDS: Cyanocobalamin (Vitamin B-12) 100 MCG TABLET PO (09:16)
[2021-06-30] MEDS: clonazePAM 0.5 MG TABLET PO ×3 (09:16→20:07)
[2021-06-30] MEDS: PARoxetine HCL 40 MG TABLET PO (09:16)
[2021-06-30] MEDS: Thiamine HCL 100 MG TABLET PO (09:16)
[2021-06-30] MEDS: risperiDONE 0.5 MG TABLET PO ×2 (09:17→14:58)
[2021-06-30] MEDS: Multivitamin TABLET 1 TAB PO (09:17)
--- NOTE | 2021-06-30 09:19 | P.PNPSI_ITS ---
Subjective Subjective Date of Service: 06/30/21 Reason For Visit: yehuda depression with psychosis Subjective Notes: Conditional Voluntary Healthcare Proxy: Yes Interim History: pt remains severely depressed anxious ruminating had discussion regarding ect as possible tx with pt and HCP Mental Status Exam Mental Status Exam Patient Appearance: Appropriate Patient Orientation: Person and Situation Level of Consciousness: Awake Patient Behavior: Guarded, Suspicious and Anxious Mood Description: Depressed Affect Description: Constricted Patient Cognition Impaired: No Ability to Follow Directions: Fair Speech Pattern: Clear Hallucinations: None Delusions: Paranoid Ideation Thought Process: Evasive Thought Content: positive for Obsessional Thoughts, positive for Circumstantial, positive for Poverty of Content and positive for Preoccupation Depressive Symptoms: Increased Anxiety and Hopelessness Judgement: Fair Judgement and Insight: pt suspicious and paranoid Diagnostics Vital Signs (24Hr): Vital Signs - 24 hr 06/29/21 19:30 Temperature 97.8 F Pulse Rate 94 Respiratory Rate 18 Blood Pressure 115/58 L Pulse Oximetry 98 BMI result Body Mass Index 22.6 Labs Results: 06/16/21 07:53 06/16/21 07:53 Labs: Laboratory Results - last 48 hr 06/28/21 15:51 COVID-19 ([facility]) Negative COVID-19 Clin Com See Note Imaging Radiology Impressions: ITS Impressions Head CT 05/17/21 06:05 IMPRESSION: No acute intracranial pathology. SPECT Scan-Brain NM 06/11/21 15:35 IMPRESSION: Diffusely decreased perfusion in the right frontal and parietal cerebral cortex is most consistent with a vascular etiology. Although such unilateral findings can be seen in Alzheimer's disease, this unilateral involvement would be atypical. Correlation with a current MRI of the brain is recommended for further evaluation, if not contraindicated. Medications Medications Current Medications Acetaminophen (Acetaminophen 325 Mg Tablet) 650 mg PO Q6H PRN PRN Reason: Headache/Pain Mild Scale (1-3) Last Admin: 05/03/21 19:30 Dose: 650 mg Documented by: Al Hydroxide/Mg Hydroxide (Magnesium Hydrox/Alum Hydrox 30 Ml Oral.Susp) 30 ml PO Q6H PRN PRN Reason: Heartburn/Nausea Benzocaine (Throat Lozenge, Medicated Lozenge) 1 lozenge MUCOUS MEM Q2H PRN PRN Reason: Sore Throat Last Admin: 06/14/21 21:40 Dose: 1 lozenge Documented by: Clonazepam (Clonazepam 0.5 Mg Tablet) 0.5 mg PO TID [facility] Last Admin: 06/29/21 20:33 Dose: 0.5 mg Documented by: Cyanocobalamin (Cyanocobalamin (Vitamin B-12) 100 Mcg Tablet) 100 mcg PO DAILY [facility] Last Admin: 06/29/21 09:32 Dose: 100 mcg Documented by: Ergocalciferol (Ergocalciferol (Vitamin D2) 1,250 Mcg Capsule) 1,250 mcg PO Q7D [facility] Last Admin: 06/29/21 10:46 Dose: Not Given Documented by: Loperamide HCl (Loperamide Hcl 2 Mg Capsule) 2 mg PO Q4H PRN PRN Reason: Diarrhea Last Admin: 06/04/21 00:37 Dose: 2 mg Documented by: Magnesium Hydroxide (Milk Of Magnesia 30 Ml Oral.Susp) 30 ml PO DAILY PRN PRN Reason: Constipation Last Admin: 05/25/21 00:47 Dose: 30 ml Documented by: Multivitamins/Vitamin C (Multivitamin Tablet) 1 tab PO DAILY [facility] Last Admin: 06/29/21 09:31 Dose: 1 tab Documented by: Paroxetine HCl (Paroxetine Hcl 40 Mg Tablet) 40 mg PO DAILY [facility] Last Admin: 06/29/21 09:31 Dose: 40 mg Documented by: Polyethylene Glycol (Polyethylene Glycol 3350 17 Gm Powd.Pack) 17 gm PO BID [facility] Last Admin: 06/29/21 20:49 Dose: Not Given Documented by: Risperidone (Risperidone 0.5 Mg Tablet) 0.5 mg PO BID@0800,1500 [facility] Last Admin: 06/29/21 14:56 Dose: 0.5 mg Documented by: Risperidone (Risperidone 1 Mg Tablet) 1 mg PO BEDTIME [facility] Last Admin: 06/29/21 20:33 Dose: 1 mg Documented by: Thiamine HCl (Thiamine Hcl 100 Mg Tablet) 100 mg PO DAILY [facility] Last Admin: 06/29/21 09:31 Dose: 100 mg Documented by: Trazodone HCl (Trazodone Hcl 25 Mg Halftab) 25 mg PO BEDTIME PRN PRN Reason: Insomnia Last Admin: 05/21/21 23:25 Dose: 25 mg Documented by: Allergies Allergies Allergy/AdvReac Type Severity Reaction Status Date / Time No Known Allergies Allergy Verified 05/02/21 13:17 Assessment & Plan Assessment & Plan (1) Sore throat: Status: Acute Code(s): J02.9 - Acute pharyngitis, unspecified (2) MDD (major depressive disorder), recurrent severe, without psychosis: Status: Acute Code(s): F33.2 - Major depressive disorder, recurrent severe without psychotic features Assessment and Plan: still encourage ect scheduled for d/c discussed can also do if d/c plans do not work out ? dementia vs pseudodementia ? frontal lobe disease hx ocd I spent minutes with the patient and/or on the patient floor today, greater than?50% of which was spent counseling/coordinating care. Reason for contiued inpatient stay Substantial Risk for: inability to function, rapid decompensation and med/psych decompensation
[2021-06-30] MEDS: risperiDONE 1 MG TABLET PO (20:07)
[2021-06-30 20:11] VITALS: BP 107/70; PULSE 100; RESP 18; TEMP 36.5; O2SAT 99
[2021-07-01 07:45] VITALS: BP 141/68; PULSE 102; RESP 20; TEMP 36.3; O2SAT 98
[2021-07-01] MEDS: Thiamine HCL 100 MG TABLET PO (09:09)
[2021-07-01] MEDS: risperiDONE 0.5 MG TABLET PO ×2 (09:09→13:53)
[2021-07-01] MEDS: Multivitamin TABLET 1 TAB PO (09:09)
[2021-07-01] MEDS: Cyanocobalamin (Vitamin B-12) 100 MCG TABLET PO (09:09)
[2021-07-01] MEDS: clonazePAM 0.5 MG TABLET PO ×2 (09:10→13:54)
[2021-07-01] MEDS: PARoxetine HCL 40 MG TABLET PO (09:10)
--- NOTE | 2021-07-01 19:46 | HO.PSYCHPN ---
Subjective Subjective Date of Service: 07/01/21 Reason For Visit: yehuda depression with psychosis Subjective Notes: Conditional Voluntary Healthcare Proxy: Yes Interim History: Patient continues to be anxious wondering and ruminating. She is scheduled for discharge tomorrow Medication Compliance: Yes Attending Groups: No Review of Systems Medical Review of Systems: unchanged Mental Status Exam Mental Status Exam Patient Appearance: Appropriate Patient Orientation: Person and Situation Level of Consciousness: Awake Patient Behavior: Guarded, Suspicious and Anxious Mood Description: Depressed Affect Description: Constricted Patient Cognition Impaired: No Ability to Follow Directions: Fair Speech Pattern: Clear Hallucinations: None Delusions: Paranoid Ideation Thought Process: Evasive Thought Content: positive for Obsessional Thoughts, positive for Circumstantial, positive for Poverty of Content and positive for Preoccupation Depressive Symptoms: Increased Anxiety and Hopelessness Judgement: Fair Judgement and Insight: pt suspicious and paranoid Diagnostics Vital Signs (24Hr): Vital Signs - 24 hr 06/30/21 20:11 07/01/21 07:45 Temperature 97.7 F 97.4 F Pulse Rate 100 102 H Respiratory Rate 18 20 Blood Pressure 107/70 141/68 H Pulse Oximetry 99 98 BMI result Body Mass Index 22.6 Labs Results: 06/16/21 07:53 06/16/21 07:53 Imaging Radiology Impressions: ITS Impressions Head CT 05/17/21 06:05 IMPRESSION: No acute intracranial pathology. SPECT Scan-Brain NM 06/11/21 15:35 IMPRESSION: Diffusely decreased perfusion in the right frontal and parietal cerebral cortex is most consistent with a vascular etiology. Although such unilateral findings can be seen in Alzheimer's disease, this unilateral involvement would be atypical. Correlation with a current MRI of the brain is recommended for further evaluation, if not contraindicated. Medications Medications Current Medications Acetaminophen (Acetaminophen 325 Mg Tablet) 650 mg PO Q6H PRN PRN Reason: Headache/Pain Mild Scale (1-3) Last Admin: 05/03/21 19:30 Dose: 650 mg Documented by: Al Hydroxide/Mg Hydroxide (Magnesium Hydrox/Alum Hydrox 30 Ml Oral.Susp) 30 ml PO Q6H PRN PRN Reason: Heartburn/Nausea Benzocaine (Throat Lozenge, Medicated Lozenge) 1 lozenge MUCOUS MEM Q2H PRN PRN Reason: Sore Throat Last Admin: 06/14/21 21:40 Dose: 1 lozenge Documented by: Cyanocobalamin (Cyanocobalamin (Vitamin B-12) 100 Mcg Tablet) 100 mcg PO DAILY [facility] Last Admin: 07/01/21 09:09 Dose: 100 mcg Documented by: Ergocalciferol (Ergocalciferol (Vitamin D2) 1,250 Mcg Capsule) 1,250 mcg PO Q7D [facility] Last Admin: 06/29/21 10:46 Dose: Not Given Documented by: Loperamide HCl (Loperamide Hcl 2 Mg Capsule) 2 mg PO Q4H PRN PRN Reason: Diarrhea Last Admin: 06/04/21 00:37 Dose: 2 mg Documented by: Magnesium Hydroxide (Milk Of Magnesia 30 Ml Oral.Susp) 30 ml PO DAILY PRN PRN Reason: Constipation Last Admin: 05/25/21 00:47 Dose: 30 ml Documented by: Multivitamins/Vitamin C (Multivitamin Tablet) 1 tab PO DAILY [facility] Last Admin: 07/01/21 09:09 Dose: 1 tab Documented by: Paroxetine HCl (Paroxetine Hcl 40 Mg Tablet) 40 mg PO DAILY [facility] Last Admin: 07/01/21 09:10 Dose: 40 mg Documented by: Polyethylene Glycol (Polyethylene Glycol 3350 17 Gm Powd.Pack) 17 gm PO BID [facility] Last Admin: 07/01/21 09:15 Dose: Not Given Documented by: Risperidone (Risperidone 0.5 Mg Tablet) 0.5 mg PO BID@0800,1500 [facility] Last Admin: 07/01/21 13:53 Dose: 0.5 mg Documented by: Risperidone (Risperidone 1 Mg Tablet) 1 mg PO BEDTIME [facility] Last Admin: 06/30/21 20:07 Dose: 1 mg Documented by: Thiamine HCl (Thiamine Hcl 100 Mg Tablet) 100 mg PO DAILY [facility] Last Admin: 07/01/21 09:09 Dose: 100 mg Documented by: Trazodone HCl (Trazodone Hcl 25 Mg Halftab) 25 mg PO BEDTIME PRN PRN Reason: Insomnia Last Admin: 05/21/21 23:25 Dose: 25 mg Documented by: Allergies Allergies Allergy/AdvReac Type Severity Reaction Status Date / Time No Known Allergies Allergy Verified 05/02/21 13:17 Assessment & Plan Assessment & Plan (1) Sore throat: Status: Acute Code(s): J02.9 - Acute pharyngitis, unspecified (2) MDD (major depressive disorder), recurrent severe, without psychosis: Status: Acute Code(s): F33.2 - Major depressive disorder, recurrent severe without psychotic features Assessment and Plan: still encourage ect scheduled for d/c discussed can also do if d/c plans do not work out ? dementia vs pseudodementia ? frontal lobe disease hx ocd Patient's healthcare proxy which is a firm will not this point give consent for ECT patient continues with severe anxiety rumination he needs much reassurance if rehospitalized with strongly suggest trial of ECT can help even in her dementia condition executive function is quite impaired I spent _15 minutes with the patient and/or on the patient floor today, greater than?50% of which was spent counseling/coordinating care. Patient educated on: ECT Informed Consent: does not understand Reason for contiued inpatient stay Substantial Risk for: rapid decompensation
[2021-07-01] MEDS: risperiDONE 1 MG TABLET PO (20:47)
[2021-07-01 21:21] VITALS: BP 157/70; PULSE 102; RESP 18; TEMP 37.1; O2SAT 98
[2021-07-02 08:00] VITALS: BP 158/69; PULSE 105; RESP 20; TEMP 36.9; O2SAT 97
[2021-07-02 08:55] LABS: COVID-19 Test Negative (Negative)
[2021-07-02] MEDS: PARoxetine HCL 40 MG TABLET PO (09:48)
[2021-07-02] MEDS: Thiamine HCL 100 MG TABLET PO (09:48)
[2021-07-02] MEDS: risperiDONE 0.5 MG TABLET PO (09:49)
[2021-07-02] MEDS: Multivitamin TABLET 1 TAB PO (09:49)
[2021-07-02] MEDS: Cyanocobalamin (Vitamin B-12) 100 MCG TABLET PO (09:49)
--- NOTE | 2021-07-02 10:15 | P.DS_ITS ---
DS: Providers Provider Date of Service: 07/02/21 Date of admission: 05/02/21 13:56 Date of discharge: 07/02/21 Primary care physician: Bong Brannon MD Consults: 06/15/21 10:58 Consult to Hospitalist Routine Consulting Provider: Hospitalist Reason For Exam: R/O bacterial faringitis 06/15/21 11:58 Consult to Hospitalist Stat Consulting Provider: Hospitalist Reason For Exam: sore throat, swollen lymph nodes, malaise Attending physician on discharge: Francisco Rosas DS: Diagnosis Discharge Diagnosis (1) Sore throat: Status: Acute (2) MDD (major depressive disorder), recurrent severe, without psychosis: Status: Acute DS: Medications Discharge Medications Home Medications: Home Medications Medication Instructions Recorded Confirmed No Known Home Meds 05/09/21 05/09/21 Mental Status Exam Mental Status Exam Patient Appearance: Appropriate Patient Orientation: Person and Situation Level of Consciousness: Awake Patient Behavior: Guarded, Passive and Suspicious Mood Description: Depressed Affect Description: Constricted Patient Cognition Impaired: No Ability to Follow Directions: Good Speech Pattern: Clear Hallucinations: None Delusions: Not Present Thought Process: Linear Thought Content: positive for Perseveration and positive for Poverty of Content Judgement: Fair Data Data Completed and Pending Completed studies during hospitalization [Text1]: 06/28/21 07/02/21 15:51 08:30 COVID-19 (JABARI) Negative Negative COVID-19 Clin Com See Note See Note 06/15/21 14:03 Throat Throat Culture - Final Imaging Diagnostic Imaging Impressions Head CT 05/17/21 06:05 IMPRESSION: No acute intracranial pathology. SPECT Scan-Brain NM 06/11/21 15:35 IMPRESSION: Diffusely decreased perfusion in the right frontal and parietal cerebral cortex is most consistent with a vascular etiology. Although such unilateral findings can be seen in Alzheimer's disease, this unilateral involvement would be atypical. Correlation with a current MRI of the brain is recommended for further evaluation, if not contraindicated. DS: Summary Hospital Course Hospital Course: The patient was admitted into the hospital for depressive symptoms. Please see the HPI of the admission note for further details. The patient was initially admitted at another unit and transfer to this unit for a better placement. On admission, the question was if she had since the dementia due to depression or dementia. We start the titration of Paxil up to 40 mg p.o. q.a.m. to target depression and anxiety and since the patient presented with paranoia, Risperdal was titrated up to 1 mg p.o. t.i.d. with some improvement. We also added Klonopin up to 0.5 mg p.o. t.i.d. to target her anxiety. The patient had several [place] test and she consistently scored over 27. The main problem of the patient is that she has, is the severe frontal lobe and executive function delayed, she cannot take a decision, his she has slow thinking but in general, her functionality is okay with cues and some help for her ADLs. Her outpatient psychiatrist admitted her to have ECT. We have several times discussions with her regarding her ECT. Since the patient could not taking informed decisions in a timely manner, we decided to invoke her healthcare proxy. Her healthcare proxy was informed at lenght of the risk and benefits of ECT but eventually they refuse to have this procedure. Since the functionality of the patient decline to the point that she needed constant cues and reminders, the transferred to an assisted living facility was discussed and they agreed on the plan. At this moment, the patient is impaired but safe in the community. If she gets readmitted, she needs to have ECT. Time spent discussing smoking cessation with patient: 3 to 10 minutes Status at Discharge Functional status at discharge: independent ambulation Overall status at discharge: patient is back to baseline Time Spent with Patient Time attestation: Total time spent providing and/or coordinating discharge services: Time spent: Less than 30 minutes Discharge Plan Discharge Patient Disposition: Xfer Other Discharge Diagnosis: Major depressive disorder recurrent episode severe with psychotic features. Obsessive-compulsive disorder Referrals: [facility] [Other] - 07/31/21 3:00 pm (Appointment scheduled with Chuy Burris for Saturday July 31, 2021 @ 3 PM via Telehealth) Bong Brannon MD [Primary Care Provider] - 1 Week Discharge Medications: New paroxetine HCl 40 mg Tablet 40 mg PO DAILY 30 Days Qty: 30 0RF risperidone 0.5 mg Tablet 0.5 mg PO BID@0800,1500 30 Days Qty: 60 0RF risperidone 1 mg Tablet 1 mg PO BEDTIME 30 Days Qty: 30 0RF cyanocobalamin (vitamin B-12) [Vitamin B-12] 100 mcg Tablet 100 mcg PO DAILY 30 Days Qty: 30 0RF Cepacol Sore Throat (gino-men) 15-3.6 mg Lozenge 1 michelle mucous membrane Q2H PRN (Reason: Sore Throat) 30 Days 0RF ergocalciferol (vitamin D2) [Vitamin D2] 1,250 mcg (50,000 unit) Capsule 1,250 mcg PO Q7D 30 Days Qty: 5 0RF multivitamin [Daily-Jesica] Tablet 1 tab PO DAILY 30 Days Qty: 30 0RF thiamine mononitrate (vit B1) 100 mg Tablet 100 mg PO DAILY 30 Days Qty: 30 0RF Discharge Orders: Discharge Order (Routine); Ordered 07/02/21 Ordered By: Francisco Rosas Diet: advance to usual diet Activity on Discharge: As tolerated Stand Alone Forms: Patient Portal Discharge page Care Plan Goals: Care Plan goals worked while in the unit Health Concerns: Stable, follow as an outpatient Plan of Treatment: Continue medication management Assessment: Elderly female with a long history of GED and MDD, admitted for exacerbation of symptoms with some cognitive impairment. At this moment safe in the community
--- NOTE | 2021-07-02 14:33 | PC.NURSE ---
Patient alert and oriented x2. Patient lacks insight to situation. Patient unable to comprehend and process information due to worsening anxiety and limited cognition. Patient compliant w/meds, meals and care. Patient ambulating independently. Patient aware of discharge to [facility] today. Patient was transported via stretcher by EMT to [facility]. This RN called facility at about 12:45 for a nurse to nurse report but no one available to receive report. Facility was requested to call [facility] [place] for report and /or questions. Discharge documentation handed to EMT.
== END 2021-07-02 13:25 | disposition other institution (70) | DRG 885 ==
LOC: HO.PM5 05-09 08:10 → HO.PGERI 05-11 11:48
PROVIDERS: Internal Medicine; Psychiatry & Neurology Psychiatry; Admitting Provider Psychiatry & Neurology Psychiatry; PCP Internal Medicine; Visit Provider Psychiatry & Neurology Psychiatry
DX: F33.2 Major depressive disorder, recurrent severe without psychotic features (principal); F41.1 Generalized anxiety disorder; F42.9 Obsessive-compulsive disorder, unspecified; J02.9 Acute pharyngitis, unspecified; Z20.822 Contact with and (suspected) exposure to COVID-19; Z79.899 Other long term (current) drug therapy
CPT/HCPCS: 36415; 70450; 78803; 80048; 80061; 80076; 82140; 82310; 82607; 82746; 83036; 84443; 85025; 87635; 87651; 93005; A9557